=== PATIENT | male | born 1950 | race Caucasian/White ===

== ENCOUNTER → 2018-10-23 12:44 | Outpatient (CLI) | payer MEDICARE, SELFPAY ==
--- NOTE | 2018-10-23 13:00 | RAD_ITS ---
STUDY: SWALLOWING STUDY REASON FOR EXAM: Male, 68 years old. Dysphagia. TECHNIQUE: The examination was performed with Speech Pathology in attendance. Under fluoroscopic observation, the patient ingested thin barium, thick barium, barium pudding, and barium coated cracker. FLUOROSCOPY TIME: 1:17 minutes/seconds. 1202 images were obtained. RADIOLOGIST INVOLVEMENT: Radiologist was present and providing direct supervision. COMPARISON: None. FINDINGS: The following was observed during swallowing of the various mixtures of barium: Thin Barium: There was no evidence of aspiration or laryngeal penetration. Barium Pudding: There was no evidence of aspiration or laryngeal penetration. Barium Coated Cracker: There was no evidence of aspiration or laryngeal penetration. RAD/Swallowing Function w/Video IMPRESSION: Normal tailored barium swallow study. No evidence of increased risk for aspiration. The swallow study findings were discussed with the patient by the speech pathologist at the conclusion of the examination. Please see speech pathology report for more information and recommendations. Electronically Signed: Anam Washington, at 13:31 EDT , Service support ,
--- NOTE | 2018-10-23 13:57 | SP.MBSS_ITS ---
PRIMARY / SECONDARY DIAGNOSIS: Dysphagia (R13.12) REFERRING PHYSICIAN: Dr. Solis Gross CURRENT DIET: Regular Textures/Thin Liquids DENTITION: Upper and lower dentures MENTAL STATUS: WFL RESPIRATORY STATUS: O2 via room air PREVIOUS MODIFIED BARIUM SWALLOW STUDY: N/A REASON FOR REFERRAL: pain with swallowing along with globus sensation MEDICAL HISTORY: GERD, hiatal hernia, diverticulosis, COPD, arthritis, DM2, hyperlipidemia. STUDY FINDINGS: Patient participated in a Modified Barium Swallow (MBS) study on 10/23/2018. Dr. Washington was the radiologist present for this evaluation. This study was recorded in the lateral view and images were sent to PACs for storage. The following consistencies were presented to this patient for analysis of oropharyngeal swallow function: thin liquid, pudding, and a regular textured, Sabina Doone cookie. Results of the MBS are as follows: PENETRATION / ASPIRATION SCALE (ALVAREZ): 1 = does not enter airway 2 = enters airway/above vocal folds/ejected 3 = enters airway/above vocal folds/not ejected 4 = enters airway/contacts vocal folds/ejected 5 = enters airway/contacts vocal folds/not ejected 6 = enters airway/below vocal folds/ejected 7 = enters airway/below vocal folds/not ejected despite effort 8 = enters airway/below vocal folds/no effort PENETRATION / ASPIRATION SCALE (SCORE): 1) thin liquid via tsp= 8 2) thin liquid via tsp= 1 3) thin liquid via single sip small from cup= 2 4) thin liquid via single large from cup= 2 5) thin liquid via sequential sips from cup= 5 6) thin liquid via straw= 2 7) pudding = 1 8) cookie = 1 9) thin liquid via sequential sips from straw= 8 (trace amount) IMPRESSION: mild-moderate oropharyngeal dysphagia (R13.12) ORAL PHASE CHARACTERIZED BY: LABIAL SEAL: no labial escape TONGUE CONTROL DURING BOLUS MANIPULATION: posterior escape of less than half of bolus BOLUS PREPARATION / MASTICATION: disorganized chewing/mashing with solid pieces of bolus unchewed BOLUS TRANSPORT / LINGUAL MOTION: slowed tongue motion ORAL RESIDUE: residue collection on oral structures PHARYNGEAL PHASE CHARACTERIZED BY: INITIATION OF PHARYNGEAL SWALLOW: bolus head in pyriforms at first hyoid excursion SOFT PALATE ELEVATION: no bolus between soft palate and pharyngeal wall LARYNGEAL ELEVATION: partial superior movement of thyroid cartilage/partial approximation of arytenoids cartilage to epiglottic petiole ANTERIOR HYOID EXCURSION: complete anterior movement EPIGLOTTIC MOVEMENT: complete epiglottic inversion LARYNGEAL VESTIBULE CLOSURE AT HEIGHT OF SWALLOW: complete laryngeal vestibule closure with no air/contrast in laryngeal vestibule PHARYNGEAL STRIPPING WAVE: pharyngeal stripping wave present / complete PHARYNGOESOPHAGEAL SEGMENT OPENING: partial distension and partial duration; partial obstruction of flow TONGUE BASE RETRACTION:trace column of contrast between tongue base and posterior pharyngeal wall PHARYNGEAL RESIDUE: trace residue within or on pharyngeal structures ESOPHAGEAL PHASE CHARACTERIZED BY: ESOPHAGEAL BOLUS CLEARANCE IN THE UPRIGHT POSITION: could not view DIET TEXTURE RECOMMENDATIONS: Will recommend a regular textured, thin liquid diet. COMPENSATORY STRATEGIES RECOMMENDED: Will recommend reduced bolus volume and rate, no straws, seated upright at 90 degrees during PO intake, and remain upright for 30-60 minutes post meal (GERD precaution). INTERPRETATION OF RESULTS: Patient presents with mild-moderate oropharyngeal dysphagia (R13.12) secondary to COPD along with age related changes. Oral phase primarily marked by mastication inefficiency with Sabina Doone shortbread cookie and suboptimal lingual control. Premature bolus spillage to pyriforms noted with aspiration prior to actual swallow initiation of first sip of thin liquids with teaspoon. Oral residue noted. Oral discoordination apparent with both solids and sequential sips (via cup and straw). Pharyngeal phase primarily marked by delayed pharyngeal swallow onset timing and reduced laryngeal elevation contributing to penetration of liquids in larger quantities. Moderate amounts of opharyngeal residue noted with partial obstruction of flow at the pharyngoespohageal (PES). Globus sensation reported by the patient likely attributed to history of gastroesophageal reflux. Of note, the patient silently aspirated thin liquids on both the initial teaspoon sip trial and during the final trial of sequential swallows with straw in trace amounts. The patient could benefit from follow up skilled speech therapy intervention 1-2 times or until adequate comprehension demonstrated with dysphagia education and compensatory strategy training. Results and recommendations were discussed with the patient immediately following MBS completion, with the patient verbalizing understanding and agreement with all recommendations and education provided. IMAGE COUNT: 1202 Cristine Driscoll M.A., [facility] Speech Language Pathologist [address] [address] [email or web address] [phone]
== END ==
PROVIDERS: Family Provider Family Medicine; PCP Family Medicine; Referring Provider Family Medicine; Visit Provider Family Medicine
DX: R13.10 Dysphagia, unspecified (principal)
CPT/HCPCS: 74230; 92611

== ENCOUNTER → 2019-03-03 10:26 | Outpatient (CLI) | payer MEDICARE, SELFPAY ==
[2019-03-03 12:26] LABS: Absolute Lymphocyte Count 1.52 X10^3/uL (0.83-4.51); Absolute Neutrophil Count 2.9 X10^3/uL (2.0-7.7); Basophil# 0.06 X10^3/uL; Basophil% 1.1 % (0-1); Eosinophils% 9.1 % (0-5); Hemoglobin 13.3 g/dL (13.0-16.5); Lymphocyte # 1.52 X10^3/ul (4.0); Lymphocyte % 27.7 % (19-41); Mean Corp Hgb Conc 33.3 g/dL (32-36); Mean Corpuscular Volume 87.3 fL (80-94); Mean Platelet Vol. 11.2 fl (6.2-12.0); Monocyte# 0.49 X10^3/uL; Monocyte% 8.9 % (0-10); NRBC Flagged by Analyzer 0 % (0-5); Neutrophil # 2.88 X10^3/uL (2.7-7.7); Neutrophil % 52.5 % (47-70); Platelet Count 215 K/mm3 (150-450); RBC Distribution Width CV 15.7 % (11.6-14.6); RBC Distribution Width SD 47.3 fl (35.1-43.9); Red Blood Count 4.58 M/mm3 (4.6-6.2); White Blood Count 5.5 K/mm3 (4.4-11.0)
[2019-03-03 12:50] LABS: AST(SGOT) 11 U/L (15-37); Alanine Aminotransfer ALT/SGPT 28 U/L (16-61); Albumin, Serum 3.5 g/dL (3.2-5.0); Alkaline Phosphatase 103 U/L (45-117); Bilirubin, Direct 0.15 mg/dL (0.00-0.30); Protein, Total 7.5 g/dL (6.4-8.2)
[2019-03-03 13:39] LABS: HIV - WCH Non-Reactive (Nonreactive); Hepatitis B Surface Antibody Non-Reactive; Hepatitis B Surface Antigen Non-Reactive (Nonreactive); Hepatitis C Antibody Non-Reactive (Nonreactive)
[2019-03-07 03:06] LABS: QNTFERON TB Mitogen Value > 10.00 IU/mL (.); QNTFERON TB Nil Value 0.04 IU/mL (.); QNTFERON TB1+ Ag Value 0.05 IU/mL (.); QNTFERON TB2+ Ag Value 0.05 IU/mL (.)
[2019-03-07 10:05] LABS: Hepatitis B Core Ab Total Negative (Negative); QNTIFERON TB Positive Criteria Negative (Negative)
== END ==
PROVIDERS: Family Provider Family Medicine; PCP Family Medicine; Referring Provider Family Medicine; Visit Provider Family Medicine
DX: L30.9 Dermatitis, unspecified (principal); Z79.899 Other long term (current) drug therapy
CPT/HCPCS: 36415; 80076; 85025; 86480; 86703; 86704; 86706; 86803; 87340

== ENCOUNTER → 2019-09-25 09:08 | Outpatient (CLI) | payer MEDICARE, SELFPAY ==
[2019-09-25 10:36] LABS: Hemoglobin A1c 9.6 % (4.2-6.3)
[2019-09-25 10:47] LABS: Anion Gap 10 (5-15); BUN 21 mg/dL (7-18); BUN/Creat Ratio 14.9 RATIO (10-20); Calcium,Total 10.1 mg/dL (8.5-10.1); Chloride 103 mmol/L (98-107); Cholesterol 121 mg/dL (200); Creatinine, Serum 1.41 mg/dL (0.70-1.30); EST Glomerular Filtration Rate 53 mL/min (>60); Est Glom Filt Rate - Afr Amer 64 mL/min (>60); Glucose 297 mg/dL (74-106); High Density Lipoprotein 32 mg/dL; PSA,Total - Annual Screen 3.44 ng/mL (0.00-4.00); Potassium 3.9 mmol/L (3.5-5.1); Sodium Level 136 mmol/L (136-145); Thyroid Stim Hormone (TSH) 3.07 uIU/mL (0.358-3.74); Triglycerides 218 mg/dL; Very Low Density Lipoprotein 44 mg/dL (5-40)
== END ==
PROVIDERS: PCP Family Medicine; Visit Provider Family Medicine
DX: Z00.00 Encounter for general adult medical examination without abnormal findings (principal); Z12.5 Encounter for screening for malignant neoplasm of prostate; E11.9 Type 2 diabetes mellitus without complications
CPT/HCPCS: 36415; 80048; 80061; 83036; 84153; 84443; G0103

== ENCOUNTER 2019-10-01 06:21 | Observation (INO) | payer MEDICARE, SELFPAY ==
[2019-10-01] VITALS (12 sets, daily range): BP systolic 112–151; BP diastolic 81–124; PULSE 57–112; RESP 14–18; TEMP 36.4–36.7; O2SAT 96–100; BMI 29.7; BMI 28.8; BMI 28.9
--- NOTE | 2019-10-01 07:06 | RAD_ITS ---
STUDY: X-RAY CHEST REASON FOR EXAM: Male, 69 years old. left hand numbness started this morning TECHNIQUE: AP COMPARISON: 02/07/2017 FINDINGS: EKG leads project over the chest. The lungs are clear and expanded. There is no demonstrated pleural abnormality. Symmetric bibasilar nipple shadows noted. Normal size heart. Normal mediastinum and oliva. Normal visualized pulmonary arteries. There is atherosclerotic tortuosity of the aortic arch and descending thoracic aorta. Normal visualized thoracic spine. Normal visualized ribs, clavicles, and shoulders. There is no demonstrated abnormality of the visualized soft tissue structures of the upper abdomen. RAD/Chest 1 View IMPRESSION: Stable, nonacute portable x-ray examination of the chest. Electronically Signed: Rory Arce MD ([place]) at 8:04 EST , Service support ,
--- NOTE | 2019-10-01 07:06 | EKG12_ITS ---
Test Reason : STROKE Blood Pressure : / mmHG Vent. Rate : 080 BPM Atrial Rate : 080 BPM P-R Int : 146 ms QRS Dur : 092 ms QT Int : 372 ms P-R-T Axes : 017 -23 036 degrees QTc Int : 429 ms Normal sinus rhythm Normal ECG Confirmed by HESHAM BLAND, MONA ([id number]), editor & co founder SARABJIT QUIGLEY ([id number]) on 10/02/2019 8:03:59 AM Referred By: Michael Vee Confirmed By:SUZE DAHL MD
--- NOTE | 2019-10-01 07:06 | CT_ITS ---
HISTORY: WEAKNESS, NUMBNESS, LEFT SIDE ADDITIONAL HISTORY: None provided. COMPARISON: None TECHNIQUE: Axial, coronal and sagittal CT images were obtained of the brain without intravenous contrast. Number of images including paperwork: 243. A radiation dose optimization technique was used for this scan. FINDINGS: BRAIN: No acute hemorrhage or mass. No definite acute infarct; MRI more sensitive. White matter hypodensity is nonspecific but most commonly seen with chronic ischemic changes. VENTRICULAR SYSTEM: No hydrocephalus. PARANASAL SINUSES AND MASTOIDS: No air-fluid level in the imaged extent. Complete opacification of the right maxillary sinus which is small in size. Complete opacification of the right frontal sinus. ORBITS: Unremarkable imaged extent. SKELETON AND SOFT TISSUES: Calvarium intact. Postoperative changes of the left inferior orbital rim. ASPECTS score: Not applicable. CT/Brain/Head without Contrast IMPRESSION: No acute intracranial abnormality. Individualized dose optimization techniques were used for this CT. at 0752 Reported and signed by: Ania Carlson MD Electronically Signed: Ania Carlson MD at 7:52 EST Tel , Service support ,
--- NOTE | 2019-10-01 07:15 | NURSING ---
CALLED [facility]. TALKED TO CHELSEY ABOUT PATIENT INFO. DR CALDWELL TALKING NOW TO THEM
[2019-10-01 07:30] LABS: Bedside Glucose 237 mg/dL (70-110)
[2019-10-01 07:31] LABS: Absolute Lymphocyte Count 1.99 X10^3/uL (0.83-4.51); Absolute Neutrophil Count 5.9 X10^3/uL (2.0-7.7); Basophil# 0.01 X10^3/uL; Basophil% 0.1 % (0-1); Eosinophil# 0.09 X10^3/uL; Hematocrit 42.9 % (40-54); Hemoglobin 14.4 g/dL (13.0-16.5); Lymphocyte # 1.99 X10^3/ul (4.0); Lymphocyte % 22.6 % (19-41); Mean Corp Hgb Conc 33.6 g/dL (32-36); Mean Corpuscular Hgb 28.3 pg (27.0-32.0); Mean Corpuscular Volume 84.3 fL (80-94); Mean Platelet Vol. 10.2 fl (6.2-12.0); Monocyte# 0.63 X10^3/uL; Monocyte% 7.2 % (0-10); NRBC Flagged by Analyzer 0 % (0-5); Neutrophil # 5.91 X10^3/uL (2.7-7.7); Neutrophil % 67.3 % (47-70); Platelet Count 247 K/mm3 (150-450); RBC Distribution Width CV 15.3 % (11.6-14.6); RBC Distribution Width SD 46.2 fl (35.1-43.9); Red Blood Count 5.09 M/mm3 (4.6-6.2); White Blood Count 8.8 K/mm3 (4.4-11.0)
[2019-10-01] MEDS: 0.9% Normal Saline 1,000 ML 100 ML IV (07:32)
[2019-10-01 07:49] LABS: Anion Gap 9 (5-15); BUN 25 mg/dL (7-18); BUN/Creat Ratio 18.8 RATIO (10-20); Calcium,Total 9.3 mg/dL (8.5-10.1); Chloride 103 mmol/L (98-107); Creatinine, Serum 1.33 mg/dL (0.70-1.30); EST Glomerular Filtration Rate 56 mL/min (>60); Est Glom Filt Rate - Afr Amer 68 mL/min (>60); Estimated Creatinine Clearance 54.26 ml/min; Glucose 227 mg/dL (74-106); Potassium 3.6 mmol/L (3.5-5.1); Sodium Level 136 mmol/L (136-145)
[2019-10-01 07:59] LABS: Prothrombin Time (Protime)PT. 12.8 SECONDS (11.7-14.9)
[2019-10-01 08:00] LABS: Partial Thromboplast Time 23.8 Seconds (24.1-36.2)
--- NOTE | 2019-10-01 08:53 | ED.VIS.GEN ---
History of Present Illness Chief Complaint: Numb/Ting Informant: Patient Onset: Today Current Severity: Mild Maximum Severity: Mild Narrative: Patient states he woke at 345 this morning with numbness in his left hand. He states he went to bed at midnight last night and it seemed to be okay at that time. He initially thought he just slept wrong on it so we waited until 5 AM and when it did not resolve called EMS. Patient states he had a friend with similar symptoms who had a stroke and he was concerned. Patient also states he has a history of an NE and at that time his primary symptom was numbness in his left hand. He states he may have had a slight tenderness in his left shoulder. He thinks he may have had a slight twinge of pain in his shoulder this morning but is not sure. Patient denies chest pain or shortness of breath at this time. He denies weakness in his left arm. - Past Medical History (1) Myocardial infarction Status: Chronic (2) Diabetes Status: Chronic (3) Hypertension Status: Chronic (4) High cholesterol Status: Chronic (5) GERD (gastroesophageal reflux disease) Status: Chronic Past Medical History - Allergies and Home Meds Allergies/Adverse Reactions: Allergies No Known Allergies Allergy (Verified 08/02/16 08:46) Primary Care Physician: Solis Gross MD [Primary Care Provider] - Prior records reviewed: Yes Lives: Alone Smoking Status: Never smoker Review of Systems General: Denies: Chills, Fever Eyes: Denies: Visual changes - bilaterally ENT: Denies: Bilateral ear pain Cardiovascular: Denies: Chest pain, Palpitations Respiratory: Denies: Dyspnea, Cough Gastrointestinal: Denies: Abdominal pain, Nausea, Vomiting, Diarrhea Musculoskeletal: Denies: Extremity Pain Skin: Denies: Rash Neurological: Reports: Parasthesia Hematologic: Denies: Easy bruising Allergy: Denies: Uticaria Physical Exam Vital Signs/Narrative: Vital Signs Temp Pulse Resp BP Pulse Ox 10/01/19 07:06 77 14 119/87 H 97 10/01/19 06:25 77 18 137/87 H 99 10/01/19 06:23 98.0 F 78 18 151/124 H 98 Inital Vital Signs reviewed: Yes General: Well nourished, Well developed Head: Normocephalic ENT: Moist mucous membranes Neck: Supple Cardiovascular: Regular rate, Regular rhythm Respiratory: No distress, CTA bilaterally Abdomen: Soft, Nontender, Normal bowel sounds Back: Nontender Extremities: Nontender Skin: Normal color, No rash Neurological: Alert, Oriented x3, - - NIH score equals 1. He does have decreased sensation to light touch on the fingertips to the left hand as well as in the left leg. Patient does have weakness with push/pull of his left arm, however has no drift. Psychological: Normal affect Diagnostic/Tx/Re-eval Impressions Brain CT 10/01/19 07:06 IMPRESSION: No acute intracranial abnormality. Individualized dose optimization techniques were used for this CT. at 0752 Reported and signed by: Ania Carlson MD Electronically Signed: Ania Carlson MD at 7:52 EST Tel , Service support , Chest X-Ray 10/01/19 07:06 IMPRESSION: Stable, nonacute portable x-ray examination of the chest. Electronically Signed: Rory Arce MD ([place]) at 8:04 EST , Service support , Head/Neck CTA 10/01/19 09:16 IMPRESSION: 1. No intracranial large vessel occlusion. No intracranial aneurysm. 2. No carotid artery dissection or hemodynamically significant stenosis (minimal bilateral carotid bulb atherosclerosis; less than 25% stenosis). Electronically Signed: Rory Arce MD ([place]) at 9:59 EST , Service support , 10/01/19 07:06 Brain/Head without Contrast [CT] Stat Chest 1 View [RAD] Stat 10/01/19 09:16 CTA Head AND Neck W/ Contrast [CT] Stat Laboratory Results 10/01/19 10/01/19 10/01/19 07:18 07:25 07:25 WBC 8.8 RBC 5.09 Hgb 14.4 Hct 42.9 MCV 84.3 MCH 28.3 MCHC 33.6 RDW Std Deviation 46.2 H RDW Coeff of Esperanza 15.3 H Plt Count 247 MPV 10.2 Immature Gran % (Auto) 1.800 H Neut % (Auto) 67.3 Lymph % (Auto) 22.6 Dyer % (Auto) 7.2 Eos % (Auto) 1.0 Baso % (Auto) 0.1 Absolute Neuts (auto) 5.9 Absolute Lymphs (auto) 1.99 Nucleated RBC % 0 PT 12.8 INR 1.0 APTT 23.8 L Sodium Potassium Chloride Carbon Dioxide Anion Gap BUN Creatinine Estim Creat Clear Calc Est GFR (MDRD) Af Amer Est GFR (MDRD) Non-Af BUN/Creatinine Ratio Glucose Calcium Troponin I POC Glucose 237 H 10/01/19 07:25 WBC RBC Hgb Hct MCV MCH MCHC RDW Std Deviation RDW Coeff of Esperanza Plt Count MPV Immature Gran % (Auto) Neut % (Auto) Lymph % (Auto) Dyer % (Auto) Eos % (Auto) Baso % (Auto) Absolute Neuts (auto) Absolute Lymphs (auto) Nucleated RBC % PT INR APTT Sodium 136 Potassium 3.6 Chloride 103 Carbon Dioxide 24.0 Anion Gap 9 BUN 25 H Creatinine 1.33 H Estim Creat Clear Calc 54.26 Est GFR (MDRD) Af Amer 68 Est GFR (MDRD) Non-Af 56 L BUN/Creatinine Ratio 18.8 Glucose 227 H Calcium 9.3 Troponin I < 0.015 POC Glucose - EKG Initial EKG Interpretation: Sinus Rhythm - Sinus rhythm at 80 bpm. No acute ischemia. - Medical Decision Making Patient's NIH is 1. I spoke with the stroke neurologist in the phone shortly after evaluation as the patient has a very low NIH and does have concern for cardiac issues as well. She agrees the patient is outside the window for any TPA. She recommended stroke work-up including CTAs of the head and neck as well as cardiac evaluation. If there is large vessel occlusion, which is not likely given the low NIH, he could be transferred for further care. On repeat evaluation patient is resting comfortably. He states his hand still is not right. He will be sent for CTA of the head and neck at this time. CTA head and neck returned with no evidence of large vessel occlusion. On repeat evaluation patient continues to have symptoms. I will discuss case with hospitalist for further stroke work-up. ED Disposition - Plan for ED Patient: Disposition: Acute Care Hospital [facility] Diagnosis: Paresthesias in left hand Referrals: Solis Gross MD [Primary Care Provider] -
--- NOTE | 2019-10-01 09:16 | CT_ITS ---
STUDY: CTA HEAD AND NECK WITH CONTRAST REASON FOR EXAM: Male, 69 years old. LEFT HAND TINGLING, WEAKNESS, NUMBNESS RADIATION DOSAGE (If Supplied By Facility): CTDIvol = ( 23.61 ) mGy, DLP = ( 697.51 ) mGycm TECHNIQUE: CT angiography was performed with a multi-detector CT scanner. Data acquisition was obtained from the skull base through the vertex following intravenous administration of 100CC ISOVUE 370. MIP images were reconstructed from the axial data set. Post-processing of the angiographic images was performed, with multiplanar reformation and 3D reconstruction. Degree of stenosis (when present) measured utilizing NASCET criteria. Individualized dose optimization techniques were used for this CT. COMPARISON: No relevant priors. FINDINGS: Normal bilateral petrous carotid arteries. There is calcified plaque formation of the right cavernous carotid artery, without a cross-sectional luminal stenosis. Normal left cavernous carotid artery with a normal supraclinoid bifurcation. Normal right A1 segments of the anterior cerebral artery. Normal left A1 segments of the anterior cerebral artery. Normal intact anterior communicating artery (ACOM). Normal bilateral A2 segments of the anterior cerebral arteries. Normal right M1 and M2 segments of the middle cerebral arteries, with a normal M1 bifurcation. Normal left M1 and M2 segments of the middle cerebral arteries, with a normal M1 bifurcation. Normal right posterior communicating artery (PCOM). Normal left posterior communicating artery (PCOM). Normal bilateral vertebral arteries. Normal basilar artery with a normal basilar bifurcation. The visualized bilateral superior cerebellar (SCA) arteries are normal. Normal bilateral P1, P2 and visualized P3 segments of the posterior cerebral arteries. There is no demonstrated aneurysm of the [place]. There is no demonstrated abnormality of the visualized brain. AORTIC ARCH: Mild atherosclerosis of the aortic arch. Normal origins of the brachiocephalic, left common carotid, and left subclavian arteries. RIGHT CAROTID ARTERIES: Normal right common carotid artery (CCA). There is mild atherosclerotic plaque formation with minimal narrowing of the right carotid bulb. Normal origin of the right internal carotid (ICA) artery without a hemodynamically significant stenosis. Normal visualized cervical portion of the right internal carotid artery. Normal origin of the right external carotid artery (ECA). LEFT CAROTID ARTERIES: Normal left common carotid artery (CCA). There is mild atherosclerotic plaque formation with minimal narrowing of the left carotid bulb. Normal origin of the left internal carotid (ICA) artery without a hemodynamically significant stenosis. Normal visualized cervical portion of the left internal carotid artery. Normal origin of the left external carotid artery (ECA). VERTEBRAL ARTERIES: Normal bilateral vertebral arteries. Left vertebral artery arises from the aortic arch, normal variant. Intracranial contents and paranasal sinuses described on head CT from earlier today. Rightward deviation of the nasal septum. CT/CTA Head AND Neck W/ Contrast IMPRESSION: 1. No intracranial large vessel occlusion. No intracranial aneurysm. 2. No carotid artery dissection or hemodynamically significant stenosis (minimal bilateral carotid bulb atherosclerosis; less than 25% stenosis). Electronically Signed: Rory Arce MD ([place]) at 9:59 EST , Service support ,
--- NOTE | 2019-10-01 10:18 | NURSING ---
DR DREW FOR DR CALDWELL
--- NOTE | 2019-10-01 10:21 | EKG12_ITS ---
Test Reason : REPEAT EKG Blood Pressure : / mmHG Vent. Rate : 069 BPM Atrial Rate : 069 BPM P-R Int : 158 ms QRS Dur : 086 ms QT Int : 378 ms P-R-T Axes : 030 -24 026 degrees QTc Int : 405 ms Normal sinus rhythm Inferior infarct , age undetermined Abnormal ECG Confirmed by HESHAM BLAND, MONA ([id number]), editor house organ SARABJIT QUIGLEY ([id number]) on 10/02/2019 8:03:16 AM Referred By: Michael Vee Confirmed By:SUZE DAHL MD
--- NOTE | 2019-10-01 10:31 | NURSING ---
120 HAND PARATHESIA RAJENDRA
--- NOTE | 2019-10-01 11:17 | MRI_ITS ---
STUDY: MRI BRAIN WITHOUT CONTRAST REASON FOR EXAM: Male, 69 years old. L hand numbness TECHNIQUE: Standardized multiplanar fat and water weighted pulse sequences were obtained. COMPARISON: CT earlier today FINDINGS: There is mild cerebral atrophy with widening of the extra-axial spaces and ventricular dilatation. There are a limited number of small white matter hyperintensities, distributed throughout the deep white matter tracts of the cerebral hemispheres, consistent with mild chronic white matter ischemic changes. X-ray There is no evidence for recent intracranial ischemia or other cause of cytotoxic edema on diffusion weighted imaging (DWI). Normal T2* images of the brain without demonstrated susceptibility artifact. There is no demonstrated hemosiderin stain. Normal bilateral basal ganglia. Normal thalami. There is no extra-axial fluid accumulation. Normal flow voids within the major intracranial circulation suggesting patency by spin echo criteria. Normal sella turcica, pituitary gland, infundibular stalk, optic chiasm and hypothalamus. Normal tectal plate and pineal gland. Normal midbrain, joe and medulla. Normal cerebellum. Normal basal cisterns. Normal bilateral temporal bones. Normal bilateral internal auditory canals. There is an ocular lens implant the left globe. Normal right globe. The intraorbital contents otherwise are normal. Opacification the right frontal and maxillary sinuses consistent with chronic sinusitis. Normal calvarium and skull base. Normal visualized soft tissue structures. Normal visualized upper cervical spine. MRI/Brain without Contrast IMPRESSION: Involutional changes of the brain, as described above. No acute infarct. Electronically Signed: Juan M Varela MD at 13:33 EST Tel , Service support ,
--- NOTE | 2019-10-01 12:28 | PCM.HP.STD ---
Problem List (1) Paresthesias in left hand Status: Acute History of Present Illness Date of Admission: 10/01/19 Chief Complaint: Left hand paresthesias The patient is a 69 year old M who was seen in the emergency room at [facility] with chief complaint of numbness in his left hand. Patient states that he can feel his left hand and he has no weakness in his left hand but his left hand feels slightly numb as compared to his right hand. Patient is worried because he had similar numbness in his left hand when he had his heart attack in the past and he is also worried that he might of had a stroke. Patient has no other focal weakness, numbness, and he does not complain of any chest pain or shortness of breath. Patient states this numbness in his left hand started approximately 3:45 AM and he noticed it when he got up to use the bathroom. Work-up in the emergency room included an EKG which showed no evidence of any ischemic changes, patient's chest x-ray was unremarkable, patient's troponin was unremarkable, patient's CBC was normal. Patient's creatinine was elevated at 1.33, BUN was 25. Patient's glucose was elevated at 237. Patient had a CT of his brain as well as a CTA of his head and neck all of which were unremarkable for stroke or significant stenosis in the arteries. Patient had a second set of troponins that was drawn in the emergency room before he was placed into observation status on PCU, the second set was also normal. He was placed into observation status on PCU, he will have an MRI of his brain, I will also do 1 more set of enzymes early this afternoon. Past Medical History Past Medical History (Chronic Problems): Chronic Problems Myocardial infarction (Chronic) Diabetes (Chronic) Hypertension (Chronic) High cholesterol (Chronic) GERD (gastroesophageal reflux disease) (Chronic) Allergies No Known Allergies Allergy (Verified 08/02/16 08:46) Home Medications: Ambulatory Orders Medication Instructions Recorded Aspirin [Adult Low Dose Aspirin EC] 81 mg PO DAILY 05/10/16 Glyburide 5 mg PO DAILY 05/10/16 Hydrochlorothiazide [Hctz] 12.5 mg PO DAILY 05/10/16 Lisinopril [Zestril] 10 mg PO DAILY 05/10/16 Metformin HCl [Metformin HCl ER] 1,000 mg PO BID 05/10/16 Metoprolol Tartrate [Lopressor 50 mg PO DAILY 05/10/16 (beta nolberto)] Multivitamin [Daily Multiple 1 each PO DAILY 05/10/16 Vitamin] Simvastatin [Zocor] 40 mg PO QHS 05/10/16 Vit C/E/Zn/Coppr/Lutein/Zeaxan 1 each PO DAILY 05/10/16 [Preservision Areds 2 Softgel] Omeprazole 40 mg PO DAILY #90 capsule. 06/04/16 Tamsulosin HCl 0.4 mg PO DAILY 10/01/19 Surgical History: cataract, tonsillectomy, - - Coronary artery stent placement x3, hiatal hernia repair Lives: Alone Smoking Status: Never smoker Tobacco Use: Non-smoker Alcohol: Rare Drugs: None - *Family History Maternal History Items: Heart Disease - at age 94 Paternal History Items: - - from a farm accident Review of Systems Constitutional: Denies: Anorexia, Chills, Fever, Night Sweats, Malaise, Weakness, Weight Change Eyes: Denies: Cataracts, Double vision, Drainage, Redness, Vision Change HEENT: Denies: Difficulty Swallowing, Dysphasia, Ear Pain, Eye Pain, Head Aches, Hearing Changes, Nasal bleeding, Nasal Congestion, Post Nasal Drip Cardiovascular: Denies: Chest Pain, Claudication, Chest Pressure, Chest Tightness, Edema, Heaviness, Orthopnea, Palpitations, Paroxysmal Noc. Dyspnea Respiratory: Denies: Cough, Hemoptysis, Pleuritic Pain, Shortness of Breath, Shortness of breath at rest, Shortness of breath upon exertion, Sputum production, Wheezing Gastrointestinal: Denies: Abdominal Pain, Constipation, Diarrhea, Hematemesis, Hematochezia, Nausea, Melena, Vomiting Genitourinary: Denies: Dysuria, Frequency, Hematuria, Hesitancy, Urgency Musculoskeletal: Denies: Back Pain, Foot Pain, Hand Pain, Joint Pain, Joint stiffness, Joint swelling, Joint Tenderness, Leg Pain Skin: Denies: Dryness, Jaundice, Pruritis, Rash Neurological: Reports: Numbness - Numbness in his left hand as outlined in chief complaint. Denies: Balance problems, Blurred vision, Double vision, Slurred speech, Difficulty swallowing, Focal weakness, Headaches, Tingling Psychiatric: Denies: Anxiety, Depression, Homicidal Ideations, Suicidal Ideations Endocrine: Denies: Change in Body Habitus, Heat/ Cold Intolerance, Polydipsia, Polyuria Hematologic/ Lymphatic: Denies: Adenopathy, Anemia, Easy Bruising, Easy Bleeding, Petechiae, Purpura VTE Information - Inpt Only VTE Present on Admission: No VTE Mechan Device Prophylaxis: None VTE Pharm Prophylaxis ordered?: No Reason prophylaxis not ordered:: Treatment Not Indicated Patient Problems: Active and Suspected Problems Paresthesias in left hand (Acute) - Physical Exam Vitals/I&O's: Vital Signs Temp Pulse Resp BP Pulse Ox 97.5 F L 57 L 16 121/81 H 100 10/01/19 11:02 10/01/19 11:05 10/01/19 11:02 10/01/19 11:02 10/01/19 11:02 Oxygen Delivery Method Room Air Weight: 96.6 kg Body Mass Index (BMI) 28.8 Finger Stick Blood Glucose 237 Intake and Output for Last 24 Hours 09/29/19 09/30/19 10/01/19 23:59 23:59 23:59 Intake Total 1000 / 1000 Balance 1000 / 1000 General: Alert, Oriented x3, Cooperative, No apparent distress, Well developed HEENT: Atraumatic, PERRLA, EOMI, Normocephalic Oral: Moist Mucosa Neck: Supple, No JVD, Negative Carotid Bruits, Trachea Midline, Thyroid Normal Size and Texture Lungs: Clear to auscultation, Normal air movement, No rhonchi, No wheeze, No rales Cardiovascular: Regular rate, Regular Rhythm, Normal S1, Normal S2, No murmurs, PMI Normal, No rub noted, No Gallop Abdomen: Bowel Sounds Present, Soft, Non Tender, Non-Distended Extremities: No clubbing, No cyanosis, No edema, Capillary Refill Less than 3 Seconds Skin: No rashes, No breakdown Musculoskeletal: No Tenderness to Palpation of Joints or Extremities Neurological: Cranial nerves II-XII grossly intact, Neuro grossly intact, Motor Exam 5/5 strength throughout, Muscle tone normal, Sensory exam intact to light touch and pain, Coordination normal Psych/Mental Status: Normal Affect, Appropriate, Alert and oriented to time, place, person, mood and affect Laboratory Results 10/01/19 07:18: POC Glucose 237 H 10/01/19 07:25: WBC 8.8, RBC 5.09, Hgb 14.4, Hct 42.9, MCV 84.3, MCH 28.3, MCHC 33.6, RDW Std Deviation 46.2 H, RDW Coeff of Esperanza 15.3 H, Plt Count 247, MPV 10.2, Immature Gran % (Auto) 1.800 H, Neut % (Auto) 67.3, Lymph % (Auto) 22.6, [place] % (Auto) 7.2, Eos % (Auto) 1.0, Baso % (Auto) 0.1, Absolute Neuts (auto) 5.9, Absolute Lymphs (auto) 1.99, Nucleated RBC % 0 10/01/19 07:25: PT 12.8, INR 1.0, APTT 23.8 L 10/01/19 07:25: Sodium 136, Potassium 3.6, Chloride 103, Carbon Dioxide 24.0, Anion Gap 9, BUN 25 H, Creatinine 1.33 H, Estim Creat Clear Calc 54.26, Est GFR (MDRD) Af Amer 68, Est GFR (MDRD) Non-Af 56 L, BUN/Creatinine Ratio 18.8, Glucose 227 H, Calcium 9.3, Troponin I < 0.015 10/01/19 10:30: Troponin I < 0.015 Current Medications Acetaminophen (Tylenol) 650 mg PO Q6H PRN PRN PRN Reason: Pain Score 1-10/Temp > 100.7 F Sodium Chloride () 1,000 mls @ 100 mls/hr IV .Q10H ONE Stop: 10/01/19 17:05 Last Infusion: 10/01/19 10:37 Dose: Infused Documented by: Sodium Chloride () 10 - 40 ml IV UD PRN PRN Reason: SALINE FLUSH Assessment/Plan All Active Problems Paresthesias in left hand (Acute) #1 paresthesias of the left hand-etiology unclear, patient was placed in observation status on PCU, he will undergo an MRI of the brain, I will do a third set of cardiac enzymes to rule out [place] #2 coronary artery disease-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
--- NOTE | 2019-10-01 16:18 | DCINST_ITS ---
- Discharge Diagnoses Current Active Problems: Current Active and Chronic Problems Myocardial infarction (Chronic) Diabetes (Chronic) Hypertension (Chronic) High cholesterol (Chronic) GERD (gastroesophageal reflux disease) (Chronic) Paresthesias in left hand (Acute) You will use the following diet at home:: Calorie/Carbohydrate Controlled (specify 1200, 1400, etc) - 1800 any Your food should be the consistency of: Regular Your liquids should be the consistency of: Regular/Thin Discharge Activity: Return to Normal Activity Weight Bearing Status: Full weight bearing Allergies/Adverse Reactions: Allergies No Known Allergies Allergy (Verified 08/02/16 08:46) Medications to take at Discharge Aspirin [Adult Low Dose Aspirin EC] 81 mg PO DAILY 05/10/16 Glyburide 5 mg PO DAILY 05/10/16 Hydrochlorothiazide [Hctz] 12.5 mg PO DAILY 05/10/16 Lisinopril [Zestril] 10 mg PO DAILY 05/10/16 Metformin HCl [Metformin HCl ER] 1,000 mg PO BID 05/10/16 Metoprolol Tartrate [Lopressor (beta nolberto)] 50 mg PO DAILY 05/10/16 Multivitamin [Daily Multiple Vitamin] 1 each PO DAILY 05/10/16 Simvastatin [Zocor] 40 mg PO QHS 05/10/16 Vit C/E/Zn/Coppr/Lutein/Zeaxan [Preservision Areds 2 Softgel] 1 each PO DAILY 05/10/16 Omeprazole 40 mg PO DAILY #90 capsule. 06/04/16 Tamsulosin HCl 0.4 mg PO DAILY 10/01/19 Primary Care Physician: Solis Gross MD [Primary Care Provider] - Please follow up with your Primary Care Physician in: next week Test Results: Test results from this visit will be discussed in further detail at your follow- up appointment, if applicable.
--- NOTE | 2019-10-01 18:56 | PCM.DC.SUM ---
Discharge Date and Diagnosis Date of Admission: 10/01/19 Date of Discharge: 10/01/19 - Primary Discharge Diagnosis #1 paresthesia of the left hand-etiology unknown #2 coronary artery disease #3 type 2 diabetes #4 chronic kidney disease stage III secondary to type 2 diabetes #5 essential hypertension #6 hyperlipidemia - Secondary Discharge Diagnosis Chronic Problems Myocardial infarction (Chronic) Diabetes (Chronic) Hypertension (Chronic) High cholesterol (Chronic) GERD (gastroesophageal reflux disease) (Chronic) Hospital Course and Treatment Imaging Results: 10/01/19 11:17 Brain without Contrast [MRI] Stat Operations: None Procedures: None Summary of Care Provided: The patient is a 69 year old M who was seen in the emergency room at [facility] with a chief complaint of paresthesias in his left hand. Work-up was done in the emergency room including a CT of the head and neck, brain CT, EKG, and troponin all of which were unremarkable. Patient complained that when he had a heart attack in the past, he had a left hand numbness and he was concerned about this. Patient was placed into observation status on PCU, an MRI of the brain without contrast was obtained which showed no evidence of acute stroke. Patient also had serial enzymes cycled x2 and these remain negative. The exact etiology of the patient's left hand paresthesias was unknown, he was instructed to follow-up with his PCP as an outpatient for further work-up with his symptoms warranted it. On 10/01/2019, patient was seen and examined: On examination he appeared in good health and spirits. Vital signs as documented. Skin warm and dry and without overt rashes. Neck without JVD. Lungs clear. Heart exam notable for regular rhythm, normal sounds and absence of murmurs, rubs or gallops. Abdomen unremarkable and without evidence of organomegaly, masses, or abdominal aortic enlargement. Extremities nonedematous. Neuro: Cranial nerves II through XII are grossly intact, no focal motor deficits were noted, sensation to light touch and pinprick intact. Psych: Patient is alert and oriented x3, he does not appear anxious or depressed On 10/01/2019, patient was seen and examined and felt to be stable for discharge home. - Physical Exam Vitals/I&O's: Vital Signs Temp Pulse Resp BP Pulse Ox 97.5 F L 112 H 16 121/81 H 100 10/01/19 11:02 10/01/19 15:00 10/01/19 11:02 10/01/19 11:02 10/01/19 11:02 Oxygen Delivery Method Room Air Weight: 96.6 kg Body Mass Index (BMI) 28.8 Finger Stick Blood Glucose 237 Intake and Output for Last 24 Hours 09/29/19 09/30/19 10/01/19 23:59 23:59 23:59 Intake Total 1000 / 1000 Balance 1000 / 1000 Laboratory Results 10/01/19 07:18: POC Glucose 237 H 10/01/19 07:25: WBC 8.8, RBC 5.09, Hgb 14.4, Hct 42.9, MCV 84.3, MCH 28.3, MCHC 33.6, RDW Std Deviation 46.2 H, RDW Coeff of Esperanza 15.3 H, Plt Count 247, MPV 10.2, Immature Gran % (Auto) 1.800 H, Neut % (Auto) 67.3, Lymph % (Auto) 22.6, [place] % (Auto) 7.2, Eos % (Auto) 1.0, Baso % (Auto) 0.1, Absolute Neuts (auto) 5.9, Absolute Lymphs (auto) 1.99, Nucleated RBC % 0 10/01/19 07:25: PT 12.8, INR 1.0, APTT 23.8 L 10/01/19 07:25: Sodium 136, Potassium 3.6, Chloride 103, Carbon Dioxide 24.0, Anion Gap 9, BUN 25 H, Creatinine 1.33 H, Estim Creat Clear Calc 54.26, Est GFR (MDRD) Af Amer 68, Est GFR (MDRD) Non-Af 56 L, BUN/Creatinine Ratio 18.8, Glucose 227 H, Calcium 9.3, Troponin I < 0.015 10/01/19 10:30: Troponin I < 0.015 10/01/19 14:17: Troponin I < 0.015 Discharge Activity: Return to Normal Activity Weight Bearing Status: Full weight bearing Home Medications: Medications to take at Discharge Aspirin [Adult Low Dose Aspirin EC] 81 mg PO DAILY 05/10/16 Glyburide 5 mg PO DAILY 05/10/16 Hydrochlorothiazide [Hctz] 12.5 mg PO DAILY 05/10/16 Lisinopril [Zestril] 10 mg PO DAILY 05/10/16 Metformin HCl [Metformin HCl ER] 1,000 mg PO BID 05/10/16 Metoprolol Tartrate [Lopressor (beta nolberto)] 50 mg PO DAILY 05/10/16 Multivitamin [Daily Multiple Vitamin] 1 each PO DAILY 05/10/16 Simvastatin [Zocor] 40 mg PO QHS 05/10/16 Vit C/E/Zn/Coppr/Lutein/Zeaxan [Preservision Areds 2 Softgel] 1 each PO DAILY 05/10/16 Omeprazole 40 mg PO DAILY #90 capsule. 06/04/16 Tamsulosin HCl 0.4 mg PO DAILY 10/01/19 Primary Care Physician: Solis Gross MD [Primary Care Provider] - Please follow up with your Primary Care Physician in: next week Disposition: Home Minutes spent on discharge:: 30 Patient Condition:: Stable Medical Necessity - Tobacco Use Smoking Status: Never smoker Tobacco Use: Non-smoker Meaningful Use Info Meaningful Use Diagnoses (Choose all that apply): None applicable OBSV E&M: 63161 Observ/hosp same date L3
== END 2019-10-01 16:18 | disposition home or self-care (01) ==
LOC: ED 10:22 → PCU 10:30
PROVIDERS: Admitting Provider Internal Medicine; Emergency Provider Emergency Medicine; PCP Family Medicine; Referring Provider Internal Medicine; Visit Provider Internal Medicine
DX: R20.2 Paresthesia of skin (principal); R20.0 Anesthesia of skin; I25.10 Atherosclerotic heart disease of native coronary artery without angina pectoris; E11.22 Type 2 diabetes mellitus with diabetic chronic kidney disease; N18.3 Chronic kidney disease, stage 3 (moderate); I12.9 Hypertensive chronic kidney disease with stage 1 through stage 4 chronic kidney disease, or unspecified chronic kidney disease; E78.5 Hyperlipidemia, unspecified; K21.9 Gastro-esophageal reflux disease without esophagitis; Z79.899 Other long term (current) drug therapy; Z79.84 Long term (current) use of oral hypoglycemic drugs; Z79.82 Long term (current) use of aspirin; I25.2 Old myocardial infarction
CPT/HCPCS: 36415; 70450; 70496; 70498; 70551; 71045; 80048; 82962; 84484; 85025; 85610; 85730; 93005; 96360; 96361; 99218; 99285; Q9967; A4216; G0378

== ENCOUNTER → 2020-05-18 15:40 | Outpatient (CLI) | payer MEDICARE, SELFPAY ==
[2019-10-01 11:05] VITALS: BMI 28.8
== END ==
PROVIDERS: PCP Family Medicine; Referring Provider Family Medicine; Visit Provider Family Medicine
DX: B34.9 Viral infection, unspecified (principal)
CPT/HCPCS: 87635; U0003

== ENCOUNTER 2020-05-31 14:17 | Inpatient (IN) | payer MEDICARE, SELFPAY ==
[2019-10-01 11:05] VITALS: BMI 28.8
[2020-05-31] VITALS (11 sets, daily range): BP systolic 97–132; BP diastolic 51–98; PULSE 86–110; RESP 18–22; TEMP 35.9–36.8; O2SAT 94–99; BMI 26.4; BMI 24.3
--- NOTE | 2020-05-31 14:35 | EKG12_ITS ---
Test Reason : SOB Blood Pressure : / mmHG Vent. Rate : 108 BPM Atrial Rate : 108 BPM P-R Int : 144 ms QRS Dur : 082 ms QT Int : 350 ms P-R-T Axes : 030 -27 064 degrees QTc Int : 469 ms Sinus tachycardia with Premature supraventricular complexes Otherwise normal ECG Confirmed by ASAF BLAND, LINO ([id number]), acquisitions editor JUSTA SEARS ([id number]) on 06/02/2020 11:28:10 AM Referred By: ROCIO Confirmed By:LINO RON MD
--- NOTE | 2020-05-31 14:36 | ED.DCSUM_ITS ---
History of Present Illness Chief Complaint: Cough Informant: Patient Narrative: 69-year-old male presents to the emergency department via EMS with a chief complaint of weakness. Tells me about 2 weeks ago (05/18) he was diagnosed with coronavirus. He continues to feel short of breath. He states he is now coughing up red pieces of his lung. He states that he is globally weak and can barely move around his residence. He states he has been trying to drink Powerade. He has been experiencing some muscle cramps. He notes very little urine output. He feels his mouth is dry. He states he has not had fever for several days. No diarrhea. His loss of taste is still present. Patient denies any falls. Patient also states that he is having thoughts of shooting himself. He states that is in the back of his head. He does not like living alone and his current living situation. He does state that he is not actively suicidal. He states he cannot care for himself anymore. He has been losing weight. He would like to move to assisted living. - Past Medical History (1) Diabetes Status: Chronic (2) GERD (gastroesophageal reflux disease) Status: Chronic (3) High cholesterol Status: Chronic (4) Hypertension Status: Chronic (5) Myocardial infarction Status: Chronic Past Medical History - Allergies and Home Meds Allergies/Adverse Reactions: Allergies No Known Allergies Allergy (Verified 05/31/20 15:16) Primary Care Physician: Solis Gross MD [Primary Care Provider] - Prior records reviewed: Yes Surgical History: noncontributory, cataract, tonsillectomy, - - Coronary artery stent placement x3, hiatal hernia repair Lives: Alone Smoking Status: Never smoker - Family History Paternal Family History: Reports: - - from a farm accident Maternal Family History: Reports: Heart Disease - at age 94 Review of Systems General: Reports: Malaise. Denies: Chills, Fever, Sweats Eyes: Denies: Visual changes - bilaterally, Diplopia ENT: Denies: Rhinorrhea, Sore throat Cardiovascular: Reports: Chest pain. Denies: Palpitations Respiratory: Reports: Dyspnea, Cough. Denies: Dyspnea on exertion Gastrointestinal: Reports: Nausea. Denies: Abdominal pain, Vomiting, Diarrhea, Melena, Hematochezia Genitourinary: Reports: - - Decreased urinary output. Denies: Dysuria, Hematuria, Frequency Musculoskeletal: Reports: Myalgias. Denies: Back pain, Extremity Pain Skin: Denies: Rash, Wounds Neurological: Reports: Headache. Denies: Weakness, Numbness Psych: Reports: Depression, Suicidal thoughts, Suicidal ideations Physical Exam Vital Signs/Narrative: Vital Signs Temp Pulse Resp BP Pulse Ox 05/31/20 14:25 97.3 F L 110 H 21 H 116/98 H 96 05/31/20 14:19 97.3 F L 110 H 21 H 116/98 H 94 Inital Vital Signs reviewed: Yes General: Well nourished, Well developed, No Acute Distress, - - Patient appears clinically weak. He is unable to assist in transfer to the bed or ambulation. Head: Normocephalic, Atraumatic Eyes: Perrl, EOMI ENT: No rhinorrhea, Dry mucous membranes Neck: Supple, Nontender Cardiovascular: Regular rate, No murmurs, Tachycardia Respiratory: No distress, CTA bilaterally, Chest nontender Abdomen: Soft, Nontender, Nondistended, Normal bowel sounds Back: Nontender, Normal Inspection Extremities: Nontender, No edema Skin: Normal color, No rash Neurological: Alert, Oriented x3, Cranial nerves II-XII grossly intact, Normal Strength, Normal Sensation Psychological: Depressed Diagnostic/Tx/Re-eval Clinical Impression(s) from Imaging Studies Chest X-Ray 05/31/20 15:25 IMPRESSION: Acute interstitial lung disease, likely atypical pneumonia. Electronically Signed: Juan M Varela MD at 15:50 EST Tel , Service support , Chest CTA 05/31/20 15:29 IMPRESSION: 1. Normal CTA chest examination, without a demonstrated pulmonary embolism or arterial dissection. 2. Bilateral pneumonia. Commonly reported imaging features of Covid 19 pneumonia are present. Other processes such as influenza pneumonia and organizing pneumonia, as can be seen with drug toxicity and connective tissue disease, can cause a similar imaging pattern. Electronically Signed: Juan M Varela MD at 16:21 EST Tel , Service support , Laboratory Last Values WBC 9.6 K/mm3 (4.4-11.0) 05/31/20 14:23 RBC 6.23 M/mm3 (4.6-6.2) H 05/31/20 14:23 Hgb 16.3 g/dL (13.0-16.5) 05/31/20 14:23 Hct 50.6 % (40-54) 05/31/20 14:23 MCV 81.2 fL (80-94) 05/31/20 14:23 MCH 26.2 pg (27.0-32.0) L 05/31/20 14:23 MCHC 32.2 g/dL (32-36) 05/31/20 14:23 RDW Std Deviation 45.2 fl (35.1-43.9) H 05/31/20 14:23 RDW Coeff of Esperanza 16.3 % (11.6-14.6) H 05/31/20 14:23 Plt Count 524 K/mm3 (150-450) H 05/31/20 14:23 MPV 10.4 fl (6.2-12.0) 05/31/20 14:23 Immature Gran % (Auto) 1.600 % (0.0-0.9) H 05/31/20 14:23 Neut % (Auto) 70.1 % (47-70) H 05/31/20 14:23 Lymph % (Auto) 17.7 % (19-41) L 05/31/20 14:23 [place] % (Auto) 6.9 % (0-10) 05/31/20 14:23 Eos % (Auto) 2.7 % (0-5) 05/31/20 14:23 Baso % (Auto) 1.0 % (0-1) 05/31/20 14:23 Absolute Neuts (auto) 6.7 X10^3/uL (2.0-7.7) 05/31/20 14:23 Absolute Lymphs (auto) 1.69 X10^3/uL (0.83-4.51) 05/31/20 14:23 Nucleated RBC % 0 % (0-5) 05/31/20 14:23 Fibrinogen 768 mg/dl (203-444) H 05/31/20 14:23 D-Dimer Quant (PE/DVT) 1.62 FEU/ug/m (0.27-0.49) H* 05/31/20 14:23 Sodium 130 mmol/L (136-145) L 05/31/20 14:23 Potassium 4.2 mmol/L (3.5-5.1) 05/31/20 14:23 Chloride 96 mmol/L (98-107) L 05/31/20 14:23 Carbon Dioxide 24.0 mmol/L (21.0-32.0) 05/31/20 14:23 Anion Gap 10 (5-15) 05/31/20 14:23 BUN 25 mg/dL (7-18) H 05/31/20 14:23 Creatinine 1.51 mg/dL (0.70-1.30) H 05/31/20 14:23 Estim Creat Clear Calc 50.71 ml/min 05/31/20 14:23 Est GFR (MDRD) Af Amer 59 mL/min (>60) L 05/31/20 14:23 Est GFR (MDRD) Non-Af 49 mL/min (>60) L 05/31/20 14:23 BUN/Creatinine Ratio 16.6 RATIO (10-20) 05/31/20 14:23 Glucose 271 mg/dL (74-106) H 05/31/20 14:23 Lactic Acid 2.8 mmol/L (0.4-1.9) H* 05/31/20 14:50 Calcium 9.8 mg/dL (8.5-10.1) 05/31/20 14:23 Total Bilirubin 0.70 mg/dL (0.20-1.00) 05/31/20 14:23 AST 17 U/L (15-37) 05/31/20 14:23 ALT 43 U/L (16-61) 05/31/20 14:23 Alkaline Phosphatase 134 U/L (45-117) H 05/31/20 14:23 Lactate Dehydrogenase 169 U/L (87-241) 05/31/20 14:23 Total Creatine Kinase 30 U/L (39-308) L 05/31/20 14:23 Troponin I < 0.015 ng/mL (<0.045) 05/31/20 14:23 C-React Prot Ext Range 11.40 mg/L (0.0-3.0) H 05/31/20 14:23 Total Protein 9.5 g/dL (6.4-8.2) H 05/31/20 14:23 Albumin 3.2 g/dL (3.2-5.0) 05/31/20 14:23 Globulin 6.3 g/dL (2.2-4.2) H 05/31/20 14:23 Albumin/Globulin Ratio 0.5 RATIO (0.9-2.4) L 05/31/20 14:23 Procalcitonin 0.04 ng/mL (0.00-0.09) 05/31/20 14:23 TSH 1.66 uIU/mL (0.358-3.74) 05/31/20 14:23 Ethyl Alcohol 8.0 mg/dL 05/31/20 14:23 - EKG Initial EKG Interpretation: Sinus Tachycardia - EKG demonstrates a sinus tachycardia with PAC at a rate of 108 no concerning features of ACS. - Medical Decision Making Patient received IV fluids and later Rocephin azithromycin. Chest x-ray and CTA of the chest consistent with Covid pneumonia. Lactic acid is slightly elevated. He has significant debility and weakness. Social work did visit with him regarding his suicidal comments. He states that he is not actively suicidal. He states that he needs help with his daily activities. ED Disposition - Plan for ED Patient: Disposition: Acute Care Hospital [facility] Diagnosis: COVID-19, Dehydration, Debility Referrals: Solis Gross MD [Primary Care Provider] -
[2020-05-31 14:48] LABS: Absolute Lymphocyte Count 1.69 X10^3/uL (0.83-4.51); Absolute Neutrophil Count 6.7 X10^3/uL (2.0-7.7); Eosinophil# 0.26 X10^3/uL; Eosinophils% 2.7 % (0-5); Hematocrit 50.6 % (40-54); Hemoglobin 16.3 g/dL (13.0-16.5); Lymphocyte # 1.69 X10^3/ul (4.0); Lymphocyte % 17.7 % (19-41); Mean Corp Hgb Conc 32.2 g/dL (32-36); Mean Corpuscular Hgb 26.2 pg (27.0-32.0); Mean Corpuscular Volume 81.2 fL (80-94); Mean Platelet Vol. 10.4 fl (6.2-12.0); Monocyte# 0.66 X10^3/uL; Monocyte% 6.9 % (0-10); NRBC Flagged by Analyzer 0 % (0-5); Neutrophil # 6.69 X10^3/uL (2.7-7.7); Neutrophil % 70.1 % (47-70); Platelet Count 524 K/mm3 (150-450); RBC Distribution Width CV 16.3 % (11.6-14.6); RBC Distribution Width SD 45.2 fl (35.1-43.9); Red Blood Count 6.23 M/mm3 (4.6-6.2); White Blood Count 9.6 K/mm3 (4.4-11.0)
[2020-05-31 14:59] LABS: Fibrinogen 768 mg/dl (203-444)
[2020-05-31] MEDS: 0.9% Normal Saline 1,000 ML 999 ML IV ×2 (15:07→21:23)
[2020-05-31 15:09] LABS: D-Dimer Quantitative (DVT/PE) 1.62 FEU/ug/m (0.27-0.49)
[2020-05-31 15:11] LABS: ALB/GLOB Ratio 0.5 RATIO (0.9-2.4); AST(SGOT) 17 U/L (15-37); Alanine Aminotransfer ALT/SGPT 43 U/L (16-61); Albumin, Serum 3.2 g/dL (3.2-5.0); Alkaline Phosphatase 134 U/L (45-117); Anion Gap 10 (5-15); BUN 25 mg/dL (7-18); BUN/Creat Ratio 16.6 RATIO (10-20); CPK Total, Creatine Kinase 30 U/L (39-308); Calcium,Total 9.8 mg/dL (8.5-10.1); Chloride 96 mmol/L (98-107); Creatinine, Serum 1.51 mg/dL (0.70-1.30); EST Glomerular Filtration Rate 49 mL/min (>60); Est Glom Filt Rate - Afr Amer 59 mL/min (>60); Estimated Creatinine Clearance 50.71 ml/min; Globulin 6.3 g/dL (2.2-4.2); Glucose 271 mg/dL (74-106); LDH 169 U/L (87-241); Potassium 4.2 mmol/L (3.5-5.1); Protein, Total 9.5 g/dL (6.4-8.2); Sodium Level 130 mmol/L (136-145); Thyroid Stim Hormone (TSH) 1.66 uIU/mL (0.358-3.74)
[2020-05-31 15:20] LABS: Procalcitonin 0.04 ng/mL (0.00-0.09)
--- NOTE | 2020-05-31 15:25 | RAD_ITS ---
STUDY: X-RAY CHEST REASON FOR EXAM: Male, 69 years old. positive COVID on 05-18-20, cough TECHNIQUE: Single AP portable view of the chest. COMPARISON: 10/01/2019 FINDINGS: Coarse reticular opacities throughout the lungs consistent with acute interstitial lung disease likely atypical pneumonia. There is no demonstrated pleural abnormality. Normal size heart. Normal mediastinum and oliva. Normal visualized pulmonary arteries. Normal visualized aortic arch and descending thoracic aorta. Normal visualized thoracic spine. Normal visualized ribs, clavicles, and shoulders. There is no demonstrated abnormality of the visualized soft tissue structures of the upper abdomen. RAD/Chest 1 View (Portable) IMPRESSION: Acute interstitial lung disease, likely atypical pneumonia. Electronically Signed: Juan M Varela MD at 15:50 EST Tel , Service support ,
--- NOTE | 2020-05-31 15:29 | CT_ITS ---
STUDY: CTA CHEST REASON FOR EXAM: Male, 69 years old. Cough, COVID+ 2 weeks ago, tachycardia, heart stents, htn, db, [place] RADIATION DOSAGE (If Supplied By Facility): CTDIvol = ( 13.32 ) mGy, DLP = ( 478.81 ) mGycm TECHNIQUE: The examination was performed with the intravenous administration of IV 100mL Isovue-300. Post-processing of the angiographic images was performed, with multiplanar reformation and 3D reconstruction. Individualized dose optimization techniques were used for this CT. COMPARISON: None. FINDINGS: Normal enhancement of the main pulmonary artery and right and left pulmonary arteries. Normal enhancement of the bilateral peripheral pulmonary arteries. There is no demonstrated pulmonary embolism. Normal thoracic aorta and visualized great vessels. There is no demonstrated aortic dissection. Normal heart and pericardium. Normal mediastinum. Some prominent of the right hilar lymph nodes which are likely reactive. Normal visualized trachea and bronchi. The lungs are well expanded. Bilateral patchy peripheral groundglass and alveolar opacities consistent with bilateral pneumonia. Normal pleura. Normal chest wall structures. Normal osseous structures. Normal visualized upper abdomen. CT/CTA Chest W/WO Contrast IMPRESSION: 1. Normal CTA chest examination, without a demonstrated pulmonary embolism or arterial dissection. 2. Bilateral pneumonia. Commonly reported imaging features of Covid 19 pneumonia are present. Other processes such as influenza pneumonia and organizing pneumonia, as can be seen with drug toxicity and connective tissue disease, can cause a similar imaging pattern. Electronically Signed: Juan M Varela MD at 16:21 EST Tel , Service support ,
--- NOTE | 2020-05-31 15:58 | CM.ED ---
Social Work Consult: Mental Health Informant: Dr. Bell Chief Complaint: Patient reported to medical team to have had thought of shooting self in the head. Marital/Social History: Living Situation: Lives alone. Reports to be having difficulty caring for self in the community. Support/Resources: No community supports. Has a daughter, Rosemary Cloud that lives in [place] that stops to see patient every three days. Patient reports that Rosemary is patient HCPOA. Education/Employment: Denies concerns with comprehension or understanding. Patient reports limited financial support. Mental Health Treatment/history: Denies. No history of inpatient psychiatric placement. Patient does report to be feeling depressed. Triggers/Stressors: Being diagnosed with COVID-19, living alone, unable to meet own needs in the community. Coping Skills: I like to read. Abuse Issues: Denies Substance Abuse/Use: Denies Risk to Self/Others: Patient reports to have made a comment that I regret. Patient states to have informed medical team that patient has had thoughts that patient would be better off . Patient reports to have thought about shooting myself. Patient denies intent or plan to complete suicide. Patient reports that suicidal thoughts are in the back of my head. Patient reports that suicidal thoughts started when patient was diagnosed with COVID-19. Patient denies any suicidal thoughts prior to being diagnosed with COVID-19. Patient reports to want to live for family. Patient denies thoughts of harming others. Patient denies harm to self or violent behaviors. Mental Status Exam: A&Ox3 Appearance/General Appearance: Pleasant. Calm. Mood/Affect: Appropriate. Pleasant. Communication Pattern: Responds to questions. Thought Process: Appropriate Judgement: Fair Assessment: Met with patient via phone conversation with this psychiatric social worker standing outside patient room due to COVID-19 precautions. This psychiatric social worker able to physically see patient and patient able to see this psychiatric social worker during conversation. This psychiatric social worker introduced self and psychiatric social worker role. Patient agreeable to speak with this psychiatric social worker. This psychiatric social worker broached reason for psychiatric social worker consult. Patient states I regret what I said. Patient states to want to live for family and I would not kill myself. Patient does confirm to have firearms in the home. Patient states to have been feeling depressed lately due to being diagnosed with COVID-19 and unable to care for self. Patient states I am getting to a point where I need more help. Patient reports to have limited financial support and to not be sure how to get help. This psychiatric social worker broached topic of alf or assisted living for patient. Patient reports yes, that is what I need. Patient reports to not want to be living alone anymore and to want to transition to assisted living/alf. This psychiatric social worker explaining to patient possible community support benefits for patient in light of patient limited financial status. Patient voices understanding. Patient wants to work towards placement. This psychiatric social worker expressed concern of patient having firearms in the home. Patient voiced understanding as to why this is a concern. This psychiatric social worker inquired about calling patient daughter. Patient reports she is at work right now. Patient not currently agreeable to this psychiatric social worker calling patient daughter but is open to this psychiatric social worker following up with patient to come up with plan for securing firearms in a safe location. Active support and listening provided. Updated Dr. Bell and medical team on above. Patient to have 1:1 sitter precautions discharged as patient has no active suicidal thoughts and is forward thinking. Social work to continue to follow as needed. Plan is for patient to admit to acute. Alba KHAN, ANNA
--- NOTE | 2020-05-31 16:01 | ED.RN ---
lactic of 2.8 reported to
[2020-05-31 16:02] LABS: Lactic Acid 2.8 mmol/L (0.4-1.9)
[2020-05-31] MEDS: Ceftriaxone 1 GM/50 ML BAG IV (16:35)
--- NOTE | 2020-05-31 16:37 | NURSING ---
DR SILKE CHAN
--- NOTE | 2020-05-31 16:51 | NURSING ---
MS2 COVID SILKE COVID 19
--- NOTE | 2020-05-31 17:20 | PCM.HP.STD ---
History of Present Illness Date of Admission: 05/31/20 Chief Complaint: Debility Mr Cloud is a 69 year old M with a PMH of COPD, CAD, HTN, DM-2, HPL, GERD, BPH and Psoriasis who presented to the ED on 05/31/2020 c/o decreased appetite, fatigue, weakness, hemoptysis and mild SOB. He originally told the ED physician that he had suicidal ideation but case mgt went in to talk to him and he denies that he would ever hurt himself but did acknowledge that he has had increased difficulties with taking care of himself in the last year or so. His recent issues stem from a COVID-19 dx which was made on 05/18/2020 by his PCP. He states that he started having sx on 05/14 and then saw his PCP on 05/18 and had a nasal swab that resulted + on 05/18. Since that time he reports feeling progressively weak, having no appetite, having intermittent hemoptysis that started recently and debilitating fatigue. He states that he cannot take care of himself at home anymore. He states that he has had nothing to eat in the last 2 weeks and that he is drinking water and Powerade for hydration. His sats are stable on RA with a sat of 98% and he is afebrile but has sinus tachycardia. He has no white count elevation but plt count is up mildly. His d-dimer was 1.62 but CTA was negative for PE. His Na is 130 and sCr is 1.51 with a BUN of 25. His lactate is 2.8. TSH is WNL and LFT are WNL. His CTA, while neg for PE shows B patchy infiltrates which is suspect is resolution from his COVID-19. Past Medical History Past Medical History (Chronic Problems): Chronic Problems Myocardial infarction (Chronic) Diabetes (Chronic) Hypertension (Chronic) High cholesterol (Chronic) GERD (gastroesophageal reflux disease) (Chronic) Allergies No Known Allergies Allergy (Verified 05/31/20 15:16) Home Medications: Ambulatory Orders Medication Instructions Recorded Aspirin [Adult Low Dose Aspirin EC] 81 mg PO DAILY 05/10/16 Hydrochlorothiazide [Hctz] 12.5 mg PO DAILY 05/10/16 Lisinopril [Zestril] 10 mg PO DAILY 05/10/16 Metformin HCl [Metformin HCl ER] 1,000 mg PO BID 05/10/16 Metoprolol Tartrate [Lopressor 25 mg PO BID 05/10/16 (beta nolberto)] Multivitamin [Daily Multiple 1 each PO DAILY 05/10/16 Vitamin] Simvastatin [Zocor] 40 mg PO QHS 05/10/16 Tamsulosin HCl 0.4 mg PO DAILY 10/01/19 Albuterol Sulfate [Albuterol 2 puff INHALATION Q4H PRN 05/31/20 Sulfate Hfa] Budesonide/Formoterol 160/4.5 1 puff INHALATION BID 05/31/20 [Symbicort 160/4.5 Mcg Inhaler (SP)] Empagliflozin [Jardiance] 10 mg PO DAILY 05/31/20 Glipizide [Glucotrol] 5 mg PO DAILY 05/31/20 Omeprazole 40 mg PO DAILY 05/31/20 Triamcinolone Ointment [Kenalog] 1 applicatio TOPICAL BID PRN 05/31/20 Surgical History: noncontributory, cataract, tonsillectomy, - - Coronary artery stent placement x3, hiatal hernia repair Lives: Alone Smoking Status: Never smoker Alcohol: Rare Drugs: None - *Family History Maternal History Items: Heart Disease - at age 94 Paternal History Items: - - from a farm accident Review of Systems Constitutional: Reports: Anorexia, Malaise, Weakness, Weight Change, Fatigue. Denies: Chills, Fever, Night Sweats Eyes: Denies: Blurred vision, Cataracts, Conjunctivae Inflammation, Double vision, Drainage, Eyelid Inflammation, Pain, Redness, Vision Change HEENT: Denies: Difficulty Hearing, Difficulty Swallowing, Ear Pain, Head Aches, Nasal bleeding, Nasal Congestion, Post Nasal Drip, Sinus Drainage, Sore Throat, Visual Changes Cardiovascular: Denies: Chest Pain, Claudication, Chest Pressure, Chest Tightness, Edema, Heaviness, Light Headedness, Orthopnea, Palpitations, Paroxysmal Noc. Dyspnea, Syncope Respiratory: Reports: Cough, Hemoptysis, Shortness of Breath. Denies: Pleuritic Pain, Shortness of breath at rest, Shortness of breath upon exertion, Sputum production, Wheezing Gastrointestinal: Denies: Abdominal Pain, Constipation, Diarrhea, Dyspepsia, Hematemesis, Hematochezia, Nausea, Melena, Vomiting Genitourinary: Reports: - - decreased UO. Denies: Dysuria, Frequency, Hematuria, Hesitancy, Incontinence, Nocturia, Retention, Urgency Musculoskeletal: Denies: Back Pain, Joint Pain, Joint stiffness, Joint swelling, Joint Tenderness, Muscle pain, Neck Pain Skin: Denies: Dryness, Jaundice, Lesions, Pruritis, Rash, Skin Changes, Wounds Neurological: Denies: Balance problems, Blurred vision, Double vision, Change in Speech, Slurred speech, Confusion, Difficulty swallowing, Focal weakness, Headaches, Incoordination, Numbness, Tingling, Tremor, Seizures Psychiatric: Reports: Depression, - - pt now denies SI. Denies: Anxiety Endocrine: Denies: Change in Body Habitus, Heat/ Cold Intolerance, Polydipsia, Polyuria Hematologic/ Lymphatic: Denies: Adenopathy, Anemia, Easy Bruising, Easy Bleeding, Petechiae, Purpura VTE Information - Inpt Only VTE Present on Admission: No VTE Mechan Device Prophylaxis: SCD's VTE Pharm Prophylaxis ordered?: Yes Patient Problems: Active and Suspected Problems COVID-19 (Acute) Dehydration (Acute) Debility (Acute) - Physical Exam Vitals/I&O's: Vital Signs Temp Pulse Resp BP Pulse Ox 98 F 101 H 18 108/91 H 98 05/31/20 16:00 05/31/20 16:00 05/31/20 16:00 05/31/20 16:00 05/31/20 16:00 Oxygen Flow Rate (L/min) 2 Oxygen Delivery Method Room Air Weight: 90.8 kg Body Mass Index (BMI) 26.4 Finger Stick Blood Glucose 237 General: Alert, Oriented x3, Cooperative, No apparent distress, Well developed, Well nourished, - - Older WM, appears fatigued HEENT: Atraumatic, PERRLA, EOMI, Normocephalic, TM's Clear Oral: No Gingival or Mucosal Lesions/ Ulcerations, Dry Mucosa, - - lips are dry and bleeding Neck: Supple, No JVD, Negative Carotid Bruits, Negative Hepatojugular Reflux, No Nodes, No Nuchal Rigidity, Trachea Midline, Thyroid Normal Size and Texture Lungs: Normal air movement, No rhonchi, No wheeze, - - scattered crackles, appears comfortable breathing at rest Cardiovascular: Regular Rhythm, Normal S1, Normal S2, No murmurs, No Ectopic Activity, No rub noted, No Gallop, Tachycardic Abdomen: Bowel Sounds Present, Soft, Non Tender, Non-Distended, No Hepato-splenomegaly, Passing Flatus, No hernias noted Extremities: No clubbing, No cyanosis, No edema, Capillary Refill Less than 3 Seconds, Peripheral Pulses Normal Skin: No rashes, No breakdown Musculoskeletal: No Tenderness to Palpation of Joints or Extremities, No Muscle Wasting, Arthritic Changes Lymphatic: No Cervical, Supraclavicular, or Inguinal Adenopathy Neurological: Cranial nerves II-XII grossly intact, Deep Tendon Reflexes 2+/4 and Symmetrical, Neuro grossly intact, Motor Exam 5/5 strength throughout, Muscle tone normal, Sensory exam intact to light touch and pain, Coordination normal Psych/Mental Status: Appropriate, - - seems a bit agitated Laboratory Results 05/31/20 14:23: WBC 9.6, RBC 6.23 H, Hgb 16.3, Hct 50.6, MCV 81.2, MCH 26.2 L, MCHC 32.2, RDW Std Deviation 45.2 H, RDW Coeff of Esperanza 16.3 H, Plt Count 524 H, MPV 10.4, Immature Gran % (Auto) 1.600 H, Neut % (Auto) 70.1 H, Lymph % (Auto) 17.7 L, [place] % (Auto) 6.9, Eos % (Auto) 2.7, Baso % (Auto) 1.0, Absolute Neuts (auto) 6.7, Absolute Lymphs (auto) 1.69, Nucleated RBC % 0 05/31/20 14:23: Fibrinogen 768 H, D-Dimer Quant (PE/DVT) 1.62 H* 05/31/20 14:23: Sodium 130 L, Potassium 4.2, Chloride 96 L, Carbon Dioxide 24.0, Anion Gap 10, BUN 25 H, Creatinine 1.51 H, Estim Creat Clear Calc 50.71, Est GFR (MDRD) Af Amer 59 L, Est GFR (MDRD) Non-Af 49 L, BUN/Creatinine Ratio 16.6, Glucose 271 H, Calcium 9.8, Total Bilirubin 0.70, AST 17, ALT 43, Alkaline Phosphatase 134 H, Lactate Dehydrogenase 169, Total Creatine Kinase 30 L, Troponin I < 0.015, C-React Prot Ext Range 11.40 H, Total Protein 9.5 H, Albumin 3.2, Globulin 6.3 H, Albumin/Globulin Ratio 0.5 L, TSH 1.66 05/31/20 14:23: Procalcitonin 0.04 05/31/20 14:23: Ethyl Alcohol 8.0 05/31/20 14:50: Lactic Acid 2.8 H* Current Medications Sodium Chloride () 1,000 mls @ 125 mls/hr IV .Q8H [facility] Assessment/Plan All Active Problems Paresthesias in left hand (Acute) COVID-19 (Acute) Dehydration (Acute) Debility (Acute) Sepsis 2/2 COVID-19 -doubt superimposed PNA and suspect CT findings are all changes related to recent COVID-19 infection -will check cx, urine antigens and swab for influenza -pt should be able to come out of isolation tomorrow as he was diagnosed 14 days ago on 05/18 -sats stable on RA--> hold on Decadron at this time -start CTX and Azithro and if cx/antigens neg would d/c as I suspect this is not bacterial Lactic Acidosis -suspect 2/2 dehydration and lack of perfusion 2/2 hypovolemia -cycle as per protocol -IVF at LR 100 cc/hr for now -hold metformin Hemoptysis -this appears to be oral coming from very dry lips -monitor BRYANNA -baseline sCr is somewhat unclear -IVF at 100 cc/hr -pt may have some CKD--> will need to see where sCr naders -hold ARIA and and HCTZ for now -hold metformin Hyponatremia -suspect hypovolemic -IVF and recheck in am -hold HCTZ HTN -continue Metoprolol 25 mg BID -hold ARIA and HCTZ -PRN Labetalol for SBP > 160 HPL -continue Statin GERD -continue PPI Debility -PT/OT consults -pt would like to discuss assisted living DM-2 -SSI with meals -may need more that this -hold Jardiance, metformin and glipizide -ACHS BGT Poor PO intake -dietitian consult -carb control diet -supplements 4 x daily COPD -continue home inhalers BPH -continue alpha nolberto Psoriasis -continue topical steroids DVT Prophylaxis -Heparin sq Code status -Full Inpatient E&M: 38350 Subs Hosp L3
--- NOTE | 2020-05-31 17:24 | CM.ED ---
Social Work Patient to be admitted to acute. This social media senior associate updated hospitalist, Dr. Rico on social work assessment. Telephone call to patient daughter, Rosemary. This social media senior associate updated Rosemary on patient being admitted and concerns of patient having firearms in the home with the nature of patient suicidal comment on arriving to the emergency room. Rosemary voices plan to go to patient home and secure firearms. Rosemary thanking this social media senior associate. Rosemary with no further questions. Alba Coe MSW, ANNA
[2020-05-31] MEDS: 0.9% Normal Saline 1,000 ML 125 ML IV (17:36)
[2020-05-31 18:00] LABS: Bacteria 0 SEEN /hpf (None Seen); Mucous, Urine 0 SEEN /hpf (<or=2+); Red Blood Cells-Urine 0 SEEN /hpf (0-5); White Blood Cells 0 SEEN /hpf (0-5)
[2020-05-31 18:20] LABS: Color, Urine Yellow (Yellow); Glucose, Dipstick 1000 mg/dl (Normal); Ketone-Dipstick Negative (Negative); Leukocyte Esterase-Dipstick Negative /ul (Negative); Nitrite-Dipstick Negative (Negative); Occult Blood-Urine Negative /ul (Negative); Protein-Dipstick 15 mg/dl (Negative); Urine Bilirubin Dipstick Negative (Negative); Urine Clarity Sl. Cloudy (Clear); Urine Urobilinogen Normal (Normal)
[2020-05-31 18:26] LABS: Amphetamine Urine VISTA NEGATIVE (<1000 ng/mL); Barbiturate Urine VISTA NEGATIVE (< 200 ng/mL); Benzodiazepine Urine VISTA NEGATIVE (< 200 ng/mL); Cocaine Urine VISTA NEGATIVE (< 300 ng/mL); Ecstacy Urine VISTA NEGATIVE (< 500 ng/mL); Methadone Urine VISTA NEGATIVE (< 300 ng/mL); PCP Urine VISTA NEGATIVE (< 25 ng/mL); THC Urine VISTA NEGATIVE (< 50 ng/mL); Vista UDS pH Range 6
[2020-05-31 18:29] LABS: Squamous Epithelial Cells - UA 0-5 SEEN /hpf (0-5)
[2020-05-31 19:06] LABS: Reflex Lactate? Y
[2020-05-31] MEDS: Lactated Ringers 1,000 ML 100 ML IV (20:04)
[2020-05-31 20:32] LABS: Lactic Acid 3.7 mmol/L (0.4-1.9)
[2020-05-31] MEDS: Fluticasone/Salmeterol 232-14 Inhaler 1 PUFF IH (21:24)
[2020-05-31] MEDS: Insulin Lispro 100 UNIT/ML INSULN.PEN SC (21:30)
[2020-05-31] MEDS: Heparin Injection (Vial) 5,000 UNIT/ML VIAL 5000 UNIT SC (21:30)
[2020-05-31] MEDS: Atorvastatin Calcium 20 MG Tablet PO (21:32)
[2020-05-31] MEDS: MELATONIN 3 MG TABLET PO (21:32)
[2020-05-31 22:26] LABS: Bedside Glucose 257 mg/dL (70-110)
[2020-06-01] VITALS (9 sets, daily range): BP systolic 91–116; BP diastolic 61–69; PULSE 60–100; RESP 18–20; TEMP 36.2–36.5; O2SAT 89–98; BMI 24.3
[2020-06-01 06:05] LABS: Absolute Lymphocyte Count 1.05 X10^3/uL (0.83-4.51); Absolute Neutrophil Count 4.4 X10^3/uL (2.0-7.7); Basophil# 0.11 X10^3/uL; Basophil% 1.6 % (0-1); Eosinophil# 0.25 X10^3/uL; Eosinophils% 3.7 % (0-5); Hematocrit 39.1 % (40-54); Hemoglobin 12.6 g/dL (13.0-16.5); Lymphocyte # 1.05 X10^3/ul (4.0); Lymphocyte % 15.7 % (19-41); Mean Corp Hgb Conc 32.2 g/dL (32-36); Mean Corpuscular Hgb 26.6 pg (27.0-32.0); Mean Corpuscular Volume 82.7 fL (80-94); Monocyte# 0.69 X10^3/uL; Monocyte% 10.3 % (0-10); NRBC Flagged by Analyzer 0 % (0-5); Neutrophil % 65.9 % (47-70); Platelet Count 367 K/mm3 (150-450); RBC Distribution Width CV 15.5 % (11.6-14.6); RBC Distribution Width SD 46.5 fl (35.1-43.9); Red Blood Count 4.73 M/mm3 (4.6-6.2); White Blood Count 6.7 K/mm3 (4.4-11.0)
[2020-06-01] MEDS: Lactated Ringers 1,000 ML 100 ML IV ×2 (06:10→16:03)
[2020-06-01] MEDS: Heparin Injection (Vial) 5,000 UNIT/ML VIAL 5000 UNIT SC ×3 (06:14→21:19)
[2020-06-01] MEDS: Insulin Lispro 100 UNIT/ML INSULN.PEN SC ×4 (06:16→21:19)
[2020-06-01 06:30] LABS: Bedside Glucose 179 mg/dL (70-110)
[2020-06-01 06:31] LABS: Lactic Acid 1.3 mmol/L (0.4-1.9)
[2020-06-01 06:42] LABS: ALB/GLOB Ratio 0.5 RATIO (0.9-2.4); AST(SGOT) 17 U/L (15-37); Alanine Aminotransfer ALT/SGPT 32 U/L (16-61); Albumin, Serum 2.3 g/dL (3.2-5.0); Alkaline Phosphatase 92 U/L (45-117); Anion Gap 3 (5-15); BUN 18 mg/dL (7-18); Calcium,Total 8.5 mg/dL (8.5-10.1); Chloride 106 mmol/L (98-107); Creatinine, Serum 1.06 mg/dL (0.70-1.30); EST Glomerular Filtration Rate 73 mL/min (>60); Est Glom Filt Rate - Afr Amer 88 mL/min (>60); Estimated Creatinine Clearance 72.24 ml/min; Globulin 4.2 g/dL (2.2-4.2); Glucose 182 mg/dL (74-106); Magnesium 1.7 mg/dL (1.6-2.6); Phosphorus 2.9 mg/dL (2.5-4.9); Protein, Total 6.5 g/dL (6.4-8.2); Sodium Level 133 mmol/L (136-145)
[2020-06-01] MEDS: Metoprolol Tartrate 25 MG Tablet PO ×2 (09:53→21:20)
[2020-06-01] MEDS: Aspirin E.C. 81 MG Tablet PO (09:53)
[2020-06-01] MEDS: Pantoprazole Sodium 40 MG Tablet PO (09:53)
[2020-06-01] MEDS: Fluticasone/Salmeterol 232-14 Inhaler 1 PUFF IH ×2 (09:54→21:18)
--- NOTE | 2020-06-01 11:47 | PCM.NTREPORT ---
Nutrition Therapy Report - History Nutrition Services has been consulted to:: Manage nutrient details of diet order Current diet / nutrition support order:: consistent carbohydrate, 1800 calorie controlled, ensure enlive 120mL TID - Anthropometric Measurements Height:: 6 ft 1 in Weight:: 83.7 kg Body Mass Index (BMI):: 24.3 - Relevant Labs Relevant Labs:: RBC 6.23 M/mm3 (4.6-6.2) H 05/31/20 14:23 Hgb 12.6 g/dL (13.0-16.5) L 06/01/20 05:54 Hct 39.1 % (40-54) L 06/01/20 05:54 MCH 26.6 pg (27.0-32.0) L 06/01/20 05:54 RDW Std Deviation 46.5 fl (35.1-43.9) H 06/01/20 05:54 RDW Coeff of Esperanza 15.5 % (11.6-14.6) H 06/01/20 05:54 Plt Count 524 K/mm3 (150-450) H 05/31/20 14:23 Immature Gran % (Auto) 2.800 % (0.0-0.9) H 06/01/20 05:54 Neut % (Auto) 70.1 % (47-70) H 05/31/20 14:23 Lymph % (Auto) 15.7 % (19-41) L 06/01/20 05:54 [place] % (Auto) 10.3 % (0-10) H 06/01/20 05:54 Baso % (Auto) 1.6 % (0-1) H 06/01/20 05:54 Fibrinogen 768 mg/dl (203-444) H 05/31/20 14:23 D-Dimer Quant (PE/DVT) 1.62 FEU/ug/m (0.27-0.49) H* 05/31/20 14:23 Sodium 133 mmol/L (136-145) L 06/01/20 05:54 Chloride 96 mmol/L (98-107) L 05/31/20 14:23 Anion Gap 3 (5-15) L 06/01/20 05:54 BUN 25 mg/dL (7-18) H 05/31/20 14:23 Creatinine 1.51 mg/dL (0.70-1.30) H 05/31/20 14:23 Est GFR (MDRD) Af Amer 59 mL/min (>60) L 05/31/20 14:23 Est GFR (MDRD) Non-Af 49 mL/min (>60) L 05/31/20 14:23 Glucose 182 mg/dL (74-106) H 06/01/20 05:54 Lactic Acid 3.7 mmol/L (0.4-1.9) H* 05/31/20 19:44 Alkaline Phosphatase 134 U/L (45-117) H 05/31/20 14:23 Total Creatine Kinase 30 U/L (39-308) L 05/31/20 14:23 C-React Prot Ext Range 11.40 mg/L (0.0-3.0) H 05/31/20 14:23 Total Protein 9.5 g/dL (6.4-8.2) H 05/31/20 14:23 Albumin 2.3 g/dL (3.2-5.0) L 06/01/20 05:54 Globulin 6.3 g/dL (2.2-4.2) H 05/31/20 14:23 Albumin/Globulin Ratio 0.5 RATIO (0.9-2.4) L 06/01/20 05:54 - Assessment Food / Nutrition-Related History:: Pt currently in isolation d/t ID-. Attempts to reach pt by phone unsuccessful. Information gathered from EMR. Per physician documentation, pt reported no PO intake for 2 weeks [employer], relying on water/powerade for hydration. Dx w/ COVID on 05/18/20. States UBW 210# and CBW 184.5#- 25.5#/12.1% wt loss, likely significant for malnutrition. EMR confirms, wt was 213# on 10/01/19 admission. Nursing staff reports good PO intake this AM. - Nutrition Diagnosis Problem / Etiology / Signs & Symptoms (PES):: Pt w/ severe, acute malnutrition r/t inadequate energy intake d/t COVID-19 infection as evidenced by 25.5#/12.1% wt loss, reported PO intake meeting less than 50% of estimated PO needs for 2 weeks [employer]. Evidence of Malnutrition Exists:: Yes Severe PCM:: Acute Illness - Nutrition Intervention Nutrition Prescription:: [id number] calories, 80-100 g protein/day - Food / Nutrient Delivery Interventions Summary of nutrition intervention:: Will liberalize diet to regular d/t acute illness. Will adjust ONS to be provided w/ meals instead of medpass to better cluster nursing care. Would be concerned for refeeding syndrome given length of inadequate PO intake per pt report, however mag/phos WNL today. Nutrition support ordered as / adjusted to:: regular, 240mL ensure enlive w/ meals Nutrition education provided?: No - MNT Monitoring Further MNT monitoring and evaluation required?: Yes MNT Follow-up in:: 3-5 days
[2020-06-01 13:55] LABS: Bedside Glucose 325 mg/dL (70-110)
--- NOTE | 2020-06-01 15:16 | CASEMGMT ---
Social Work Received referral from ED SW that pt is requesting SNF placement. Physician in to see pt and pt stating he does not want SNF. Therapy notes indicate pt refused PT/OT. SW placed call to pt to complete assessment. Pt stating that he lives alone in [facility]. Prior to getting ill from Covid on 05/14 pt was independent in home and able to drive and care for himself. Pt stating since the he has laid in bed all day long and has not ate for two weeks other than drinking powerade. He did state he has a daughter that lives in [place] that visits every three days and brings food and meals but he could not eat it. Pt stating that he is very weak and is not doing a good job caring for himself at home. SW discussed short term stay in SNF for rehab and pt stating that this may be a good idea. SW informed pt that if he wants SNF he will need to participate in therapy and pt expresses understanding and is agreeable. PARVIN explained that no [facility] SNFs are accepting Meghana pt and that pt would need to go to [place], [place] or [place]. PARVIN also discussed option of home health. Pt stating he would like to talk to his daughter lizeth about options and SW will followup tomorrow. MIKIE Bassett
[2020-06-01 15:46] LABS: Bedside Glucose 236 mg/dL (70-110)
--- NOTE | 2020-06-01 17:16 | PN_ITS ---
Patient Problems: Active and Suspected Problems COVID-19 (Acute) Dehydration (Acute) Debility (Acute) Subjective: Patient was seen and examined today, he remains on low flow nasal cannula oxygen. I reviewed his medications today and I do not feel the patient needs continued IV antibiotics at this time I am not convinced he has an active bacterial pneumonia or bacterial infection. I talked with the patient today, he states he wants to go home at the time he is discharged from the hospital he denied that he could not take care of himself at home. I also mentioned to him that he stated in the ER that he was going to hurt himself, he confirmed he said this but he did not elaborate. The manager social services in the emergency room talked to him about this and he did not have a concrete plan to do this. - Physical Exam Vitals/I&O's: Vital Signs Temp Pulse Resp BP Pulse Ox 97.7 F L 83 18 101/65 98 06/01/20 17:14 06/01/20 17:14 06/01/20 17:14 06/01/20 17:14 06/01/20 17:14 Oxygen Flow Rate (L/min) 2 Oxygen Delivery Method Nasal Cannula Weight: 83.7 kg Body Mass Index (BMI) 24.3 Finger Stick Blood Glucose 237 Intake and Output for Last 24 Hours 05/30/20 05/31/20 06/01/20 23:59 23:59 23:59 Intake Total 2995.42 / 2995.42 2255.00 / 2255.00 Output Total 300 / 300 600 / 600 Balance 2695.42 / 2695.42 1655.00 / 1655.00 General: Alert, Oriented x3, Cooperative HEENT: Atraumatic, PERRLA, EOMI, Normocephalic Oral: Moist Mucosa Neck: Supple, No JVD, Trachea Midline, Thyroid Normal Size and Texture Lungs: Clear to auscultation, Normal air movement, No rhonchi, No wheeze, No rales Cardiovascular: Regular rate, Regular Rhythm, Normal S1, Normal S2, No murmurs Abdomen: Bowel Sounds Present, Soft, Non Tender, Non-Distended Extremities: No clubbing, No cyanosis, No edema, Capillary Refill Less than 3 Seconds Skin: No rashes, No breakdown Musculoskeletal: No Tenderness to Palpation of Joints or Extremities Neurological: Cranial nerves II-XII grossly intact, Neuro grossly intact, Sensory exam intact to light touch and pain, Coordination normal Psych/Mental Status: Normal Affect, Appropriate, Alert and oriented to time, place, person, mood and affect Microbiology Past 72 Hours 05/31/20 21:17 Interface Orders Streptococcus pneumoniae Antigen (M - Final 05/31/20 21:17 Interface Orders Legionella Antigen - Final 05/31/20 20:30 Mucosa - Nasopharyngeal Influenza Types A,B Direct FA (KEVEN) - Final Laboratory Results 05/31/20 17:53: Urine Opiates Screen NEGATIVE, Urine Methadone Screen NEGATIVE, Ur Barbiturates Screen NEGATIVE, Ur Phencyclidine Scrn NEGATIVE, Ur Amphetamines Screen NEGATIVE, U Methamphetamin-MDMA NEGATIVE, U Benzodiazepines Scrn NEGATIVE, Urine Cocaine Screen NEGATIVE, U Cannabinoids Screen NEGATIVE, Ur Drug Screen Comment 05/31/20 17:53: Urine Color Yellow, Urine Clarity Sl. Cloudy, Urine pH 5.0, Ur Specific [place] 1.010, Urine Protein 15 H, Urine Glucose (UA) 1000 H, Urine Ketones Negative, Urine Occult Blood Negative, Urine Nitrite Negative, Urine Bilirubin Negative, Urine Urobilinogen Normal, Ur Leukocyte Esterase Negative, Urine RBC 0 SEEN, Urine WBC 0 SEEN, Ur Squamous Epith Cells 0-5 SEEN, Urine Bacteria 0 SEEN, Urine Mucus 0 SEEN 05/31/20 19:44: Lactic Acid 3.7 H* 05/31/20 21:22: POC Glucose 257 H 06/01/20 05:54: WBC 6.7, RBC 4.73, Hgb 12.6 L, Hct 39.1 L, MCV 82.7, MCH 26.6 L, MCHC 32.2, RDW Std Deviation 46.5 H, RDW Coeff of [place]per[place] 15.5 H, Plt Count 367, MPV 10.0, Immature Gran % (Auto) 2.800 H, Neut % (Auto) 65.9, Lymph % (Auto) 15.7 L, Mcdonough % (Auto) 10.3 H, Eos % (Auto) 3.7, Baso % (Auto) 1.6 H, Absolute Neuts (auto) 4.4, Absolute Lymphs (auto) 1.05, Nucleated RBC % 0 06/01/20 05:54: Sodium 133 L, Potassium 4.0, Chloride 106, Carbon Dioxide 24.0, Anion Gap 3 L, BUN 18, Creatinine 1.06, Estim Creat Clear Calc 72.24, Est GFR (MDRD) Af Amer 88, Est GFR (MDRD) Non-Af 73, BUN/Creatinine Ratio 17.0, Glucose 182 H, Calcium 8.5, Phosphorus 2.9, Magnesium 1.7, Total Bilirubin 0.60, AST 17, ALT 32, Alkaline Phosphatase 92, Total Protein 6.5, Albumin 2.3 L, Globulin 4.2, Albumin/Globulin Ratio 0.5 L 06/01/20 05:54: Lactic Acid 1.3 06/01/20 06:08: POC Glucose 179 H 06/01/20 12:42: POC Glucose 325 H 06/01/20 15:36: POC Glucose 236 H Current Medications Acetaminophen (Acetaminophen 325 Mg Tablet) 650 mg PO Q6H PRN PRN PRN Reason: Pain Score 1-10/Temp > 100.7 F Albuterol Sulfate (Albuterol 2.5 Mg/3 Ml Vial.Neb.) 2.5 mg INHALATION Q2H PRN PRN PRN Reason: Shortness of Breath/Wheezing Aspirin (Aspirin E.C. 81 Mg Tablet) 81 mg PO DAILYCM [facility] Last Admin: 06/01/20 09:53 Dose: 81 mg Documented by: Atorvastatin Calcium (Atorvastatin Calcium 20 Mg Tablet) 20 mg PO QHS [facility] Last Admin: 05/31/20 21:32 Dose: 20 mg Documented by: Guaifenesin (Guaifenesin 10 Ml Udc (200mg/10ml)) 20 ml PO Q4H PRN PRN PRN Reason: COUGH Heparin Sodium (Porcine) (Heparin Injection (Vial) 5,000 Unit/Ml Vial) 5,000 unit SC Q8 [facility] Last Admin: 06/01/20 14:40 Dose: 5,000 unit Documented by: Lactated Ringer's () 1,000 mls @ 100 mls/hr IV .Q10H [facility] Last Admin: 06/01/20 16:03 Dose: 100 mls/hr Documented by: Insulin Human Lispro (Insulin Lispro 100 Unit/Ml Insuln.Pen) 0 unit SC ACHS [facility]; Protocol Last Admin: 06/01/20 12:45 Dose: 5 u Documented by: Metoprolol Tartrate (Metoprolol Tartrate 25 Mg Tablet) 25 mg PO BID [facility] Last Admin: 06/01/20 09:53 Dose: 25 mg Documented by: Ondansetron HCl (Ondansetron 4 Mg/2 Ml Vial) 4 mg IV Q8H PRN PRN PRN Reason: NAUSEA/VOMITING Oxycodone HCl (Oxycodone 5 Mg Tablet) 5 mg PO Q4H PRN PRN PRN Reason: Pain Score 4-10 Pantoprazole Sodium (Pantoprazole Sodium 40 Mg Tablet) 40 mg PO DAILY [facility] Last Admin: 06/01/20 09:53 Dose: 40 mg Documented by: Fluticasone/Salmeterol (Fluticasone/Salmeterol 232-14 Inhaler) 1 puff IH BID [facility] Last Admin: 06/01/20 09:54 Dose: 1 puff Documented by: Tamsulosin HCl (Tamsulosin Hcl 0.4 Mg Capsule) 0.4 mg PO DAILY@1730 [facility] Medical Necessity - Tobacco Use Smoking Status: Never smoker Assessment/Plan All Active Problems Paresthesias in left hand (Resolved) COVID-19 (Acute) Dehydration (Acute) Debility (Acute) #1 generalized weakness-probably secondary to multiple medical problems including diabetes, coronary artery disease, essential hypertension, and recent COVID-19 infection-PT and OT will continue to see the patient #2 hypoxia-probably secondary to recent COVID-19 infection-we will continue to try to wean oxygen, patient is on low-flow oxygen at this time #3 type 2 diabetes-monitor blood sugars #4 lactic acidosis-probably secondary to hypoxia-sepsis has been ruled out, patient's antibiotics were stopped this morning #5 coronary artery disease #6 hyperlipidemia #7 COPD-Per patient Inpatient E&M: [id number] [facility] Hosp L2
[2020-06-01] MEDS: Tamsulosin HCl 0.4 MG Capsule PO (17:25)
[2020-06-01] MEDS: Atorvastatin Calcium 20 MG Tablet PO (21:20)
[2020-06-01 22:15] LABS: Bedside Glucose 239 mg/dL (70-110)
[2020-06-02] VITALS (9 sets, daily range): BP systolic 101–115; BP diastolic 52–71; PULSE 70–106; RESP 18–20; TEMP 36.4–36.9; O2SAT 94–95
[2020-06-02] MEDS: Heparin Injection (Vial) 5,000 UNIT/ML VIAL 5000 UNIT SC ×3 (06:44→20:42)
[2020-06-02] MEDS: Insulin Lispro 100 UNIT/ML INSULN.PEN SC ×4 (06:44→20:43)
[2020-06-02] MEDS: Metoprolol Tartrate 25 MG Tablet PO ×2 (07:52→20:44)
[2020-06-02] MEDS: Aspirin E.C. 81 MG Tablet PO (08:12)
[2020-06-02] MEDS: Fluticasone/Salmeterol 232-14 Inhaler 1 PUFF IH (08:12)
[2020-06-02] MEDS: Pantoprazole Sodium 40 MG Tablet PO (08:13)
--- NOTE | 2020-06-02 08:19 | PN_ITS ---
Patient Problems: Active and Suspected Problems COVID-19 (Acute) Dehydration (Acute) Debility (Acute) Subjective: Patient was seen and examined today, he does not complain of any shortness of breath. He is currently on 1 L of oxygen, I asked nursing to remove his oxygen and check his pulse ox and then walk him on room air to see if he requires oxygen. Objective: General: Alert, Oriented x3, Cooperative HEENT: Atraumatic, PERRLA, EOMI, Normocephalic Oral: Moist Mucosa Neck: Supple, No JVD, Trachea Midline, Thyroid Normal Size and Texture Lungs: Clear to auscultation, Normal air movement, No rhonchi, No wheeze, No rales Cardiovascular: Regular rate, Regular Rhythm, Normal S1, Normal S2, No murmurs Abdomen: Bowel Sounds Present, Soft, Non Tender, Non-Distended Extremities: No clubbing, No cyanosis, No edema, Capillary Refill Less than 3 Seconds Skin: No rashes, No breakdown Musculoskeletal: No Tenderness to Palpation of Joints or Extremities Neurological: Cranial nerves II-XII grossly intact, Neuro grossly intact, Sensory exam intact to light touch and pain, Coordination normal Psych/Mental Status: Normal Affect, Appropriate, Alert and oriented to time, place, person, mood and affect - Physical Exam Vitals/I&O's: Vital Signs Temp Pulse Resp BP Pulse Ox 97.5 F L 70 20 H 101/64 95 06/02/20 08:15 06/02/20 08:15 06/02/20 08:15 06/02/20 08:15 06/02/20 08:15 Oxygen Flow Rate (L/min) 1 Oxygen Delivery Method Room Air Weight: 83.7 kg Body Mass Index (BMI) 24.3 Finger Stick Blood Glucose 237 Intake and Output for Last 24 Hours 05/31/20 06/01/20 06/02/20 23:59 23:59 23:59 Intake Total 2995.42 / 2995.42 3448.33 / 3448.33 240 / 240 Output Total 300 / 300 1250 / 1250 700 / 700 Balance 2695.42 / 2695.42 2198.33 / 2198.33 -460 / -460 Microbiology Past 72 Hours 05/31/20 21:17 Interface Orders Streptococcus pneumoniae Antigen (M - Final 05/31/20 21:17 Interface Orders Legionella Antigen - Final 05/31/20 20:30 Mucosa - Nasopharyngeal Influenza Types A,B Direct FA (KEVEN) - Final Laboratory Results 06/01/20 12:42: POC Glucose 325 H 06/01/20 15:36: POC Glucose 236 H 06/01/20 21:14: POC Glucose 239 H Current Medications Acetaminophen (Acetaminophen 325 Mg Tablet) 650 mg PO Q6H PRN PRN PRN Reason: Pain Score 1-10/Temp > 100.7 F Albuterol Sulfate (Albuterol 2.5 Mg/3 Ml Vial.Neb.) 2.5 mg INHALATION Q2H PRN PRN PRN Reason: Shortness of Breath/Wheezing Aspirin (Aspirin E.C. 81 Mg Tablet) [facility] Admin: 06/02/20 08:12 Dose: 81 mg Documented by: Atorvastatin Calcium (Atorvastatin Calcium 20 Mg Tablet) 20 mg PO QHS [facility] Last Admin: 06/01/20 21:20 Dose: 20 mg Documented by: Guaifenesin (Guaifenesin 10 Ml Udc (200mg/10ml)) 20 ml PO Q4H PRN PRN PRN Reason: COUGH Heparin Sodium (Porcine) (Heparin Injection (Vial) 5,000 Unit/Ml Vial) 5,000 unit SC Q8 [facility] Last Admin: 06/02/20 06:44 Dose: 5,000 unit Documented by: Insulin Human Lispro (Insulin Lispro 100 Unit/Ml Insuln.Pen) 0 unit SC [facility]; Protocol Last Admin: 06/02/20 06:44 Dose: 3 u Documented by: Metoprolol Tartrate (Metoprolol Tartrate 25 Mg Tablet) 25 mg PO BID [facility] Last Admin: 06/02/20 07:52 Dose: 25 mg Documented by: Ondansetron HCl (Ondansetron 4 Mg/2 Ml Vial) 4 mg IV Q8H PRN PRN PRN Reason: NAUSEA/VOMITING Oxycodone HCl (Oxycodone 5 Mg Tablet) 5 mg PO Q4H PRN PRN PRN Reason: Pain Score 4-10 Pantoprazole Sodium (Pantoprazole Sodium 40 Mg Tablet) 40 mg PO DAILY [facility] Last Admin: 06/02/20 08:13 Dose: 40 mg Documented by: Fluticasone/Salmeterol (Fluticasone/Salmeterol 232-14 Inhaler) 1 puff IH BID [facility] Last Admin: 06/02/20 08:12 Dose: 1 puff Documented by: Tamsulosin HCl (Tamsulosin Hcl 0.4 Mg Capsule) 0.4 mg PO DAILY@1730 [facility] Last Admin: 06/01/20 17:25 Dose: 0.4 mg Documented by: Medical Necessity - Tobacco Use Smoking Status: Never smoker Assessment/Plan All Active Problems Paresthesias in left hand (Resolved) COVID-19 (Acute) Dehydration (Acute) Debility (Acute) #1 generalized weakness-probably secondary to multiple medical problems including diabetes, coronary artery disease, essential hypertension, and recent COVID-19 infection-PT and OT will continue to see the patient #2 hypoxia-probably secondary to recent COVID-19 infection-we will continue to try to wean oxygen, patient is on low-flow oxygen at this time at 1 L #3 type 2 diabetes-monitor blood sugars #4 lactic acidosis-probably secondary to hypoxia-sepsis has been ruled out, patient's antibiotics were stopped this morning #5 coronary artery disease #6 hyperlipidemia #7 COPD-Per patient Inpatient E&M: [id number] Subs Hosp L2
[2020-06-02 09:31] LABS: Bedside Glucose 234 mg/dL (70-110)
[2020-06-02 11:45] LABS: Bedside Glucose 339 mg/dL (70-110)
--- NOTE | 2020-06-02 14:56 | CASEMGMT ---
Addendum entered by Apple Hernández 06/02/20 16:08: PARVIN received call from pt's daughter Rosemary. Rosemary confirms that plan is for pt to discharge home. Rosemary states that she was able to go to pt's home and secure his firearms. PARVIN updated Rosemary that this worker provided pt with counseling resources, [facility], [facility], [facility]. Rosemary thanked this worker, denied additional needs or concerns at this time. Original Note: Social Work Note SW placed a call to pt's room to confirm discharge plans. Pt states he spoke with his daughter Rosemary and have decided that he will be going home at discharge. SW asked pt if he felt like he needed PT/OT and pt denied. Per PT/OT pt refused to work with them multiple times. Pt denied needing HHC, also denied need oxygen. SW asked pt about his mental health. Pt denied any suicidal thoughts/plans/ideations. PARVIN asked pt if he wanted [facility] to check in with pt in a few days to provide emotional support and pt denied. PARVIN asked pt if this worker could provide him with counseling resources and pt agreeable to counseling resources. PARVIN attempted to call pt's daughter Rosemary, no answer, PARVIN left message for Rosemary to return this worker's phone call. PARVIN put a packet of resources together for pt including counseling resources, [facility], Assisted Living lists, and [facility]. Plan: Home Apple Hernández TEMPLATE INSPECTOR, PYTHON ARCHITECT
[2020-06-02] MEDS: Tamsulosin HCl 0.4 MG Capsule PO (16:57)
[2020-06-02 17:31] LABS: Bedside Glucose 365 mg/dL (70-110)
[2020-06-02] MEDS: Atorvastatin Calcium 20 MG Tablet PO (20:44)
[2020-06-02 21:30] LABS: Bedside Glucose 285 mg/dL (70-110)
[2020-06-03] VITALS (8 sets, daily range): BP systolic 103–111; BP diastolic 66–80; PULSE 77–89; RESP 16–18; TEMP 35.6–37.1; O2SAT 90–95
[2020-06-03] MEDS: Heparin Injection (Vial) 5,000 UNIT/ML VIAL 5000 UNIT SC (06:35)
[2020-06-03] MEDS: Insulin Lispro 100 UNIT/ML INSULN.PEN SC ×2 (06:36→10:34)
[2020-06-03 06:45] LABS: Bedside Glucose 228 mg/dL (70-110)
[2020-06-03] MEDS: Pantoprazole Sodium 40 MG Tablet PO (08:32)
[2020-06-03] MEDS: Fluticasone/Salmeterol 232-14 Inhaler 1 PUFF IH (08:32)
[2020-06-03] MEDS: Metoprolol Tartrate 25 MG Tablet PO (08:32)
[2020-06-03] MEDS: Aspirin E.C. 81 MG Tablet PO (08:32)
--- NOTE | 2020-06-03 08:45 | DCINST_ITS ---
- Discharge Diagnoses Current Active Problems: Current Active and Chronic Problems Myocardial infarction (Chronic) Diabetes (Chronic) Hypertension (Chronic) High cholesterol (Chronic) GERD (gastroesophageal reflux disease) (Chronic) COVID-19 (Acute) Dehydration (Acute) Debility (Acute) You will use the following diet at home:: Calorie/Carbohydrate Controlled (specify 1200, 1400, etc) - 1800 any Your food should be the consistency of: Regular Your liquids should be the consistency of: Regular/Thin Discharge Activity: Return to Normal Activity Weight Bearing Status: Full weight bearing Allergies/Adverse Reactions: Allergies No Known Allergies Allergy (Verified 05/31/20 15:16) Medications to take at Discharge Aspirin [Adult Low Dose Aspirin EC] 81 mg PO DAILY 05/10/16 Lisinopril [Zestril] 10 mg PO DAILY 05/10/16 Metformin HCl [Metformin HCl ER] 1,000 mg PO BID 05/10/16 Metoprolol Tartrate [Lopressor (beta nolberto)] 25 mg PO BID 05/10/16 Multivitamin [Daily Multiple Vitamin] 1 each PO DAILY 05/10/16 Simvastatin [Zocor] 40 mg PO QHS 05/10/16 Tamsulosin HCl 0.4 mg PO DAILY 10/01/19 Albuterol Sulfate [Albuterol Sulfate Hfa] 2 puff INHALATION Q4H PRN 05/31/20 Budesonide/Formoterol 160/4.5 [Symbicort 160/4.5 Mcg Inhaler (SP)] 1 puff INHALATION BID 05/31/20 Empagliflozin [Jardiance] 10 mg PO DAILY 05/31/20 Glipizide [Glucotrol] 5 mg PO DAILY 05/31/20 Omeprazole 40 mg PO DAILY 05/31/20 Triamcinolone Ointment [Kenalog] 1 applicatio TOPICAL BID PRN 05/31/20 Primary Care Physician: Solis Gross MD [Primary Care Provider] - Please follow up with your Primary Care Physician in: in 2 weeks Test Results: Test results from this visit will be discussed in further detail at your follow- up appointment, if applicable.
[2020-06-03 10:56] LABS: Bedside Glucose 367 mg/dL (70-110)
--- NOTE | 2020-06-03 14:23 | PCM.DC.SUM ---
Discharge Date and Diagnosis - Problem List Patient Problems: Active and Suspected Problems COVID-19 (Acute) Dehydration (Acute) Debility (Acute) Date of Admission: 05/31/20 Date of Discharge: 06/03/20 - Primary Discharge Diagnosis Acute Problems: Active Problems 1 generalized weakness-probably secondary to multiple medical problems including diabetes, coronary artery disease, essential hypertension, malnutrition, and recent COVID-19 infection #2 hypoxia-probably secondary to recent COVID-19 infection #3 type 2 diabetes-monitor blood sugars #4 lactic acidosis-etiology unknown, patient did not have severe sepsis #5 coronary artery disease #6 hyperlipidemia #7 COPD-Per patient #8 caloric and protein malnutrition #9 dehydration #10 subacute COVID-19 infection - Secondary Discharge Diagnosis Chronic Problems: Chronic Problems Myocardial infarction (Chronic) Diabetes (Chronic) Hypertension (Chronic) High cholesterol (Chronic) GERD (gastroesophageal reflux disease) (Chronic) Hospital Course and Treatment Operations: None Procedures: None Summary of Care Provided: The patient is a 69 year old M was seen in the emergency room at [facility] with chief complaint of generalized weakness, he stated that 2 weeks prior he was diagnosed with COVID-19. Patient complains that he has been weak and cannot do ADLs around his residence, he felt his mouth was dry. Initially the patient said that he had thoughts of hurting himself but the social service manager in the emergency room interviewed the patient and came to the conclusion he was not genuine about this. Labs were obtained on the patient, patient's BUN was slightly elevated, blood glucose was 271, patient's lactic acid was elevated at 2.8, urinalysis was unremarkable, patient's pulse ox on room air was 94. CT of the chest was consistent with Covid pneumonia. Patient was admitted to [facility] to, he received IV fluids, he was seen by PT and OT and did not require supplemental oxygen. Patient appeared stronger after his hospitalization and declined any outpatient physical therapy. On 06/03/2020, patient was seen and examined: On examination he appeared in good health and spirits. Vital signs as documented. Skin warm and dry and without overt rashes. Neck without JVD, neck was supple, trachea midline, thyroid was normal. Lungs clear bilaterally, normal air movement was noted. Heart exam notable for regular rhythm, normal sounds and absence of murmurs, rubs or gallops. Abdomen unremarkable and without evidence of organomegaly, masses, or abdominal aortic enlargement. Bowel sounds are present, abdomen is not distended. Extremities nonedematous, no cyanosis was noted, no clubbing was noted. Neuro: Cranial nerves II through XII are grossly intact, no focal motor deficits were noted, sensation to light touch and pinprick intact, motor exam 5/5 throughout. Psych: Patient is alert and oriented x3, he does not appear anxious or depressed, he does not appear agitated. On 06/03/2020, patient appeared stable for discharge home. Patient Problems: Active and Suspected Problems COVID-19 (Acute) Dehydration (Acute) Debility (Acute) - Physical Exam Vitals/I&O's: Vital Signs Temp Pulse Resp BP Pulse Ox 98.8 F 86 18 103/70 93 06/03/20 08:28 06/03/20 13:09 06/03/20 13:09 06/03/20 13:09 06/03/20 13:09 Oxygen Flow Rate (L/min) 91 Oxygen Delivery Method Room Air Weight: 83.7 kg Body Mass Index (BMI) 24.3 Finger Stick Blood Glucose 237 Intake and Output for Last 24 Hours 06/01/20 06/02/20 06/03/20 23:59 23:59 23:59 Intake Total 3448.33 / 3448.33 240 / 240 Output Total 1250 / 1250 0 / 2060 400 / 400 Balance 2198.33 / 2198.33 -1820 / -1820 -400 / -400 Microbiology Past 72 Hours 05/31/20 15:00 Blood Culture (Wb) - Anticubital Left Blood Culture - Preliminary No growth in 48 hours. 05/31/20 14:50 Blood Culture (Wb) - Anticubital Right Blood Culture - Preliminary No growth in 48 hours. 05/31/20 21:17 Interface Orders Streptococcus pneumoniae Antigen (M - Final 05/31/20 21:17 Interface Orders Legionella Antigen - Final 05/31/20 20:30 Mucosa - Nasopharyngeal Influenza Types A,B Direct FA (KEVEN) - Final Laboratory Results 06/02/20 16:54: POC Glucose 365 H 06/02/20 20:34: POC Glucose 285 H 06/03/20 06:35: POC Glucose 228 H 06/03/20 10:32: POC Glucose 367 H Discharge Activity: Return to Normal Activity Weight Bearing Status: Full weight bearing Home Medications: Medications to take at Discharge Aspirin [Adult Low Dose Aspirin EC] 81 mg PO DAILY 05/10/16 Lisinopril [Zestril] 10 mg PO DAILY 05/10/16 Metformin HCl [Metformin HCl ER] 1,000 mg PO BID 05/10/16 Metoprolol Tartrate [Lopressor (beta nolberto)] 25 mg PO BID 05/10/16 Multivitamin [Daily Multiple Vitamin] 1 each PO DAILY 05/10/16 Simvastatin [Zocor] 40 mg PO QHS 05/10/16 Tamsulosin HCl 0.4 mg PO DAILY 10/01/19 Albuterol Sulfate [Albuterol Sulfate Hfa] 2 puff INHALATION Q4H PRN 05/31/20 Budesonide/Formoterol 160/4.5 [Symbicort 160/4.5 Mcg Inhaler (SP)] 1 puff INHALATION BID 05/31/20 Empagliflozin [Jardiance] 10 mg PO DAILY 05/31/20 Glipizide [Glucotrol] 5 mg PO DAILY 05/31/20 Omeprazole 40 mg PO DAILY 05/31/20 Triamcinolone Ointment [Kenalog] 1 applicatio TOPICAL BID PRN 05/31/20 Primary Care Physician: Solis Gross MD [Primary Care Provider] - Please follow up with your Primary Care Physician in: in 2 weeks Disposition: Home Minutes spent on discharge:: 32 Patient Condition:: Stable Medical Necessity - Tobacco Use Smoking Status: Never smoker Meaningful Use Info Meaningful Use Diagnoses (Choose all that apply): None applicable Inpatient E&M: [id number] [facility] Hosp
--- NOTE | 2020-06-07 15:12 | CASEMGMT ---
DC DATE: 06/03/2020 DC DISPOSITION: Home DC DIAGNOSIS: SARS COVID 2 Intro role of CM to patient via phone. Patient states he is doing well at home and has everything he needs. His physician has called him and he will have another call in two weeks. No new medications were ordered, and patient has his previous home meds. No concerns voiced, and no care improvement suggestions were given. States Daughter is checking on patient. Johnnie VILLARREALN RN ACM
== END 2020-06-03 13:33 | disposition home or self-care (01) | DRG 177 ==
LOC: ED 16:11 → MS2 17:05
PROVIDERS: Family Medicine; Admitting Provider Internal Medicine; Emergency Provider Emergency Medicine; PCP Family Medicine; Visit Provider Internal Medicine
DX: U07.1 COVID-19 (principal); J12.89 Other viral pneumonia; E43 Unspecified severe protein-calorie malnutrition; E87.2 Acidosis; J44.0 Chronic obstructive pulmonary disease with (acute) lower respiratory infection; R04.2 Hemoptysis; E87.1 Hypo-osmolality and hyponatremia; R09.02 Hypoxemia; E11.9 Type 2 diabetes mellitus without complications; I25.10 Atherosclerotic heart disease of native coronary artery without angina pectoris; E78.5 Hyperlipidemia, unspecified; J44.9 Chronic obstructive pulmonary disease, unspecified; E86.0 Dehydration; Z68.24 Body mass index [BMI] 24.0-24.9, adult; I25.2 Old myocardial infarction; Z86.19 Personal history of other infectious and parasitic diseases; E78.00 Pure hypercholesterolemia, unspecified; K21.9 Gastro-esophageal reflux disease without esophagitis; I10 Essential (primary) hypertension; Z79.51 Long term (current) use of inhaled steroids; Z79.82 Long term (current) use of aspirin; Z79.899 Other long term (current) drug therapy; Z95.5 Presence of coronary angioplasty implant and graft; N40.0 Benign prostatic hyperplasia without lower urinary tract symptoms; L40.9 Psoriasis, unspecified
CPT/HCPCS: 36415; 71045; 71275; 80053; 80307; 80320; 81001; 82550; 82962; 83605; 83615; 83735; 84100; 84145; 84443; 84484; 85025; 85379; 85384; 86140; 87040; 87449; 87804; 93005; 97110; 97116; 97162; 97166; 97530; 97535; 97802; 99251; 99285; J7030; J7120; Q9967; A4216; G0463; G0480

== ENCOUNTER → 2020-06-22 16:22 | Outpatient (CLI) | payer MEDICARE, SELFPAY ==
[2020-06-01 11:49] VITALS: BMI 24.3
--- NOTE | 2020-06-22 16:25 | RAD_ITS ---
HISTORY: covid positive on May 18sob on exertioncoughing in the waiting roomunable to stand for very longunable to give a clear history EXAM: XR Chest 2 Views: COMPARISON: May 31, 2020 chest x-ray and chest CT FINDINGS: # of images incl. paperwork: 3 Severe bilateral airspace disease consistent with older Covid pneumonia and fibrosis is similar to the previous study. Slight elevation the right hemidiaphragm is similar to the previous study. Heart is not enlarged. Insufficiency wedge compression fracture at the T11 level is again demonstrated. Pulmonary vascularity is indistinct. No effusions. 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 at [id number] Reported and signed by: Jamar Maloney MD Electronically Signed: Jamar Maloney MD at 22:35 EST Tel , Service support ,
== END ==
PROVIDERS: PCP Family Medicine; Referring Provider Family Medicine; Visit Provider Family Medicine
DX: R06.02 Shortness of breath (principal)
CPT/HCPCS: 71046

== ENCOUNTER 2020-11-29 10:44 | Emergency (ER) | payer MEDICARE, SELFPAY ==
[2020-06-01 11:49] VITALS: BMI 24.3
[2020-11-29 10:45] VITALS: BP 132/83; PULSE 89; RESP 20; TEMP 36.3; O2SAT 96; BMI 26.1
--- NOTE | 2020-11-29 10:58 | EKG12_ITS ---
Test Reason : COUGH Blood Pressure : / mmHG Vent. Rate : 071 BPM Atrial Rate : 071 BPM P-R Int : 172 ms QRS Dur : 090 ms QT Int : 372 ms P-R-T Axes : 028 -31 025 degrees QTc Int : 404 ms Normal sinus rhythm Left axis deviation Inferior infarct , age undetermined Abnormal ECG Confirmed by ASAF BLAND, LINO ([id number]), publications editor SARABJIT QIUGLEY ([id number]) on 11/30/2020 9:23:03 AM Referred By: BRISSA Confirmed By:LINO RON MD
--- NOTE | 2020-11-29 10:59 | CT_ITS ---
STUDY: CTA CHEST REASON FOR EXAM: Male, 70 years old. Hemoptysis since last night. Shortness of breath. COPD. Covid vaccine. RADIATION DOSAGE (If Supplied By Facility): CTDIvol = ( 12.11 ) mGy, DLP = ( 495.98 ) mGycm TECHNIQUE: The examination was performed with the intravenous administration of IV 100mL Isovue-370. Post-processing of the angiographic images was performed, with multiplanar reformation and 3D reconstruction. Individualized dose optimization techniques were used for this CT. COMPARISON: Comparison is made with prior CT scan of the thorax dated #32020. FINDINGS: Normal enhancement of the main pulmonary artery and right and left pulmonary arteries. Normal enhancement of the bilateral peripheral pulmonary arteries. There is no demonstrated pulmonary embolism. Normal thoracic aorta and visualized great vessels. There is no demonstrated aortic dissection. Normal heart and pericardium. Normal mediastinum. There is a 3.9 cm x 4.3 cm x 3.4 cm soft tissue mass in the right hilum. This extends inferiorly adjacent to the interlobar stem bronchus as well as superiorly. Left hilar adenopathy. Largest measures 1.7 cm. Normal visualized trachea and bronchi. The lungs are well expanded. Increased interstitial markings are seen in the right upper lobe as well as in the lower lobes with areas of confluence. This is suggestive scarring. There is evidence of bronchiectasis in the posterior medial segment of the lower lobes worse on the right side. The 1.6 cm x 1.2 cm pleural-based nodule in the posterior aspect of the right upper lobe. There is a 6.6 mm noncalcified nodule in the left lower lobe as seen on axial image #98. 9.4 mm nodule is seen in the medial aspect of the left upper lobe as seen on axial image #131. Normal pleura. Normal chest wall structures. There are degenerative changes of thoracic spine. Tiny gallstones seen along the dependent portion of the gallbladder. CT/CTA Chest W/WO Contrast IMPRESSION: 3.9 PAULO by 4.3 cm x 3.4 cm mass in the right hilum with perihilar extension. Bilateral pulmonary nodules. Findings suggestive of a interstitial scarring with areas of confluence worse on the right side. Electronically Signed: Anam Washington MD at 12:46 EDT , Service support ,
--- NOTE | 2020-11-29 11:00 | EDS_ITS ---
HPI History of Present Illness Chief Complaint: Cough Informant: patient Onset/Context/Timing Onset: Yesterday Context: Sudden Onset Timing: Lasts (Approximately 30 minutes) Quality: Bright red blood Location: Sputum Current Severity: Gone Narrative Narrative: Patient presents with hemoptysis that began last night. Patient states he was coughing up bright red blood. Patient states it was approximately 5-6 mouthfuls of blood. Patient has a history of COPD. Patient denies any hemoptysis today. Patient denies any fevers or chills. Patient denies any shortness of breath. Patient has a history of COVID-19 last April. Patient states he has had both COVID-19 vaccines. Patient saw his primary care physician today who referred him to the emergency department for possible PE. [facility] Medical History (Updated 11/29/20 @ 13:[address] Thiago Yen, ) Asthma COPD (chronic obstructive pulmonary disease) Coronary artery disease Diabetes Former smoker Hypertension Myocardial infarct Home Medications aspirin [Adult Low Dose Aspirin] 81 mg PO DAILY 05/10/16 [History Last Taken 07/30/16] lisinopril 10 mg PO DAILY 05/10/16 [History Last Taken 05/24/20] metformin 1,000 mg PO BID 05/10/16 [History Last Taken 05/24/20] metoprolol tartrate 25 mg PO BID 05/10/16 [History Last Taken 05/24/20] multivitamin [Daily Multiple] 1 ea PO DAILY 05/10/16 [History Last Taken 05/24/20] simvastatin 40 mg PO QHS 05/10/16 [History Last Taken 05/24/20] tamsulosin 0.4 mg PO DAILY 10/01/19 [History Last Taken 05/24/20] albuterol sulfate 2 puff INHALATION Q4H PRN 05/31/20 [History Last Taken 05/29/20] budesonide-formoterol 1 puff INHALATION BID 05/31/20 [History Last Taken 05/29/20] empagliflozin 10 mg PO DAILY 05/31/20 [History Last Taken 05/24/20] glipizide 5 mg PO DAILY 05/31/20 [History Last Taken 05/24/20] omeprazole 40 mg PO DAILY 05/31/20 [History Last Taken 05/24/20] triamcinolone acetonide 1 applicatio TOPICAL BID PRN 05/31/20 [History Last Taken 05/24/20] Allergy/AdvReac Type Severity Reaction Status Date / Time No Known Allergies Allergy Verified 11/29/20 10:47 Surgical History (Updated 11/29/20 @ 12:28 by Alexandria Saha) History of coronary artery stent placement Social History Smoking Status: Never smoker ROS ROS ED Constitutional Constitutional ED: Denies chills or fever(s) Eyes Eyes: Denies blurry vision or change in vision ENT ENT ED: Denies rhinorrhea or sore throat Cardiovascular Cardiovascular: Denies chest pain or palpitations Respiratory/Chest Respiratory/Chest: Reports cough and other; Denies dyspnea Gastrointestinal Gastrointestinal: Denies nausea or vomiting Genitourinary Genitourinary ED: Denies dysuria or hematuria Musculoskeletal Musculoskeletal: Reports back pain; Denies neck pain Integumentary Reports rash; Denies abscess Neurologic Neurologic: Denies headache(s), paresthesias or weakness Allergic/Immunologic Allergic/Immunologic ED: Denies mouth swelling or urticaria EXAM Physical Exam Const Vital Signs: 11/29/20 10:45 11/29/20 13:39 Temperature 97.4 F L Temperature Source Temporal Pulse Rate 89 65 Respiratory Rate 20 H 15 Blood Pressure 132/83 H 132/85 H Blood Pressure Mean 99 100 Pulse Ox 96 98 Oxygen Delivery Method Room Air Room Air Positive well nourished and well developed General Appearance ED: well developed Neck supple and no JVD Resp normal respiratory effort Auscultation: wheezes expiratory wheezes and throughout Cardio regular rate and regular rhythm GI normal to inspection, nondistended, normoactive bowel sounds and non-tender Palpation: soft Extremity General Extremety ED: Negative for edema or tenderness General Extremity: Negative for edema Neuro oriented x3, CN's II-XII intact bilaterally and no sensory deficits noted Sensorium / Orientation: alert Motor Exam: strength 5/5 throughout MDM MDM MDM Narrative Medical decision making narrative: CBC was within normal limits. PT with INR and PTT were normal. Comprehensive metabolic profile showed a slightly elevated creatinine 1.34 and a BUN of 24. Troponin was normal. CTA of the chest was obtained. There is a 3.9 x 4.3 x 3.4 cm mass in the right hilum with perihilar extension. This was interpreted by the radiologist and reviewed by myself. Patient was advised of his findings. I discussed the case with the nurse at [facility] as well as Dr. Solis Gross. She will call the patient tomorrow to schedule follow-up appointment this week and arrange for further diagnosis and treatment of the right hilar mass. Patient understood and was agreeable with the plan. All questions were answered. Lab Data Attestation: I reviewed the patient's lab results. Labs: Laboratory Results - last 24 hr 11/29/20 11/29/20 11/29/20 11:35 11:35 11:35 WBC 7.3 RBC 4.63 Hgb 12.7 L Hct 38.4 L MCV 82.9 MCH 27.4 MCHC 33.1 RDW Std Deviation 48.3 H RDW Coeff of Esperanza 16.2 H Plt Count 284 MPV 10.2 Immature Gran % (Auto) 0.500 Neut % (Auto) 54.9 Lymph % (Auto) 22.9 [place] % (Auto) 7.6 Eos % (Auto) 13.0 H Baso % (Auto) 1.1 H Absolute Neuts (auto) 4.0 Absolute Lymphs (auto) 1.67 Nucleated RBC % 0 PT 13.3 INR 1.1 APTT 27.4 Sodium 136 Potassium 4.0 Chloride 105 Carbon Dioxide 26.0 Anion Gap 5 BUN 24 H Creatinine 1.34 H Estim Creat Clear Calc 56.31 Est GFR (MDRD) Af Amer 67 Est GFR (MDRD) Non-Af 56 L BUN/Creatinine Ratio 17.9 Glucose 148 H Calcium 9.6 Total Bilirubin 0.40 AST 8 L ALT 18 Alkaline Phosphatase 90 Troponin I < 0.015 Total Protein 7.7 Albumin 3.6 Globulin 4.1 Albumin/Globulin Ratio 0.9 Radiography Diagnostic Testing: Radiology Impression Chest CTA 11/29/20 10:59 IMPRESSION: 3.9 PAULO by 4.3 cm x 3.4 cm mass in the right hilum with perihilar extension. Bilateral pulmonary nodules. Findings suggestive of a interstitial scarring with areas of confluence worse on the right side. Electronically Signed: Anam Washington MD at 12:46 EDT , Service support , EKG Initial EKG: Attestation: I personally reviewed and interpreted this EKG as follows: Interpretation: Sinus Rhythm (71) Comments: Left axis deviation and old inferior infarct Prior EKG tracings: available for review Prior: Unchanged (05/31/2020) Discharge Plan Triage Chief Complaint: Cough ED Provider: Thiago Yen Dx/Rx/DC Orders Clinical Impression: Mass of right lung Instructions: ED Hemoptysis Prescriptions: No Action multivitamin [Daily Multiple] 1 EACH tablet 1 ea PO DAILY RF: 0 lisinopril 20 MG tablet 10 mg PO DAILY RF: 0 aspirin [Adult Low Dose Aspirin] 81 MG Tablet.Dr 81 mg PO DAILY RF: 0 simvastatin 40 MG tablet 40 mg PO QHS RF: 0 metoprolol tartrate 50 MG tablet 25 mg PO BID RF: 0 metformin 1,000 MG [id number] 1,000 mg PO BID RF: 0 tamsulosin 0.4 mg capsule 0.4 mg PO DAILY RF: 0 empagliflozin 10 MG tablet 10 mg PO DAILY RF: 0 triamcinolone acetonide 1 APPLIC ointment 1 applicatio TOPICAL BID PRN (Reason: psoriasis) RF: 0 albuterol sulfate 8.5 GM HFA aerosol inhaler 2 puff INHALATION Q4H PRN (Reason: Sob &/Or Wheezing) RF: 0 glipizide 5 MG tablet 5 mg PO DAILY RF: 0 budesonide-formoterol 1 INHALER inhaler 1 puff INHALATION BID RF: 0 omeprazole 40 MG capsule,delayed release(DR/EC) 40 mg PO DAILY RF: 0 Primary Care Provider: Solis Gross Referrals: Solis Gross MD [Primary Care Provider] - As soon as possible Disposition Disposition: Home, self care
[2020-11-29 11:51] LABS: Absolute Lymphocyte Count 1.67 X10^3/uL (0.83-4.51); Basophil# 0.08 X10^3/uL; Basophil% 1.1 % (0-1); Eosinophil# 0.95 X10^3/uL; Hematocrit 38.4 % (40-54); Hemoglobin 12.7 g/dL (13.0-16.5); Lymphocyte # 1.67 X10^3/ul (0.83-4.51); Lymphocyte % 22.9 % (19-41); Mean Corp Hgb Conc 33.1 g/dL (32-36); Mean Corpuscular Hgb 27.4 pg (27.0-32.0); Mean Corpuscular Volume 82.9 fL (80-94); Mean Platelet Vol. 10.2 fl (6.2-12.0); Monocyte# 0.55 X10^3/uL; Monocyte% 7.6 % (0-10); NRBC Flagged by Analyzer 0 % (0-5); Neutrophil # 3.99 X10^3/uL (2.7-7.7); Neutrophil % 54.9 % (47-70); Platelet Count 284 K/mm3 (150-450); RBC Distribution Width CV 16.2 % (11.6-14.6); RBC Distribution Width SD 48.3 fl (35.1-43.9); Red Blood Count 4.63 M/mm3 (4.6-6.2); White Blood Count 7.3 K/mm3 (4.4-11.0)
[2020-11-29 11:55] LABS: International Normalized Ratio 1.1; Prothrombin Time (Protime)PT. 13.3 SECONDS (11.7-14.9)
[2020-11-29 11:56] LABS: Partial Thromboplast Time 27.4 Seconds (24.1-36.2)
[2020-11-29 12:09] LABS: ALB/GLOB Ratio 0.9 RATIO (0.9-2.4); AST(SGOT) 8 U/L (15-37); Alanine Aminotransfer ALT/SGPT 18 U/L (16-61); Albumin, Serum 3.6 g/dL (3.2-5.0); Alkaline Phosphatase 90 U/L (45-117); Anion Gap 5 (5-15); BUN 24 mg/dL (7-18); BUN/Creat Ratio 17.9 RATIO (10-20); Calcium,Total 9.6 mg/dL (8.5-10.1); Chloride 105 mmol/L (98-107); Creatinine, Serum 1.34 mg/dL (0.70-1.30); EST Glomerular Filtration Rate 56 mL/min (>60); Est Glom Filt Rate - Afr Amer 67 mL/min (>60); Estimated Creatinine Clearance 56.31 ml/min; Globulin 4.1 g/dL (2.2-4.2); Glucose 148 mg/dL (74-106); Protein, Total 7.7 g/dL (6.4-8.2); Sodium Level 136 mmol/L (136-145)
[2020-11-29 13:39] VITALS: BP 132/85; PULSE 65; RESP 15; O2SAT 98
[2020-11-29 14:33] VITALS: RESP 18
== END 2020-11-29 14:34 | disposition home or self-care (01) ==
PROVIDERS: Emergency Provider Emergency Medicine; PCP Family Medicine
DX: R91.8 Other nonspecific abnormal finding of lung field (principal); R04.2 Hemoptysis; J44.9 Chronic obstructive pulmonary disease, unspecified; I25.10 Atherosclerotic heart disease of native coronary artery without angina pectoris; E11.9 Type 2 diabetes mellitus without complications; I10 Essential (primary) hypertension; I25.2 Old myocardial infarction; Z87.891 Personal history of nicotine dependence; Z86.16 Personal history of COVID-19; Z79.82 Long term (current) use of aspirin; Z79.84 Long term (current) use of oral hypoglycemic drugs
CPT/HCPCS: 71275; 80053; 84484; 85025; 85610; 85730; 93005; 99284; Q9967; A4216

== ENCOUNTER → 2020-12-05 13:05 | Outpatient (CLI) | payer MEDICARE, SELFPAY ==
[2020-12-05 11:59] VITALS: BMI 26.4
[2020-12-05 14:35] LABS: Absolute Lymphocyte Count 2.27 X10^3/uL (0.83-4.51); Absolute Neutrophil Count 4.5 X10^3/uL (2.0-7.7); Basophil# 0.11 X10^3/uL; Basophil% 1.3 % (0-1); Eosinophil# 0.89 X10^3/uL; Eosinophils% 10.7 % (0-5); Hematocrit 43.3 % (40-54); Hemoglobin 13.7 g/dL (13.0-16.5); Lymphocyte # 2.27 X10^3/ul (0.83-4.51); Lymphocyte % 27.2 % (19-41); Mean Corp Hgb Conc 31.6 g/dL (32-36); Mean Corpuscular Hgb 26.2 pg (27.0-32.0); Mean Platelet Vol. 10.5 fl (6.2-12.0); Monocyte# 0.52 X10^3/uL; Monocyte% 6.2 % (0-10); NRBC Flagged by Analyzer 0 % (0-5); Neutrophil # 4.53 X10^3/uL (2.7-7.7); Neutrophil % 54.2 % (47-70); Platelet Count 318 K/mm3 (150-450); RBC Distribution Width CV 16.3 % (11.6-14.6); RBC Distribution Width SD 49.4 fl (35.1-43.9); Red Blood Count 5.22 M/mm3 (4.6-6.2); White Blood Count 8.4 K/mm3 (4.4-11.0)
[2020-12-05 14:44] LABS: International Normalized Ratio 1.1; Prothrombin Time (Protime)PT. 13.8 SECONDS (11.7-14.9)
== END ==
PROVIDERS: PCP Family Medicine; Referring Provider Internal Medicine Critical Care Medicine; Visit Provider Internal Medicine Critical Care Medicine
DX: I21.9 Acute myocardial infarction, unspecified (principal)
CPT/HCPCS: 36415; 85025; 85610

== ENCOUNTER → 2020-12-07 10:18 | Outpatient (CLI) | payer MEDICARE, SELFPAY ==
[2020-12-05 11:59] VITALS: BMI 26.4
--- NOTE | 2020-12-08 08:28 | PFTCOMP ---
COMPLETE PULMONARY FUNCTION TEST INTERPRETATION Brief HPI: Patient is a 70 year old male, currently under the care of Dr. Fiore, who presents to [facility] for complete pulmonary function tests secondary to diagnosis of abnormal CT. Respiratory therapist reports good effort and reproducible results. Interpretation: Forced expiration spirometry shows no large airways obstructive ventilatory defect with an FEV1 of 71% predicted. There is no significant bronchodilator response by strict ATS criteria. Spirograms are of good quality and plateau normally. The respiratory flow volume loop shows a normal pattern. Lung volumes by body plethysmography show a decreased total lung capacity at 4.07 L, 56% predicted. All other lung volumes are reduced symmetrically. Diffusion capacity by carbon monoxide is normal at 90% predicted. The airway resistance is elevated. No previous pulmonary function tests were available for review. Impression: Moderate restrictive ventilatory defect with preserved diffusion capacity. There are also subtle signs of possible small airways obstruction.
--- NOTE | 2020-12-08 08:30 | BRONCHALL_ITS ---
Bronchoprovocation Challenge Bronchoprovocation Challenge Bronchoprovocation Challenge: BRONCHOPROVOCATION STUDY INTERPRETATION Brief HPI: Patient is a 38 year old male, currently under the care of Dr. Fiore, who presents to [facility] for a bronchoprovocation study secondary to diagnosis of dyspnea on exertion. Respiratory therapist reports good effort and reproducible results. Interpretation: Initial spirometry showed no large airways obstructive ventilatory defect. The patient was then given increasingly concentrated doses of methacholine in a stepwise fashion, using a modified ATS protocol. The patient?s maximum reduction in FEV1 was 12 percent predicted. Impression: Negative Bronchoprovocation study. This is NOT consistent with the diagnosis of asthma.
== END ==
PROVIDERS: PCP Family Medicine; Referring Provider Internal Medicine Critical Care Medicine; Visit Provider Internal Medicine Critical Care Medicine
DX: R91.8 Other nonspecific abnormal finding of lung field (principal)
CPT/HCPCS: 94060; 94726; 94729

== ENCOUNTER 2020-12-16 10:43 | Day surgery (SDC) | payer MEDICARE, SELFPAY ==
[2020-12-05 11:59] VITALS: BMI 26.4
--- NOTE | 2020-12-09 11:19 | NURSING ---
pt states he received his second Pfizer vaccine on 10/27/20
--- NOTE | 2020-12-14 09:55 | HP.PCM_ITS ---
HPI - General HPI Narrative The patient is a 70-year-old male who initially presented to our outpatient pulmonary office on December 05 for the evaluation of a lung mass. The patient was recently evaluated in the emergency department on November 29 after presenting there with complaints of hemoptysis. A CTA chest was obtained during that emergency department visit and demonstrated no evidence for PE. There was, however, a sizable right perihilar lung mass measuring approximately 4 x 3.5 cm. There was associated mediastinal and left hilar adenopathy. There was also an additional 1.6 x 1.2 cm pleural-based nodule in the right upper lobe. A smaller 6 mm nodule was also identified in the left lower lobe, along with a 9 mm nodule in the left upper lobe. He is a lifelong non-smoker with limited secondhand smoke exposure. 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 He did report having been diagnosed with asthma in childhood. He was diagnosed with Covid in May but has since recovered. In addition to the aforementioned, the patient did report a history of sleep apnea, but is noncompliant with the use of nocturnal Pap therapy. [facility] Medical History (Updated 12/09/20 @ 11:44 by Bernice Heath) Asthma Cancer COPD (chronic obstructive pulmonary disease) Coronary artery disease Diabetes Former smoker Full dentures GERD (gastroesophageal reflux disease) Hearing loss, left Hearing loss, right Hemoptysis Hiatal hernia Hypertension Injury of head and neck Myocardial infarct Non-smoker Psoriasis Shortness of breath on exertion Sleep apnea Syncope Wears glasses Home Medications aspirin [Adult Low Dose Aspirin] 81 mg PO QHS 05/10/16 [History Last Taken 07/30/16] lisinopril 10 mg PO DAILY 05/10/16 [History Last Taken 05/24/20] metformin 1,000 mg PO BID 05/10/16 [History Last Taken 05/24/20] metoprolol tartrate 25 mg PO BID 05/10/16 [History Last Taken 05/24/20] multivitamin [Daily Multiple] 1 ea PO DAILY 05/10/16 [History Last Taken 05/24/20] simvastatin 40 mg PO QHS 05/10/16 [History Last Taken 05/24/20] tamsulosin 0.4 mg PO QHS 10/01/19 [History Last Taken 05/24/20] albuterol sulfate 2 puff INHALATION Q4H PRN 05/31/20 [History Last Taken 05/29/20] budesonide-formoterol 1 - 2 puff INHALATION BID 05/31/20 [History Last Taken 05/29/20] omeprazole 40 mg PO DAILY 05/31/20 [History Last Taken 05/24/20] triamcinolone acetonide 1 applicatio TOPICAL BID PRN PRN 05/31/20 [History Last Taken 05/24/20] glyburide 5 mg PO DAILY 12/09/20 [History Last Taken Unknown] hydrochlorothiazide 12.5 mg PO DAILY 12/09/20 [History Last Taken Unknown] Allergy/AdvReac Type Severity Reaction Status Date / Time No Known Allergies Allergy Verified 12/09/20 10:47 Surgical History (Updated 12/09/20 @ 11:14 by Bernice Heath) History of colonoscopy History of coronary artery stent placement History of Chicho fundoplication Social History Smoking Status: Never smoker ROS Constitutional Constitutional: Denies chills, fatigue or fever(s) Eyes Eyes: Denies blurry vision or change in vision ENT HEENT: Denies abnormal hearing Cardiovascular Cardiovascular: Denies chest pain or edema Respiratory/Chest Respiratory/Chest: Denies cough or hemoptysis Gastrointestinal Gastrointestinal: Denies abdominal pain Genitourinary Genitourinary: Denies dysuria or hematuria Musculoskeletal Musculoskeletal: Denies back pain Integumentary Integumentary: Denies dry skin, jaundice or lesions Neurologic Neurologic: Denies abnormal gait or abnormal speech Psychiatric Psychiatric: Denies anxiety Hematologic/Lymphatic Hematologic/Lymphatic: Denies anemia, easy bleeding or easy bruising Physical Exam Const alert General Appearance: cooperative HEENT normocephalic and head/scalp atraumatic Eyes PERRL Neck supple General: trachea midline Resp normal respiratory effort Auscultation: Negative for rales, rhonchi or wheezes Cardio regular rate and regular rhythm GI normal to inspection, nondistended, normoactive bowel sounds Extremity no clubbing, cyanosis or edema Skin Lesions: no lesions Neuro CN's II-XII intact bilaterally and no focal motor deficits Psych affect normal Appearance: appropriate Assessment & Plan Assessment/Plan (1) Lung mass: PLAN: The patient presented to the pulmonary clinic having been evaluated in the emergency department with hemoptysis. Subsequent chest imaging did reveal a sizable right perihilar lung mass with mediastinal and hilar adenopathy, along with additional bilateral pulmonary nodules. This constellation of findings is certainly concerning for underlying malignancy. However, the patient is a lifelong non-smoker. I did explain to the patient that it is imperative to work-up these findings further. I recommended that we proceed with transbronchial needle aspiration facilitated by EBUS. Risks and benefits of the proposed procedure were discussed with the patient at length. He is agreeable to proceed.
[2020-12-16] VITALS (7 sets, daily range): BP systolic 86–107; BP diastolic 59–66; PULSE 70–80; RESP 16; TEMP 36.1–36.8; O2SAT 93–99; BMI 25.7
--- NOTE | 2020-12-16 | IMM_PTH ---
PATIENT: BRANDAN DELGADO LOC: EN U#:[id number] AGE/SX: 70/M ROOM: RE12/16/[address]: Dr. Fabián Fiore DO : 1950 BED: DIS: 12/16/2020 SPEC #: [id number] RECD: 12/19/20 12:46 STATUS: SOUDariel REQ #: [id number] MUNDO: 12/16/20 00:[address]: Fbaián Fiore DEPT: IMMUNOHISTOCHEMISTRY RECD BY: Sadia Davidson ENTERED: 12/19/20 12:48 SP TYPE: IMMUNO OTHR DR: Dr. Solis Gross MD Tissues: I - Lung, NOS Procedures: RCC (add) NAPSIN A (add) CD10 (add) CK20 (add) CK5-6 (add) CK7 (add) CK8 (add) HEP PAR (add) KI-67 (add) P53 (add) TTF1 (add) Vimentin (add) Pankeratin (initial) P40 (add) PSAP (add) PHYSICIAN & [address] [address] SPECIMEN INFORMATION: Tissue Source: I - EBUS, TBNA, site 10R Clinical Info: Lung mass Specimen Number: [id number] CPT code: 21216, 96242 x14 METHODOLOGY: Deparaffinized sections of prefer/formalin-fixed tissue or PAP/DQ stained slides are incubated with monoclonal/polyclonal antibodies/oligonucleotide probes. Localization is made via biotin free immunoperoxidase method. Appropriate controls are performed and reacted as expected. Results on target cell population are indicated in the following table: RESULTS: ANTIBODY / CLONE RESULT Block I AE1-3 (AE1/AE3/PCK26) positive CK7 (OV-TL12/30) negative CK8 (08ucwgD01) positive CK20 (KS20.8) negative TTF-1 (8G7G3/1) negative Napsin A (Rabbit Polyclonal) negative HepPar (OCh1E5) negative RCC (PN-15) negative PSAP (PASE/4LJ) negative CK5-6 (D5 & 1684) negative P40 (BC28) negative P53 (DO-7) negative Ki-67 (30-9) positive, low CD10 (56C6) positive Vimentin (V9) positive These tests were developed and their performance characteristics determined by [facility]. They may not have been cleared or approved by the U.S. Food and Drug Administration. The FDA has determined that such clearance or approval is not necessary. The above immunohistochemical/dualISH markers are ordered and reviewed by the Pathologist. INTERPRETATION: I. EBUS, TBNA, site 10R: Consistent with metastatic carcinoma. See comment. SJ:nahed 12/22/2020 Comment: IHC profile favors metastatic clear cell renal cell carcinoma. Clinical correlation is necessary. Case has been reviewed in consultation with Dr. Smart who concurs with the above diagnosis. IDC:AM
--- NOTE | 2020-12-16 | IMM_PTH ---
PATIENT: BRANDAN DELGADO LOC: EN U#:[id number] AGE/SX: 70/M ROOM: RE12/16/[address]: Dr. Fabián Fiore DO : 1950 BED: DIS: 12/16/2020 SPEC #: [id number] RECD: 12/19/20 12:48 STATUS: CLAUDIA REQ #: [id number] MUNDO: 12/16/20 00:[address]: Fabián Fiore DEPT: IMMUNOHISTOCHEMISTRY RECD BY: Sadia Davidson ENTERED: 12/19/20 12:51 SP TYPE: IMMUNO OTHR DR: Dr. Solis Gross MD Tissues: Lung, NOS Procedures: RCC (add) NAPSIN A (add) CD10 (add) CK20 (add) CK5-6 (add) CK7 (add) CK8 (add) HEP PAR (add) KI-67 (add) P53 (add) TTF1 (add) Vimentin (add) Pankeratin (initial) P40 (add) PSAP (add) PHYSICIAN & [address] [address] SPECIMEN INFORMATION: Tissue Source: Mainstem bronchial lesion Clinical Info: Lung mass Specimen Number: [id number] CPT code: 97924, 34069 x14 METHODOLOGY: Deparaffinized sections of prefer/formalin-fixed tissue or PAP/DQ stained slides are incubated with monoclonal/polyclonal antibodies/oligonucleotide probes. Localization is made via biotin free immunoperoxidase method. Appropriate controls are performed and reacted as expected. Results on target cell population are indicated in the following table: RESULTS: ANTIBODY / CLONE RESULT AE1-3 (AE1/AE3/PCK26) positive CK7 (OV-TL12/30) negative CK8 (87vlipH24) positive CK20 (KS20.8) negative TTF-1 (8G7G3/1) negative Napsin A (Rabbit Polyclonal) negative HepPar (OCh1E5) negative RCC (PN-15) negative PSAP (PASE/4LJ) negative CK5-6 (D5 & 1684) negative P40 (BC28) negative P53 (DO-7) positive, low Ki-67 (30-9) positive, low CD10 (56C6) positive Vimentin (V9) positive These tests were developed and their performance characteristics determined by [facility]. They may not have been cleared or approved by the U.S. Food and Drug Administration. The FDA has determined that such clearance or approval is not necessary. The above immunohistochemical/dualISH markers are ordered and reviewed by the Pathologist. INTERPRETATION: Mainstem bronchial lesion, endobronchial biopsy: Consistent with metastatic carcinoma. See comment. SJ:nahed 12/22/2020 Comment: IHC profile favors clear cell renal cell carcinoma. Clinical correlation is necessary. Case has been reviewed in consultation with Dr. Smart who concurs with the above diagnosis. IDC:AM
[2020-12-16 12:00] LABS: Bedside Glucose 139 mg/dL (70-110)
[2020-12-16] MEDS: Lactated Ringers 1,000 ML 100 ML IV (12:00)
--- NOTE | 2020-12-16 13:00 | LUNG_PTH ---
PATIENT: BRANDAN DELGADO LOC: EN U#:[id number] AGE/SX: 70/M ROOM: RE12/16/[address]: Dr. Fabián Fiore DO : 1950 BED: DIS: 12/16/2020 SPEC #: [id number] RECD: 12/16/20 13:53 STATUS: CLAUDIA REQ #: [id number] MUNDO: 12/16/20 13:[address]: Fabián Fiore DEPT: SURGICAL PATHOLOGY RECD BY: Annamaria Hollis ENTERED: 12/16/20 13:54 SP TYPE: LUNG BX OTHR DR: Dr. Solis Gross MD Tissues: Lung, NOS Procedures: Special Stain Group II Surgery Specimen Level IV Cytology Other HEADER OPERATION: EBUS with TBNA PRE-OP DIAGNOSIS: Lung mass TISSUE SUBMITTED: Mainstem bronchial lesion MICROSCOPIC DIAGNOSIS Mainstem bronchial lesion, endobronchial biopsy: Consistent with metastatic carcinoma. See comment. VIDAL:nahed 12/19/2020 COMMENT The specimen is evaluated at the time of biopsy by Dr. Bowman. Immediate Evaluation = Negative for malignant cells. Immunohistochemistry ([id number]) supports the above diagnosis and favors clear cell renal cell carcinoma. The specimen also show detached fragments of fibrinopurulent exudates. A fragment of bronchial mucosa with acute and chronic inflammation is also noted. Please correlate with corresponding cytology specimen [id number]. Correlation with clinical, radiologic findings and appropriate follow up are necessary. This case is discussed with Dr. Fiore on 12/21/20. Case has been reviewed in consultation with Dr. Smart who concurs with the above diagnosis. IDC:AM MICROSCOPIC DESCRIPTION Slides are reviewed. GROSS DESCRIPTION Received in fixative is one container labeled with the patient's name and designated right mainstem bronchial lesion. The specimen consists of multiple irregular fragments of light macias soft tissue that in aggregate measure 0.4 x 0.2 x 0.1 cm. The specimen is totally submitted in one cassette. / SJ:nahed 12/16/20 TC:0 CPT: 45445, 71686
--- NOTE | 2020-12-16 13:00 | ASPIG_PTH ---
PATIENT: BRANDAN DELGADO LOC: EN U#:[id number] AGE/SX: 70/M ROOM: RE12/16/[address]: Dr. Fabián Fiore DO : 1950 BED: DIS: 12/16/2020 SPEC #: [id number] RECD: 12/16/20 13:56 STATUS: CLAUDIA REKandi #: [id number] MUNDO: 12/16/20 13:[address]: Fabián Fiore DEPT: CYTOLOGY RECD BY: Annamaria Hollis ENTERED: 12/16/20 13:59 SP TYPE: ASP OUT OTHR DR: Dr. Solis Gross MD Tissues: A - Lung, NOS B - Lung, NOS C - Lung, NOS D - Lung, NOS E - Lung, NOS F - Lung, NOS G - Lung, NOS H - Lung, NOS I - Lung, NOS J - Lung, NOS K - Lung, NOS Procedures: FNA Specimen Adequacy Special Stain Group II Surgery Specimen Level IV Cytology Other HEADER OPERATION: EBUS with TBNA PRE-OP DIAGNOSIS: Mediastinal lymphadenopathy, lung mass TISSUE SUBMITTED: A - EBUS, TBNA, site 10R #1, B - EBUS, TBNA, site 10R #2, C - EBUS, TBNA, site 10R #3, D - EBUS, TBNA, site 10R #4, E - EBUS, TBNA, site 10R #5, F - EBUS, TBNA, site 10R #6, G - EBUS, TBNA, site 10R #7, H - EBUS, TBNA, site 10R #8, I - EBUS, TBNA, site 10R, J - [place], right mainstem, K - Brushings smears x3 DIAGNOSIS CYTOLOGY A. EBUS, TBNA, site 10R #1 (smears): Predominantly blood and rare respiratory epithelial cells are noted. B. EBUS, TBNA, site 10R #2 (smears): Negative for malignant cells. Lymphocytes are present. Adequate for evaluation. C. EBUS, TBNA, site 10R #3 (smears): Predominantly blood. D. EBUS, TBNA, site 10R #4 (smears): Predominantly blood. Rare respiratory epithelial cells and lymphocytes noted. E. EBUS, TBNA, site 10R #5 (smears): Negative for malignant cells. Respiratory epithelial cells noted. A few lymphocytes are noted. F. EBUS, TBNA, site 10R #6 (smears): Negative for malignant cells. Respiratory epithelial cells noted. A few lymphocytes are noted. G. EBUS, TBNA, site 10R #7 (smears): A few atypical cells noted suspicious for malignancy. Numerous lymphocytes are also present. H. EBUS, TBNA, site 10R #8 (smears): Negative for malignant cells. Marked acute inflammation. Respiratory epithelial cells and a few lymphocytes are noted. Rare atypical cells are noted. I. EBUS, TBNA, site 10R, fluid (cytospin and cell block): Consistent with metastatic carcinoma. See comment. J. [place], right mainstem (cell block): Negative for malignant cells. K. Brushing, right mainstem (smears): Negative for malignant cells. SJ:nahed 12/19/2020 COMMENT The specimen is evaluated at the time of procedure by Dr. Bowman. Rapid On-Site Evaluation: A. EBUS, TBNA, site 10R #1: Predominantly blood. B. EBUS, TBNA, site 10R #2: Negative for malignant cells. Lymphocytes are present. Adequate for evaluation. C. EBUS, TBNA, site 10R #3: Predominantly blood. D. EBUS, TBNA, site 10R #4: Predominantly blood. Rare respiratory epithelial cells and lymphocytes noted. E. EBUS, TBNA, site 10R #5: Negative for malignant cells. Respiratory epithelial cells noted. A few lymphocytes are noted. F. EBUS, TBNA, site 10R #6: Negative for malignant cells. Respiratory epithelial cells noted. A few lymphocytes are noted. G. EBUS, TBNA, site 10R #7: A few atypical cells noted. H. EBUS, TBNA, site 10R #8: Negative for malignant cells. I. Immunohistochemistry ([id number]) supports the above diagnosis and favors clear cell renal cell carcinoma. Fragments of cartilage are also noted. Please correlate with corresponding surgical specimen [id number]. Correlation with clinical, radiologic findings and appropriate follow up are necessary. This case is discussed with Dr. Fiore on 12/21/20. Case has been reviewed in consultation with Dr. Smart who concurs with the above diagnosis. IDC:AM CYTOLOGY STUDY Slides are reviewed. CYTOLOGY GROSS A - Received labeled with the patient's name and and designated EBUS, TBNA, site 10R #1. The specimen consists of two stained smears for CRYSTAL (Rapid On-Site Evaluation). B - Received labeled with the patient's name and and designated EBUS, TBNA, site 10R #2. The specimen consists of two stained smears for CRYSTAL. C - Received labeled with the patient's name and and designated EBUS, TBNA, site 10R #3. The specimen consists of two stained smears for CRYSTAL. D - Received labeled with the patient's name and and designated EBUS, TBNA, site 10R #4. The specimen consists of two stained smears for CRYSTAL. E - Received labeled with the patient's name and and designated EBUS, TBNA, site 10R #5. The specimen consists of two stained smears for CRYSTAL. F - Received labeled with the patient's name and and designated EBUS, TBNA, site 10R #6. The specimen consists of two stained smears for CRYSTAL. G - Received labeled with the patient's name and and designated EBUS, TBNA, site 10R #7. The specimen consists of two stained smears for CRYSTAL. H - Received labeled with the patient's name and and designated EBUS, TBNA, site 10R #8. The specimen consists of two stained smears for CRYSTAL. I - Received is 45 ml of red cloudy fluid labeled with the patient's name and and designated per the requisition as EBUS, TBNA, site 10R fluid. Submitted for cytology preparation including cell block. J - Received is a metallic endoscopic cytobrush with adherent minute fragments of macias-red tissue brush in 2 ml of clear red fluid and labeled with the patient's name and and designated per the requisition as brush, right mainstem. The material is dislodged from the brush and submitted for cytology preparation including cell block. K - Received are three smears labeled with the patient's name and designated per the requisition as brushings. Submitted for staining. / VIDAL:nahed 12/16/2020 TC:0 CPT: 91377, 96004, 87333 x7, 09301 x2, 47111, 84582
--- NOTE | 2020-12-16 13:15 | OP.BRONCH_ITS ---
Patient Name: Raymundo Cloud Procedure Date: 12/16/2020 10:35 AM Date of : 1950 Age: 70 Procedure: Bronchoscopy Indications: Mediastinal adenopathy, Lung mass suspicious for cancer Providers: Fabián Fiore MD Medicines: General Anesthesia Complications: No immediate complications Procedure: Pre-Anesthesia Assessment: - A History and Physical has been performed. Patient meds and allergies have been reviewed. The risks and benefits of the procedure and the sedation options and risks were discussed with the patient. All questions were answered and informed consent was obtained. Patient identification and proposed procedure were verified prior to the procedure by the physician and the nurse in the procedure room. Mental Status Examination: alert and oriented. Airway Examination: normal oropharyngeal airway. Respiratory Examination: clear to auscultation. CV Examination: normal. ASA Grade Assessment: II - A patient with mild systemic disease. After reviewing the risks and benefits, the patient was deemed in satisfactory condition to undergo the procedure. The anesthesia plan was to use general anesthesia. Immediately prior to administration of medications, the patient was re-assessed for adequacy to receive sedatives. The heart rate, respiratory rate, oxygen saturations, blood pressure, adequacy of pulmonary ventilation, and response to care were monitored throughout the procedure. The physical status of the patient was re-assessed after the procedure. After I obtained informed consent, the scope was passed under direct vision. Throughout the procedure, the patient's blood pressure, pulse, and oxygen saturations were monitored continuously. The ultrasound bronchoscope was introduced through the mouth, via laryngeal mask airway and advanced to the tracheobronchial tree. The bronchoscope was introduced through the and advanced to the. The procedure was accomplished without difficulty. The patient tolerated the procedure well. Findings: The laryngeal mask airway is in good position. The vocal cords appear normal. The subglottic space is normal. The trachea is of normal caliber. The estrellita is sharp. The tracheobronchial tree of the left lung was examined to at least the first subsegmental level. Bronchial mucosa and anatomy are normal; there are no endobronchial lesions, and no secretions. Right Lung Abnormalities: Extrinsic compression was found in the right upper lobe. The airway is moderately narrowed. A non-obstructing mass was found in the right mainstem bronchus. The mass was endobronchial and fungating. The lesion was successfully traversed. Lymph Nodes: An endobronchial ultrasound endoscope was utilized to systematically examine the right hilar region (level 10R) in order to assist with fine needle aspiration. Lymph node sizing was performed via endobronchial ultrasound for suspected lung cancer. Sampling by transbronchial needle aspiration was also performed using an Olympus EBUS-TBNA 19 gauge needle in the right hilar region (level 10R) and sent for routine cytology. - The 10R (hilar) node was evaluated. Eight samples with the needle were obtained. Endobronchial biopsies of a lesion were performed in the right mainstem bronchus using a forceps and sent for routine cytology. Three samples were obtained. Brushings of a lesion were obtained in the right mainstem bronchus with a cytology brush and sent for routine cytology. One sample was obtained. Impression: - Mediastinal adenopathy - Lung mass suspicious for cancer - The airway examination of the left lung was normal. - Extrinsic compression was found in the right upper lobe. - An endobronchial and fungating mass was found in the right mainstem bronchus. - Endobronchial ultrasound was performed. - Lymph node sampling was performed. - An endobronchial biopsy was performed. - Brushings were obtained. Recommendation: - Await biopsy, brushing and cytology results. Procedure Code(s): --- Professional --- 91202, Bronchoscopy, rigid or flexible, including fluoroscopic guidance, when performed; with endobronchial ultrasound (EBUS) guided transtracheal and/or transbronchial sampling (eg, aspiration[s]/biopsy[ies]), one or two mediastinal and/or hilar lymph node stations or structures 02419, Bronchoscopy, rigid or flexible, including fluoroscopic guidance, when performed; with bronchial or endobronchial biopsy(s), single or multiple sites 53297, Bronchoscopy, rigid or flexible, including fluoroscopic guidance, when performed; with brushing or protected brushings Diagnosis Code(s): --- Professional --- R59.0, Localized enlarged lymph nodes R91.8, Other nonspecific abnormal finding of lung field CPT copyright 2017 [employer]. All rights reserved. The codes documented in this report are preliminary and upon label coder review may be revised to meet current compliance requirements. DO Fabián Dickerson MD 12/16/2020 1:14:39 PM This report has been signed electronically. Number of Addenda: 0 Note Initiated On: 12/16/2020 10:35 AM
== END 2020-12-16 14:35 ==
LOC: EN 10:44 → AC 10:45
PROVIDERS: PCP Family Medicine; Referring Provider Family Medicine; Visit Provider Internal Medicine Critical Care Medicine
PROC: BB4BZZZ Ultrasonography of Pleura (ICD-10-PCS; CPT 31623; principal; 2020-12-16 11:30)
DX: R59.0 Localized enlarged lymph nodes (principal); R91.8 Other nonspecific abnormal finding of lung field; Z77.22 Contact with and (suspected) exposure to environmental tobacco smoke (acute) (chronic); Z91.19 Patient's noncompliance with other medical treatment and regimen; G47.30 Sleep apnea, unspecified; Z86.16 Personal history of COVID-19; E11.9 Type 2 diabetes mellitus without complications; I10 Essential (primary) hypertension; I25.10 Atherosclerotic heart disease of native coronary artery without angina pectoris; J44.9 Chronic obstructive pulmonary disease, unspecified; K21.9 Gastro-esophageal reflux disease without esophagitis; Z79.82 Long term (current) use of aspirin; Z79.84 Long term (current) use of oral hypoglycemic drugs; Z87.891 Personal history of nicotine dependence
CPT/HCPCS: 31623; 31625; 31652; 82962; 88161; 88172; 88305; 88313; 88341; 88342; J7120; J2405

== ENCOUNTER → 2020-12-22 14:44 | Outpatient (CLI) | payer MEDICARE, SELFPAY ==
[2020-12-22 12:19] VITALS: BMI 26.2
--- NOTE | 2020-12-22 14:47 | CT_ITS ---
STUDY: CT ABDOMEN AND PELVIS WITH AND WITHOUT CONTRAST REASON FOR EXAM: Male, 70 years old. Recent dx of metastatic renal cell carcinoma RADIATION DOSAGE (If Supplied By Facility): CTDIvol = ( 19.64 ) mGy, DLP = ( 2654.11 ) mGycm TECHNIQUE: Transaxial images were obtained from the dome of the diaphragm to the symphysis pubis without oral contrast. IV 100mL Isovue-300 was administered. Sagittal and coronal images were reconstructed. Individualized dose optimization techniques were used for this CT. COMPARISON: None. FINDINGS: Increased linear markings at the lung bases suggestive of chronic scarring worse in the right lower lobe. Coronary artery calcification. There is decreased attenuation of the liver consistent with steatosis. Normal gallbladder and extrahepatic biliary system. Normal spleen. Normal pancreas. There is a 3.5 cm x 3 cm soft tissue mass in the left adrenal gland. A metastatic deposit should be ruled out. Normal right kidney. There is a 4.4 cm x 5.4 cm soft tissue mass arising from the mid anterior aspect of the left kidney. Prominence of the left gonadal vein. Normal visualized stomach. Normal small intestine. Normal colon. The appendix is visualized and appears normal. There is scattered atherosclerotic calcification of the abdominal aorta, without a demonstrated aneurysm. Normal inferior vena cava. Normal retroperitoneum. Normal urinary bladder. There are prostatic calcifications. Normal abdominal wall. There are diffuse degenerative changes of the visualized lumbar spine. Loss of height of the superior endplate of the T11, T12 and L1 vertebrae. CT/CT Abd/Pelvis W/WO Contrast IMPRESSION: 4.4 cm x 5.4 cm mass in the left kidney as described. 3.5 cm x 3 cm soft tissue mass in the left adrenal gland. Electronically Signed: Anam Washington MD at 15:38 EDT , Service support ,
== END ==
PROVIDERS: PCP Family Medicine; Referring Provider Internal Medicine Critical Care Medicine; Visit Provider Internal Medicine Critical Care Medicine
DX: C64.9 Malignant neoplasm of unspecified kidney, except renal pelvis (principal)
CPT/HCPCS: 74178; Q9967

== ENCOUNTER 2021-11-09 17:13 | Emergency (ER) | payer MEDICARE, MEDICAID, SELFPAY ==
[2021-11-09 17:14] VITALS: BP 106/83; PULSE 105; RESP 18; TEMP 36.4; O2SAT 95; BMI 22.1
--- NOTE | 2021-11-09 17:46 | CT_ITS ---
STUDY: PULMONARY CHEST CT ANGIOGRAPHY OF 1831 HOURS ON 11/09/2021 REASON FOR EXAM: Male, 71 years old. hemoptysis, renal ca w/ lung mets RADIATION: Radiation calibration was performed to minimize patient exposure. TECHNIQUE: The examination was performed with the intravenous administration of IV 100mL Isovue-370. Post-processing of the angiographic images was performed, with multiplanar reformation and 3D reconstruction. Individualized dose optimization techniques were used for this CT. COMPARISON: None. FINDINGS: Normal size heart for 71 years of age. She has mild bilateral bronchial wall thickening. There is moderate ocular wall thickening for the bronchus to the anterior segment of the right upper lobe; a small amount of adjacent infiltration is present.. There is a 7 cm in diameter consolidated infiltrate with air bronchograms in the medial aspect of the right upper lobe. Some mild interstitial infiltrate in the right lower lobe. Also a small 3 cm in diameter pneumonia in the right middle lobe peripherally. Pulmonary metastatic disease (renal metastatic disease by history): 6 mm diameter nodule in the posterior aspect of the medial right upper lobe. There is also a 3 mm in diameter metastasis in the apical segment of the right upper lobe.. There is a 8 mm diameter soft tissue nodule in the base of the left lower lobe. There is a 5.6 cm in diameter solid mass in the right hilum--which could represent renal metastatic disease. There are no findings of pulmonary thromboembolism. There is mild calcification of the thoracic aorta without aneurysmal dilatation or dissection. CT/CTA Chest W/WO Contrast IMPRESSION: 1. Presence of alveolar pneumonias is in the medial aspect the right upper lobe, peripherally in the right middle lobe, and in the right lower lobe. 2. Presence of a 5.6 cm in diameter solid mass in the right hilum--which could have a renal metastatic origin. 3. Mild bilateral pulmonary metastatic disease. 4. No cardiomegaly. 5. No evidence of pulmonary thromboembolism. 6. Mild calcification of the thoracic aorta without aneurysmal dilatation or dissection. Electronically Signed: Gregg Garcia MD at 19:47 EDT ,
--- NOTE | 2021-11-09 17:49 | EKG12_ITS ---
Test Reason : COUGH Blood Pressure : / mmHG Vent. Rate : 106 BPM Atrial Rate : 106 BPM P-R Int : 156 ms QRS Dur : 096 ms QT Int : 348 ms P-R-T Axes : 011 -21 041 degrees QTc Int : 462 ms Sinus tachycardia Otherwise normal ECG Confirmed by HESHAM BLAND, MONA ([id number]), magazine editor SARABJIT QUIGLEY ([id number]) on 11/13/2021 1:52:30 PM Referred By: JESSICA Confirmed By:SUZE DAHL MD
[2021-11-09 18:06] VITALS: BP 109/90; PULSE 104; RESP 18; O2SAT 95
[2021-11-09 18:06] LABS: Absolute Lymphocyte Count 3.55 X10^3/uL (0.83-4.51); Absolute Neutrophil Count 3.8 X10^3/uL (2.0-7.7); Basophil# 0.05 X10^3/uL; Basophil% 0.6 % (0-1); Eosinophil# 0.36 X10^3/uL; Eosinophils% 4.3 % (0-5); Hematocrit 46.6 % (40-54); Hemoglobin 15.8 g/dL (13.0-16.5); Lymphocyte # 3.55 X10^3/ul (0.83-4.51); Lymphocyte % 42.3 % (19-41); Mean Corp Hgb Conc 33.9 g/dL (32-36); Mean Corpuscular Hgb 31.5 pg (27.0-32.0); Mean Corpuscular Volume 92.8 fL (80-94); Mean Platelet Vol. 10.8 fl (6.2-12.0); Monocyte# 0.62 X10^3/uL; Monocyte% 7.4 % (0-10); NRBC Flagged by Analyzer 0 % (0-5); Neutrophil # 3.79 X10^3/uL (2.7-7.7); Neutrophil % 45.2 % (47-70); Platelet Count 231 K/mm3 (150-450); RBC Distribution Width CV 16.6 % (11.6-14.6); RBC Distribution Width SD 55.2 fl (35.1-43.9); Red Blood Count 5.02 M/mm3 (4.6-6.2); White Blood Count 8.4 K/mm3 (4.4-11.0)
--- NOTE | 2021-11-09 18:17 | ED.VIS.DYS ---
HPI History of Present Illness Chief Complaint: Cough Informant: patient and PCP (oncology office) Onset/Context/Timing Onset: Today Timing: Intermittent Quality: Positive for Dyspnea on exertion Current Severity: Mild Maximum Severity: Mild Associated Symptoms cough and green sputum Chest Pain: Positive for Tightness (mild w/ exertion) Narrative Narrative: Patient started coughing up small amounts of blood about 2 hours prior to arrival. Just prior to this, he was seen at his oncology office and had some chemistries drawn and a checkup. He called them back and was referred here to the emergency department. 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 The oncology staff states that when he presented with his lung metastases he did have minor hemoptysis like this, but since he is at risk for pulmonary embolus, although no other tests of been done today for this, he was referred here to be evaluated for pulmonary embolus. Patient states for the last 4 to 6 days, he has had dyspnea with exertion, increased nonproductive cough until today's blood, and some mild chest tightness when he exerts himself that feels like his COPD. He denies any fevers or chills or leg swelling/pain. No lightheadedness, near syncope/syncope, palpitations. No symptoms that sound like angina. [facility] Medical History Asthma Atherosclerotic heart disease of ramona coronary artery without angina pectoris Cancer Clear cell carcinoma of left kidney COPD (chronic obstructive pulmonary disease) COVID-19 (05/2020) Debility Diabetes Diabetes Essential hypertension Former smoker Full dentures GERD (gastroesophageal reflux disease) Hearing loss, left Hearing loss, right Hemoptysis Hiatal hernia History of non-ST elevation myocardial infarction (NSTEMI) (08/30/04) Hyperlipidemia Hypertension Injury of head and neck Lung mass Metastasis to adrenal gland Metastatic renal cell carcinoma to lung Non-smoker Paresthesias in left hand Psoriasis Sleep apnea Syncope Wears glasses Home Medications aspirin [Adult Low Dose Aspirin] 81 mg PO QHS 05/10/16 [History Last Taken 07/30/16] metformin 1,000 mg PO BID 05/10/16 [History Last Taken 05/24/20] metoprolol tartrate 25 mg PO BID 10/13/16 [History Last Taken 12/16/20 08:15] multivitamin [Daily Multiple] 1 ea PO DAILY 05/10/16 [History Last Taken 05/24/20] simvastatin 40 mg PO QHS 05/10/16 [History Last Taken 05/24/20] tamsulosin 0.4 mg PO QHS 10/01/19 [History Last Taken 05/24/20] albuterol sulfate 2 puff INHALATION Q4H PRN 05/31/20 [History Last Taken 05/29/20] budesonide-formoterol 1 - 2 puff INHALATION BID 05/31/20 [History Last Taken 05/29/20] omeprazole 40 mg PO DAILY 05/31/20 [History Last Taken 12/16/20 08:15] triamcinolone acetonide 1 applicatio TOPICAL BID PRN PRN 05/31/20 [History Last Taken 05/24/20] glimepiride 4 mg tablet 4 mg PO tab 09/06/21 [History Last Taken Unknown] empagliflozin 25 mg tablet 25 mg PO DAILY 09/28/21 [History Last Taken Unknown] cabozantinib 20 mg tablet 20 mg PO DAILY 10/26/21 [History Last Taken Unknown] potassium gluconate 600 mg (99 mg) tablet 600 mg PO DAILY 10/26/21 [History Last Taken Unknown] levofloxacin 750 mg PO QHS #4 tab 11/09/21 [Rx Last Taken Unknown] Allergy/AdvReac Type Severity Reaction Status Date / Time No Known Allergies Allergy Verified 11/09/21 17:17 Family History Mother Arthritis Hypertension Asthma Grandfather Cancer Aunt Colon cancer Surgical History History of colonoscopy History of coronary artery stent placement (08/30/04) History of esophagogastroduodenoscopy (EGD) History of left heart catheterization (01/27/07) History of Chicho fundoplication Hx of LASIK Social History Smoking Status: Never smoker ROS ROS ED Constitutional Constitutional ED: Reports malaise; Denies chills or fever(s) Eyes Eyes: Denies change in vision or diplopia ENT ENT ED: Denies rhinorrhea or sore throat Cardiovascular Cardiovascular: Reports as per HPI and chest pain; Denies palpitations or pedal edema Respiratory/Chest Respiratory/Chest: Reports cough, dyspnea on exertion and hemoptysis Gastrointestinal Gastrointestinal: Denies abdominal pain, diarrhea, nausea or vomiting Genitourinary Genitourinary ED: Denies dysuria or hematuria Musculoskeletal Musculoskeletal: Denies back pain or neck pain Integumentary Denies abscess or rash Neurologic Neurologic: Denies headache(s), paresthesias or weakness Psychiatric Psychiatric: Denies anxiety or suicidal thoughts EXAM Physical Exam Const Vital Signs: 11/09/21 17:14 11/09/21 17:35 11/09/21 18:06 Temperature 97.5 F L Temperature Source Temporal Pulse Rate 105 H 104 H Respiratory Rate 18 18 Respiratory Effort Short of Breath Respiratory Depth Normal Respiratory Pattern Normal Blood Pressure 106/83 H 109/90 H Blood Pressure Mean 90 96 Pulse Ox 95 95 Oxygen Delivery Method Room Air Room Air Room Air 11/09/21 19:18 11/09/21 20:40 Temperature Temperature Source Pulse Rate 92 86 Respiratory Rate 18 16 Respiratory Effort Respiratory Depth Respiratory Pattern Blood Pressure 116/84 H 124/84 H Blood Pressure Mean 94 97 Pulse Ox 97 99 Oxygen Delivery Method Room Air Room Air Positive well nourished and well developed General Appearance ED: well developed and NAD HEENT Reports moist mucous membranes normocephalic and atraumatic Eyes PERRL and EOMs intact bilaterally Neck full ROM and supple Resp normal respiratory effort Resp Narrative: Slight end expiratory wheezes bilaterally, diminished throughout symmetrically, otherwise clear. Effort and Inspection: able to speak in complete sentences Cardio regular rate, regular rhythm and no murmurs GI non-tender and non-distended Auscultation: normoactive bowel sounds Palpation: soft Back/Spine no CVA tenderness General Back: other FROM Extremity normal to inspection, no calf tenderness and no pedal edema General Extremety ED: Negative for edema, pulses abnormal or tenderness General Extremity: Negative for edema or pulses abnormal Neuro oriented x3, CN's II-XII intact bilaterally and no sensory deficits noted Sensorium / Orientation: awake and alert Motor Exam: strength 5/5 throughout Skin no rashes or lesions noted and no wounds MDM MDM MDM Narrative Medical decision making narrative: Patient had a chemistry panel done as an outpatient today, I added a CBC with differential and troponin on her that blood work, all returned unremarkable as noted below. His CTA which was done primarily to rule out PE is negative for that, but shows alveolar infiltrates in the right lung. Unable to determine if this is infectious or bleeding, but with a several-hour stay in the emergency department, he had no further episodes of hemoptysis and states that he is breathing better just resting here. His vital signs are normal and his oxygenation is excellent without the need for supplemental oxygen. I think it would be reasonable to have him follow-up as an outpatient, he does have metastatic disease there which could be the cause of the bleeding, and I will cover him empirically for potential infectious etiologies with the Levaquin with the first dose being given now 750 mg, and a prescription for 4 more days to finish a full 5-day regimen. Patient is comfortable with that plan we discussed reasons to return and he will follow-up with oncology. Lab Data Attestation: I reviewed the patient's lab results. Labs: Laboratory Results - last 24 hr 11/09/21 11/09/21 13:10 13:10 WBC 8.4 RBC 5.02 Hgb 15.8 Hct 46.6 MCV 92.8 MCH 31.5 MCHC 33.9 RDW Std Deviation 55.2 H RDW Coeff of Esperanza 16.6 H Plt Count 231 MPV 10.8 Immature Gran % (Auto) 0.200 Neut % (Auto) 45.2 L Lymph % (Auto) 42.3 H [place] % (Auto) 7.4 Eos % (Auto) 4.3 Baso % (Auto) 0.6 Absolute Neuts (auto) 3.8 Absolute Lymphs (auto) 3.55 Nucleated RBC % 0 Troponin I High Sens 5 Radiography Diagnostic Testing: Clinical Impression(s) from Imaging Studies Chest CTA 11/09/21 17:46 IMPRESSION: 1. Presence of alveolar pneumonias is in the medial aspect the right upper lobe, peripherally in the right middle lobe, and in the right lower lobe. 2. Presence of a 5.6 cm in diameter solid mass in the right hilum--which could have a renal metastatic origin. 3. Mild bilateral pulmonary metastatic disease. 4. No cardiomegaly. 5. No evidence of pulmonary thromboembolism. 6. Mild calcification of the thoracic aorta without aneurysmal dilatation or dissection. Electronically Signed: Gregg Garcia MD at 19:47 EDT , EKG Initial EKG: Attestation: I personally reviewed and interpreted this EKG as follows: Interpretation: No Acute Injury Pattern and Sinus Tachycardia Discharge Plan Triage Chief Complaint: Cough ED Provider: Camilo De La Cruz Dx/Rx/DC Orders Clinical Impression: Hemoptysis, Metastatic renal cell carcinoma to lung, Pneumonia Instructions: ED Hemoptysis, ED Pneumonia (Adult) Prescriptions: New levofloxacin 750 mg tablet 750 mg PO QHS Qty: 4 RF: 0 No Action glimepiride 4 mg tablet 4 mg PO RF: 0 Jardiance 25 mg tablet 25 mg PO DAILY RF: 0 potassium gluconate 600 mg (99 mg) tablet 600 mg PO DAILY RF: 0 cabozantinib 20 mg tablet 20 mg PO DAILY RF: 0 multivitamin [Daily Multiple] 1 EACH tablet 1 ea PO DAILY RF: 0 aspirin [Adult Low Dose Aspirin] 81 MG tablet,delayed release (DR/EC) 81 mg PO QHS RF: 0 simvastatin 40 MG tablet 40 mg PO QHS RF: 0 metoprolol tartrate 50 MG tablet 25 mg PO BID RF: 0 metformin 1,000 MG tablet,ER lucrecia.retention 24 hr 1,000 mg PO BID RF: 0 tamsulosin 0.4 mg capsule 0.4 mg PO QHS RF: 0 triamcinolone acetonide 1 APPLIC ointment 1 applicatio TOPICAL BID PRN PRN (Reason: psoriasis) RF: 0 albuterol sulfate 8.5 GM HFA aerosol inhaler 2 puff INHALATION Q4H PRN (Reason: Sob &/Or Wheezing) RF: 0 budesonide-formoterol 1 INHALER inhaler 1 - 2 puff INHALATION BID RF: 0 omeprazole 40 MG capsule,delayed release(DR/EC) 40 mg PO DAILY RF: 0 Primary Care Provider: Solis Gross Referrals: Negrito Quinones MD [STAFF PHYSICIAN] - As soon as possible Solis Gross MD [Primary Care Provider] - Disposition Disposition: Home, Self Care
[2021-11-09 18:19] LABS: Troponin-I HS 5 pg/mL (3.0-78.0)
[2021-11-09 19:18] VITALS: BP 116/84; PULSE 92; RESP 18; O2SAT 97
[2021-11-09 20:40] VITALS: BP 124/84; PULSE 86; RESP 16; O2SAT 99
[2021-11-09] MEDS: levoFLOXacin 750 MG Tablet PO (21:31)
== END 2021-11-09 21:36 | disposition home or self-care (01) ==
PROVIDERS: Emergency Provider Emergency Medicine; PCP Family Medicine; Visit Provider Emergency Medicine
DX: R04.2 Hemoptysis (principal); C78.02 Secondary malignant neoplasm of left lung; C79.70 Secondary malignant neoplasm of unspecified adrenal gland; C78.01 Secondary malignant neoplasm of right lung; J44.0 Chronic obstructive pulmonary disease with (acute) lower respiratory infection; C64.9 Malignant neoplasm of unspecified kidney, except renal pelvis; E11.9 Type 2 diabetes mellitus without complications; J18.9 Pneumonia, unspecified organism; I25.10 Atherosclerotic heart disease of native coronary artery without angina pectoris; I10 Essential (primary) hypertension; E78.5 Hyperlipidemia, unspecified; Z80.0 Family history of malignant neoplasm of digestive organs; Z87.891 Personal history of nicotine dependence; Z86.16 Personal history of COVID-19; I25.2 Old myocardial infarction
CPT/HCPCS: 36415; 71275; 80048; 84484; 85025; 93005; 96360; 99285; J7040; Q9967; A4216

== ENCOUNTER → 2021-11-30 | Outpatient (CLI) | payer MEDICARE, MEDICAID, SELFPAY ==
--- NOTE | 2021-11-30 06:47 | CT_ITS ---
EXAM: CT ABDOMEN AND PELVIS WITH INTRAVENOUS CONTRAST CLINICAL INDICATION: F/U METASTATIC RENAL CANCER -- PLEASE COMPARE TO [facility] SCANS TECHNIQUE: Helically acquired images were obtained of the abdomen and pelvis with intravenous contrast. This CT exam was performed using one or more of the following dose reduction techniques: automated exposure control, adjustment of the mA and/or kV according to patient size, and/or use of iterative reconstruction technique. This report was created using ebindle report generation technology. CONTRAST: IV 100mL Isovue-300 COMPARISON: June 12, 2021 FINDINGS: LOWER THORAX: Emphysematous changes of the lungs again noted as well as bibasilar pulmonary fibrosis. Stable 6 mm left lower lobe pulmonary nodule. ABDOMEN: LIVER: Unremarkable. Homogeneous. No focal mass. GALLBLADDER AND BILE DUCTS: Unremarkable. No calcified gallstones. No gallbladder distention or wall edema. No intra- or extrahepatic biliary ductal dilation. PANCREAS: Unremarkable. No focal cystic or solid mass. SPLEEN: Unremarkable. Normal size without focal cystic or solid mass. ADRENALS: Previously noted 14 mm right adrenal nodule now measures 9 mm. 3.7 cm left adrenal nodule now measures 3.0 cm. KIDNEYS AND URETERS: 4 cm left renal mass is now present decrease in size from prior measurement of 4.9 cm. Normal renal size and position. No hydronephrosis. STOMACH AND BOWEL: Moderate stool distention of the large bowel. Diverticulosis of the colon noted without evidence of acute diverticulitis. PELVIS: APPENDIX: Appendix is visualized and normal in appearance. BLADDER: Unremarkable. REPRODUCTIVE: Unremarkable as visualized. No mass. ABDOMEN and PELVIS: INTRAPERITONEAL SPACE: Unremarkable. No ascites or other fluid collection. No free air. BONES/JOINTS: Unremarkable. No suspicious lytic or blastic abnormality. SOFT TISSUES: Unremarkable. No discrete abdominal or pelvic wall hernia. VASCULATURE: Unremarkable. Abdominal aorta is non-dilated. LYMPH NODES: Unremarkable. No enlarged lymph nodes. CT/Abdomen/Pelvis W IV Cont ONLY IMPRESSION: 1. Stable 6 mm left lower lobe pulmonary nodule. 2. Decrease in size of the bilateral adrenal lesions and in the size of the left renal mass. 3. Mild constipation. 4. Diverticulosis coli. Electronically Signed: Lamont Seals MD at 10:49 EDT Reading Location ID and State: [facility] / [place] Tel , Service support ,
== END | disposition home or self-care (01) ==
LOC: CT 06:46
PROVIDERS: PCP Family Medicine; Referring Provider Internal Medicine Hematology & Oncology; Visit Provider Internal Medicine Hematology & Oncology
DX: L40.0 Psoriasis vulgaris (principal); L29.8 Other pruritus; T45.1X5D Adverse effect of antineoplastic and immunosuppressive drugs, subsequent encounter; Z79.899 Other long term (current) drug therapy
CPT/HCPCS: 74177; Q9967

== ENCOUNTER 2022-01-03 14:53 | Emergency (ER) | payer MEDICARE, MEDICAID, SELFPAY ==
[2022-01-03 14:54] VITALS: BP 154/89; PULSE 91; RESP 18; TEMP 36.9; BMI 28.6
--- NOTE | 2022-01-03 15:12 | EKG12_ITS ---
Test Reason : CP Blood Pressure : / mmHG Vent. Rate : 087 BPM Atrial Rate : 087 BPM P-R Int : 162 ms QRS Dur : 090 ms QT Int : 354 ms P-R-T Axes : 021 -26 029 degrees QTc Int : 425 ms Normal sinus rhythm Normal ECG When compared with ECG of 09-NOV-2021 17:56, No significant change was found Confirmed by ASAF BLAND, LINO ([id number]), map editor SARABJIT QUIGLEY ([id number]) on 01/08/2022 1:12:16 PM Referred By: FREDI Confirmed By:LINO RON MD
--- NOTE | 2022-01-03 15:13 | CT_ITS ---
EXAM: CT ANGIOGRAPHY CHEST WITHOUT AND WITH INTRAVENOUS CONTRAST CLINICAL INDICATION: concern for PE TECHNIQUE: Helically acquired angiography images were obtained of the chest without and with intravenous contrast. This CT exam was performed using one or more of the following dose reduction techniques: automated exposure control, adjustment of the mA and/or kV according to patient size, and/or use of iterative reconstruction technique. This report was created using Ethe[employer] report generation technology. MIP reconstructed images were created and reviewed. CONTRAST: IV 75mL Isovue-370 RADIATION DOSE: CTDIvol = 14.73 mGy, DLP = 545.22 mGy-cm COMPARISON: Nov 09 2021 6:29pm FINDINGS: PULMONARY ARTERIES: No demonstrated pulmonary embolism or arterial dissection. AORTA: There is atherosclerotic calcification of the aortic arch with tortuosity and elongation of the aortic arch and descending thoracic aorta. Normal in caliber. No evidence of dissection. GREAT VESSELS OF AORTIC ARCH: Unremarkable. Normal in caliber. No evidence of dissection. LUNGS AND PLEURAL SPACES: There is stable. Right upper lobe fibrosis. However, since the prior study there is development of an overlying infiltrate suggesting a right upper lobe pneumonia. Stable 5.1 mm left lower lobe nodule. Right apical bronchiectasis. Stable peripheral left lung groundglass opacities. Stable right lower lobe increased interstitial lung markings. No pleural effusion or thickening. HEART: There are calcifications of the coronary arteries. No pericardial effusion. No signs of right heart strain, ratio of right ventricle to left ventricle measures less than 1. MEDIASTINUM: Unremarkable. No mediastinal or hilar adenopathy. Esophagus is unremarkable. No hiatal hernia. THYROID: Unremarkable. No thyroid lesions. BONES/JOINTS: There are degenerative changes of the shoulders. There are multi-level degenerative changes of the thoracic spine. No suspicious lytic or blastic abnormality. CT/CTA Chest W/WO Contrast IMPRESSION: 1. No demonstrated pulmonary embolism or arterial dissection. 2. There is stable. Right upper lobe fibrosis. However, since the prior study there is development of an overlying infiltrate suggesting a right upper lobe pneumonia. Electronically Signed: Jaime Bernstein MD at 16:29 EDT ,
--- NOTE | 2022-01-03 15:21 | EX.ED.DYSGE1 ---
HPI <MELECIO Santillan - Last Filed: 01/03/22 17:20> History of Present Illness Chief Complaint: Chest Pain Narrative Narrative: 71-year-old male with history of CAD, [place], COPD, diabetes, renal cell carcinoma, lung cancer presents to the emergency department with right-sided chest pain. Patient is currently receiving chemotherapy, last dose was today, after discussing his right side chest pain, increased shortness of breath, pain on inspiration a told him to come to the emergency department for evaluation. Patient denies any fevers chills nausea or vomiting. He states the pain is worse to the right shoulder blade, much worse with inspiration. He states he also has a cough that is chronic however it is less because he is unable take a full breath. PFS <MELECIO Santillan - Last Filed: 01/03/22 17:20> [facility] Medical History (Updated 01/03/22 @ 17:18 by MELECIO Santillan) Asthma Atherosclerotic heart disease of [place] coronary artery without angina pectoris Cancer Chest pain Clear cell carcinoma of left kidney COPD (chronic obstructive pulmonary disease) COVID-19 (05/2020) Debility Diabetes Diabetes Essential hypertension Former smoker Full dentures GERD (gastroesophageal reflux disease) Hearing loss, left Hearing loss, right Hemoptysis Hiatal hernia History of non-ST elevation myocardial infarction (NSTEMI) (08/30/04) Hyperlipidemia Hypertension Injury of head and neck Lung mass Metastasis to adrenal gland Metastatic renal cell carcinoma to lung Non-smoker Paresthesias in left hand Psoriasis Sleep apnea Syncope Wears glasses Home Medications aspirin [Adult Low Dose Aspirin] 81 mg PO QHS 05/10/16 [History Last Taken 07/30/16] metformin 1,000 mg PO BID 05/10/16 [History Last Taken 05/24/20] metoprolol tartrate 25 mg PO BID 05/10/16 [History Last Taken 12/16/20 08:15] multivitamin [Daily Multiple] 1 ea PO DAILY 05/10/16 [History Last Taken 05/24/20] simvastatin 40 mg PO QHS 05/10/16 [History Last Taken 05/24/20] tamsulosin 0.4 mg PO QHS 10/01/19 [History Last Taken 05/24/20] albuterol sulfate 2 puff INHALATION Q4H PRN 05/31/20 [History Last Taken 05/29/20] budesonide-formoterol 1 - 2 puff INHALATION BID 05/31/20 [History Last Taken 05/29/20] omeprazole 40 mg PO DAILY 05/31/20 [History Last Taken 12/16/20 08:15] triamcinolone acetonide 1 applicatio TOPICAL BID PRN PRN 05/31/20 [History Last Taken 05/24/20] glimepiride 4 mg tablet 4 mg PO tab 09/06/21 [History Last Taken Unknown] empagliflozin 25 mg tablet 25 mg PO DAILY 09/28/21 [History Last Taken Unknown] cabozantinib 20 mg tablet 20 mg PO DAILY 10/26/21 [History Last Taken Unknown] potassium gluconate 600 mg (99 mg) tablet 600 mg PO DAILY 10/26/21 [History Last Taken Unknown] uuaawarh-dlcziabzf-frlnfuakn 3.5 mg-10,000 unit/mL-1 % ear drops,susp drp OTIC (EAR) 12/07/21 [History Last Taken Unknown] levofloxacin 750 mg PO DAILY #6 tab 01/03/22 [Rx Last Taken Unknown] Allergy/AdvReac Type Severity Reaction Status Date / Time No Known Allergies Allergy Verified 01/03/22 14:14 Family History Mother Arthritis Hypertension Asthma Grandfather Cancer Aunt Colon cancer Surgical History History of colonoscopy History of coronary artery stent placement (08/30/04) History of esophagogastroduodenoscopy (EGD) History of left heart catheterization (01/27/07) History of Chicho fundoplication Hx of [employer] Social History Smoking Status: Never smoker ROS <MELECIO Santillan - Last Filed: 01/03/22 17:20> ROS ED ROS Narrative Constitutional: Negative for fever, chills, weight loss, weakness Eyes: Negative for vision loss, vision change, double vision ENT: Negative for any sore throat, ear pain, congestion Cardiovascular: Negative for any tightness, palpitations. Positive chest pain worse on inspiration Respiratory: Negative for any cough, sputum production, hemoptysis, orthopnea. Positive for dyspnea, dyspnea on exertion Gastrointestinal: Negative for any abdominal pain, nausea, vomiting, diarrhea, constipation, blood in stool, blood in vomit : Negative for any urinary frequency, dysuria, retention, blood in urine Muscle skeletal: Negative for any muscle joint pain, stiffness, myalgias, arthralgias, neck pain, back pain Neurological: Negative for any headache, syncope, numbness or tingling, dizziness Skin: Negative for any rashes, lumps, itching, abrasions, lacerations Psychiatric: Negative for any depression, anxiety, stress, suicidal ideation, homicidal ideation Hematologic: Negative for any easy bruising, excessive bruising, easy bleeding Allergies: Negative for any eczema, hives, rash EXAM <MELECIO Santillan - Last Filed: 01/03/22 17:20> Physical Exam Narrative Exam Narrative: Vital signs reviewed. HEET: Head normocephalic atraumatic, TMs clear bilaterally. Posterior pharynx is clear, moist mucous membranes. Nares clear bilaterally. Neck: Supple with no lymphadenopathy or tenderness. No signs of meningismus, negative jolt sign. Cardiac: Regular rate and rhythm no murmurs gallops or rubs, equal peripheral pulses bilaterally. Respiratory: Patient has crackles to the right middle and lower lobe.. No chest tenderness. Abdomen: Soft, nontender, nondistended. No abdominal bruit or pulsatile masses. No hepatosplenomegaly Extremities: No peripheral edema, no signs of gross trauma or deformity. Active full range of motion of all extremities. Neuro: Cranial nerves II through XII intact, no focal neurological deficits. Skin: Clean dry and intact with no rash, purpura, petechiae, vesicles or pustules. Backs/flank: No CVA tenderness, no midline spinal tenderness, no deformity. Psych: Normal mood and affect. No SI, HI or acute psychosis. Const Vital Signs: 01/03/22 14:54 01/03/22 14:58 01/03/22 17:09 Temperature 98.5 F Temperature Source Oral Pulse Rate 91 79 Respiratory Rate 18 18 Respiratory Effort Normal Non-Labored Respiratory Pattern Normal Blood Pressure 154/89 H 151/98 H Blood Pressure Mean 110 115 Oxygen Delivery Method Room Air Room Air 01/03/22 17:28 Temperature Temperature Source Pulse Rate Respiratory Rate 18 Respiratory Effort Respiratory Pattern Blood Pressure 151/98 H Blood Pressure Mean Oxygen Delivery Method Positive well nourished and well developed General Appearance ED: well developed <Tam Pace MD - Last Filed: 01/03/22 20:05> Physical Exam Const Vital Signs: 01/03/22 14:54 01/03/22 14:58 01/03/22 17:09 Temperature 98.5 F Temperature Source Oral Pulse Rate 91 79 Respiratory Rate 18 18 Respiratory Effort Normal Non-Labored Respiratory Pattern Normal Blood Pressure 154/89 H 151/98 H Blood Pressure Mean 110 115 Oxygen Delivery Method Room Air Room Air 01/03/22 17:28 Temperature Temperature Source Pulse Rate Respiratory Rate 18 Respiratory Effort Respiratory Pattern Blood Pressure 151/98 H Blood Pressure Mean Oxygen Delivery Method MDM <MELECIO Santillan - Last Filed: 01/03/22 17:20> [facility] Narrative Medical decision making narrative: Patient appears well, patient appears nontoxic vital signs are stable. Patient has the [place] apartment with complaints of right-sided chest pain, respiratory pain and cough. Patient was sent over via oncologist office. Patient did receive his full work-up, due to the patient unable to get laboratory studies done here in the emergency department, patient did have blood work done today. Patient CBC was unremarkable, chemistry shows slight hypokalemia with a potassium 3.0, sodium 133. Patient did receive a CT of the chest to rule out any pulmonary embolus. Patient CT shows no demonstrated pulmonary embolus or arterial dissection. There is stable right upper lobe fibrosis however since the prior study there is development of an overlying infiltrate suggesting right upper lobe pneumonia. Patient will be treated with Levaquin 750 mg for 7 days. I did contact the patient's oncologist, he was made aware and the patient will follow-up in the office. Patient is stable for discharge instructed return for any worsening symptoms. Lab Data Attestation: I reviewed the patient's lab results. Radiography Diagnostic Testing: Clinical Impression(s) from Imaging Studies Chest CTA 01/03/22 15:13 IMPRESSION: 1. No demonstrated pulmonary embolism or arterial dissection. 2. There is stable. Right upper lobe fibrosis. However, since the prior study there is development of an overlying infiltrate suggesting a right upper lobe pneumonia. Electronically Signed: Jaime Bernstein MD at 16:29 EDT , <Tam Pace MD - Last Filed: 01/03/22 20:05> [facility] Narrative Medical decision making narrative: I have personally performed a face to face assessment of the patient and have reviewed the MARYBEL Note. I performed a substantive portion of the visit including all aspects of the following. My smith findings include: History is right-sided chest pain with history of lung carcinoma Exam is [afebrile. Vital signs noted. Regular rate and rhythm, no tachycardia. Lungs clear to auscultation bilaterally.] Medical Decision Making [check labs. Check CTA. No pulmonary embolism. Evidence of pneumonia around mass. Levaquin. Discussed with oncology. Discharge.] Other additions or changes: [None] Radiography Diagnostic Testing: Clinical Impression(s) from Imaging Studies Chest CTA 01/03/22 15:13 IMPRESSION: 1. No demonstrated pulmonary embolism or arterial dissection. 2. There is stable. Right upper lobe fibrosis. However, since the prior study there is development of an overlying infiltrate suggesting a right upper lobe pneumonia. Electronically Signed: Jaime Bernstein MD at 16:29 EDT Reading Location ID and State: [facility] / [place] , Service support , Discharge Plan Triage Chief Complaint: Chest Pain ED Midlevel Provider: Solis Leonardo ED Provider: Tam Pace Dx/Rx/DC Orders Clinical Impression: Community acquired pneumonia Instructions: ED Pneumonia (Adult) Prescriptions: New levofloxacin 750 mg tablet 750 mg PO DAILY Qty: 6 RF: 0 No Action glimepiride 4 mg tablet 4 mg PO RF: 0 Jardiance 25 mg tablet 25 mg PO DAILY RF: 0 potassium gluconate 600 mg (99 mg) tablet 600 mg PO DAILY RF: 0 cabozantinib 20 mg tablet 20 mg PO DAILY RF: 0 qexvveft-ujcrrdwov-QC 3.5-10,000-1 mg/mL-unit/mL-% drops,suspension otic (ear) RF: 0 multivitamin [Daily Multiple] 1 EACH tablet 1 ea PO DAILY RF: 0 aspirin [Adult Low Dose Aspirin] 81 MG tablet,delayed release (DR/EC) 81 mg PO QHS RF: 0 simvastatin 40 MG tablet 40 mg PO QHS RF: 0 metoprolol tartrate 50 MG tablet 25 mg PO BID RF: 0 metformin 1,000 MG tablet,ER lucrecia.retention 24 hr 1,000 mg PO BID RF: 0 tamsulosin 0.4 mg capsule 0.4 mg PO QHS RF: 0 triamcinolone acetonide 1 APPLIC ointment 1 applicatio TOPICAL BID PRN PRN (Reason: psoriasis) RF: 0 albuterol sulfate 8.5 GM HFA aerosol inhaler 2 puff INHALATION Q4H PRN (Reason: Sob &/Or Wheezing) RF: 0 budesonide-formoterol 1 INHALER inhaler 1 - 2 puff INHALATION BID RF: 0 omeprazole 40 MG capsule,delayed release(DR/EC) 40 mg PO DAILY RF: 0 Primary Care Provider: Solis Gross Referrals: Solis Gross MD [Primary Care Provider] - Activity Restrictions/Additional Instructions: Please follow-up with your oncologist, return here for any worsening symptoms. Print Language: [place] Disposition Disposition: Home, Self Care Discharge Date/Time: 01/03/22 17:31
[2022-01-03 17:09] VITALS: BP 151/98; PULSE 79; RESP 18
[2022-01-03] MEDS: levoFLOXacin 750 MG Tablet PO (17:26)
[2022-01-03 17:28] VITALS: BP 151/98; RESP 18
== END 2022-01-03 17:31 | disposition home or self-care (01) ==
PROVIDERS: Emergency Provider Emergency Medicine; PCP Family Medicine; Visit Provider Emergency Medicine
DX: J18.9 Pneumonia, unspecified organism (principal); J44.9 Chronic obstructive pulmonary disease, unspecified; E11.9 Type 2 diabetes mellitus without complications; I10 Essential (primary) hypertension; E78.5 Hyperlipidemia, unspecified; E87.6 Hypokalemia; I25.10 Atherosclerotic heart disease of native coronary artery without angina pectoris
CPT/HCPCS: 36415; 71046; 71275; 80053; 81001; 84439; 84443; 85025; 87428; 93005; 96360; 96361; 99285; J7030; Q9967; A4216

== ENCOUNTER 2022-02-16 11:11 | Inpatient (IN) | payer MEDICARE, MEDICAID, SELFPAY ==
[2022-02-16] VITALS (10 sets, daily range): BP systolic 102–142; BP diastolic 73–87; PULSE 85–119; RESP 16–24; TEMP 35.1–37.4; O2SAT 94–99; BMI 22.4; BMI 22.3
--- NOTE | 2022-02-16 11:27 | ED.RN ---
PT AMBULATES TO ROOM. PT WAS ASKED BY THIS NURSE TO TAKE HIS SHOE AND SOCK OFF SO THIS NURSE COULD VISUALIZE THE WOUND. 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 THIS RN ASKED HOW HE PUT HIS SHOES ON AT HOME, I PUT MY FOOT IN IT, HOW ELSE WOULD I PUT IT ON. 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 THIS RN ASKED IF HE NEEDED HOME HEALTH TO HELP HIM WITH CARING FOR HIMSELF, WHY WOULD I, I DO IT MYSELF. THIS RN WAS IN THE PROCESS OF REMOVING THE SHOE AND SOCK AND THE PT YANKED HIS LEG AND FOOT AWAY AND OUT OF THIS RN'S HAND. THIS RN STATES I TAKING YOUR SHOE OFF BECAUSE YOU SAID YOU CANT.
--- NOTE | 2022-02-16 11:39 | EKG12_ITS ---
Test Reason : WOUND Blood Pressure : / mmHG Vent. Rate : 108 BPM Atrial Rate : 108 BPM P-R Int : 142 ms QRS Dur : 084 ms QT Int : 326 ms P-R-T Axes : 030 -28 047 degrees QTc Int : 436 ms Sinus tachycardia Otherwise normal ECG Confirmed by ASAF BLAND, LINO ([id number]), newspaper or periodical editor SARABJIT QUIGLEY ([id number]) on 02/20/2022 9:13:38 AM Referred By: TL Confirmed By:LINO RON MD
--- NOTE | 2022-02-16 11:44 | ED.VIS.LOWEX ---
HPI History of Present Illness Chief Complaint: Wound Informant: patient Narrative Narrative: Patient is a 71-year-old male with complex medical history including metastatic renal cell carcinoma to the lung, coronary artery disease, COPD, diabetes mellitus and frequent recent bouts of pneumonia (most recently on a course of doxycycline about 2 weeks ago) and currently on prednisone taper for shortness of breath presenting from podiatry office for concern of diabetic foot infection. Patient had increased pain of his right foot and heel for the past week to week and a half. He noticed yesterday that he had red streaking going from his heel up his leg. He saw roller operator at [facility] and was told to come to the emergency room for IV antibiotics and admission. Patient states in September she saw roller operator [place] the [place] and was told to start putting bacitracin and Epson salt on his foot. Denies any fever or chills but states he just not feeling well. Has had a significant weight loss over the past year but attributes that to his cancer. Is currently on chemotherapy and follows with Dr. Swartz. Feels chronically short of breath but not sure if that is from his cancer in his lungs, his COPD or from something else. No other complaints at this time. [facility] Medical History Asthma Atherosclerotic heart disease of [place] coronary artery without angina pectoris Cancer Chest pain Clear cell carcinoma of left kidney COPD (chronic obstructive pulmonary disease) COVID-19 (05/2020) Debility Diabetes Diabetes Essential hypertension Former smoker Full dentures GERD (gastroesophageal reflux disease) Hearing loss, left Hearing loss, right Hemoptysis Hiatal hernia History of non-ST elevation myocardial infarction (NSTEMI) (08/30/04) Hyperlipidemia Hypertension Hypokalemia Injury of head and neck Lung mass Metastasis to adrenal gland Metastatic renal cell carcinoma to lung Non-smoker Paresthesias in left hand Psoriasis Sleep apnea Syncope Wears glasses Home Medications aspirin 81 mg tablet,delayed release (Adult Low Dose Aspirin) 81 mg PO QHS heart health 05/10/16 [History Last Taken 07/30/16] metformin 1,000 mg 24 hr tablet,extended release 1,000 mg PO BID diabetes 05/10/16 [History Last Taken 05/24/20] metoprolol tartrate 50 mg tablet 25 mg PO BID blood pressure 05/10/16 [History Last Taken 12/16/20 08:15] multivitamin (Daily Multiple tablet) 1 ea PO DAILY vitamin 05/10/16 [History Last Taken 05/24/20] simvastatin 40 mg tablet 40 mg PO QHS cholesterol 05/10/16 [History Last Taken 05/24/20] tamsulosin 0.4 mg capsule 0.4 mg PO QHS prostate 10/01/19 [History Last Taken 05/24/20] albuterol sulfate 90 mcg/actuation aerosol inhaler 2 puff inhalation Q4H PRN Sob &/Or Wheezing 05/31/20 [History Last Taken 05/29/20] budesonide-formoterol HFA 160 mcg-4.5 mcg/actuation aerosol inhaler 1 - 2 puff inhalation BID copd 05/31/20 [History Last Taken 05/29/20] omeprazole 40 mg capsule,delayed release 40 mg PO DAILY gerd 05/31/20 [History Last Taken 12/16/20 08:15] triamcinolone acetonide 0.5 % topical ointment 1 applicatio topical BID PRN PRN psoriasis 05/31/20 [History Last Taken 05/24/20] glimepiride 4 mg tablet 4 mg PO 09/06/21 [History Last Taken Unknown] empagliflozin 25 mg tablet (Jardiance) 25 mg PO DAILY 09/28/21 [History Last Taken Unknown] cabozantinib 20 mg tablet 20 mg PO DAILY 10/26/21 [History Last Taken Unknown] liver, iron, and vitamins tab PO DAILY 02/08/22 [History Last Taken Unknown] prednisone 10 mg tablet 10 mg PO QDAY #30 tabs 02/08/22 [Rx Last Taken Unknown] glimepiride 2 mg tablet 2 mg PO QHS 02/16/22 [History Last Taken Unknown] Allergy/AdvReac Type Severity Reaction Status Date / Time No Known Allergies Allergy Verified 02/16/22 11:13 Family History Mother Arthritis Hypertension Asthma Grandfather Cancer Aunt Colon cancer Surgical History History of colonoscopy History of coronary artery stent placement (08/30/04) History of esophagogastroduodenoscopy (EGD) History of left heart catheterization (01/27/07) History of Chicho fundoplication Hx of LASIK Social History Smoking Status: Never smoker ROS ROS ED Constitutional Constitutional ED: Reports other Details: Generalized weakness ; Denies chills or fever(s) Eyes Eyes: Denies blurry vision Cardiovascular Cardiovascular: Denies chest pain Respiratory/Chest Respiratory/Chest: Reports dyspnea and dyspnea on exertion; Denies cough Gastrointestinal Gastrointestinal: Denies abdominal pain, diarrhea, nausea or vomiting Genitourinary Genitourinary ED: Denies dysuria or hematuria Musculoskeletal Musculoskeletal: Reports other Details: right heel pain ; Denies arthralgias or myalgias Integumentary Reports rash Neurologic Neurologic: Denies headache(s), paresthesias or weakness Psychiatric Psychiatric: Denies anxiety Hematologic/Lymphatic Hematologic/Lymphatic: Denies easy bleeding EXAM Physical Exam Const Vital Signs: 02/16/22 11:13 02/16/22 11:16 02/16/22 12:09 Temperature 99.4 F H 99.4 F H Temperature Source Temporal Temporal Pulse Rate 119 H 119 H Respiratory Rate 24 H 24 H Blood Pressure 131/73 H 131/73 H Blood Pressure Mean 92 Pulse Ox 96 96 94 Oxygen Delivery Method Room Air Room Air Room Air 02/16/22 12:29 02/16/22 12:54 02/16/22 13:17 Temperature 95.2 F L 96.4 F L 98.5 F Temperature Source Temporal Temporal Oral Pulse Rate 108 H Respiratory Rate 22 H Blood Pressure 102/77 Blood Pressure Mean 85 Pulse Ox 96 Oxygen Delivery Method Room Air Positive well nourished and well developed General Appearance ED: well developed and NAD HEENT Reports moist mucous membranes normocephalic and atraumatic Eyes PERRL Neck full ROM and supple Chest Wall inspection of chest normal and palpation of chest normal Resp normal respiratory effort Resp Narrative: course breath sounds Cardio regular rhythm Cardio Narrative: 2+ DP pulses Rate: tachycardic GI non-tender, non-distended and no masses Extremity full ROM Extremity Narrative: No pinpoint bony tenderness of the lower extremities. No obvious deformity. General Extremety ED: Negative for edema General Extremity: Negative for edema Neuro oriented x3, moves all extremities and no sensory deficits noted Motor Exam: Negative for general weakness Psych mental status grossly normal Skin Skin Narrative: About 1 cm circumferential ulcerated wound at the base of the right heel. No active drainage. There is associated lymphangitic streaking midway up the medial calf. Associated warmth. No fluctuance or abscess appreciated. MDM MDM MDM Narrative Medical decision making narrative: Patient is evaluated for diabetic right foot wounds and now has erythema and cellulitic changes. He has associate lymphangitic streaking. Initially seen by roller operator today. It sounds like it was a roller operator with Dr. Ruiz's group from the patient's description. Patient does not remember the doctor he saw today. On arrival patient is tachycardic and mildly tachypneic with a low-grade temperature. A sepsis work-up was initiated with concern of course of infection being a diabetic foot wound. He is started empirically on vancomycin and Zosyn after cultures were obtained. Patient is a leukocytosis of 12.4. His INR is normal. His creatinine is at his baseline and normal. He does have an elevated ESR and CRP. Lactate is elevated 3.6. He is ordered a liter of lactated Ringer's. X-ray of the foot shows a soft tissue collection at the area of his ulceration but no obvious signs of osteomyelitis. Patient does not have any crepitus of the leg and I do not suspect necrotizing fasciitis at this time. Patient refused chest x-ray stating that they are useless and they do not find anything. Patient not having any acute hypoxia and his respirations seem to be at his baseline. Patient is admitted for treatment of diabetic foot wound/cellulitis of the lower extremity. Wound edges are marked. Patient is agreeable this plan of care. He remains hemodynamically stable in the emergency room. Lab Data Attestation: I reviewed the patient's lab results. Labs: Laboratory Results - last 24 hr 02/16/22 02/16/22 02/16/22 11:55 11:55 12:00 WBC 12.4 H RBC 3.95 L Hgb 12.2 L Hct 37.8 L MCV 95.7 H MCH 30.9 MCHC 32.3 RDW Std Deviation 60.9 H RDW Coeff of [place] 18.1 H Plt Count 316 MPV 9.9 Immature Gran % (Auto) 3.100 H Neut % (Auto) 85.2 H Lymph % (Auto) 7.6 L [place] % (Auto) 3.7 Eos % (Auto) 0.2 Baso % (Auto) 0.2 Absolute Neuts (auto) 10.6 H Absolute Lymphs (auto) 0.94 Nucleated RBC % 0.2 ESR 76 H PT 14.8 INR 1.2 APTT 27.5 Sodium 137 Potassium 3.3 L Chloride 105 Carbon Dioxide 23.0 Anion Gap 9 BUN 11 Creatinine 1.05 Estim Creat Clear Calc 68.42 Est GFR (MDRD) Af Amer 89 Est GFR (MDRD) Non-Af 74 BUN/Creatinine Ratio 10.5 Glucose 106 Lactic Acid Calcium 8.5 Total Bilirubin 0.90 AST 23 ALT 40 Alkaline Phosphatase 82 C-React Prot Ext Range 109.00 H Total Protein 6.8 Albumin 2.3 L Globulin 4.5 H Albumin/Globulin Ratio 0.5 L Urine Color Urine Clarity Urine pH Ur Specific [place] Urine Protein Urine Glucose (UA) Urine Ketones Urine Occult Blood Urine Nitrite Urine Bilirubin Urine Urobilinogen Ur Leukocyte Esterase Urine RBC Urine WBC Ur Squamous Epith Cells Urine Bacteria Urine Mucus 02/16/22 02/16/22 12:00 12:15 WBC RBC Hgb Hct MCV MCH MCHC RDW Std Deviation RDW Coeff of [place] Plt Count MPV Immature Gran % (Auto) Neut % (Auto) Lymph % (Auto) [place] % (Auto) Eos % (Auto) Baso % (Auto) Absolute Neuts (auto) Absolute Lymphs (auto) Nucleated RBC % ESR PT INR APTT Sodium Potassium Chloride Carbon Dioxide Anion Gap BUN Creatinine Estim Creat Clear Calc Est GFR (MDRD) Af Amer Est GFR (MDRD) Non-Af BUN/Creatinine Ratio Glucose Lactic Acid 3.6 H* Calcium Total Bilirubin AST ALT Alkaline Phosphatase C-React Prot Ext Range Total Protein Albumin Globulin Albumin/Globulin Ratio Urine Color Yellow Urine Clarity Sl. Cloudy Urine pH 5.0 Ur Specific [place] 1.020 Urine Protein 30 H Urine Glucose (UA) 1000 H Urine Ketones 5 H Urine Occult Blood Negative Urine Nitrite Negative Urine Bilirubin 1 H Urine Urobilinogen 4 H Ur Leukocyte Esterase Negative Urine RBC 0 SEEN Urine WBC 0 SEEN Ur Squamous Epith Cells 0 SEEN Urine Bacteria 0 SEEN Urine Mucus 0 SEEN Radiography Diagnostic Testing: Clinical Impression(s) from Imaging Studies Foot X-Ray 02/16/22 12:36 IMPRESSION: Focus of soft tissue gas posterior to the posterior tuberosity of the calcaneus without demonstrated active bone destruction. Electronically Signed: Dexter Waldrop MD at 13:16 EDT Reading Location ID and State: [facility] / [place] Tel , Service support , Rhythm Strip Rhythm Strip: Sinus Tach Rate: 108 Ectopy: None EKG Initial EKG: Attestation: I personally reviewed and interpreted this EKG as follows: Interpretation: Sinus Tachycardia Comments: Sinus tachycardia rate of 108 Normal axis Normal intervals Normal ST segments Discharge Plan Triage Chief Complaint: Wound ED Provider: Meli Roberson Dx/Rx/DC Orders Clinical Impression: Sepsis, Open wound of right heel, Cellulitis of right lower extremity, Acidosis, lactic Prescriptions: No Action glimepiride 4 mg tablet 4 mg PO DAILY Jardiance 25 mg tablet 25 mg PO DAILY cabozantinib 20 mg tablet 20 mg PO DAILY liver, iron, and vitamins Tablet 1 tab PO DAILY prednisone 10 mg tablet 10 mg PO QDAY Qty: 30 0RF Rx Instructions: take 4 tabs for three days, then 3 tabs for three days, then 2 tabs for three days, then 1 tab for 3 days multivitamin [Daily Multiple] 1 EACH tablet 1 ea PO DAILY aspirin [Adult Low Dose Aspirin] 81 MG tablet,delayed release (DR/EC) 81 mg PO QHS Label Comments: pt states he has been instructed to stop taking aspirin 12/11/20 for EBUS on [id number] simvastatin 40 MG tablet 40 mg PO QHS metoprolol tartrate 50 MG tablet 25 mg PO BID metformin 1,000 MG tablet,ER lucrecia.retention 24 hr 1,000 mg PO BID tamsulosin 0.4 mg capsule 0.4 mg PO QHS triamcinolone acetonide 1 APPLIC ointment 1 applicatio TOPICAL BID PRN PRN (Reason: psoriasis) albuterol sulfate 8.5 GM HFA aerosol inhaler 2 puff INHALATION Q4H PRN (Reason: Sob &/Or Wheezing) budesonide-formoterol 1 INHALER inhaler 1 - 2 puff INHALATION BID Label Comments: INHALE 1 PUFF BY MOUTH TWICE DAILY omeprazole 40 MG capsule,delayed release(DR/EC) 40 mg PO DAILY glimepiride 2 mg Tablet 2 mg PO QHS Primary Care Provider: Solis Gross Referrals: Solis Gross MD [Primary Care Provider] - Disposition Disposition: Acute Care Hospital [facility]
[2022-02-16] MEDS: Acetaminophen 325 MG Tablet 650 MG PO (11:50)
[2022-02-16 12:16] LABS: International Normalized Ratio 1.2; Prothrombin Time (Protime)PT. 14.8 SECONDS (11.7-14.9)
[2022-02-16 12:17] LABS: Partial Thromboplast Time 27.5 Seconds (24.1-36.2)
[2022-02-16 12:19] LABS: Bacteria 0 SEEN /hpf (None Seen); Color, Urine Yellow (Yellow); Glucose, Dipstick 1000 mg/dl (Normal); Ketone-Dipstick 5 mg/dl (Negative); Leukocyte Esterase-Dipstick Negative /ul (Negative); Mucous, Urine 0 SEEN /hpf (<or=2+); Nitrite-Dipstick Negative (Negative); Occult Blood-Urine Negative /ul (Negative); Protein-Dipstick 30 mg/dl (Negative); Red Blood Cells-Urine 0 SEEN /hpf (0-5); Squamous Epithelial Cells - UA 0 SEEN /hpf (0-5); Urine Clarity Sl. Cloudy (Clear); Urine Urobilinogen 4 mg/dl (Normal); White Blood Cells 0 SEEN /hpf (0-5)
[2022-02-16 12:20] LABS: Urine Bilirubin Dipstick 1 mg/dL (Negative)
[2022-02-16 12:27] LABS: Absolute Lymphocyte Count 0.94 X10^3/uL (0.83-4.51); Absolute Neutrophil Count 10.6 X10^3/uL (2.0-7.7); Basophil# 0.02 X10^3/uL; Basophil% 0.2 % (0-1); Eosinophil# 0.03 X10^3/uL; Eosinophils% 0.2 % (0-5); Hematocrit 37.8 % (40-54); Hemoglobin 12.2 g/dL (13.0-16.5); Lymphocyte # 0.94 X10^3/ul (0.83-4.51); Lymphocyte % 7.6 % (19-41); Mean Corp Hgb Conc 32.3 g/dL (32-36); Mean Corpuscular Hgb 30.9 pg (27.0-32.0); Mean Corpuscular Volume 95.7 fL (80-94); Mean Platelet Vol. 9.9 fl (6.2-12.0); Monocyte# 0.46 X10^3/uL; Monocyte% 3.7 % (0-10); NRBC Flagged by Analyzer 0.2 % (0-5); Neutrophil # 10.55 X10^3/uL (2.7-7.7); Neutrophil % 85.2 % (47-70); Platelet Count 316 K/mm3 (150-450); RBC Distribution Width CV 18.1 % (11.6-14.6); RBC Distribution Width SD 60.9 fl (35.1-43.9); Red Blood Count 3.95 M/mm3 (4.6-6.2); White Blood Count 12.4 K/mm3 (4.4-11.0)
[2022-02-16 12:33] LABS: Erythrocyte Sedimentation Rate 76 mm/hr (0-20)
--- NOTE | 2022-02-16 12:36 | RAD_ITS ---
STUDY: X-RAY - RIGHT FOOT CLINICAL: Right heel wound. TECHNIQUE: 3 view(s) of the foot. COMPARISON: Radiographs 02/27/2016. FINDINGS: There is a plantar calcaneal enthesophyte. There is a very small posterior calcaneal enthesophyte. There is no demonstrated bone destruction of the calcaneus. Normal visualized subtalar, talonavicular, calcaneocuboid, tarsal and tarsometatarsal articulations. Normal metatarsi. Normal metatarsophalangeal joint of the great toe. Normal tibial and fibular sesamoid bones. Normal interphalangeal joint of the great toe. Normal phalanges of the great toe. Normal second through fifth metatarsophalangeal joints. Normal interphalangeal joints and phalanges of the lesser toes. There are hammertoe deformities. There is a focus of soft tissue gas at the posterior aspect of the posterior tuberosity of the calcaneus. There is vascular calcification. RAD/Foot min 3 Views IMPRESSION: Focus of soft tissue gas posterior to the posterior tuberosity of the calcaneus without demonstrated active bone destruction. Electronically Signed: Dexter Waldrop MD at 13:16 EDT ,
[2022-02-16 12:37] LABS: ALB/GLOB Ratio 0.5 RATIO (0.9-2.4); AST(SGOT) 23 U/L (15-37); Alanine Aminotransfer ALT/SGPT 40 U/L (16-61); Albumin, Serum 2.3 g/dL (3.2-5.0); Alkaline Phosphatase 82 U/L (45-117); Anion Gap 9 (5-15); BUN 11 mg/dL (7-18); BUN/Creat Ratio 10.5 RATIO (10-20); Calcium,Total 8.5 mg/dL (8.5-10.1); Chloride 105 mmol/L (98-107); Creatinine, Serum 1.05 mg/dL (0.70-1.30); EST Glomerular Filtration Rate 74 mL/min (>60); Est Glom Filt Rate - Afr Amer 89 mL/min (>60); Estimated Creatinine Clearance 68.42 ml/min; Globulin 4.5 g/dL (2.2-4.2); Glucose 106 mg/dL (74-106); Potassium 3.3 mmol/L (3.5-5.1); Protein, Total 6.8 g/dL (6.4-8.2); Sodium Level 137 mmol/L (136-145)
[2022-02-16 12:58] LABS: Lactic Acid 3.6 mmol/L (0.4-1.9)
--- NOTE | 2022-02-16 12:58 | NURSING ---
MED SURG KOTSONIS SEPSIS, RIGHT FOOT CELLULITIS
--- NOTE | 2022-02-16 13:23 | MRI_ITS ---
EXAM: MR RIGHT LOWER EXTREMITY WITHOUT AND WITH INTRAVENOUS CONTRAST, ANKLE CLINICAL INDICATION: concern for osteomyelitis HEEL TECHNIQUE: Multiplanar and multisequence MR images of the right ankle without and with intravenous contrast. This report was created using [employer] report [employer] technology. CONTRAST: 15 CC IV DOTAREM COMPARISON: xr of the same day FINDINGS: LIGAMENTS: ANTERIOR TALOFIBULAR: Unremarkable. Intact. POSTERIOR TALOFIBULAR: Unremarkable. Intact. ANTERIOR TIBIOFIBULAR: Unremarkable. Intact. POSTERIOR TIBIOFIBULAR: Unremarkable. Intact. CALCANEOFIBULAR: Unremarkable. Intact. DELTOID: Unremarkable. Intact. SPRING: Unremarkable. Intact. LISFRANC: Unremarkable. Intact. TENDONS: ACHILLES: There is a calcaneal spur. There is an enthesophyte involving the posterior superior calcaneus at the site of insertion of the Achilles tendon. FLEXOR: Unremarkable. Intact. EXTENSOR: Unremarkable. Intact. PERONEAL: Unremarkable. Intact. TIBIALIS ANTERIOR: Unremarkable. Intact. TIBIALIS POSTERIOR: Unremarkable. Intact. MUSCLES: Unremarkable. Normal bulk and signal. FLUID: Unremarkable. No joint effusion. SINUS TARSI: Unremarkable. Normal fat in the sinus tarsi. TARSAL TUNNEL: Unremarkable. PLANTAR FASCIA: Unremarkable. Intact. CARTILAGE: Unremarkable. No osteochondral lesion. Articular cartilage intact. BONES/JOINTS: Near the calcaneus, there is a plantar ulcer. There is enhancement of this area with extension to the underlying calcaneus. However there is no evidence for osteomyelitis. Findings suggest a soft tissue infectious process. Talar dome intact. No fracture or marrow edema. OTHER SOFT TISSUES: There is increased T2 signal in the plantar soft tissue. This can represent an infectious process or abnormality related to diabetic neuropathy. MRI/Lower Ext No Joint W/WO Cont IMPRESSION: 1. Near the calcaneus, there is a plantar ulcer. There is enhancement of this area with extension to the underlying calcaneus. However there is no evidence for osteomyelitis. Findings suggest a soft tissue infectious process. 2. There is increased T2 signal in the plantar soft tissue. This can represent an infectious process or abnormality related to diabetic neuropathy. Electronically Signed: Jaime Bernstein MD at 16:44 EDT ,
--- NOTE | 2022-02-16 13:38 | PCM.HP.STD ---
Documented by User: MELECIO Whitlock 02/16/22 14:06 HPI - General General Date of Admission: 02/16/22 Date of Service: 02/16/22 Chief Complaint: Diabetic Foot wound HPI Narrative BRANDAN DELGADO, is a 71 M who presents from Dr. Joy's office with diabetic foot wound. Patient reports that for the past couple of weeks his foot has been having increased pain and he noticed approximately 1 to 2 weeks ago that he began having redness on his foot which is streaked up the posterior aspect of his right calf. Patient states that [facility] who told him to soak his foot in Epsom salts and apply bacitracin to the wound but the wound has continued to get worse. Patient has a history of COPD, metastatic renal cell carcinoma with mets to the lung, hyperlipidemia, hypertension, diabetes mellitus type 2. [facility] Medical History Asthma Atherosclerotic heart disease of knik coronary artery without angina pectoris Cancer Chest pain Clear cell carcinoma of left kidney COPD (chronic obstructive pulmonary disease) COVID-19 (05/2020) Debility Diabetes Diabetes Essential hypertension Former smoker Full dentures GERD (gastroesophageal reflux disease) Hearing loss, left Hearing loss, right Hemoptysis Hiatal hernia History of non-ST elevation myocardial infarction (NSTEMI) (08/30/04) Hyperlipidemia Hypertension Hypokalemia Injury of head and neck Lung mass Metastasis to adrenal gland Metastatic renal cell carcinoma to lung Non-smoker Paresthesias in left hand Psoriasis Sleep apnea Syncope Wears glasses Home Medications aspirin 81 mg tablet,delayed release (Adult Low Dose Aspirin) 81 mg PO QHS heart health 05/10/16 [History Last Taken 07/30/16] metformin 1,000 mg 24 hr tablet,extended release 1,000 mg PO BID diabetes 05/10/16 [History Last Taken 05/24/20] metoprolol tartrate 50 mg tablet 25 mg PO BID blood pressure 05/10/16 [History Last Taken 12/16/20 08:15] multivitamin (Daily Multiple tablet) 1 ea PO DAILY vitamin 05/10/16 [History Last Taken 05/24/20] simvastatin 40 mg tablet 40 mg PO QHS cholesterol 05/10/16 [History Last Taken 05/24/20] tamsulosin 0.4 mg capsule 0.4 mg PO QHS prostate 10/01/19 [History Last Taken 05/24/20] albuterol sulfate 90 mcg/actuation aerosol inhaler 2 puff inhalation Q4H PRN Sob &/Or Wheezing 05/31/20 [History Last Taken 05/29/20] budesonide-formoterol HFA 160 mcg-4.5 mcg/actuation aerosol inhaler 1 - 2 puff inhalation BID copd 05/31/20 [History Last Taken 05/29/20] omeprazole 40 mg capsule,delayed release 40 mg PO DAILY gerd 05/31/20 [History Last Taken 12/16/20 08:15] triamcinolone acetonide 0.5 % topical ointment 1 applicatio topical BID PRN PRN psoriasis 05/31/20 [History Last Taken 05/24/20] glimepiride 4 mg tablet 4 mg PO DAILY 09/06/21 [History Last Taken Unknown] empagliflozin 25 mg tablet (Jardiance) 25 mg PO DAILY 09/28/21 [History Last Taken Unknown] cabozantinib 20 mg tablet 20 mg PO DAILY 10/26/21 [History Last Taken Unknown] liver, iron, and vitamins 1 tab PO DAILY 02/08/22 [History Last Taken Unknown] prednisone 10 mg tablet 10 mg PO QDAY #30 tabs 02/08/22 [Rx Last Taken Unknown] glimepiride 2 mg tablet 2 mg PO QHS 02/16/22 [History Last Taken Unknown] Allergy/AdvReac Type Severity Reaction Status Date / Time No Known Allergies Allergy Verified 02/16/22 11:13 Family History Mother Arthritis Hypertension Asthma Grandfather Cancer Aunt Colon cancer Surgical History History of colonoscopy History of coronary artery stent placement (08/30/04) History of esophagogastroduodenoscopy (EGD) History of left heart catheterization (01/27/07) History of Chicho fundoplication Hx of LASIK Social History Smoking Status: Never smoker Vital Signs Vital Signs Vital Signs: 02/16/22 11:13 02/16/22 11:16 02/16/22 12:09 Temperature 99.4 F H 99.4 F H Temperature Source Temporal Temporal Pulse Rate 119 H 119 H Respiratory Rate 24 H 24 H Blood Pressure 131/73 H 131/73 H Blood Pressure Mean 92 Pulse Ox 96 96 94 Oxygen Delivery Method Room Air Room Air Room Air 02/16/22 12:29 02/16/22 12:54 02/16/22 13:17 Temperature 95.2 F L 96.4 F L 98.5 F Temperature Source Temporal Temporal Oral Pulse Rate 108 H Respiratory Rate 22 H Blood Pressure 102/77 Blood Pressure Mean 85 Pulse Ox 96 Oxygen Delivery Method Room Air 02/16/22 13:35 Temperature 98.5 F Temperature Source Oral Pulse Rate 104 H Respiratory Rate 22 H Blood Pressure 113/79 Blood Pressure Mean 90 Pulse Ox 94 Oxygen Delivery Method Room Air Weight Weight: 170 lb 3.15 oz Body Mass Index (BMI) 22.4 Physical Exam Const alert, oriented x3 and no apparent distress General Appearance: cooperative HEENT normocephalic and head/scalp atraumatic Eyes conjunctivae normal and no scleral icterus Neck no lymphadenopathy and supple General: trachea midline Resp normal respiratory effort and normal air movement Effort and Inspection: able to speak in complete sentences, symmetric chest movement and tachypneic Auscultation: wheezes expiratory wheezes, scattered wheezes and anterior and diminished lung sounds Cardio regular rate, regular rhythm, S1 normal heart sound, S2 normal heart sound and peripheral pulses 2+ throughout Rate: tachycardic GI normal to inspection, nondistended, normoactive bowel sounds and soft to palpation Extremity normal capillary refill and no clubbing, cyanosis or edema Skin Skin Narrative: Patient has lymphangitic streaking from the right heel wound to the medial aspect of the mid mid posterior calf Wounds: wounds noted size Size: Quarter size, open and surrounding erythema Neuro no focal motor deficits and no sensory deficits noted Psych thought process normal, cooperative and affect normal Results Lab / Micro Data Result Diagrams: 02/16/22 11:55 02/16/22 11:55 Labs: Laboratory Results - last 24 hr 02/16/22 11:55: WBC 12.4 H, RBC 3.95 L, Hgb 12.2 L, Hct 37.8 L, MCV 95.7 H, MCH 30.9, MCHC 32.3, RDW Std Deviation 60.9 H, RDW Coeff of [place] 18.1 H, Plt Count 316, MPV 9.9, Immature Gran % (Auto) 3.100 H, Neut % (Auto) 85.2 H, Lymph % (Auto) 7.6 L, [place] % (Auto) 3.7, Eos % (Auto) 0.2, Baso % (Auto) 0.2, Absolute Neuts (auto) 10.6 H, Absolute Lymphs (auto) 0.94, Nucleated RBC % 0.2, ESR 76 H 02/16/22 11:55: Sodium 137, Potassium 3.3 L, Chloride 105, Carbon Dioxide 23.0, Anion Gap 9, BUN 11, Creatinine 1.05, Estim Creat Clear Calc 68.42, Est GFR (MDRD) Af Amer 89, Est GFR (MDRD) Non-Af 74, BUN/Creatinine Ratio 10.5, Glucose 106, Calcium 8.5, Total Bilirubin 0.90, AST 23, ALT 40, Alkaline Phosphatase 82, C-React Prot Ext Range 109.00 H, Total Protein 6.8, Albumin 2.3 L, Globulin 4.5 H, Albumin/Globulin Ratio 0.5 L 02/16/22 12:00: PT 14.8, INR 1.2, APTT 27.5 02/16/22 12:00: Lactic Acid 3.6 H* 02/16/22 12:15: Urine Color Yellow, Urine Clarity Sl. Cloudy, Urine pH 5.0, Ur Specific [place] 1.020, Urine Protein 30 H, Urine Glucose (UA) 1000 H, Urine Ketones 5 H, Urine Occult Blood Negative, Urine Nitrite Negative, Urine Bilirubin 1 H, Urine Urobilinogen 4 H, Ur Leukocyte Esterase Negative, Urine RBC 0 SEEN, Urine WBC 0 SEEN, Ur Squamous Epith Cells 0 SEEN, Urine Bacteria 0 SEEN, Urine Mucus 0 SEEN Rhythm Strip Rhythm Strip: Sinus Tach Rate: 108 Ectopy: None Radiology Impression Foot X-Ray 02/16/22 12:36 IMPRESSION: Focus of soft tissue gas posterior to the posterior tuberosity of the calcaneus without demonstrated active bone destruction. Electronically Signed: Dexter Waldrop MD at 13:16 EDT , Assessment & Plan Assessment/Plan (1) Sepsis: (2) Open wound of right heel: (3) Cellulitis of right lower extremity: PLAN: Plan 1. Diabetic foot wound -qSOFA score 1, sepsis ruled out -Admit to MedSurg -Consult podiatry -MRI right foot -CBC and BMP in a.m. -Blood cultures pending -Vanco and Zosyn initiated in ER we will continue 2. Diabetes mellitus type 2 -ACH S blood sugars are sliding scale insulin ordered -Insulin glargine 5 units nightly -Metformin and glimepiride held -Continue Jardiance 3. Hypertension -Continue metoprolol -Vital signs per protocol, currently stable 4. COPD -Continue as needed albuterol and scheduled budesonide -Currently stable on room air 5. Metastatic renal cell carcinoma with mets to the lung -Follows with Dr. Quinones -Continue cabozantinib 6. GERD -Continue pantoprazole 7. Hyperlipidemia -Continue simvastatin DVT Prophylaxis-SQ Lovenox This patient was seen by NILS WhitlockC under the supervision of Dr. Lee. 31 minutes spent in clinical coordination of patient's plan of care. Documented by User: Dr. Adarsh Lee MD 02/16/22 14:49 HPI - General General Date of Admission: 02/16/22 [facility] Medical History Asthma Atherosclerotic heart disease of knik coronary artery without angina pectoris Cancer Chest pain Clear cell carcinoma of left kidney COPD (chronic obstructive pulmonary disease) COVID-19 (05/2020) Debility Diabetes Diabetes Essential hypertension Former smoker Full dentures GERD (gastroesophageal reflux disease) Hearing loss, left Hearing loss, right Hemoptysis Hiatal hernia History of non-ST elevation myocardial infarction (NSTEMI) (08/30/04) Hyperlipidemia Hypertension Hypokalemia Injury of head and neck Lung mass Metastasis to adrenal gland Metastatic renal cell carcinoma to lung Non-smoker Paresthesias in left hand Psoriasis Sleep apnea Syncope Wears glasses Home Medications aspirin 81 mg tablet,delayed release (Adult Low Dose Aspirin) 81 mg PO QHS heart health 05/10/16 [History Last Taken 07/30/16] metformin 1,000 mg 24 hr tablet,extended release 1,000 mg PO BID diabetes 05/10/16 [History Last Taken 05/24/20] metoprolol tartrate 50 mg tablet 25 mg PO BID blood pressure 05/10/16 [History Last Taken 12/16/20 08:15] multivitamin (Daily Multiple tablet) 1 ea PO DAILY vitamin 05/10/16 [History Last Taken 05/24/20] simvastatin 40 mg tablet 40 mg PO QHS cholesterol 05/10/16 [History Last Taken 05/24/20] tamsulosin 0.4 mg capsule 0.4 mg PO QHS prostate 10/01/19 [History Last Taken 05/24/20] albuterol sulfate 90 mcg/actuation aerosol inhaler 2 puff inhalation Q4H PRN Sob &/Or Wheezing 05/31/20 [History Last Taken 05/29/20] budesonide-formoterol HFA 160 mcg-4.5 mcg/actuation aerosol inhaler 1 - 2 puff inhalation BID copd 05/31/20 [History Last Taken 05/29/20] omeprazole 40 mg capsule,delayed release 40 mg PO DAILY gerd 05/31/20 [History Last Taken 12/16/20 08:15] triamcinolone acetonide 0.5 % topical ointment 1 applicatio topical BID PRN PRN psoriasis 05/31/20 [History Last Taken 05/24/20] glimepiride 4 mg tablet 4 mg PO DAILY 09/06/21 [History Last Taken Unknown] empagliflozin 25 mg tablet (Jardiance) 25 mg PO DAILY 09/28/21 [History Last Taken Unknown] cabozantinib 20 mg tablet 20 mg PO DAILY 10/26/21 [History Last Taken Unknown] liver, iron, and vitamins 1 tab PO DAILY 02/08/22 [History Last Taken Unknown] prednisone 10 mg tablet 10 mg PO QDAY #30 tabs 02/08/22 [Rx Last Taken Unknown] glimepiride 2 mg tablet 2 mg PO QHS 02/16/22 [History Last Taken Unknown] Allergy/AdvReac Type Severity Reaction Status Date / Time No Known Allergies Allergy Verified 02/16/22 11:13 Family History Mother Arthritis Hypertension Asthma Grandfather Cancer Aunt Colon cancer Surgical History History of colonoscopy History of coronary artery stent placement (08/30/04) History of esophagogastroduodenoscopy (EGD) History of left heart catheterization (01/27/07) History of Chicho fundoplication Hx of LASIK Social History Smoking Status: Never smoker Results Lab / Micro Data Result Diagrams: 02/16/22 11:55 02/16/22 11:55 Assessment & Plan Assessment/Plan (1) Sepsis: (2) Open wound of right heel: (3) Cellulitis of right lower extremity: Charges/Coding Addendum Addendum: Addendum: Dr. Lee I personally examined the patient and reviewed the chart. I agree with the above. 71-year-old male with a history of metastatic renal carcinoma to the lung presents with a diabetic foot wound on his right heel. There is some streaking going up his leg. He does have a slight leukocytosis 12.4 but is not septic. We will continue with IV antibiotics and consult podiatry for some wound care. We will also proceed with an MRI determine duration of antibiotics. Had a 20-minute conversation on advance care planning secondary to his chemotherapy and he is on second line. He says that he skips doses on occasion secondary to how his mouth feels as he has been having some significant mucositis with his previous dosages. He is currently down to 20 mg on his oral chemotherapy, he was started at 60 mg. He is unsure whether or not the cancer has progressed or not. Clinical time spent in all aspects of patient care: 40 minutes Visit Charges Inpatient E&M: 33373 Init Hosp L3 Procedures Hospitalists Procedures: 15415 Advncd Care Plan 30 Min
[2022-02-16] MEDS: Lactated Ringers 1,000 ML 999 ML IV (13:40)
--- NOTE | 2022-02-16 15:22 | PHA.PHARE_ITS ---
Consult Pharmacy has been consulted to manage selected antiobiotic: Vancomycin Type of Consult: New start Suspected Infection: Skin/Soft tissue Prior Doses of Antibiotics Received/Current Regimen: received 2000mg IV x1 in E.R. starting at 12:51 today Labs: Sodium 137 mmol/L (136-145) 02/16/22 11:55 Potassium 3.3 mmol/L (3.5-5.1) L 02/16/22 11:55 Chloride 105 mmol/L (98-107) 02/16/22 11:55 Carbon Dioxide 23.0 mmol/L (21.0-32.0) 02/16/22 11:55 Anion Gap 9 (5-15) 02/16/22 11:55 BUN 11 mg/dL (7-18) 02/16/22 11:55 Creatinine 1.05 mg/dL (0.70-1.30) 02/16/22 11:55 Est GFR (MDRD) Af Amer 89 mL/min (>60) 02/16/22 11:55 Est GFR (MDRD) Non-Af 74 mL/min (>60) 02/16/22 11:55 BUN/Creatinine Ratio 10.5 RATIO (10-20) 02/16/22 11:55 Glucose 106 mg/dL (74-106) 02/16/22 11:55 Weight used for dosin.7 kg Estimated Creatinine Clearance: 68ml/min Goal Trough: 15-20 mcg/mL Pharmacy Plan for Drug Dosing: Starting 12 hours after the dose that was given in E.R., will continue with vanc 1000mg IV q12h per [facility] dosing protocol. Will check a trough before the 4th total dose. Pharmacy Service will continue to monitor and adjust dosing as required. Follow-Up Labs: Trough Vancomycin Labs to be done on [date and time ordered]: 02/18/22 00:30
--- NOTE | 2022-02-16 15:49 | CASEMGMT ---
Addendum entered by Dee Han 02/16/22 15:57: Patient was provided a list of HHC providers including quality and resource use data and consistent with the patient?s preferred geographic region, medical needs, and insurance network. Pt to review list provided and pending wound care orders decide on an agency. Original Note: LOTUS ALEX Assessment: Face to Face with pt for initial transition planning/care coordination assessment. LOTUS ALEX introduced self and role at [facility], pt voices understanding and consents to assessment. Pt is A/O x4 and answers all questions appropriately at this time. Pt sitting up in bed in no distress. Care providers, pharmacy, and demographics verified/updated. Admitting Dx: Diabetic Foot Wound PCP: Renato Specialists: pod, pt is unsure of name; Sheridan, onc; nell Brady Preferred Pharmacy: [facility] Retail Insurance: [employer] Prescription Benefit: yes LW/HPOA: Pt states he has a LW/DPOA and his dtr is his DPOA Rosemary Clippinger. LNOK: Rosemary Clippinger, dtr Living Arrangements: Pt lives alone in a ground level apt with no steps to enter. Pt reports he is I in ADL's but needs assistance with cleaning. He states he is working with his [facility] CM Miranda Resendiz on getting an aide. Pt denies concerns at home otherwise. Transportation: Pt drives self and denies concerns with transportation. DME/HHC/SNF: Pt has a cane and 4WW but does not use currently. Pt has grab bars in the bathroom. Pt has a BGM but states he does not use it. Pt denies previous HHC or SNF stays. Pt states no concerns with going home at time of dc. He states he was doing his own dressing changes. He would be interested in HHC if he qualifies. Pt states no further concerns/needs. CM to follow. Advised pt to ask CM if any further question/concerns/needs arise, voices understanding. Pt Goal: Home with HHC Plan: Home with HHC
[2022-02-16 16:02] LABS: Reflex Lactate? Y
[2022-02-16 17:20] LABS: Lactic Acid 3.4 mmol/L (0.4-1.9)
[2022-02-16] MEDS: Glucerna Shake 120 ML LIQUID PO (17:22)
[2022-02-16] MEDS: Insulin Lispro 100 UNIT/ML INSULN.PEN SC ×2 (17:22→21:16)
[2022-02-16 17:30] LABS: Bedside Glucose 213 mg/dL (74-106)
--- NOTE | 2022-02-16 18:44 | CON.PCM_ITS ---
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 Debridement was performed today as noted to the right heel ulcer site. This was a subcutaneous excisional debridement performed after verbal consent was obtained. A 15 blade scalpel and forcep was used to excise devitalized subcutaneous tissue, fibrous tissue, biofilm and slough. Pressure was applied to maintain hemostasis. He tolerated this well. The foot was cleansed with soap and saline. He has apparent maura lulitis with streaking. The following work up and care recommendations were made: Infection: He is afebrile and his vital signs are stable. He does have leukocytosis. His other diagnostic data was reviewed including an x-ray without osseous destruction, periosteal changes, soft tissue emphysema or foreign body. The ulcer is noted on plain x-ray. An MRI was also ordered and the radiology formal report is pending. My personal review of the images include lack of diagnosis of osteomyelitis or formed abscess. The ulcer is noted to have a sinus tract extending to deeper tissue of the heel pad. Wound culture was obtained in the clinical setting today and these results are pending. I obtai leeann an additional culture for MRSA PCR serology test and this is pending. It is also noted he has urine and blood cultures pending. He was started on broad- spectrum IV antibiotics including vancomycin and Zosyn. To continue this until culture guided therapy is possible. I do not recommend podiatric surgical intervention at this time and would like to monitor him on antibiotics. Dressing: Change daily with Aquacel Ag, gauze, ABD pad and Kerlix. This was applied this evening. Wash: Soap and water Tissue growth optimization: Advanced wound healing skin graft substitutes will be considered after his infection is stabilized if he continues to have delayed healing in the outpatient setting. I recommend he follows up with the wound healing center after discharge and after he is stabilized. Offload: Nonweightbearing right lower extremity with surgical shoe and assistive walking device. It is okay to forefoot load for transfers or limited walking. Physical therapy was recommended to help with gait training. Vascular: He has palpable pulses however I am concerned about his delay in healing. I recommend starting with noninvasive vascular studies and these were ordered. Vascular referral may be warranted if this is abnormal. Edema: He does not have significant edema. Pain: Controlled Host factors: His medical comorbidities are noted including diabetes and cancer in which she is undergoing active chemotherapy treatment. He understands he is at risk for continued delayed healing and I recommend nutritional supplementation to optimize healing. Glucerna and Reinaldo have been ordered. Medical management and DVT prophylaxis per hospitalist are noted and appreciated. I answered all the patient's questions. Thank you for the consultation. Please do not hesitate to call if you have any questions. I will follow him closely while in house. Torrie Catalan DPM, [facility] [phone] HPI Consult Data Date of Consult: 02/16/22 HPI Narrative Reason for Consultation: Right heel ulcer infection HPI Narrative: BRANDAN DELGADO, is a 71 M was admitted for worsening status of right heel ulcer that got infected. He reports his ulcer started in June 2021 when he had a crack in his skin. He was finally on his own at home and then subsequently began treatment at the [facility] with bacitracin and salt soaks. His ulcer failed to heal and recently became red with streaks 1 day ago. He was seen earlier today at the [facility] Center. He denies odor. He does have some neuropathy and loss of sensation he believes is secondary to his chemotherapy treatments. He denies routine claudication or history of other ulcers of the lower extremities. He reports mild pain. His daughter is bedside briefly. [facility] Medical History Asthma Atherosclerotic heart disease of [place] coronary artery without angina pectoris Cancer Chest pain Clear cell carcinoma of left kidney COPD (chronic obstructive pulmonary disease) COVID-19 (05/2020) Debility Diabetes Diabetes Essential hypertension Former smoker Full dentures GERD (gastroesophageal reflux disease) Hearing loss, left Hearing loss, right Hemoptysis Hiatal hernia History of non-ST elevation myocardial infarction (NSTEMI) (08/30/04) Hyperlipidemia Hypertension Hypokalemia Injury of head and neck Lung mass Metastasis to adrenal gland Metastatic renal cell carcinoma to lung Non-smoker Paresthesias in left hand Psoriasis Sleep apnea Syncope Wears glasses Home Medications aspirin 81 mg tablet,delayed release (Adult Low Dose Aspirin) 81 mg PO QHS heart [facility] 05/10/16 [History Last Taken 07/30/16] metformin 1,000 mg 24 hr tablet,extended release 1,000 mg PO BID diabetes 05/10/16 [History Last Taken 05/24/20] metoprolol tartrate 50 mg tablet 25 mg PO BID blood pressure 05/10/16 [History Last Taken 12/16/20 08:15] multivitamin (Daily Multiple tablet) 1 ea PO DAILY vitamin 05/10/16 [History Last Taken 05/24/20] simvastatin 40 mg tablet 40 mg PO QHS cholesterol 05/10/16 [History Last Taken 05/24/20] tamsulosin 0.4 mg capsule 0.4 mg PO QHS prostate 10/01/19 [History Last Taken 05/24/20] albuterol sulfate 90 mcg/actuation aerosol inhaler 2 puff inhalation Q4H PRN Sob &/Or Wheezing 05/31/20 [History Last Taken 05/29/20] budesonide-formoterol HFA 160 mcg-4.5 mcg/actuation aerosol inhaler 1 - 2 puff inhalation BID copd 05/31/20 [History Last Taken 05/29/20] omeprazole 40 mg capsule,delayed release 40 mg PO DAILY gerd 05/31/20 [History Last Taken 12/16/20 08:15] triamcinolone acetonide 0.5 % topical ointment 1 applicatio topical BID PRN PRN psoriasis 05/31/20 [History Last Taken 05/24/20] glimepiride 4 mg tablet 4 mg PO DAILY 09/06/21 [History Last Taken Unknown] empagliflozin 25 mg tablet (Jardiance) 25 mg PO DAILY 09/28/21 [History Last Taken Unknown] cabozantinib 20 mg tablet 20 mg PO DAILY 10/26/21 [History Last Taken Unknown] liver, iron, and vitamins 1 tab PO DAILY 02/08/22 [History Last Taken Unknown] prednisone 10 mg tablet 10 mg PO QDAY #30 tabs 02/08/22 [Rx Last Taken Unknown] glimepiride 2 mg tablet 2 mg PO QHS 02/16/22 [History Last Taken Unknown] Allergy/AdvReac Type Severity Reaction Status Date / Time No Known Allergies Allergy Verified 02/16/22 11:13 Family History Mother Arthritis Hypertension Asthma Grandfather Cancer Aunt Colon cancer Surgical History History of colonoscopy History of coronary artery stent placement (08/30/04) History of esophagogastroduodenoscopy (EGD) History of left heart catheterization (01/27/07) History of Chicho fundoplication Hx of LASIK Social History Smoking Status: Never smoker ROS Constitutional Constitutional: Denies chills, fatigue or fever(s) Cardiovascular Cardiovascular: Denies claudication or cold extremities Gastrointestinal Gastrointestinal: Denies nausea or vomiting Musculoskeletal Musculoskeletal: Reports tingling Integumentary Integumentary: Reports wounds Neurologic Neurologic: Reports tingling Physical Exam Const alert and oriented x3 General Appearance: cooperative HEENT normocephalic Extremity Extremity Narrative: No calf tenderness 2/4 bilateral DP pulses and left PT and 1/4 right PT Muscle wasting noted bilateral lower extremities No bogginess or fluctuance adjacent to right heel ulcer Minimal pain on palpation of the ulcer and during debridement 5 out of 5 ankle and toe muscle strength in all directions bilateral General Extremity: edema and no tenderness to palpation of joints or extremities; Negative for cyanosis Skin Skin Narrative: no purulence, no odor to right heel ulcer. This does appear infected with adjacent edema erythema that streaks up to the posterior medial mid leg. There is a 100% fibrous base ulcer with undermining that probes to deeper periosteal tissue and not directly to the bone. The predebridement measurement is 1.2 x 2. 3 x 0.7 cm and postdebridement is 1.4 x 2.5 x 0.9 cm. There is hematogenous draining upon debridement and no additional purulence on expression. There is no martin eschar or necrosis. In general, his adjacent skin is hairless and atrophic General Skin Exam: Negative for erythema Neuro Neuro Narrative: lack of normal epicritic sensation via light touch is consistent with neuropathy status Psych cooperative and affect normal Lab / Micro Data Result Diagrams: 02/16/22 11:55 02/16/22 11:55 Labs: Laboratory Results - last 24 hr 02/16/22 11:55: WBC 12.4 H, RBC 3.95 L, Hgb 12.2 L, Hct 37.8 L, MCV 95.7 H, MCH 30.9, MCHC 32.3, RDW Std Deviation 60.9 H, RDW Coeff of [place] 18.1 H, Plt Count 316, MPV 9.9, Immature Gran % (Auto) 3.100 H, Neut % (Auto) 85.2 H, Lymph % (Auto) 7.6 L, Josephine % (Auto) 3.7, Eos % (Auto) 0.2, Baso % (Auto) 0.2, Absolute Neuts (auto) 10.6 H, Absolute Lymphs (auto) 0.94, Nucleated RBC % 0.2, ESR 76 H 02/16/22 11:55: Sodium 137, Potassium 3.3 L, Chloride 105, Carbon Dioxide 23.0, Anion Gap 9, BUN 11, Creatinine 1.05, Estim Creat Clear Calc 68.42, Est GFR (M DRD) Af Amer 89, Est GFR (MDRD) Non-Af 74, BUN/Creatinine Ratio 10.5, Glucose 106, Calcium 8.5, Total Bilirubin 0.90, AST 23, ALT 40, Alkaline Phosphatase 82, C-React Prot Ext Range 109.00 H, Total Protein 6.8, Albumin 2.3 L, Globulin 4.5 H, Albumin/Globulin Ratio 0.5 L 02/16/22 12:00: PT 14.8, INR 1.2, APTT 27.5 02/16/22 12:00: Lactic Acid 3.6 H* 02/16/22 12:15: Urine Color Yellow, Urine Clarity Sl. Cloudy, Urine pH 5.0, Ur Specific [place] 1.020, Urine Protein 30 H, Urine Glucose (UA) 1000 H, Urine Ketones 5 H, Urine Occult Blood Negative, Urine Nitrite Negative, Urine Bilirubin 1 H, Urine Urobilinogen 4 H, Ur Leukocyte Esterase Negative, Urine RBC 0 SEEN, Urine WBC 0 SEEN, Ur Squamous Epith Cells 0 SEEN, Urine Bacteria 0 SEEN, Urine Mucus 0 SEEN 02/16/22 16:15: Lactic Acid 3.4 H* 02/16/22 16:27: POC Glucose 213 H Rhythm Strip Rhythm Strip: Sinus Tach Rate: 108 Ectopy: None Radiology Impression Foot X-Ray 02/16/22 12:36 IMPRESSION: Focus of soft tissue gas posterior to the posterior tuberosity of the calcaneus without demonstrated active bone destruction. Electronically Signed: Dexter Waldrop MD at 13:16 EDT , Lower Extremity MRI 02/16/22 13:23 IMPRESSION: 1. Near the calcaneus, there is a plantar ulcer. There is enhancement of this area with extension to the underlying calcaneus. However there is no evidence for osteomyelitis. Findings suggest a soft tissue infectious process. 2. There is increased T2 signal in the plantar soft tissue. This can represent an infectious process or abnormality related to diabetic neuropathy. Electronically Signed: Jaime Bernstein MD at 16:44 EDT ,
--- NOTE | 2022-02-16 19:18 | ART_ITS ---
Reason For Study: Ulcer Procedure A bilateral lower extremity continuous wave Doppler with analog waveform analysis,segmental pressures,and ankle brachial indexes without exercise. Left Segmental Pressures Left brachial= 157mmHg. Left posterior tibial artery = 185mmHg. Left dorsalis pedis artery = 169mmHg. Left digit = 164 mmHg. Right Segmental Pressures Right brachial= 152mmHg. Right posterior tibial artery = 173mmHg. Right dorsalis pedis artery = 163mmHg. Right digit = 151 mmHg. Indices The right ankle brachial index by the posterior tibial artery is 1.10. The right ankle brachial index by the dorsalis pedis is 1.04. The right digital-brachial index is 0.96. The left ankle brachial index by the posterior tibial artery is 1.18. The left ankle brachial index by the dorsalis pedis is 1.08. The left digital-brachial index is 1.04. VL/Lower Ext Art Exam w/o Exercis Interpretation Summary Doppler/PVR waveforms of the right leg normal at rest. Right RIAZ 1.1, normal. Doppler/PVR waveforms of the left leg normal at rest. Left RIAZ 1.18, normal. Ordering Physician: Torrie Catalan Referring Physician: Solis Gross Performed By: Summer Palafox RDCS/RVT
[2022-02-16] MEDS: Atorvastatin Calcium 20 MG Tablet PO (21:10)
[2022-02-16] MEDS: Aspirin E.C. 81 MG Tablet PO (21:10)
[2022-02-16] MEDS: CLARIFY ORDER NOTE (21:10)
[2022-02-16] MEDS: Metoprolol Tartrate 25 MG Tablet PO (21:10)
[2022-02-16] MEDS: Insulin Glargine-YFGN 100 UNIT/ML Pen SC (21:15)
[2022-02-16 21:40] LABS: Bedside Glucose 230 mg/dL (74-106)
[2022-02-16 21:57] LABS: M R Staph aureus DNA By PCR Negative (Negative); Probe Check PASS; Specimen Processing Control PASS; Staph aureus DNA By PCR POSITIVE (Negative)
[2022-02-17] VITALS (8 sets, daily range): BP systolic 122–143; BP diastolic 62–86; PULSE 69–86; RESP 16–20; TEMP 36.6–37.2; O2SAT 98–100
[2022-02-17] MEDS: Vancomycin IV 1,000 MG/200 ML BAG 200 MG IV ×2 (01:22→13:00)
[2022-02-17] MEDS: Acetaminophen 325 MG Tablet 650 MG PO ×2 (01:25→17:48)
[2022-02-17 06:30] LABS: Absolute Neutrophil Count 8.2 X10^3/uL (2.0-7.7); Basophil# 0.01 X10^3/uL; Basophil% 0.1 % (0-1); Eosinophil# 0.07 X10^3/uL; Eosinophils% 0.7 % (0-5); Hematocrit 32.8 % (40-54); Hemoglobin 10.7 g/dL (13.0-16.5); Lymphocyte % 16.3 % (19-41); Mean Corp Hgb Conc 32.6 g/dL (32-36); Mean Corpuscular Volume 95.1 fL (80-94); Mean Platelet Vol. 9.5 fl (6.2-12.0); Monocyte# 0.36 X10^3/uL; Monocyte% 3.4 % (0-10); NRBC Flagged by Analyzer 0 % (0-5); Neutrophil # 8.22 X10^3/uL (2.7-7.7); Neutrophil % 78.5 % (47-70); Platelet Count 278 K/mm3 (150-450); RBC Distribution Width CV 17.9 % (11.6-14.6); RBC Distribution Width SD 61.8 fl (35.1-43.9); Red Blood Count 3.45 M/mm3 (4.6-6.2); White Blood Count 10.5 K/mm3 (4.4-11.0)
[2022-02-17 06:48] LABS: Anion Gap 6 (5-15); BUN 17 mg/dL (7-18); BUN/Creat Ratio 21.1 RATIO (10-20); Calcium,Total 8.4 mg/dL (8.5-10.1); Chloride 107 mmol/L (98-107); EST Glomerular Filtration Rate 100 mL/min (>60); Est Glom Filt Rate - Afr Amer 121 mL/min (>60); Estimated Creatinine Clearance 89.17 ml/min; Glucose 46 mg/dL (74-106); Potassium 2.9 mmol/L (3.5-5.1); Sodium Level 139 mmol/L (136-145)
[2022-02-17 06:55] LABS: Bedside Glucose 57 mg/dL (74-106)
[2022-02-17 06:55] LABS: Bedside Glucose 94 mg/dL (74-106)
[2022-02-17] MEDS: Multivitamins,Therapeutic Tablet 1 TABLET PO (09:04)
[2022-02-17] MEDS: Empagliflozin 25 MG Tablet PO (09:04)
[2022-02-17] MEDS: Metoprolol Tartrate 25 MG Tablet PO ×2 (09:04→21:34)
[2022-02-17] MEDS: Juven (unflavored) Packet 1 PACKET PO ×2 (09:04→16:12)
[2022-02-17] MEDS: Enoxaparin 40 MG/0.4 ML Syringe SC (09:05)
[2022-02-17] MEDS: Pantoprazole Sodium 40 MG Tablet PO (09:05)
--- NOTE | 2022-02-17 09:35 | PCM.PN.HOSP ---
Documented by User: Katelin Crowder NP-C 02/17/22 09:42 Subjective Subjective Patient seen and examined. Patient sitting in bed eating breakfast no distress noted. Streaking to right calf improved from yesterday although it remains it is now less red. Objective Data Objective Data Vital Signs: Vital Signs Temp Pulse Resp BP Pulse Ox O2 Del Method 97.8 F 83 16 128/83 H 98 Room Air 02/17/22 02:05 02/17/22 09:04 02/17/22 02:05 02/17/22 02:05 02/17/22 02:05 02/17/22 02:05 Oxygen Delivery Method Room Air Weight: 168 lb 15.996 oz Body Mass Index (BMI) 22.3 Intake & Output: Intake and Output for Last 24 Hours 02/15/22 02/16/22 02/17/22 23:59 23:59 23:59 Intake Total 2090 / 2090 250 / 250 Output Total 700 / 700 400 / 400 Balance 1390 / 1390 -150 / -150 Lab / Micro Data Result Diagrams: 02/17/22 05:25 02/17/22 05:25 Labs: Laboratory Results - last 24 hr 02/16/22 11:55: WBC 12.4 H, RBC 3.95 L, Hgb 12.2 L, Hct 37.8 L, MCV 95.7 H, MCH 30.9, MCHC 32.3, RDW Std Deviation 60.9 H, RDW Coeff of [place] 18.1 H, Plt Count 316, MPV 9.9, Immature Gran % (Auto) 3.100 H, Neut % (Auto) 85.2 H, Lymph % (Auto) 7.6 L, [place] % (Auto) 3.7, Eos % (Auto) 0.2, Baso % (Auto) 0.2, Absolute Neuts (auto) 10.6 H, Absolute Lymphs (auto) 0.94, Nucleated RBC % 0.2, ESR 76 H 02/16/22 11:55: Sodium 137, Potassium 3.3 L, Chloride 105, Carbon Dioxide 23.0, Anion Gap 9, BUN 11, Creatinine 1.05, Estim Creat Clear Calc 68.42, Est GFR (MDRD) Af Amer 89, Est GFR (MDRD) Non-Af 74, BUN/Creatinine Ratio 10.5, Glucose 106, Calcium 8.5, Total Bilirubin 0.90, AST 23, ALT 40, Alkaline Phosphatase 82, C-React Prot Ext Range 109.00 H, Total Protein 6.8, Albumin 2.3 L, Globulin 4.5 H, Albumin/Globulin Ratio 0.5 L 02/16/22 12:00: PT 14.8, INR 1.2, APTT 27.5 02/16/22 12:00: Lactic Acid 3.6 H* 02/16/22 12:15: Urine Color Yellow, Urine Clarity Sl. Cloudy, Urine pH 5.0, Ur Specific [place] 1.020, Urine Protein 30 H, Urine Glucose (UA) 1000 H, Urine Ketones 5 H, Urine Occult Blood Negative, Urine Nitrite Negative, Urine Bilirubin 1 H, Urine Urobilinogen 4 H, Ur Leukocyte Esterase Negative, Urine RBC 0 SEEN, Urine WBC 0 SEEN, Ur Squamous Epith Cells 0 SEEN, Urine Bacteria 0 SEEN, Urine Mucus 0 SEEN 02/16/22 16:15: Lactic Acid 3.4 H* 02/16/22 16:27: POC Glucose 213 H 02/16/22 19:35: S.aureus Protein A PCR POSITIVE H, MRSA (PCR) Negative 02/16/22 21:15: POC Glucose 230 H 02/17/22 05:25: WBC 10.5, RBC 3.45 L, Hgb 10.7 L, Hct 32.8 L, MCV 95.1 H, MCH 31.0, MCHC 32.6, RDW Std Deviation 61.8 H, RDW Coeff of [place] 17.9 H, Plt Count 278, MPV 9.5, Immature Gran % (Auto) 1.000 H, Neut % (Auto) 78.5 H, Lymph % (Auto) 16.3 L, [place] % (Auto) 3.4, Eos % (Auto) 0.7, Baso % (Auto) 0.1, Absolute Neuts (auto) 8.2 H, Absolute Lymphs (auto) 1.70, Nucleated RBC % 0 02/17/22 05:25: Sodium 139, Potassium 2.9 L, Chloride 107, Carbon Dioxide 26.0, Anion Gap 6, BUN 17, Creatinine 0.80, Estim Creat Clear Calc 89.17, Est GFR (MDRD) Af Amer 121, Est GFR (MDRD) Non-Af 100, BUN/Creatinine Ratio 21.1 H, Glucose 46 L, Calcium 8.4 L 02/17/22 06:12: POC Glucose 57 L 02/17/22 06:35: POC Glucose 94 Micro: Microbiology 02/16/22 10:30 Wound Abcess - Right Foot Gram Stain - Final Radiography Diagnostic Testing: Radiology Impression Foot X-Ray 02/16/22 12:36 IMPRESSION: Focus of soft tissue gas posterior to the posterior tuberosity of the calcaneus without demonstrated active bone destruction. Electronically Signed: Dexter Waldrop MD at 13:16 EDT , Lower Extremity MRI 02/16/22 13:23 IMPRESSION: 1. Near the calcaneus, there is a plantar ulcer. There is enhancement of this area with extension to the underlying calcaneus. However there is no evidence for osteomyelitis. Findings suggest a soft tissue infectious process. 2. There is increased T2 signal in the plantar soft tissue. This can represent an infectious process or abnormality related to diabetic neuropathy. Electronically Signed: Jaime Bernstein MD at 16:44 EDT , Rhythm Strip Rhythm Strip: Sinus Tach Rate: 108 Ectopy: None Physical Exam Const alert, oriented x3 and no apparent distress General Appearance: cooperative HEENT normocephalic and head/scalp atraumatic Eyes conjunctivae normal and no scleral icterus Neck no lymphadenopathy and supple General: trachea midline Resp normal respiratory effort and normal air movement Effort and Inspection: able to speak in complete sentences, symmetric chest movement and tachypneic Auscultation: wheezes expiratory wheezes, scattered wheezes and anterior and diminished lung sounds Cardio regular rate, regular rhythm, S1 normal heart sound, S2 normal heart sound and peripheral pulses 2+ throughout Rate: tachycardic GI normal to inspection, nondistended, normoactive bowel sounds and soft to palpation Extremity normal capillary refill and no clubbing, cyanosis or edema Skin Skin Narrative: Patient has lymphangitic streaking from the right heel wound to the medial aspect of the mid mid posterior calf Wounds: wounds noted size Size: Quarter size, open and surrounding erythema Neuro no focal motor deficits and no sensory deficits noted Psych thought process normal, cooperative and affect normal Assessment & Plan Assessment/Plan (1) Sepsis: (2) Open wound of right heel: (3) Cellulitis of right lower extremity: PLAN: Plan 1. Diabetic foot wound -qSOFA score 1, sepsis ruled out -Podiatry following -MRI right foot negative for osteomyelitis -CBC and BMP daily -Blood cultures pending -Continue Vanco and Zosyn 2. Hypokalemia -Potassium 2.9 today -Potassium chloride 60 mEq x 1 p.o. ordered -BMP daily 3. Diabetes mellitus type 2 -ACH S blood sugars are sliding scale insulin ordered -Insulin glargine 5 units nightly -Metformin and glimepiride held -Continue Jardiance 4. Hypertension -Continue metoprolol -Vital signs per protocol, currently stable 5. COPD -Continue as needed albuterol and scheduled budesonide -Currently stable on room air 6. Metastatic renal cell carcinoma with mets to the lung -Follows with Dr. Quinones -Cabozantinib on hold 7. GERD -Continue pantoprazole 7. Hyperlipidemia -Continue simvastatin DVT Prophylaxis-SQ Lovenox This patient was seen by NILS [facility] under the supervision of Dr. Lee. 13 minutes spent in clinical coordination of patient's plan of care. Documented by User: Dr. Adarsh Lee MD 02/17/22 16:48 Objective Data Lab / Micro Data Result Diagrams: 02/17/22 05:25 02/17/22 05:25 Assessment & Plan Assessment/Plan (1) Sepsis: (2) Open wound of right heel: (3) Cellulitis of right lower extremity: Charges/Coding Addendum Addendum: Dr. Lee I personally examined the patient and reviewed the chart. I agree with the above.? 71-year-old male with a history of metastatic renal carcinoma to the lung presents with a diabetic foot wound on his right heel.? There is some streaking going up his leg.? He does have a slight leukocytosis 12.4 but is not septic.? We will continue with IV antibiotics and consult podiatry for some wound care.? We will also proceed with an MRI determine duration of antibiotics.? Had a 20-minute conversation on advance care planning secondary to his chemotherapy and he is on second line.? He says that he skips doses on occasion secondary to how his mouth feels as he has been having some significant mucositis with his previous dosages.? He is currently down to 20 mg on his oral chemotherapy, he was started at 60 mg.? He is unsure whether or not the cancer has progressed or not.? Clinical time spent in all aspects of patient care: 40 minutes 02/17/2022: Doing well today, MRI is negative for osteomyelitis. Wound was debrided yesterday by podiatry awaiting wound cultures. Continue with IV antibiotics. We will have him evaluated by PT/OT for discharge planning. MRSA PCR is negative so hopefully in the next 24 to 48 hours will be able to narrow down his antibiotics to oral medications. Clinical time spent on all aspects of patient care: 20 minutes Visit Charges Inpatient E&M: 91595 Subs Hosp L2
--- NOTE | 2022-02-17 10:20 | PN_ITS ---
Subjective Subjective This 71-year-old male with multiple comorbidities was seen bedside this morning for follow-up of infected right heel ulcer. He denies fever, chill, nausea, vomiting or significant heel pain. He has been trying to keep weight off of this site and is waiting to see physical therapy today. He continues on IV antibiotics. Objective Data Objective Data Vital Signs: Vital Signs Temp Pulse Resp BP Pulse Ox O2 Del Method 98.3 F 83 18 133/86 H 98 Room Air 02/17/22 09:00 02/17/22 09:04 02/17/22 09:38 02/17/22 09:00 02/17/22 09:38 02/17/22 09:38 Oxygen Delivery Method Room Air Weight: 76.657 kg Body Mass Index (BMI) 22.3 Intake & Output: Intake and Output for Last 24 Hours 02/15/22 02/16/22 02/17/22 23:59 23:59 23:59 Intake Total 2090 / 2090 250 / 250 Output Total 700 / 700 400 / 400 Balance 1390 / 1390 -150 / -150 Lab / Micro Data Result Diagrams: 02/17/22 05:25 02/17/22 05:25 Labs: Laboratory Results - last 24 hr 02/16/22 11:55: WBC 12.4 H, RBC 3.95 L, Hgb 12.2 L, Hct 37.8 L, MCV 95.7 H, MCH 30.9, MCHC 32.3, RDW Std Deviation 60.9 H, RDW Coeff of Esperanza 18.1 H, Plt Count 316, MPV 9.9, Immature Gran % (Auto) 3.100 H, Neut % (Auto) 85.2 H, Lymph % (Auto) 7.6 L, [place] % (Auto) 3.7, Eos % (Auto) 0.2, Baso % (Auto) 0.2, Absolute Neuts (auto) 10.6 H, Absolute Lymphs (auto) 0.94, Nucleated RBC % 0.2, ESR 76 H 02/16/22 11:55: Sodium 137, Potassium 3.3 L, Chloride 105, Carbon Dioxide 23.0, Anion Gap 9, BUN 11, Creatinine 1.05, Estim Creat Clear Calc 68.42, Est GFR (MDRD) Af Amer 89, Est GFR (MDRD) Non-Af 74, BUN/Creatinine Ratio 10.5, Glucose 106, Calcium 8.5, Total Bilirubin 0.90, AST 23, ALT 40, Alkaline Phosphatase 82, C-React Prot Ext Range 109.00 H, Total Protein 6.8, Albumin 2.3 L, Globulin 4.5 H, Albumin/Globulin Ratio 0.5 L 02/16/22 12:00: PT 14.8, INR 1.2, APTT 27.5 02/16/22 12:00: Lactic Acid 3.6 H* 02/16/22 12:15: Urine Color Yellow, Urine Clarity Sl. Cloudy, Urine pH 5.0, Ur Specific [place] 1.020, Urine Protein 30 H, Urine Glucose (UA) 1000 H, Urine Ketones 5 H, Urine Occult Blood Negative, Urine Nitrite Negative, Urine Bilirubin 1 H, Urine Urobilinogen 4 H, Ur Leukocyte Esterase Negative, Urine RBC 0 SEEN, Urine WBC 0 SEEN, Ur Squamous Epith Cells 0 SEEN, Urine Bacteria 0 SEEN, Urine Mucus 0 SEEN 02/16/22 16:15: Lactic Acid 3.4 H* 02/16/22 16:27: POC Glucose 213 H 02/16/22 19:35: S.aureus Protein A PCR POSITIVE H, MRSA (PCR) Negative 02/16/22 21:15: POC Glucose 230 H 02/17/22 05:25: WBC 10.5, RBC 3.45 L, Hgb 10.7 L, Hct 32.8 L, MCV 95.1 H, MCH 31.0, MCHC 32.6, RDW Std Deviation 61.8 H, RDW Coeff of [place]peranza 17.9 H, Plt Count 278, MPV 9.5, Immature Gran % (Auto) 1.000 H, Neut % (Auto) 78.5 H, Lymph % (Auto) 16.3 L, [place] % (Auto) 3.4, Eos % (Auto) 0.7, Baso % (Auto) 0.1, Absolute Neuts (auto) 8.2 H, Absolute Lymphs (auto) 1.70, Nucleated RBC % 0 02/17/22 05:25: Sodium 139, Potassium 2.9 L, Chloride 107, Carbon Dioxide 26.0, Anion Gap 6, BUN 17, Creatinine 0.80, Estim Creat Clear Calc 89.17, Est GFR (MDRD) Af Amer 121, Est GFR (MDRD) Non-Af 100, BUN/Creatinine Ratio 21.1 H, Glucose 46 L, Calcium 8.4 L 02/17/22 06:12: POC Glucose 57 L 02/17/22 06:35: POC Glucose 94 Micro: Microbiology 02/16/22 12:15 Urine, Clean Catch Urine Culture - Preliminary Mixed Gram Positive Organisms 02/16/22 10:30 Wound Abcess - Right Foot Gram Stain - Final Radiography Diagnostic Testing: Radiology Impression Foot X-Ray 02/16/22 12:36 IMPRESSION: Focus of soft tissue gas posterior to the posterior tuberosity of the calcaneus without demonstrated active bone destruction. Electronically Signed: Dexter Waldrop MD at 13:16 EDT , Lower Extremity MRI 02/16/22 13:23 IMPRESSION: 1. Near the calcaneus, there is a plantar ulcer. There is enhancement of this area with extension to the underlying calcaneus. However there is no evidence for osteomyelitis. Findings suggest a soft tissue infectious process. 2. There is increased T2 signal in the plantar soft tissue. This can represent an infectious process or abnormality related to diabetic neuropathy. Electronically Signed: Jaime Bernstein MD at 16:44 EDT , Rhythm Strip Rhythm Strip: Sinus Tach Rate: 108 Ectopy: None Physical Exam Const alert and oriented x3 General Appearance: cooperative HEENT normocephalic Extremity Extremity Narrative: No calf tenderness 2/4 bilateral DP pulses and left PT and 1/4 right PT Muscle wasting noted bilateral lower extremities No bogginess or fluctuance adjacent to right heel ulcer General Extremity: edema and no tenderness to palpation of joints or extremities; Negative for cyanosis Skin Skin Narrative: no purulence, no odor to right heel ulcer. This does appear infected with adjacent reduced edema and now decreased intensity and location erythema only extends to the hindfoot rather than the posterior medial mid leg. There is a 50:50% fibrous : granular base ulcer that probes to deeper periosteal tissue and not directly to the bone. Serosanguineous drainage only noted. There is no martin eschar or necrosis. 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 Cellulitis appears to be receding and his foot is stabilizing. The following work up and care recommendations were made: Infection: He is afebrile and his vital signs are stable. He does have leukocytosis and his white blood cell count is decreased to 10.5. His other diagnostic data was reviewed including an x-ray without osseous destruction, periosteal changes, soft tissue emphysema or foreign body. The ulcer is noted on plain x-ray. An MRI was also ordered and this was negative for osteomyelitis and other abscess. Wound cultures demonstrate staph growth and his MRSA PCR was negative. He was started on broad-spectrum IV antibiotics; to continue his culture guided therapy. I do not recommend podiatric surgical intervention at this time and would like to monitor him on antibiotics. Dressing: Change daily with Aquacel Ag, gauze, ABD pad and Kerlix. This was willie lied this morning. Wash: Soap and water Offload: Nonweightbearing right lower extremity with surgical shoe and assistive walking device. It is okay to forefoot load for transfers or limited walking. Physical therapy was recommended to help with gait training. Vascular: He has palpable pulses however I am concerned about his delay in healing. I recommend starting with noninvasive vascular studies and these were ordered and will likely need to be completed in the outpatient setting. Vascula r referral may be warranted if this is abnormal. Edema: He does not have significant edema. Pain: Controlled Host factors: His medical comorbidities are noted including diabetes and cancer in which she is undergoing active chemotherapy treatment. He understands he is at risk for continued delayed healing and I recommend nutritional supplementation to optimize healing. Glucerna and Reinaldo have been ordered. Medical management and DVT prophylaxis per hospitalist are noted and appreciated. I answered all the patient's questions. Please do not hesitate to call if you have any questions. I will follow him closely while in house. To follow-up with the wound healing center at discharge. Torrie Catalan DPM, [facility] [phone]
[2022-02-17 11:25] LABS: Bedside Glucose 129 mg/dL (74-106)
[2022-02-17] MEDS: Glucerna Shake 120 ML LIQUID PO ×2 (11:40→16:11)
[2022-02-17] MEDS: Potassium Chloride Oral Tablet 20 MEQ 60 MEQ PO (11:40)
--- NOTE | 2022-02-17 11:51 | PCM.HOSP.N ---
Hospitalist Note Patient reported to have a low blood sugar following administration of insulin. Patient was on medium high sliding scale. Patient's sliding scale adjusted to low medium.
[2022-02-17 17:35] LABS: Bedside Glucose 131 mg/dL (74-106)
[2022-02-17] MEDS: Atorvastatin Calcium 20 MG Tablet PO (21:34)
[2022-02-17] MEDS: Aspirin E.C. 81 MG Tablet PO (21:34)
--- NOTE | 2022-02-17 21:38 | NURSING ---
pts blood sugar of 75 at this time. pt A&Ox3, encouraged to drink/ eat some of the snacks provided at his bedside table. pt refused at this time. education provided as to importance of not becoming hypoglycemic overnight. pt acknowledged and still refused to eat/ drink. insulins held on MAR
[2022-02-17 21:55] LABS: Bedside Glucose 75 mg/dL (74-106)
[2022-02-18] MEDS: Vancomycin IV 1,000 MG/200 ML BAG 200 MG IV (00:38)
[2022-02-18 01:00] LABS: Vancomycin, Trough Level 16.2 ug/mL (5.0-15.0)
[2022-02-18] MEDS: 0.9% Saline Lock 10 ML Syringe IV ×2 (01:14→13:39)
[2022-02-18] MEDS: Morphine 2 MG/ML Syringe 1 MG IV (01:14)
--- NOTE | 2022-02-18 01:20 | PCM.RX.CS ---
Consult Pharmacy has been consulted to manage selected antiobiotic: Vancomycin Type of Consult: Follow-up Suspected Infection: Skin/Soft tissue Prior Doses of Antibiotics Received/Current Regimen: Medications Vancomycin HCl (Vancomycin) 1,000 mg in 200 mls @ 200 mls/hr IV Q12H HANNAH Last Admin: 02/18/22 00:38 Dose: 200 mls/hr Labs: Sodium 139 mmol/L (136-145) 02/17/22 05:25 Potassium 2.9 mmol/L (3.5-5.1) L 02/17/22 05:25 Chloride 107 mmol/L (98-107) 02/17/22 05:25 Carbon Dioxide 26.0 mmol/L (21.0-32.0) 02/17/22 05:25 Anion Gap 6 (5-15) 02/17/22 05:25 BUN 17 mg/dL (7-18) 02/17/22 05:25 Creatinine 0.80 mg/dL (0.70-1.30) 02/17/22 05:25 Est GFR (MDRD) Af Amer 121 mL/min (>60) 02/17/22 05:25 Est GFR (MDRD) Non-Af 100 mL/min (>60) 02/17/22 05:25 BUN/Creatinine Ratio 21.1 RATIO (10-20) H 02/17/22 05:25 Glucose 46 mg/dL (74-106) L 02/17/22 05:25 Vancomycin Trough 16.2 ug/mL (5.0-15.0) H 02/18/22 00:20 Microbiology: Microbiology 02/16/22 10:30 Wound Abcess - Right Foot Gram Stain - Final 02/16/22 10:30 Wound Abcess - Right Foot Wound Culture - Preliminary Staphylococcus aureus Mixed Gram Positive Organisms 02/16/22 12:15 Urine, Clean Catch Urine Culture - Preliminary Mixed Gram Positive Organisms Weight used for dosin.7 kg Estimated Creatinine Clearance: 89 Goal Trough: 15-20 mcg/mL Pharmacy Plan for Drug Dosing: Vancomycin trough level of 16.2 was within target range of 15-20. Will continue same dose of 1000mg q12h and re-draw a trough in two days. Pharmacy Service will continue to monitor and adjust dosing as required. Follow-Up Labs: Trough Vancomycin Labs to be done on [date and time ordered]: 02/19/22 @0030
[2022-02-18 03:30] VITALS: BP 147/76; PULSE 68; RESP 18; TEMP 36.3; O2SAT 97
[2022-02-18 05:01] LABS: Absolute Neutrophil Count 6.9 X10^3/uL (2.0-7.7); Basophil# 0.01 X10^3/uL; Basophil% 0.1 % (0-1); Eosinophil# 0.14 X10^3/uL; Eosinophils% 1.5 % (0-5); Hematocrit 34.1 % (40-54); Lymphocyte % 17.5 % (19-41); Mean Corp Hgb Conc 32.3 g/dL (32-36); Mean Corpuscular Hgb 31.2 pg (27.0-32.0); Mean Corpuscular Volume 96.6 fL (80-94); Mean Platelet Vol. 10.1 fl (6.2-12.0); Monocyte# 0.43 X10^3/uL; Monocyte% 4.7 % (0-10); NRBC Flagged by Analyzer 0 % (0-5); Neutrophil # 6.91 X10^3/uL (2.7-7.7); Neutrophil % 75.7 % (47-70); Platelet Count 265 K/mm3 (150-450); RBC Distribution Width CV 18.5 % (11.6-14.6); RBC Distribution Width SD 64.7 fl (35.1-43.9); Red Blood Count 3.53 M/mm3 (4.6-6.2); White Blood Count 9.1 K/mm3 (4.4-11.0)
[2022-02-18 05:19] LABS: Anion Gap 5 (5-15); BUN 18 mg/dL (7-18); BUN/Creat Ratio 24.1 RATIO (10-20); Calcium,Total 8.5 mg/dL (8.5-10.1); Chloride 103 mmol/L (98-107); Creatinine, Serum 0.75 mg/dL (0.70-1.30); EST Glomerular Filtration Rate 109 mL/min (>60); Est Glom Filt Rate - Afr Amer 132 mL/min (>60); Estimated Creatinine Clearance 71.33 ml/min; Glucose 66 mg/dL (74-106); Potassium 3.8 mmol/L (3.5-5.1); Sodium Level 137 mmol/L (136-145)
[2022-02-18] MEDS: Dextrose 50%-Water 25 GM/50 ML DISP.SYRIN IV (05:21)
--- NOTE | 2022-02-18 05:24 | NURSING ---
Pts blood glucose is 62 this AM. pt is refusing to eat for this RN. pt is also refusing to eat a snack when asked by Mirna the [employer]. pt yells i told you i am not hungry, i am not eating! half amp D50 given at this time. will recheck blood sugar this AM
[2022-02-18 05:26] LABS: Bedside Glucose 62 mg/dL (74-106)
[2022-02-18 06:30] LABS: Bedside Glucose 105 mg/dL (74-106)
[2022-02-18] MEDS: Pantoprazole Sodium 40 MG Tablet PO (09:05)
[2022-02-18] MEDS: Enoxaparin 40 MG/0.4 ML Syringe SC (09:05)
[2022-02-18] MEDS: Juven (unflavored) Packet 1 PACKET PO ×2 (09:05→17:09)
[2022-02-18] MEDS: Empagliflozin 25 MG Tablet PO (09:06)
[2022-02-18] MEDS: Multivitamins,Therapeutic Tablet 1 TABLET PO (09:06)
[2022-02-18 09:21] VITALS: BP 143/99; PULSE 101
[2022-02-18] MEDS: Metoprolol Tartrate 25 MG Tablet PO ×2 (09:21→22:11)
[2022-02-18] MEDS: Glucerna Shake 120 ML LIQUID PO ×3 (09:22→17:09)
[2022-02-18 09:30] VITALS: BP 143/99; PULSE 101; RESP 18; TEMP 36.7; O2SAT 96
--- NOTE | 2022-02-18 10:01 | PCM.PROGNOTE ---
Subjective Subjective This 71-year-old male with multiple comorbidities was seen bedside this morning for follow-up of infected right heel ulcer. He denies fever, chill, nausea, vomiting or significant heel pain. He has been trying to keep weight off of this site and worked with physical therapy yesterday. He did well with a walker. He has no abdominal pain and is waiting to start pain medication. Objective Data Objective Data Vital Signs: Vital Signs Temp Pulse Resp BP Pulse Ox O2 Del Method 98.0 F 101 H 18 143/99 H 96 Room Air 02/18/22 09:30 02/18/22 09:30 02/18/22 09:30 02/18/22 09:30 02/18/22 09:30 02/18/22 09:30 Oxygen Delivery Method Room Air Weight: 76.657 kg Body Mass Index (BMI) 22.3 Intake & Output: Intake and Output for Last 24 Hours 02/16/22 02/17/22 02/18/22 23:59 23:59 23:59 Intake Total 2090 / 2090 1710 / 1710 250 / 250 Output Total 700 / 700 2300 / 2300 250 / 250 Balance 1390 / 1390 -590 / -590 0 / 0 Lab / Micro Data Result Diagrams: 02/18/22 04:00 02/18/22 04:00 Labs: Laboratory Results - last 24 hr 02/17/22 11:08: POC Glucose 129 H 02/17/22 16:10: POC Glucose 131 H 02/17/22 21:33: POC Glucose 75 02/18/22 00:20: Vancomycin Trough 16.2 H 02/18/22 04:00: WBC 9.1, RBC 3.53 L, Hgb 11.0 L, Hct 34.1 L, MCV 96.6 H, MCH 31.2, MCHC 32.3, RDW Std Deviation 64.7 H, RDW Coeff of [place] 18.5 H, Plt Count 265, MPV 10.1, Immature Gran % (Auto) 0.500, Neut % (Auto) 75.7 H, Lymph % (Auto) 17.5 L, [place] % (Auto) 4.7, Eos % (Auto) 1.5, Baso % (Auto) 0.1, Absolute Neuts (auto) 6.9, Absolute Lymphs (auto) 1.60, Nucleated RBC % 0 02/18/22 04:00: Sodium 137, Potassium 3.8, Chloride 103, Carbon Dioxide 29.0, Anion Gap 5, BUN 18, Creatinine 0.75, Estim Creat Clear Calc 71.33, Est GFR (MDRD) Af Amer 132, Est GFR (MDRD) Non-Af 109, BUN/Creatinine Ratio 24.1 H, Glucose 66 L, Calcium 8.5 02/18/22 05:02: POC Glucose 62 L 02/18/22 06:08: POC Glucose 105 Micro: Microbiology 02/16/22 10:30 Wound Abcess - Right Foot Gram Stain - Final 02/16/22 10:30 Wound Abcess - Right Foot Wound Culture - Preliminary Staphylococcus aureus Alpha Hemolytic Streptococcus Coag Negative Staph Gram positive fernie 02/16/22 12:15 Urine, Clean Catch Urine Culture - Final Mixed Gram Positive Organisms 02/16/22 11:55 Blood Culture (Wb) - Left Forearm Blood Culture - Preliminary No growth in 48 hours. 02/16/22 12:00 Blood Culture (Wb) - Anticubital Left Blood Culture - Preliminary No growth in 48 hours. Rhythm Strip Rhythm Strip: Sinus Tach Rate: 108 Ectopy: None Physical Exam Const alert and oriented x3 General Appearance: cooperative HEENT normocephalic Extremity Extremity Narrative: No calf tenderness 2/4 bilateral DP pulses and left PT and 1/4 right PT Muscle wasting noted bilateral lower extremities No bogginess or fluctuance adjacent to right heel ulcer General Extremity: edema and no tenderness to palpation of joints or extremities; Negative for cyanosis Skin Skin Narrative: no purulence, no odor to right heel ulcer. This does appear infected with adjacent continued reduced edema and continued decreased intensity and location of the erythema. There is a 30:70% fibrous : granular base ulcer that probes to deeper periosteal tissue and not directly to the bone. Serosanguineous drainage only noted. There is no martin eschar or necrosis. 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 Cellulitis appears to be receding and his foot is stabilizing. The following work up and care recommendations were made: Infection: He is afebrile and his vital signs are stable; mild tachycardia noted. Blood cultures are negative. He does have leukocytosis and his white blood cell count is decreased to 9.1. His foot xray and MRI was negative for osteomyelitis and other abscess. Wound cultures demonstrate staph growth, alphahemolytic strep, coag negative staph, gram-positive rods, and his MRSA PCR was negative. He was started on broad-spectrum IV antibiotics; to continue his culture guided therapy. I do not recommend podiatric surgical intervention at this time and would like to monitor him on antibiotics. Dressing: Change daily with Aquacel Ag, gauze, ABD pad and Kerlix. This was applied this morning. Wash: Soap and water Offload: Nonweightbearing right lower extremity with surgical shoe and assistive walking device. It is okay to forefoot load for transfers or limited walking. He did well with physical therapy with gait training and uses a walker. A knee roller prescription was also provided to consider at time of discharge. Vascular: He has palpable pulses however I am concerned about his delay in healing. I recommend starting with noninvasive vascular studies and these were ordered and will likely need to be completed in the outpatient setting. Vascular referral may be warranted if this is abnormal. Edema: He does not have significant edema. Pain: Controlled Host factors: His medical comorbidities are noted including diabetes and cancer in which she is undergoing active chemotherapy treatment. He understands he is at risk for continued delayed healing and I recommend nutritional supplementation to optimize healing. Glucerna and Reinaldo have been ordered. Medical management and DVT prophylaxis per hospitalist are noted and appreciated. His new abdominal pain is noted and management per hospitalist will be appreciated. I answered all the patient's questions. Please do not hesitate to call if you have any questions. I will follow him closely while in house. To follow-up with the wound healing center at discharge. Torrie Catalan DPM, [facility] [phone]
--- NOTE | 2022-02-18 10:49 | PN.HOSP_ITS ---
Documented by User: Katelin Crowder NP-C 02/18/22 10:52 Subjective Subjective Patient seen and examined. Patient lying in bed no distress noted. Streaking to the leg greatly improved from yesterday. Juan wrap dry and intact to right lower leg. Patient wanting to shower which I told him was okay and okay to shower order entered. Objective Data Objective Data Vital Signs: Vital Signs Temp Pulse Resp BP Pulse Ox O2 Del Method 98.0 F 101 H 18 143/99 H 96 Room Air 02/18/22 09:30 02/18/22 09:30 02/18/22 09:30 02/18/22 09:30 02/18/22 09:30 02/18/22 09:30 Oxygen Delivery Method Room Air Weight: 168 lb 15.996 oz Body Mass Index (BMI) 22.3 Intake & Output: Intake and Output for Last 24 Hours 02/16/22 02/17/22 02/18/22 23:59 23:59 23:59 Intake Total 2090 / 2090 1710 / 1710 250 / 250 Output Total 700 / 700 2300 / 2300 250 / 250 Balance 1390 / 1390 -590 / -590 0 / 0 Lab / Micro Data Result Diagrams: 02/18/22 04:00 02/18/22 04:00 Labs: Laboratory Results - last 24 hr 02/17/22 11:08: POC Glucose 129 H 02/17/22 16:10: POC Glucose 131 H 02/17/22 21:33: POC Glucose 75 02/18/22 00:20: Vancomycin Trough 16.2 H 02/18/22 04:00: WBC 9.1, RBC 3.53 L, Hgb 11.0 L, Hct 34.1 L, MCV 96.6 H, MCH 31.2, MCHC 32.3, RDW Std Deviation 64.7 H, RDW Coeff of [place] 18.5 H, Plt Count 265, MPV 10.1, Immature Gran % (Auto) 0.500, Neut % (Auto) 75.7 H, Lymph % (Auto) 17.5 L, [place] % (Auto) 4.7, Eos % (Auto) 1.5, Baso % (Auto) 0.1, Absolute Neuts (auto) 6.9, Absolute Lymphs (auto) 1.60, Nucleated RBC % 0 02/18/22 04:00: Sodium 137, Potassium 3.8, Chloride 103, Carbon Dioxide 29.0, Anion Gap 5, BUN 18, Creatinine 0.75, Estim Creat Clear Calc 71.33, Est GFR (MDRD) Af Amer 132, Est GFR (MDRD) Non-Af 109, BUN/Creatinine Ratio 24.1 H, Glucose 66 L, Calcium 8.5 02/18/22 05:02: POC Glucose 62 L 02/18/22 06:08: POC Glucose 105 Micro: Microbiology 02/16/22 10:30 Wound Abcess - Right Foot Gram Stain - Final 02/16/22 10:30 Wound Abcess - Right Foot Wound Culture - Preliminary Staphylococcus aureus Alpha Hemolytic Streptococcus Coag Negative Staph Gram positive fernie 02/16/22 12:15 Urine, Clean Catch Urine Culture - Final Mixed Gram Positive Organisms 02/16/22 11:55 Blood Culture (Wb) - Left Forearm Blood Culture - Preliminary No growth in 48 hours. 02/16/22 12:00 Blood Culture (Wb) - Anticubital Left Blood Culture - Preliminary No growth in 48 hours. Rhythm Strip Rhythm Strip: Sinus Tach Rate: 108 Ectopy: None Physical Exam Const alert, oriented x3 and no apparent distress General Appearance: cooperative HEENT normocephalic and head/scalp atraumatic Eyes conjunctivae normal and no scleral icterus Neck no lymphadenopathy and supple General: trachea midline Resp normal respiratory effort and normal air movement Effort and Inspection: able to speak in complete sentences, symmetric chest movement and tachypneic Auscultation: wheezes expiratory wheezes, scattered wheezes and anterior and diminished lung sounds Cardio regular rate, regular rhythm, S1 normal heart sound, S2 normal heart sound and peripheral pulses 2+ throughout Rate: tachycardic GI normal to inspection, nondistended, normoactive bowel sounds and soft to pa lpation Extremity normal capillary refill and no clubbing, cyanosis or edema Skin Skin Narrative: Patient has lymphangitic streaking from the right heel wound to the medial aspect of the mid mid posterior calf Wounds: wounds noted size Size: Quarter size, open and surrounding erythema Neuro no focal motor deficits and no sensory deficits noted Psych thought process normal, cooperative and affect normal Assessment & Plan Assessment/Plan (1) Sepsis: (2) Open wound of right heel: (3) Cellulitis of right lower extremity: PLAN: Plan 1. Diabetic foot wound -qSOFA score 1, sepsis ruled out -Podiatry following -MRI right foot negative for osteomyelitis -CBC and BMP daily -Blood cultures negative, wound cultures pending -Continue Vanco and Zosyn 2. Hypokalemia -Potassium 3.8 today -BMP daily 3. Diabetes mellitus type 2 -ACH S blood sugars are sliding scale insulin ordered -Insulin glargine 5 units nightly -Metformin and glimepiride held -Continue Jardiance 4. Hypertension -Continue metoprolol -Vital signs per protocol, currently stable 5. COPD -Continue as needed albuterol and scheduled budesonide -Currently stable on room air 6. Metastatic renal cell carcinoma with mets to the lung -Follows with Dr. Quinones -Cabozantinib on hold 7. GERD -Continue pantoprazole 7. Hyperlipidemia -Continue simvastatin DVT Prophylaxis-SQ Lovenox This patient was seen by NILS WhitlockC under the supervision of Dr. Kd marquez. 12 minutes spent in clinical coordination of patient's plan of care. Documented by User: Dr. Adarsh Lee MD 02/18/22 12:55 Objective Data Lab / Micro Data Result Diagrams: 02/18/22 04:00 02/18/22 04:00 Assessment & Plan Assessment/Plan (1) Sepsis: (2) Open wound of right heel: (3) Cellulitis of right lower extremity: Charges/Coding Addendum Addendum: Dr. Lee I personally examined the patient and reviewed the chart. I agree with the above.? 71-year-old male with a history of metastatic renal carcinoma to the lung presents with a diabetic foot wound on his right heel.? There is some streaking going up his leg.? He does have a slight leukocytosis 12.4 but is not septic.? We will continue with IV antibiotics and consult podiatry for some wound care.? We will also proceed with an MRI determine duration of antibiotics.? Had a 20-minute conversation on advance care planning secondary to his chemotherapy and he is on second line.? He says that he skips doses on occasion secondary to how his mouth feels as he has been having some significant mucositis with his previous dosages.? He is currently down to 20 mg on his oral chemotherapy, he was started at 60 mg.? He is unsure whether or not the cancer has progressed or not.? Clinical time spent in all aspects of patient care: 40 minutes 02/17/2022:?Doing well today, MRI is negative for osteomyelitis.? Wound was debrided yesterday by podiatry awaiting wound cultures.? Continue with IV antibiotics.? We will have him evaluated by PT/OT for discharge planning.? MRSA PCR is negative so hopefully in the next 24 to 48 hours will be able to narrow down his antibiotics to oral medications.? Clinical time spent on all aspects of patient care: 20 minutes 02/18/2022: Doing well today, having some right-sided flank pain he does have his renal cancer on that side as well as his lung met so we will give him a Lidoderm patch and see if that helps. We will continue with his antibiotics, can likely discontinue his vancomycin and given that he is growing staph and strep strep can transition to Ancef. Clinical time spent in all aspects of patient care: 18 minutes Visit Charges Inpatient E&M: 05288 Subs Hosp L2
[2022-02-18] MEDS: Lidocaine 5% Patch 1 PATCH TOPICAL (11:03)
[2022-02-18 11:50] LABS: Bedside Glucose 174 mg/dL (74-106)
[2022-02-18] MEDS: Acetaminophen 325 MG Tablet 650 MG PO (13:00)
[2022-02-18] MEDS: Ketorolac 15 MG/ML Vial IV ×2 (13:38→20:21)
[2022-02-18 13:42] VITALS: BP 128/87; PULSE 97; RESP 16; TEMP 37.7; O2SAT 98
[2022-02-18] MEDS: Cefazolin 1 GM/50 ML BAG IV ×2 (14:37→22:11)
[2022-02-18 20:17] VITALS: BP 131/85; PULSE 69; RESP 16; TEMP 36.5; O2SAT 98
[2022-02-18 22:11] VITALS: BP 131/85; PULSE 69
[2022-02-18] MEDS: Aspirin E.C. 81 MG Tablet PO (22:11)
[2022-02-18] MEDS: Atorvastatin Calcium 20 MG Tablet PO (22:11)
[2022-02-19] MEDS: Acetaminophen 325 MG Tablet 650 MG PO (01:56)
[2022-02-19 02:34] VITALS: BP 112/81; PULSE 84; RESP 16; TEMP 36.7; O2SAT 96
[2022-02-19] MEDS: Ketorolac 15 MG/ML Vial IV ×2 (02:38→09:04)
--- NOTE | 2022-02-19 04:42 | NURSING ---
pt refused am labs
--- NOTE | 2022-02-19 04:43 | NURSING ---
Pt has refused blood glucose monitoring and Insulin administration this shift.
[2022-02-19] MEDS: Cefazolin 1 GM/50 ML BAG IV ×2 (06:34→13:55)
[2022-02-19 08:01] LABS: Absolute Lymphocyte Count 1.19 X10^3/uL (0.83-4.51); Absolute Neutrophil Count 5.6 X10^3/uL (2.0-7.7); Basophil# 0.03 X10^3/uL; Basophil% 0.4 % (0-1); Eosinophil# 0.24 X10^3/uL; Eosinophils% 3.2 % (0-5); Hematocrit 37.2 % (40-54); Lymphocyte # 1.19 X10^3/ul (0.83-4.51); Mean Corp Hgb Conc 32.3 g/dL (32-36); Mean Corpuscular Hgb 30.8 pg (27.0-32.0); Mean Corpuscular Volume 95.4 fL (80-94); Mean Platelet Vol. 9.7 fl (6.2-12.0); Monocyte# 0.37 X10^3/uL; NRBC Flagged by Analyzer 0 % (0-5); Neutrophil # 5.56 X10^3/uL (2.7-7.7); Neutrophil % 74.7 % (47-70); Platelet Count 253 K/mm3 (150-450); RBC Distribution Width CV 18.4 % (11.6-14.6); RBC Distribution Width SD 63.2 fl (35.1-43.9); White Blood Count 7.4 K/mm3 (4.4-11.0)
--- NOTE | 2022-02-19 08:01 | PCM.PN.HOSP ---
Subjective Subjective Patient is a 71-year-old gentleman who presented with diabetic foot ulcer Objective Data Objective Data Vital Signs: Vital Signs Temp Pulse Resp BP Pulse Ox O2 Del Method 98.1 F 84 16 112/81 H 96 Room Air 02/19/22 02:34 02/19/22 02:34 02/19/22 02:34 02/19/22 02:34 02/19/22 02:34 02/19/22 02:41 Oxygen Delivery Method Room Air Weight: 76.657 kg Body Mass Index (BMI) 22.3 Intake & Output: Intake and Output for Last 24 Hours 02/17/22 02/18/22 02/19/22 23:59 23:59 23:59 Intake Total 1710 / 1710 1130 / 1130 600 / 600 Output Total 2300 / 2300 1425 / 1425 975 / 975 Balance -590 / -590 -295 / -295 -375 / -375 Lab / Micro Data Result Diagrams: 02/19/22 07:55 02/19/22 07:55 Labs: Laboratory Results - last 24 hr 02/18/22 10:59: POC Glucose 174 H Micro: Microbiology 02/16/22 10:30 Wound Abcess - Right Foot Gram Stain - Final 02/16/22 10:30 Wound Abcess - Right Foot Wound Culture - Preliminary Staphylococcus aureus Alpha Hemolytic Streptococcus Coag Negative Staph Gram positive fernie 02/16/22 12:15 Urine, Clean Catch Urine Culture - Final Mixed Gram Positive Organisms 02/16/22 11:55 Blood Culture (Wb) - Left Forearm Blood Culture - Preliminary No growth in 48 hours. 02/16/22 12:00 Blood Culture (Wb) - Anticubital Left Blood Culture - Preliminary No growth in 48 hours. Rhythm Strip Rhythm Strip: Sinus Tach Rate: 108 Ectopy: None Physical Exam Narrative GENERAL: cooperative HEENT: Atraumatic; EYES; Anicteric, Normal Conjunctiva NECK; supple, normal thyroid, RESPIRATORY: Diminished to auscultation CARDIOVASCULAR: Regular S1 S2, GI: soft, normoactive bowel sounds, : No Renal angle tenderness; EXTREMITIES: Right foot in surgical dressing MUSCULOSKELETAL: no muscle wasting NEURO: Awake; no lateralizing signs. SKIN: No Rash PSYCH; Flat affect Assessment & Plan Assessment/Plan (1) Sepsis: (2) Open wound of right heel: (3) Cellulitis of right lower extremity: PLAN: Plan Patient is a 71-year-old gentleman who presented with diabetic foot ulcer 1. Diabetic foot ulcer ? Patient was admitted to regular nursing floor managed broad-spectrum antibiotic therapy Karime and John consultation placed to podiatry patient had debridement for right heel ulcer. MRI obtained came back negative for osteomyelitis -Wound culture results as below Wound Abcess - Right Foot Wound Culture - Preliminary Staphylococcus aureus Alpha Hemolytic Streptococcus Coag Negative Staph Gram positive fernie . Consult placed to infectious disease 2. Diabetes mellitus type II -patient's oral hypoglycemics held. Placed on long acting insulin, Accu-Cheks a.c. and at bedtime and covered with sliding scale insulin 3. Hypertension - Blood pressure controlled, home medications continued with dose adjustment as needed 4. COPD ? Currently not in exacerbation aerosol treatments as needed 5. Metastatic renal cell carcinoma ? Patient has mets to the lung and adrenal glands; currently being followed by oncology as outpatient 6.Dyslipidemia -Patient is on statin therapy, continued at home dose 7. BPH ? Patient is on tamsulosin did continue 8. GERD ? Patient is on PPI 9. DVT prophylaxis ? LA Mike Charges/Coding Visit Charges Inpatient E&M: 90816 Subs Hosp L2
[2022-02-19 08:15] LABS: Anion Gap 5 (5-15); BUN 22 mg/dL (7-18); BUN/Creat Ratio 22.5 RATIO (10-20); Calcium,Total 9.1 mg/dL (8.5-10.1); Chloride 101 mmol/L (98-107); Creatinine, Serum 0.98 mg/dL (0.70-1.30); EST Glomerular Filtration Rate 80 mL/min (>60); Est Glom Filt Rate - Afr Amer 97 mL/min (>60); Estimated Creatinine Clearance 72.79 ml/min; Glucose 96 mg/dL (74-106); Sodium Level 136 mmol/L (136-145)
[2022-02-19] MEDS: Juven (unflavored) Packet 1 PACKET PO (09:04)
[2022-02-19 09:11] VITALS: BP 124/88; PULSE 95; RESP 16; TEMP 36.6; O2SAT 98
[2022-02-19] MEDS: Pantoprazole Sodium 40 MG Tablet PO (09:21)
[2022-02-19 09:22] VITALS: BP 124/88; PULSE 95
[2022-02-19] MEDS: Metoprolol Tartrate 25 MG Tablet PO (09:22)
[2022-02-19] MEDS: Empagliflozin 25 MG Tablet PO (09:22)
[2022-02-19] MEDS: Lidocaine 5% Patch 1 PATCH TOPICAL (09:24)
--- NOTE | 2022-02-19 09:42 | CASEMGMT ---
Addendum entered by Dee Han 02/19/22 15:59: LOTUS ALEX notified by pt nurse that pt will need assistance with dressing change. LOTUS ALEX in to pt room, nurse in room as well. Discussed if pt dtr could help with dressing changes, pt states she works and lives in [place] and he is not going to ask her to help. Discussed importance of following orders for dressing changes. Pt states Miranda his upper caser at [facility] is working on getting him help in the home. Discussed concern of pt returning home without assistance, pt states he is going home and if he cannot manage, he will go to a SNF. Added MEDICAL [employer]ANSCRIBER to referral for pt. Pt denies further needs, he is dressed and ready to go home. Addendum entered by Dee Han 02/19/22 14:49: Received confirmation from [facility] Alexandrea, they can accept pt for SOC on Saturday. Made aware pt needs DM education. Noted knee scooter script on chart, t/c to [facility], spoke with Anat, she states neither insurance of pt will cover knee scooter. States there is a $150 deposit and $25/wk rental charge or $299 plus tax for buying it. LOTUS ALEX into pt room, discussed HHC with him. Pt states he will perform dressing changes on own tomorrow and he is aware [facility] will be seeing him on Saturday. Also discussed knee scooter, pt states if insurance does not cover it, he does not want it. Pt denies further needs. He is aware he will be dc'd today. Addendum entered by Dee Han 02/19/22 11:55: LOTUS ALEX in to pt room for second and third choice for HHC. Pt states [facility] then [facility]. LOTUS ALEX left message with Alexandrea at [facility] for referral, will await acceptance. Addendum entered by Dee Han 02/19/22 11:48: Received [facility]c back from [facility], they cannot accept pt as they are at capacity with pt insurance. Original Note: LOTUS ALEX in to pt room, pt has chosen [facility] for HHC. [facility] spoke with Dwayne, requested referral be faxed. Faxed at this time. Will await acceptance.
--- NOTE | 2022-02-19 12:30 | CASEMGMT ---
Social Work SW met with pt and informed him that although pt stated he has a Living will and HCPOA naming his daughter Teri Cloud on file, documents are not found and SW requested pt bring them in when able. Pt indicating he is not interested in bringing in at this time. MIKIE Bassett
--- NOTE | 2022-02-19 13:04 | CON.PCM.ID_ITS ---
Assessment & Plan Assessment/Plan (1) Cellulitis of right lower limb: PLAN: DM R foot infection, no osteo on MRI, wound cx with MSSA, MSSE, corynebacteria, strep. Ok for home with one week po keflex, wrote rx, d/w showcase trimmer and nursing. Will follow as needed, thank you (2) Type 2 diabetes mellitus with diabetic polyneuropathy: HPI Consult Data Date of Consult: 02/19/22 HPI Narrative Reason for Consultation: foot infection HPI Narrative: BRANDAN DELGADO, is a 71 M who presented 02/16 with 1-2 weeks progressive redness, pain, ulceration in R foot. No fever, no inciting events. No n/v/d. Admitted here, on vanc/zosyn, seen by podiatry, MRI done. Now on cefazolin, feeling fine, wants to go home. Full ROS performed and neg except as noted above. [facility] Medical History Asthma Atherosclerotic heart disease of [place] coronary artery without angina pectoris Cancer Chest pain Clear cell carcinoma of left kidney COPD (chronic obstructive pulmonary disease) COVID-19 (05/2020) Debility Diabetes Diabetes Essential hypertension Former smoker Full dentures GERD (gastroesophageal reflux disease) Hearing loss, left Hearing loss, right Hemoptysis Hiatal hernia History of non-ST elevation myocardial infarction (NSTEMI) (08/30/04) Hyperlipidemia Hypertension Hypokalemia Injury of head and neck Lung mass Metastasis to adrenal gland Metastatic renal cell carcinoma to lung Non-smoker Paresthesias in left hand Psoriasis Sleep apnea Syncope Wears glasses Home Medications aspirin 81 mg tablet,delayed release (Adult Low Dose Aspirin) 81 mg PO QHS heart health 05/10/16 [History Last Taken 07/30/16] metformin 1,000 mg 24 hr tablet,extended release 1,000 mg PO BID diabetes 05/10/16 [History Last Taken 05/24/20] metoprolol tartrate 50 mg tablet 25 mg PO BID blood pressure 05/10/16 [History Last Taken 12/16/20 08:15] multivitamin (Daily Multiple tablet) 1 ea PO DAILY vitamin 05/10/16 [History L ast Taken 05/24/20] simvastatin 40 mg tablet 40 mg PO QHS cholesterol 05/10/16 [History Last Taken 1 ] tamsulosin 0.4 mg capsule 0.4 mg PO QHS prostate 10/01/19 [History Last Taken 05/24/20] albuterol sulfate 90 mcg/actuation aerosol inhaler 2 puff inhalation Q4H PRN Sob &/Or Wheezing 05/31/20 [History Last Taken 05/29/20] budesonide-formoterol HFA 160 mcg-4.5 mcg/actuation aerosol inhaler 1 - 2 puff inhalation BID copd 05/31/20 [History Last Taken 05/29/20] omeprazole 40 mg capsule,delayed release 40 mg PO DAILY gerd 05/31/20 [History Last Taken 12/16/20 08:15] triamcinolone acetonide 0.5 % topical ointment 1 applicatio topical BID PRN PRN psoriasis 05/31/20 [History Last Taken 05/24/20] glimepiride 4 mg tablet 4 mg PO DAILY 09/06/21 [History Last Taken Unknown] empagliflozin 25 mg tablet (Jardiance) 25 mg PO DAILY 09/28/21 [History Last Taken Unknown] cabozantinib 20 mg tablet 20 mg PO DAILY 10/26/21 [History Last Taken Unknown] liver, iron, and vitamins 1 tab PO DAILY 02/08/22 [History Last Taken Unknown] prednisone 10 mg tablet 10 mg PO QDAY #30 tabs 02/08/22 [Rx Last Taken Unknown] glimepiride 2 mg tablet 2 mg PO QHS 02/16/22 [History Last Taken Unknown] cephalexin 500 mg capsule 500 mg PO TID #20 caps 02/19/22 [Rx Last Taken Unknown] Allergy/AdvReac Type Severity Reaction Status Date / Time No Known Allergies Allergy Verified 02/16/22 11:13 Family History Mother Arthritis Hypertension Asthma Grandfather Cancer Aunt Colon cancer Surgical History History of colonoscopy History of coronary artery stent placement (08/30/04) History of esophagogastroduodenoscopy (EGD) History of left heart catheterization (01/27/07) History of Chicho fundoplication Hx of LASIK Social History Smoking Status: Never smoker Physical Exam Const alert, oriented x3 and no apparent distress General Appearance: cooperative HEENT normocephalic and head/scalp atraumatic Eyes PERRL and EOMs intact bilaterally Neck supple and No nodes Resp normal air movement Auscultation: rhonchi Cardio regular rate and regular rhythm GI soft to palpation, non-tender and non-distended Extremity no clubbing, cyanosis or edema Skin Skin Narrative: R foot wrapped Neuro CN's II-XII intact bilaterally Lab / Micro Data Attestation: I reviewed the patient's lab results. Result Diagrams: 02/19/22 07:55 02/19/22 07:55 Labs: Laboratory Results - last 24 hr 02/19/22 07:55: WBC 7.4, RBC 3.90 L, Hgb 12.0 L, Hct 37.2 L, MCV 95.4 H, MCH 30.8, MCHC 32.3, RDW Std Deviation 63.2 H, RDW Coeff of Esperanza 18.4 H, Plt Count 253, MPV 9.7, Immature Gran % (Auto) 0.700, Neut % (Auto) 74.7 H, Lymph % (Auto) 16.0 L, Thomas % (Auto) 5.0, Eos % (Auto) 3.2, Baso % (Auto) 0.4, Absolute Neuts (auto) 5.6, Absolute Lymphs (auto) 1.19, Nucleated RBC % 0 02/19/22 07:55: Sodium 136, Potassium 4.0, Chloride 101, Carbon Dioxide 30.0, Anion Gap 5, BUN 22 H, Creatinine 0.98, Estim Creat Clear Calc 72.79, Est GFR (MDRD) Af Amer 97, Est GFR (MDRD) Non-Af 80, BUN/Creatinine Ratio 22.5 H, Glucose 96, Calcium 9.1 Micro: Microbiology 02/16/22 10:30 Wound Abcess - Right Foot Gram Stain - Final 02/16/22 10:30 Wound Abcess - Right Foot Wound Culture - Preliminary Staphylococcus aureus Streptococcus mitis/ oralis Staphylococcus epidermidis Corynebacterium minutissimum 02/16/22 10:30 Wound Abcess - Right Foot Anaerobic Culture - Preliminary Rhythm Strip Rhythm Strip: Sinus Tach Rate: 108 Ectopy: None
--- NOTE | 2022-02-19 13:47 | DS.PCM_ITS ---
Providers Date of Admission: 02/16/22 Primary Care Physician: Dr. Solis Gross MD Consultations 02/16/22 15:02 Consult: Podiatry Routine Consulting Provider: Torrie Catalan Reason for Consult: DM foot wound EMERGENT Consult: No Notified: Yes Date Notified: 02/16/22 Time Notified: 13:07 Method of Notification: Text 02/19/22 10:21 Consult: Infectious Disease Routine Consulting Provider: Mauro Booth Reason for Consult: Diabetic wound infection EMERGENT Consult: No Notified: Yes Date Notified: 02/19/22 Time Notified: 10: Method of Notification: Answering Service Method of Consult:: In-Person Reason For Visit: DIABETIC FOOT WOUND Diagnosis Discharge Diagnosis (1) Cellulitis of right lower limb: Status: Acute Code(s): L03.115 - Cellulitis of right lower limb (2) Type 2 diabetes mellitus with diabetic polyneuropathy: Status: Acute Code(s): E11.42 - Type 2 diabetes mellitus with diabetic polyneuropathy (3) Sepsis: Status: Acute Code(s): A41.9 - Sepsis, unspecified organism (4) Open wound of right heel: Status: Acute Code(s): S91.301A - Unspecified open wound, right foot, initial encounter (5) Cellulitis of right lower extremity: Status: Acute Code(s): L03.115 - Cellulitis of right lower limb Medications at Discharge Home Medications aspirin 81 mg tablet,delayed release (Adult Low Dose Aspirin) 81 mg PO QHS heart health 05/10/16 metformin 1,000 mg 24 hr tablet,extended release 1,000 mg PO BID diabetes 05/10/16 metoprolol tartrate 50 mg tablet 25 mg PO BID blood pressure 05/10/16 multivitamin (Daily Multiple tablet) 1 ea PO DAILY vitamin 05/10/16 simvastatin 40 mg tablet 40 mg PO QHS cholesterol 05/10/16 tamsulosin 0.4 mg capsule 0.4 mg PO QHS prostate 10/01/19 albuterol sulfate 90 mcg/actuation aerosol inhaler 2 puff inhalation Q4H PRN Sob &/Or Wheezing 05/31/20 budesonide-formoterol HFA 160 mcg-4.5 mcg/actuation aerosol inhaler 1 - 2 puff inhalation BID copd 05/31/20 omeprazole 40 mg capsule,delayed release 40 mg PO DAILY gerd 05/31/20 triamcinolone acetonide 0.5 % topical ointment 1 applicatio topical BID PRN PRN psoriasis 05/31/20 glimepiride 4 mg tablet 4 mg PO DAILY 09/06/21 empagliflozin 25 mg tablet (Jardiance) 25 mg PO DAILY 09/28/21 cabozantinib 20 mg tablet 20 mg PO DAILY 10/26/21 liver, iron, and vitamins 1 tab PO DAILY 02/08/22 prednisone 10 mg tablet 10 mg PO QDAY #30 tabs 02/08/22 glimepiride 2 mg tablet 2 mg PO QHS 02/16/22 cephalexin 500 mg capsule 500 mg PO TID #20 caps 02/19/22 Hospital Course Summary of Care Provided Minutes Spent on Discharge: 35 Hospital Course: Patient is a 71-year-old gentleman who presented with diabetic foot ulcer 1. Diabetic foot ulcer ? Patient was admitted to regular nursing floor managed broad-spectrum antibiotic therapy Vanco and Vernn consultation placed to podiatry patient had debridement for right heel ulcer. MRI obtained came back negative for osteomyelitis -Wound culture results as below Wound Abcess - Right Foot Wound Culture - Preliminary Staphylococcus aureus Alpha Hemolytic Streptococcus Coag Negative Staph Gram positive fernie . Consult placed to infectious disease -Seen in consultation by Dr. Booth with infectious disease recommended discharge on cefazolin 2. Diabetes mellitus type II -patient's oral hypoglycemics held. Placed on long acting insulin, Accu-Cheks a.c. and at bedtime and covered with sliding scale insulin 3. Hypertension - Blood pressure controlled, home medications continued with dose adjustment as needed 4. COPD ? Currently not in exacerbation aerosol treatments as needed 5. Metastatic renal cell carcinoma ? Patient has mets to the lung and adrenal glands; currently being followed by oncology as outpatient 6.Dyslipidemia -Patient is on statin therapy, continued at home dose 7. BPH ? Patient is on tamsulosin did continue 8. GERD ? Patient is on PPI 9. DVT prophylaxis ? SC Lovenox Physical Exam Narrative GENERAL: cooperative HEENT: Atraumatic; EYES; Anicteric, Normal Conjunctiva NECK; supple, normal thyroid, RESPIRATORY: Diminished to auscultation CARDIOVASCULAR: Regular S1 S2, GI: soft, normoactive bowel sounds, : No Renal angle tenderness; EXTREMITIES: Right foot in surgical dressing MUSCULOSKELETAL: no muscle wasting NEURO: Awake; no lateralizing signs. SKIN: No Rash PSYCH; Flat affect Weight / BMI Weight Weight: 76.657 kg Body Mass Index (BMI) 22.3 ABG / Lab / Microbiology Data Result Diagrams: 02/19/22 07:55 02/19/22 07:55 Laboratory: Laboratory Results - last 24 hr 02/19/22 07:55: WBC 7.4, RBC 3.90 L, Hgb 12.0 L, Hct 37.2 L, MCV 95.4 H, MCH 30.8, MCHC 32.3, RDW Std Deviation 63.2 H, RDW Coeff of Esperanza 18.4 H, Plt Count 253, MPV 9.7, Immature Gran % (Auto) 0.700, Neut % (Auto) 74.7 H, Lymph % (Auto) 16.0 L, [place] % (Auto) 5.0, Eos % (Auto) 3.2, Baso % (Auto) 0.4, Absolute Neuts (auto) 5.6, Absolute Lymphs (auto) 1.19, Nucleated RBC % 0 02/19/22 07:55: Sodium 136, Potassium 4.0, Chloride 101, Carbon Dioxide 30.0, Anion Gap 5, BUN 22 H, Creatinine 0.98, Estim Creat Clear Calc 72.79, Est GFR (MDRD) Af Amer 97, Est GFR (MDRD) Non-Af 80, BUN/Creatinine Ratio 22.5 H, Glucose 96, Calcium 9.1 Microbiology: Microbiology 02/16/22 10:30 Wound Abcess - Right Foot Gram Stain - Final 02/16/22 10:30 Wound Abcess - Right Foot Wound Culture - Final Staphylococcus aureus Streptococcus mitis/ oralis Staphylococcus epidermidis Corynebacterium minutissimum 02/16/22 12:15 Urine, Clean Catch Urine Culture - Final Mixed Gram Positive Organisms 02/16/22 11:55 Blood Culture (Wb) - Left Forearm Blood Culture - Preliminary No growth in 48 hours. 02/16/22 12:00 Blood Culture (Wb) - Anticubital Left Blood Culture - Preliminary No growth in 48 hours. Meaningful Use Info Meaningful Use Diagnoses (Choose all that apply): None applicable Discharge Plan Admission Admit Date/Time: 02/16/22 12:55 Attending Provider: Mikel Hoskins Primary Care Provider: Solis Gross Consulting Providers: Torrie Catalan ; Adarsh Lee ; Mauro Booth Instructions Additional Instructions / Restrictions: Change right heel dressing daily with Aquacel Ag, gauze, abdominal pain, Kerlix, Juan wrap Wash wound site with antibacterial soap and water with each dressing change and do not soak. Keep weight off of your heel by hanging over stacked pillows while in bed and do not place weight on the heel ulcer. Use your surgical shoe for protection and your walker. Discharge Orders/Prescriptions Prescriptions: New cephalexin 500 mg capsule 500 mg PO TID Qty: 20 0RF Continued glimepiride 4 mg tablet 4 mg PO DAILY Jardiance 25 mg tablet 25 mg PO DAILY cabozantinib 20 mg tablet 20 mg PO DAILY liver, iron, and vitamins Tablet 1 tab PO DAILY prednisone 10 mg tablet 10 mg PO QDAY Qty: 30 0RF Rx Instructions: take 4 tabs for three days, then 3 tabs for three days, then 2 tabs for three days, then 1 tab for 3 days multivitamin [Daily Multiple] 1 EACH tablet 1 ea PO DAILY aspirin [Adult Low Dose Aspirin] 81 MG tablet,delayed release (DR/EC) 81 mg PO QHS Label Comments: pt states he has been instructed to stop taking aspirin 12/11/20 for EBUS on [id number] simvastatin 40 MG tablet 40 mg PO QHS metoprolol tartrate 50 MG tablet 25 mg PO BID metformin 1,000 MG tablet,ER lucrecia.retention 24 hr 1,000 mg PO BID tamsulosin 0.4 mg capsule 0.4 mg PO QHS triamcinolone acetonide 1 APPLIC ointment 1 applicatio TOPICAL BID PRN PRN (Reason: psoriasis) albuterol sulfate 8.5 GM HFA aerosol inhaler 2 puff INHALATION Q4H PRN (Reason: Sob &/Or Wheezing) budesonide-formoterol 1 INHALER inhaler 1 - 2 puff INHALATION BID Label Comments: INHALE 1 PUFF BY MOUTH TWICE DAILY omeprazole 40 MG capsule,delayed release(DR/EC) 40 mg PO DAILY glimepiride 2 mg Tablet 2 mg PO QHS Referrals / Follow Up: Torrie Catalan DPM [STAFF PHYSICIAN] - In 1 Week (Follow-up at the wound healing center with a wound center provider. Call [phone] to schedule.) Solis Gross MD [Primary Care Provider] - In 1 Week Disposition Disposition (needs filled in before D/C Order can be placed): Home Health Service Charges/Coding Visit Charges Inpatient E&M: 36923 Disch Hosp
[2022-02-19 15:01] VITALS: BP 158/88; PULSE 85; RESP 18; TEMP 36.8; O2SAT 95
--- NOTE | 2022-02-20 15:57 | CM.UR ---
TC jeremy Jean at [facility] who is pt CM. She is aware pt was dc'd yesterday with [facility]. Aware he denied need for knee scooter as it was not covered, has dressing changes and dc'd on po antibiotics.
== END 2022-02-19 16:11 | disposition home health service (06) | DRG 623 ==
LOC: ED 13:32 → MS3 13:34
PROVIDERS: Nurse Practitioner Family; Podiatrist; Admitting Provider Family Medicine; Emergency Provider Emergency Medicine; PCP Family Medicine; Visit Provider Internal Medicine
DX: E11.621 Type 2 diabetes mellitus with foot ulcer (principal); C79.72 Secondary malignant neoplasm of left adrenal gland; C79.71 Secondary malignant neoplasm of right adrenal gland; C34.91 Malignant neoplasm of unspecified part of right bronchus or lung; E87.2 Acidosis; C34.92 Malignant neoplasm of unspecified part of left bronchus or lung; C64.9 Malignant neoplasm of unspecified kidney, except renal pelvis; L97.413 Non-pressure chronic ulcer of right heel and midfoot with necrosis of muscle; L03.115 Cellulitis of right lower limb; J44.9 Chronic obstructive pulmonary disease, unspecified; E11.42 Type 2 diabetes mellitus with diabetic polyneuropathy; E11.51 Type 2 diabetes mellitus with diabetic peripheral angiopathy without gangrene; K21.9 Gastro-esophageal reflux disease without esophagitis; I25.10 Atherosclerotic heart disease of native coronary artery without angina pectoris; E78.5 Hyperlipidemia, unspecified; I10 Essential (primary) hypertension; E87.6 Hypokalemia; I25.2 Old myocardial infarction; Z79.82 Long term (current) use of aspirin; Z79.84 Long term (current) use of oral hypoglycemic drugs; Z80.0 Family history of malignant neoplasm of digestive organs; Z86.16 Personal history of COVID-19; N40.0 Benign prostatic hyperplasia without lower urinary tract symptoms; Z95.5 Presence of coronary angioplasty implant and graft
CPT/HCPCS: 36415; 73630; 73720; 80048; 80053; 80202; 81001; 82962; 83605; 85025; 85610; 85652; 85730; 86140; 87040; 87070; 87075; 87077; 87086; 87088; 87186; 87205; 87640; 93005; 93923; 97116; 97162; 97530; 97802; 99285; A9575; J7040; J7050; J7120; A4216

== ENCOUNTER 2022-03-27 13:45 | Outpatient (RCR) | payer MEDICARE, MEDICAID, SELFPAY ==
[2022-03-06 10:01] VITALS: BP 110/84; PULSE 127; RESP 20; TEMP 36.2; BMI 21.7
--- NOTE | 2022-03-06 11:17 | PCM.WC.HP ---
History of Present Illness Date of Service: 03/06/22 Progress of Wound: This 71-year-old male presents with a chronic right heel ulceration in setting of poorly controlled type 2 diabetes as well as metastasized renal cell carcinoma. Patient denies any constitutional symptoms at this time was recently discharged from the hospital for right lower extremity cellulitis in which she was treated for IV antibiotics and discharged on p.o. Keflex. Patient has completed his course of Keflex been offloading the site with a surgical shoe and dressing the site daily with Aquacel DSD. Patient has been performing this dressing himself. Patient has no other complaints at this time. Denies any constitutional symptoms or chest pain calf pain shortness of breath. 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 Cancer Chest pain Clear cell carcinoma of left kidney COPD (chronic obstructive pulmonary disease) COVID-19 (05/2020) Debility Diabetes Diabetes Essential hypertension Former smoker Full dentures GERD (gastroesophageal reflux disease) Hearing loss, left Hearing loss, right Hemoptysis Hiatal hernia History of non-ST elevation myocardial infarction (NSTEMI) (08/30/04) Hyperlipidemia Hypertension Hypokalemia Injury of head and neck Lung mass Metastasis to adrenal gland Metastatic renal cell carcinoma to lung Non-smoker Paresthesias in left hand Psoriasis Sleep apnea Syncope Wears glasses Home Medications metformin 1,000 mg 24 hr tablet,extended release 1,000 mg PO BID diabetes 05/10/16 [History Last Taken 05/24/20] metoprolol tartrate 50 mg tablet 25 mg PO BID blood pressure 05/10/16 [History Last Taken 12/16/20 08:15] multivitamin (Daily Multiple tablet) 1 ea PO vitamin 05/10/16 [History Last Taken 05/24/20] simvastatin 40 mg tablet 40 mg PO QHS cholesterol 05/10/16 [History Last Taken 05/24/20] tamsulosin 0.4 mg capsule 0.4 mg PO QHS prostate 10/01/19 [History Last Taken 05/24/20] omeprazole 40 mg capsule,delayed release 40 mg PO DAILY gerd 05/31/20 [History Last Taken 12/16/20 08:15] glimepiride 2 mg tablet 4 mg PO DAILY 02/16/22 [History Last Taken Unknown] budesonide-formoterol HFA 80 mcg-4.5 mcg/actuation aerosol inhaler (Symbicort) 1 inh inhalation BID 03/06/22 [History Last Taken Unknown] cabozantinib 20 mg tablet (Cabometyx) 40 mg PO DAILY 03/06/22 [History Last Taken Unknown] cephalexin 500 mg capsule 500 mg PO TID #30 caps 03/06/22 [Rx Last Taken Unknown] empagliflozin 10 mg tablet (Jardiance) 10 mg PO DAILY 03/06/22 [History Last Taken Unknown] enoxaparin 40 mg/0.4 mL subcutaneous syringe (Lovenox) 40 mg (0.4 mL) subcut DAILY #12 mL 03/06/22 [Rx Last Taken Unknown] ferrous sulfate 325 mg (65 mg iron) tablet (Iron (ferrous sulfate)) mg PO 03/06/22 [History Last Taken Unknown] Allergy/AdvReac Type Severity Reaction Status Date / Time No Known Allergies Allergy Verified 02/16/22 11:13 Family History Mother Arthritis Hypertension Asthma Grandfather Cancer Aunt Colon cancer Surgical History History of colonoscopy History of coronary artery stent placement (08/30/04) History of esophagogastroduodenoscopy (EGD) History of left heart catheterization (01/27/07) History of Chicho fundoplication Hx of LASIK Social History Smoking Status: Never smoker ROS Constitutional Constitutional: Reports weakness; Denies headache(s) or stops breathing during sleep Eyes Eyes: Denies acute decrease in peripheral vision, blindness or change in vision ENT HEENT: Denies bleeding gums, ear pain or epistaxis Cardiovascular Cardiovascular: Denies abdominal edema, abdominal pain or chest pain with activity Respiratory/Chest Respiratory/Chest: Denies change in phlegm color, chest congestion or dyspnea Gastrointestinal Gastrointestinal: Denies bloating, change in bowel habits or cramping Genitourinary Genitourinary: Denies anuria, burning urination or difficulty with ejaculations Musculoskeletal Musculoskeletal: Denies atrophy, back pain or limited range of motion Integumentary Integumentary: Denies bleeding lesions, change in hair or jaundice Vital Signs Vital Signs Vital Signs: 03/06/22 10:01 Temperature 97.1 F L Temperature Source Temporal Pulse Rate 127 H Respiratory Rate 20 H Blood Pressure 110/84 H Blood Pressure Mean 92 Blood Pressure Source Monitor Blood Pressure Position Sitting Blood Pressure Location Right Arm Oxygen Delivery Method Room Air Weight Weight: 74.843 kg Body Mass Index (BMI) 21.7 Physical Exam Narrative Vascular: Dorsalis pedis posterior tibial pulses palpable 2 out of 4. No edema noted bilaterally. Some atrophic skin changes noted. Neurologic: Light touch protective sensation absent to bilateral feet. Dermatologic: Full-thickness wound noted to the plantar heel as well as the medial ankle these wounds communicate upon probing. These probes down to the level of the calcaneus. There is mild periwound erythema at this time. Mild warmth. No gross discharge. No other signs of infection. No crepitus or fluctuance to the periwound areas. Musculoskeletal: Muscular strength full to bilateral lower extremity compartments no gross deformities. No pain with calf squeeze or palpation of popliteal fossa. Const alert and oriented x3 Debridement Note Debridement Note Post-Debridement Measurements and Additional Note: Post-Debridement Measurements/Treatment - Nurse 1 - General Ulcer Assessment Start: 03/06/22 10:00 Freq: Status: Active Protocol: DESTINY.[email or web address] Activity Type Activity Date Activity User E-sign Co-sign Detail Recorded Client Recorded Date Recorded By Document 03/06/22 10:01 MW Desktop 03/06/22 10:25 MW 03/06/22 10:01 - Today's Visit Information Type of service Follow-up Visit (Physician/[employer] ) Arrival Mode Ambulatory,Cane Transfer Assistance None Accompanied by self Patient Identification Verified (Name & Yes ) Patient Requires Transmission-Based No Precautions Safety Precautions NA Height and Weight Height 6 ft 1 in Weight 74.843 kg Weight in Pounds 165.0 lbs Weight Measurement Method Stated by Patient Body Mass Index (BMI) 21.7 BMI Classification Normal BSA - Anette 1.98 Vital Signs Temperature (97.8 F-99.1 F) 97.1 F L Temperature Source Temporal Pulse Rate (60-100) 127 H Pulse Location Monitor Respiratory Rate (12-18) 20 H Respiratory rate source Observation Oxygen Delivery Method Room Air Blood Pressure (90/60-120/80) 110/84 H Blood Pressure Mean 92 Source Monitor Position Sitting Blood Pressure Location Right Arm Pain Scale: 0-10 Numeric Is Patient Pain Free? Yes Communication Assessment Preferred language Syriac Video Player Mechanic Required No Able to Read Yes Able to Write Yes Communication Tools None Caregiver Communication Skills No Impairment Impairment Right Hearing Abillity Use of Hearing Aid Left Hearing Abillity Use of Hearing Aid Visual Assistive Devices None Teaching Assessment Preferences Verbal,Written Barriers to Learning None Readiness To Learn Excellent Willingness to Engage in Self Management High Activies Readiness to Engage in Self Management High Activities Anxiety Level Calm Cooperation Cooperative Perception Coherent Interest in Health Problem Asks Questions Education Importance Acknowledges Need Does Patient Smoke tobacco or other No substances Smoking Status Never smoker Is Patient Diabetic Yes Functional Assessment Recent Decline in Ability to Perform Ambulation, Bathing,Lower Body Dressing Assistive Device With Patient Yes List Device(s) with Patient cane Culture/Bahai/Industrial Psychology Teacher Cultural/Bahai Needs that may affect No Treatment Plan Would you allow our hospital service employee to No meet you for the purpose of spiritual/ emotional support? Industrial Psychology Teacher to contact place of faith No Teaching: Wound Center *Welcome to the Wound Center -Person Taught Patient -Teaching Method Discussion -Response to teaching Verbalize understanding WC - Nurse 1 - General Ulcer Measurement Start: 03/06/22 10:00 Freq: Status: Active Protocol: Activity Type Activity Date Activity User E-sign Co-sign Detail Recorded Client Recorded Date Recorded By Document 03/06/22 10:01 MW Desktop 03/06/22 10:25 MW 03/06/22 10:01 Wound Center Nurse 1 #3 left great toe tip -Combined with other wound No -Current Size (cm) - Length 0.3 -Current Size (cm) - Width 0.4 -Current Size (cm) - Depth 0.1 -Total Square Cm 0.12 -Date of Last Picture (Recall this 03/06/22 field) -Photo Taken Yes -Epithelialization None Present -Tunneling No -Undermining/Tunneling No -Circular Undermining No -Exudate Amt None Present -Wound Margin Flat & Intact -Granulation Amt None Present (0 %) -Granulation Quality N/A -Slough/Fibrin Yes -Necrosis Amt Large (67-100%) -Necrotic Tissue Type Adherent Slough -Structure Exposed N/A -Texture (Rosanna-wound Skin Appearance) Assessed,Callus -Moisture (Rosanna-wound Skin Appearance) Assessed,Dry/ Scaly -Color (Rosanna-wound Skin Appearance) Assessed -Temperature (Rosanna-wound Skin No Abnormality Appearance) (Pt Warm) -Ulcer Cleansing Soap and Water -Foul Odor after Cleansing No -Anesthetic Used 5% Lidocaine Gel #2 right heel plantar -Combined with other wound No -Current Size (cm) - Length 2.0 -Current Size (cm) - Width 1.0 -Current Size (cm) - Depth 0.5 -Total Square Cm 2.00 -Photo Taken No -Epithelialization None Present -Tunneling No -Undermining/Tunneling No -Circular Undermining No -Exudate Amt Medium -Exudate Type Serosanguineous -Wound Margin Distinct, Outline Attached -Granulation Amt Small (1-33%) -Granulation Quality Pale -Necrosis Amt Large (67-100%) -Necrotic Tissue Type Adherent Slough -Structure Exposed N/A -Texture (Rosanna-wound Skin Appearance) Assessed,Callus -Moisture (Rosanna-wound Skin Appearance) Assessed,Dry/ Scaly -Color (Rosanna-wound Skin Appearance) Assessed -Temperature (Rosanna-wound Skin No Abnormality Appearance) (Pt Warm) -Tenderness on Palpation (Rosanna-wound No Skin Appearance) -Ulcer Cleansing Soap and Water -Foul Odor after Cleansing No -Anesthetic Used 5% Lidocaine Gel # 1 right medial heel -Combined with other wound No -Current Size (cm) - Length 2.0 -Current Size (cm) - Width 1.4 -Current Size (cm) - Depth 0.1 -Total Square Cm 2.80 -Date of Last Picture (Recall this 03/06/22 field) -Photo Taken Yes -Epithelialization None Present -Tunneling No -Undermining/Tunneling No -Circular Undermining No -Exudate Amt Medium -Exudate Type Serosanguineous -Granulation Amt Small (1-33%) -Granulation Quality Pale -Slough/Fibrin Yes -Necrosis Amt Large (67-100%) -Necrotic Tissue Type Adherent Slough -Structure Exposed N/A -Texture (Rosanna-wound Skin Appearance) No Abnormality, Assessed -Moisture (Rosanna-wound Skin Appearance) Assessed,Dry/ Scaly -Color (Rosanna-wound Skin Appearance) No Abnormality, Assessed -Temperature (Rosanna-wound Skin No Abnormality Appearance) (Pt Warm) -Tenderness on Palpation (Rosanna-wound No Skin Appearance) -Ulcer Cleansing Soap and Water -Foul Odor after Cleansing No -Anesthetic Used 5% Lidocaine Gel Lower Limb Edema Present Yes Right Calf (cm) 29.0 Right Ankle (cm) 18.5 Right Foot (cm) 30.8 Left Calf (cm) 21.0 WC - Nurse 2 - General Ulcer CM Notes Start: 03/06/22 10:00 Freq: Status: Active Protocol: Activity Type Activity Date Activity User E-sign Co-sign Detail Recorded Client Recorded Date Recorded By Document 03/06/22 10:42 [id number] 03/06/22 10:55 [email or web address] 03/06/22 10:42 Wound Center Nurse 2 #3 left great toe tip -Time 10:42 -Correct Patient Yes -Correct Side, Site, Position Yes -Correct Procedure Yes -Procedure Performed Yes -Type of Procedure Debridement -Clinical Debridement Subcutaneous -Tissue Removed Subcutaneous -Post Debridement (cm) - Length 0.1 -Post Debridement (cm) - Width 0.1 -Post Debridement (cm) - Depth 0.1 -Total Square (Post) (cm) 0.01 -Area of Debridement (cm) - Length 0.1 -Area of Debridement (cm) - Width 0.1 -Total Square (Area) (cm) 0.01 -Tunneling No -Undermining/Tunneling No -Circular Undermining No -Wound/Ulcer Outcome Not Healed -Ulcer Cleansing Rinsed/ Irrigated with Saline -Foul Odor after Cleansing No -Bioengineered Tissue No -Bleeding Controlled with Pressure -Treatment Response Procedure Tolerated Well -Offloading No -Debridement - Subq, 1st 20sq cm No #2 right heel plantar -Time 10:44 -Correct Patient Yes -Correct Side, Site, Position Yes -Correct Procedure Yes -Procedure Performed Yes -Type of Procedure Debridement -Clinical Debridement Subcutaneous -Tissue Removed Subcutaneous -Post Debridement (cm) - Length 2 -Post Debridement (cm) - Width 1.5 -Post Debridement (cm) - Depth 0.5 -Total Square (Post) (cm) 3.0 -Area of Debridement (cm) - Length 2 -Area of Debridement (cm) - Width 1.5 -Total Square (Area) (cm) 3.0 -Tunneling No -Undermining/Tunneling No -Circular Undermining No -Wound/Ulcer Outcome Not Healed -Ulcer Cleansing Rinsed/ Irrigated with Saline -Foul Odor after Cleansing No -Bioengineered Tissue No -Bleeding Controlled with Pressure -Treatment Response Procedure Tolerated Well -Offloading Yes -Type of Offloading Knee Walker -Assistive Device(s) Cane -Debridement - Subq, 1st 20sq cm Yes # 1 right medial heel -Time 10:44 -Correct Patient Yes -Correct Side, Site, Position Yes -Correct Procedure Yes -Procedure Performed Yes -Type of Procedure Debridement -Clinical Debridement Subcutaneous -Tissue Removed Subcutaneous -Post Debridement (cm) - Length 2.1 -Post Debridement (cm) - Width 1.1 -Post Debridement (cm) - Depth 1 -Total Square (Post) (cm) 2.31 -Area of Debridement (cm) - Length 2.1 -Area of Debridement (cm) - Width 1.1 -Total Square (Area) (cm) 2.31 -Tunneling No -Undermining/Tunneling No -Circular Undermining No -Wound/Ulcer Outcome Not Healed -Ulcer Cleansing Rinsed/ Irrigated with Saline -Foul Odor after Cleansing No -Bioengineered Tissue No -Bleeding Controlled with Pressure -Treatment Response Procedure Tolerated Well -Offloading Yes -Type of Offloading Knee Walker -Debridement - Subq, 1st 20sq cm No Pain Scale: 0-10 Numeric Is Patient Pain Free? Yes Assessment/Plan Assessment/Plan (1) Peripheral vascular disease, unspecified: CODE(S): I73.9 - Peripheral vascular disease, unspecified (2) Non-pressure chronic ulcer of other part of right foot with necrosis of bone: CODE(S): L97.514 - Non-pressure chronic ulcer of other part of right foot with necrosis of bone PLAN: Patient examined evaluated, all findings discussed with patient in detail. Previous radiographs reviewed no evidence of bone involvement, calcified vessels noted. Hospital lab work reviewed no concern for residual systemic infection. Patient completed course of Keflex due to some residual erythema new wound formation along the medial ankle I will restart the Keflex. Wound cultured at this time. Patient's arterial studies were reviewed demonstrate good blood flow to bilateral lower extremity suggestive of wound healing potential. Patient is getting home health care dressing changes. We will continue this with Aquacel Ag to the wound sites DSD and slight compression. The wounds to the right heel were excisionally debrided down to including the level of subcutaneous tissue of all nonviable tissue using a 5 mm dermal curette without incident. Patient tolerated procedure well. Hemostasis obtained with light compression. Rx for Keflex sent to patient's pharmacy this is to address any infection. Patient is edema is well controlled we will continue control with Juan wrap. Patient taking Glucerna for nutritional supplementation he will continue this. Patient will now offload the site with a knee scooter. I recommended Lovenox 40 mg daily for DVT prophylaxis this was sent to his pharmacy. Discussed with patient that his poor blood glucose regulation is likely contributing to delayed wound healing formation and that this wound will likely take months to heal and he is at significant risk of loss of limb loss of life. Patient feels that he is terminal due to his renal cell carcinoma and has little motivation to better control his blood glucose. He understands the risks and will proceed at his own discretion. We will continue to observe and attempt wound healing locally on a weekly basis.
--- NOTE | 2022-03-07 15:59 | WC ---
Spoke to Jeanne from about the reason why patient was prescribed Lovonox. Due to non-weight bearing and current diagnosis of cancer puts him at risk for DVT. Nurse informed me that the patient is not non-weight bearing and is unable to use his knew roller in the house due to the size of his apartment and the clutter of getting around. Informed Dr Joy who was okay with him not injecting himself with the Lovonox and to take a daily 81mg Aspirin. Spoke to patient on the phone and he hasn't picked up the prescription yet to take. He also informed me that he is already taking Aspirin 81mg daily.
[2022-03-20 10:41] VITALS: BP 123/86; PULSE 123; TEMP 35.8; BMI 21.7
--- NOTE | 2022-03-20 12:07 | PCM.WC.PN ---
History of Present Illness Date of Service: 03/20/22 Progress of Wound: This 71-year-old male presents with a chronic right heel ulceration in setting of poorly controlled type 2 diabetes as well as metastasized renal cell carcinoma. Patient denies constitutional. Patient notes improvement at this time. Patient has no signs or symptoms of DVT. Objective Data Objective Data Vital Signs: Vital Signs Temp Pulse Resp BP O2 Del Method 96.5 F L 123 H 20 H 123/86 H Room Air 03/20/22 10:41 03/20/22 10:41 03/06/22 10:01 03/20/22 10:41 03/06/22 10:01 Oxygen Delivery Method Room Air Weight: 74.843 kg Body Mass Index (BMI) 21.7 Physical Exam Narrative Vascular: Dorsalis pedis posterior tibial pulses palpable 2 out of 4. No edema noted bilaterally. Some atrophic skin changes noted. Neurologic: Light touch protective sensation absent to bilateral feet. Dermatologic: Full-thickness wound noted to the plantar heel as well as the medial ankle these wounds communicate upon probing. These probes down to the level of the calcaneus. There is mild periwound erythema at this time. Mild warmth. No gross discharge. No other signs of infection. No crepitus or fluctuance to the periwound areas. Musculoskeletal: Muscular strength full to bilateral lower extremity compartments no gross deformities. No pain with calf squeeze or palpation of popliteal fossa. Const alert and oriented x3 Debridement Note Debridement Note Post-Debridement Measurements and Additional Note: Post-Debridement Measurements/Treatment - Nurse 1 - General Ulcer Assessment Start: 03/06/22 10:00 Freq: Status: Active Protocol: ROSCOE Activity Type Activity Date Activity User E-sign Co-sign Detail Recorded Client Recorded Date Recorded By Document 03/06/22 10:01 MW Desktop 03/06/22 10:25 MW Document 03/20/22 10:41 KR [id number] 03/20/22 10:48 KR 03/06/22 03/20/22 10:01 10:41 - Today's Visit Information Type of service Follow-up Visit Follow-up Visit (Physician/[employer] (Physician/[employer] ) ) Arrival Mode Ambulatory,Cane Ambulatory Transfer Assistance None Accompanied by self Patient Identification Verified (Name & Yes Yes ) Patient Requires Transmission-Based No Precautions Safety Precautions NA Height and Weight Height 6 ft 1 in Weight 74.843 kg Weight in Pounds 165.0 lbs Weight Measurement Method Stated by Patient Body Mass Index (BMI) 21.7 21.7 BMI Classification Normal Normal BSA - Anette 1.98 Vital Signs Temperature (97.8 F-99.1 F) 97.1 F L 96.5 F L Temperature Source Temporal Temporal Pulse Rate (60-100) 127 H 123 H Pulse Location Monitor Monitor Respiratory Rate (12-18) 20 H Respiratory rate source Observation Oxygen Delivery Method Room Air Blood Pressure (90/60-120/80) 110/84 H 123/86 H Blood Pressure Mean (mm Hg) 92 98 Source Monitor Monitor Position Sitting Semi-Fowlers Blood Pressure Location Right Arm Right Arm History Since Last Visit- (Skip if this is Patient's initial visit) Have you changed medications since your No last visit? Any new allergies or adverse reactions No Had a fall/change in ADL's that may No increase risk of falls Signs or symptoms of abuse and/or No neglect since last visit Have you been in the hospital since your No last visit? Has dressing in place as prescribed Yes Has compression in place as prescribed N/A Has offloadiing in place as prescribed N/A Experienced any changes in pain level or No management Left Footwear Regular Shoe Right Footwear Regular Shoe Pain Scale: 0-10 Numeric Is Patient Pain Free? Yes Yes Communication Assessment Preferred language [place] Retail Customer Service Representative Required No Able to Read Yes Able to Write Yes Communication Tools None Caregiver Communication Skills No Impairment Impairment Right Hearing Abillity Use of Hearing Aid Left Hearing Abillity Use of Hearing Aid Visual Assistive Devices None Teaching Assessment Preferences Verbal,Written Barriers to Learning None Readiness To Learn Excellent Willingness to Engage in Self Management High Activies Readiness to Engage in Self Management High Activities Anxiety Level Calm Cooperation Cooperative Perception Coherent Interest in Health Problem Asks Questions Education Importance Acknowledges Need Does Patient Smoke tobacco or other No substances Smoking Status Never smoker Is Patient Diabetic Yes Functional Assessment Recent Decline in Ability to Perform Ambulation, Bathing,Lower Body Dressing Assistive Device With Patient Yes List Device(s) with Patient cane Culture/Voodoo/Lactation Coordinator Cultural/Voodoo Needs that may affect No Treatment Plan Would you allow our hospital ruby developer to No meet you for the purpose of spiritual/ emotional support? Lactation Coordinator to contact place [facility] No Teaching: Wound Center *Welcome to the Wound Center -Person Taught Patient -Teaching Method Discussion -Response to teaching Verbalize understanding WC - Nurse 1 - General Ulcer Measurement Start: 03/06/22 10:00 Freq: Status: Active Protocol: Activity Type Activity Date Activity User E-sign Co-sign Detail Recorded Client Recorded Date Recorded By Document 03/06/22 10:01 MW Desktop 03/06/22 10:25 MW Document 03/20/22 10:41 KR [id number] 03/20/22 10:48 KR 03/06/22 03/20/22 10:01 10:41 Wound Center Nurse 1 #3 left great toe tip -Combined with other wound No -Current Size (cm) - Length 0.3 -Current Size (cm) - Width 0.4 -Current Size (cm) - Depth 0.1 -Total Square Cm 0.12 -Date of Last Picture (Recall this 03/06/22 field) -Photo Taken Yes -Epithelialization None Present -Tunneling No -Undermining/Tunneling No -Circular Undermining No -Exudate Amt None Present -Wound Margin Flat & Intact -Granulation Amt None Present (0 %) -Granulation Quality N/A -Slough/Fibrin Yes -Necrosis Amt Large (67-100%) -Necrotic Tissue Type Adherent Slough -Structure Exposed N/A -Texture (Rosanna-wound Skin Appearance) Assessed,Callus -Moisture (Rosanna-wound Skin Appearance) Assessed,Dry/ Scaly -Color (Rosanna-wound Skin Appearance) Assessed -Temperature (Rosanna-wound Skin No Abnormality Appearance) (Pt Warm) -Ulcer Cleansing Soap and Water -Foul Odor after Cleansing No -Anesthetic Used 5% Lidocaine Gel #2 right heel plantar -Combined with other wound No -Current Size (cm) - Length 2.0 1 -Current Size (cm) - Width 1.0 1.5 -Current Size (cm) - Depth 0.5 0.5 -Total Square Cm 2.00 1.5 -Photo Taken No -Epithelialization None Present -Tunneling No -Undermining/Tunneling No -Circular Undermining No -Exudate Amt Medium Medium -Exudate Type Serosanguineous Serosanguineous -Wound Margin Distinct, Distinct, Outline Outline Attached Attached -Granulation Amt Small (1-33%) None Present (0 %) -Granulation Quality Pale -Necrosis Amt Large (67-100%) Large (67-100%) -Necrotic Tissue Type Adherent Slough Adherent Slough -Structure Exposed N/A -Texture (Rosanna-wound Skin Appearance) Assessed,Callus Assessed, Scarring -Moisture (Rosanna-wound Skin Appearance) Assessed,Dry/ No Abnormality, Scaly Assessed -Color (Rosanna-wound Skin Appearance) Assessed No Abnormality, Assessed -Temperature (Rosanna-wound Skin No Abnormality No Abnormality Appearance) (Pt Warm) (Pt Warm) -Tenderness on Palpation (Rosanna-wound No No Skin Appearance) -Ulcer Cleansing Soap and Water Rinsed/ Irrigated with Saline -Foul Odor after Cleansing No No -Anesthetic Used 5% Lidocaine 5% Lidocaine Gel Gel # 1 right medial heel -Combined with other wound No -Current Size (cm) - Length 2.0 1 -Current Size (cm) - Width 1.4 0.5 -Current Size (cm) - Depth 0.1 0.2 -Total Square Cm 2.80 0.5 -Date of Last Picture (Recall this 03/06/22 field) -Photo Taken Yes -Epithelialization None Present -Tunneling No -Undermining/Tunneling No -Circular Undermining No -Exudate Amt Medium Medium -Exudate Type Serosanguineous Serosanguineous -Wound Margin Distinct, Outline Attached -Granulation Amt Small (1-33%) None Present (0 %) -Granulation Quality Pale -Slough/Fibrin Yes -Necrosis Amt Large (67-100%) Large (67-100%) -Necrotic Tissue Type Adherent Slough Adherent Slough -Structure Exposed N/A -Texture (Rosanna-wound Skin Appearance) No Abnormality, Assessed, Assessed Scarring -Moisture (Rosanna-wound Skin Appearance) Assessed,Dry/ No Abnormality, Scaly Assessed -Color (Rosanna-wound Skin Appearance) No Abnormality, No Abnormality, Assessed Assessed -Temperature (Rosanna-wound Skin No Abnormality No Abnormality Appearance) (Pt Warm) (Pt Warm) -Tenderness on Palpation (Rosanna-wound No No Skin Appearance) -Ulcer Cleansing Soap and Water Rinsed/ Irrigated with Saline -Foul Odor after Cleansing No No -Anesthetic Used 5% Lidocaine 5% Lidocaine Gel Gel Lower Limb Edema Present Yes Right Calf (cm) 29.0 27.6 Right Ankle (cm) 18.5 19.5 Right Foot (cm) 30.8 Left Calf (cm) 21.0 - Nurse 2 - General Ulcer CM Notes Start: 03/06/22 10:00 Freq: Status: Active Protocol: Activity Type Activity Date Activity User E-sign Co-sign Detail Recorded Client Recorded Date Recorded By Document 03/06/22 10:42 [id number] 03/06/22 10:55 Document 03/20/22 11:18 [id number] 03/20/22 11:25 03/06/22 03/20/22 10:42 11:18 Wound Center Nurse 2 #3 left great toe tip -Time 10:42 -Correct Patient Yes No -Correct Side, Site, Position Yes No -Correct Procedure Yes No -Procedure Performed Yes No -Type of Procedure Debridement -Clinical Debridement Subcutaneous -Tissue Removed Subcutaneous -Post Debridement (cm) - Length 0.1 0 -Post Debridement (cm) - Width 0.1 0 -Post Debridement (cm) - Depth 0.1 0 -Total Square (Post) (cm) 0.01 0 -Area of Debridement (cm) - Length 0.1 0 -Area of Debridement (cm) - Width 0.1 0 -Total Square (Area) (cm) 0.01 0 -Tunneling No -Undermining/Tunneling No -Circular Undermining No -Wound/Ulcer Outcome Not Healed Healed- Epithelialized -Ulcer Cleansing Rinsed/ Rinsed/ Irrigated with Irrigated with Saline Saline -Foul Odor after Cleansing No No -Bioengineered Tissue No No -Bleeding Controlled with Pressure -Treatment Response Procedure Tolerated Well -Offloading No -Debridement - Subq, 1st 20sq cm No #2 right heel plantar -Time 10:44 11:19 -Correct Patient Yes Yes -Correct Side, Site, Position Yes Yes -Correct Procedure Yes Yes -Procedure Performed Yes Yes -Type of Procedure Debridement Debridement -Clinical Debridement Subcutaneous Subcutaneous -Tissue Removed Subcutaneous Subcutaneous -Post Debridement (cm) - Length 2 1.1 -Post Debridement (cm) - Width 1.5 1.5 -Post Debridement (cm) - Depth 0.5 0.5 -Total Square (Post) (cm) 3.0 1.65 -Area of Debridement (cm) - Length 2 1.1 -Area of Debridement (cm) - Width 1.5 1.5 -Total Square (Area) (cm) 3.0 1.65 -Tunneling No No -Undermining/Tunneling No No -Circular Undermining No No -Wound/Ulcer Outcome Not Healed Not Healed -Ulcer Cleansing Rinsed/ Rinsed/ Irrigated with Irrigated with Saline Saline -Foul Odor after Cleansing No No -Bioengineered Tissue No No -Bleeding Controlled with Pressure Pressure -Treatment Response Procedure Procedure Tolerated Well Tolerated Well -Offloading Yes Yes -Type of Offloading Knee Walker Camwalker -Assistive Device(s) Cane -Debridement - Subq, 1st 20sq cm Yes No # 1 right medial heel -Time 10:44 11:20 -Correct Patient Yes Yes -Correct Side, Site, Position Yes Yes -Correct Procedure Yes Yes -Procedure Performed Yes Yes -Type of Procedure Debridement Debridement -Clinical Debridement Subcutaneous Subcutaneous -Tissue Removed Subcutaneous Subcutaneous -Post Debridement (cm) - Length 2.1 1.1 -Post Debridement (cm) - Width 1.1 0.5 -Post Debridement (cm) - Depth 1 0.2 -Total Square (Post) (cm) 2.31 0.55 -Area of Debridement (cm) - Length 2.1 1.1 -Area of Debridement (cm) - Width 1.1 0.5 -Total Square (Area) (cm) 2.31 0.55 -Tunneling No No -Undermining/Tunneling No No -Circular Undermining No No -Wound/Ulcer Outcome Not Healed Not Healed -Ulcer Cleansing Rinsed/ Rinsed/ Irrigated with Irrigated with Saline Saline -Foul Odor after Cleansing No No -Bioengineered Tissue No No -Bleeding Controlled with Pressure Pressure -Treatment Response Procedure Procedure Tolerated Well Tolerated Well -Offloading Yes Yes -Type of Offloading Knee Walker Camwalker -Debridement - Subq, 1st 20sq cm No Yes Pain Scale: 0-10 Numeric Is Patient Pain Free? Yes Yes WC - Nurse 3 - General Ulcer D/C NN Start: 03/06/22 10:00 Freq: Status: Active Protocol: Activity Type Activity Date Activity User E-sign Co-sign Detail Recorded Client Recorded Date Recorded By Document 03/20/22 11:36 [facility] [id number] 03/20/22 11:37 [facility] 03/20/22 11:36 Wound Care Nurse 3 #2 right heel plantar -Ulcer Cleansing Rinsed/ Irrigated with Saline -Foul Odor after Cleansing No -Primary Dressing Applied Aquacel AG 4x4 -Other Dressing DRSG PER KR [employer] PACK[employer]ER -Primary Dressing Covered/Secured with Dry Gauze & Roll Gauze, Secured with Tape -Aquacel AG 4x4 1 # 1 right medial heel -Ulcer Cleansing Rinsed/ Irrigated with Saline -Foul Odor after Cleansing No -Primary Dressing Applied Aquacel AG 4x4 -Primary Dressing Covered/Secured with Dry Gauze & Roll Gauze, Secured with Tape,Other -Other Covering DRSG PER KR MEAT PACKAGER -Aquacel AG 4x4 0 Treatment Response Procedure Tolerated Well Pain Scale: 0-10 Numeric Is Patient Pain Free? Yes WC - Visit Discharge Discharge Condition Stable Ambulatory Status Ambulatory,Cane Transportation Private Auto Facility Type Home Health Assessment/Plan Assessment/Plan (1) Peripheral vascular disease, unspecified: CODE(S): I73.9 - Peripheral vascular disease, unspecified (2) Non-pressure chronic ulcer of other part of right foot with necrosis of bone: CODE(S): L97.514 - Non-pressure chronic ulcer of other part of right foot with necrosis of bone PLAN: Patient examined evaluated, all findings discussed with patient in detail. Previous radiographs reviewed no evidence of bone involvement, calcified vessels noted. Hospital lab work reviewed no concern for residual systemic infection. Patient off antibiotics no residual signs of infection. To right heel wounds appear to be improved at this time. The wounds to the right heel were excisionally debrided down to including the level of subcutaneous tissue of all nonviable tissue using a 5 mm dermal curette without incident. Patient tolerated procedure well. Hemostasis obtained with light compression. No antibiotics indicated. Patient is edema is well controlled we will continue with Tubigrip. Patient taking Glucerna for nutritional supplementation he will continue this. Patient unable to offload with knee scooter, dispensed a L [id number] Cam walking boot. Patient signed the proof of delivery and warranty form. Patient should not was fitted for the brace and adequate fit was noted. Discussed with patient that his poor blood glucose regulation is likely contributing to delayed wound healing formation and that this wound will likely take months to heal and he is at significant risk of loss of limb loss of life. Patient feels that he is terminal due to his renal cell carcinoma and has little motivation to better control his blood glucose. He understands the risks and will proceed at his own discretion. We will continue to observe and attempt wound healing locally on a weekly basis.
[2022-03-27 13:44] VITALS: BP 111/76; PULSE 111; TEMP 36.2; BMI 21.7
--- NOTE | 2022-03-27 14:34 | PN.PCM_ITS ---
History of Present Illness Date of Service: 03/27/22 Progress of Wound: This 71-year-old male presents with a chronic right heel ulceration in setting of poorly controlled type 2 diabetes as well as metastasized renal cell carcinoma. Patient denies constitutional. Patient notes improvement at this time. Patient has no signs or symptoms of DVT. He has been better offloading this past week with use of Cam walker with offloading layers. He uses his walker. He was not able to safely use his knee roller and has discontinued use. Objective Data Objective Data Vital Signs: Vital Signs Temp Pulse Resp BP O2 Del Method 97.2 F L 111 H 20 H 111/76 Room Air 03/27/22 13:44 03/27/22 13:44 03/06/22 10:01 03/27/22 13:44 03/06/22 10:01 Oxygen Delivery Method Room Air Weight: 74.843 kg Body Mass Index (BMI) 21.7 Physical Exam Narrative Vascular: Dorsalis pedis posterior tibial pulses palpable 2 out of 4. No edema noted bilaterally. Some atrophic skin changes noted. Neurologic: Light touch protective sensation absent to bilateral feet. Dermatologic: Full-thickness wound noted to the plantar heel as well as the medial ankle these wounds communicate upon probing. These probes down to the level of the calcaneus. There is mild periwound erythema at this time. Mild warmth. No gross discharge. No other signs of infection. No crepitus or fluctuance to the periwound areas. Musculoskeletal: Muscular strength full to bilateral lower extremity compartments no gross deformities. No pain with calf squeeze or palpation of popliteal fossa. Const alert and oriented x3 Debridement Note Debridement Note Wound debrided: plantar posterior heel and medial heel Wound Grade/Stage: Type of Debridement: Excisional debridement Anesthesia Used: 4% Lidocaine Solution Depth: in the subcutaneous layer Percentage of wound debrided: 100 Instrument Used: #15 blade Tissue Removed: fibrous, devitalized subcutaneous, biofilm, slough Severity: Fat Layer Exposed Amount of bleeding with debridement: Mild Bleeding Controlled with: Pressure Patient tolerated procedure: Patient tolerated procedure well Post-Debridement Measurements and Additional Note: Post-Debridement Measurements/Treatment DESTINY - Nurse 1 - General Ulcer Assessment Start: 03/06/22 10:00 Freq: Status: Active Protocol: ROSCOE Activity Type Activity Date Activity User E-sign Co-sign Detail Recorded Client Recorded Date Recorded By Document 03/06/22 10:01 MW Desktop 03/06/22 10:25 MW Document 03/20/22 10:41 KR [id number] 03/20/22 10:48 KR Document 03/27/22 13:44 AK [id number] 03/27/22 13:55 AK 03/06/22 03/20/22 03/27/22 10:01 10:41 13:44 WC - Today's Visit Information Type of service Follow-up Visit Follow-up Visit Follow-up Visit (Physician/MANDARIN SPEAKING NANNY (Physician/MANDARIN SPEAKING NANNY (Physician/MANDARIN SPEAKING NANNY ) ) ) Arrival Mode Ambulatory,Cane Ambulatory Ambulatory, Walker Transfer Assistance None Accompanied by self Patient Identification Verified (Name & Yes Yes Yes ) Patient Requires Transmission-Based No No Precautions Safety Precautions NA NA Height and Weight Height 6 ft 1 in Weight 74.843 kg Weight in Pounds 165.0 lbs Weight Measurement Method Stated by Patient Body Mass Index (BMI) 21.7 21.7 21.7 BMI Classification Normal Normal Normal BSA - Anette 1.98 Vital Signs Temperature (97.8 F-99.1 F) 97.1 F L 96.5 F L 97.2 F L Temperature Source Temporal Temporal Temporal Pulse Rate (60-100) 127 H 123 H 111 H Pulse Location Monitor Monitor Respiratory Rate (12-18) 20 H Respiratory rate source Observation Oxygen Delivery Method Room Air Blood Pressure (90/60-120/80) 110/84 H 123/86 H 111/76 Blood Pressure Mean (mm Hg) 92 98 87 Source Monitor Monitor Position Sitting Semi-Fowlers Blood Pressure Location Right Arm Right Arm History Since Last Visit- (Skip if this is Patient's initial visit) Have you changed medications since your No No last visit? Any new allergies or adverse reactions No No Had a fall/change in ADL's that may No No increase risk of falls Signs or symptoms of abuse and/or No No neglect since last visit Have you been in the hospital since your No No last visit? Has dressing in place as prescribed Yes Yes Has compression in place as prescribed N/A Yes Has offloadiing in place as prescribed N/A Yes Experienced any changes in pain level or No No management Left Footwear Regular Shoe Regular Shoe Right Footwear Regular Shoe Removable Cast Walker/Walking Boot Pain Scale: 0-10 Numeric Is Patient Pain Free? Yes Yes Yes Communication Assessment Preferred language Armenian Settlement Agent Required No Able to Read Yes Able to Write Yes Communication Tools None Caregiver Communication Skills No Impairment Impairment Right Hearing Abillity Use of Hearing Aid Left Hearing Abillity Use of Hearing Aid Visual Assistive Devices None Teaching Assessment Preferences Verbal,Written Barriers to Learning None Readiness To Learn Excellent Willingness to Engage in Self Management High Activies Readiness to Engage in Self Management High Activities Anxiety Level Calm Cooperation Cooperative Perception Coherent Interest in Health Problem Asks Questions Education Importance Acknowledges Need Does Patient Smoke tobacco or other No substances Smoking Status Never smoker Is Patient Diabetic Yes Functional Assessment Recent Decline in Ability to Perform Ambulation, Bathing,Lower Body Dressing Assistive Device With Patient Yes List Device(s) with Patient cane Culture/Pentecostalism/Wool Spotter Cultural/Pentecostalism Needs that may affect No Treatment Plan Would you allow our [facility] dust collector ore crushing to No meet you for the purpose of spiritual/ emotional support? Wool Spotter to contact place of rastafari No Teaching: Wound Center *Welcome to the Wound Center -Person Taught Patient -Teaching Method Discussion -Response to teaching Verbalize understanding WC - Nurse 1 - General Ulcer Measurement Start: 03/06/22 10:00 Freq: Status: Active Protocol: Activity Type Activity Date Activity User E-sign Co-sign Detail Recorded Client Recorded Date Recorded By Document 03/06/22 10:01 MW Desktop 03/06/22 10:25 MW Document 03/20/22 10:41 KR [id number] 03/20/22 10:48 KR Document 03/27/22 13:44 AK [id number] 03/27/22 13:55 AK 03/06/22 03/20/22 03/27/22 10:01 10:41 13:44 Wound Center Nurse 1 #3 left great toe tip -Combined with other wound No -Current Size (cm) - Length 0.3 -Current Size (cm) - Width 0.4 -Current Size (cm) - Depth 0.1 -Total Square Cm 0.12 -Date of Last Picture (Recall this 03/06/22 field) -Photo Taken Yes -Epithelialization None Present -Tunneling No -Undermining/Tunneling No -Circular Undermining No -Exudate Amt None Present -Wound Margin Flat & Intact -Granulation Amt None Present (0 %) -Granulation Quality N/A -Slough/Fibrin Yes -Necrosis Amt Large (67-100%) -Necrotic Tissue Type Adherent Slough -Structure Exposed N/A -Texture (Rosanna-wound Skin Appearance) Assessed,Callus -Moisture (Rosanna-wound Skin Appearance) Assessed,Dry/ Scaly -Color (Rosanna-wound Skin Appearance) Assessed -Temperature (Rosanna-wound Skin No Abnormality Appearance) (Pt Warm) -Ulcer Cleansing Soap and Water -Foul Odor after Cleansing No -Anesthetic Used 5% Lidocaine Gel #2 right heel plantar -Combined with other wound No No -Current Size (cm) - Length 2.0 1 0.8 -Current Size (cm) - Width 1.0 1.5 1 -Current Size (cm) - Depth 0.5 0.5 0.4 -Total Square Cm 2.00 1.5 0.8 -Date of Last Picture (Recall this 03/27/22 field) -Photo Taken No Yes -Epithelialization None Present None Present -Tunneling No No -Undermining/Tunneling No No -Circular Undermining No -Exudate Amt Medium Medium Large -Exudate Type Serosanguineous Serosanguineous Yellow/Green -Wound Margin Distinct, Distinct, Distinct, Outline Outline Outline Attached Attached Attached -Granulation Amt Small (1-33%) None Present (0 None Present (0 %) %) -Granulation Quality Pale N/A -Slough/Fibrin Yes -Necrosis Amt Large (67-100%) Large (67-100%) Large (67-100%) -Necrotic Tissue Type Adherent Slough Adherent Slough Adherent Slough -Structure Exposed N/A N/A -Texture (Rosanna-wound Skin Appearance) Assessed,Callus Assessed, No Abnormality, Scarring Assessed -Moisture (Rosanna-wound Skin Appearance) Assessed,Dry/ No Abnormality, No Abnormality, Scaly Assessed Assessed -Color (Rosanna-wound Skin Appearance) Assessed No Abnormality, No Abnormality, Assessed Assessed -Temperature (Rosanna-wound Skin No Abnormality No Abnormality No Abnormality Appearance) (Pt Warm) (Pt Warm) (Pt Warm) -Tenderness on Palpation (Rosanna-wound No No No Skin Appearance) -Ulcer Cleansing Soap and Water Rinsed/ Rinsed/ Irrigated with Irrigated with Saline Saline -Foul Odor after Cleansing No No No -Anesthetic Used 5% Lidocaine 5% Lidocaine 5% Lidocaine Gel Gel Gel # 1 right medial heel -Combined with other wound No No -Current Size (cm) - Length 2.0 1 0.6 -Current Size (cm) - Width 1.4 0.5 0.5 -Current Size (cm) - Depth 0.1 0.2 0.3 -Total Square Cm 2.80 0.5 0.30 -Date of Last Picture (Recall this 03/06/22 field) -Photo Taken Yes No -Epithelialization None Present None Present -Tunneling No No -Undermining/Tunneling No No -Circular Undermining No No -Change in Wound Grade/Stage No -Exudate Amt Medium Medium Medium -Exudate Type Serosanguineous Serosanguineous Serosanguineous -Wound Margin Distinct, Distinct, Outline Outline Attached Attached -Granulation Amt Small (1-33%) None Present (0 None Present (0 %) %) -Granulation Quality Pale N/A -Slough/Fibrin Yes Yes -Necrosis Amt Large (67-100%) Large (67-100%) Large (67-100%) -Necrotic Tissue Type Adherent Slough Adherent Slough Adherent Slough -Structure Exposed N/A N/A -Texture (Rosanna-wound Skin Appearance) No Abnormality, Assessed, No Abnormality, Assessed Scarring Assessed -Moisture (Rosanna-wound Skin Appearance) Assessed,Dry/ No Abnormality, No Abnormality, Scaly Assessed Assessed -Color (Rosanna-wound Skin Appearance) No Abnormality, No Abnormality, No Abnormality, Assessed Assessed Assessed -Temperature (Rosanna-wound Skin No Abnormality No Abnormality No Abnormality Appearance) (Pt Warm) (Pt Warm) (Pt Warm) -Tenderness on Palpation (Rosanna-wound No No No Skin Appearance) -Ulcer Cleansing Soap and Water Rinsed/ Rinsed/ Irrigated with Irrigated with Saline Saline -Foul Odor after Cleansing No No No -Anesthetic Used 5% Lidocaine 5% Lidocaine 5% Lidocaine Gel Gel Gel Lower Limb Edema Present Yes Right Calf (cm) 29.0 27.6 Right Ankle (cm) 18.5 19.5 Right Foot (cm) 30.8 Left Calf (cm) 21.0 WC - Nurse 2 - General Ulcer CM Notes Start: 03/06/22 10:00 Freq: Status: Active Protocol: Activity Type Activity Date Activity User E-sign Co-sign Detail Recorded Client Recorded Date Recorded By Document 03/06/22 10:42 JF [id number] 03/06/22 10:55 Document 03/20/22 11:18 [id number] 03/20/22 11:25 03/06/22 03/20/22 10:42 11:18 Wound Center Nurse 2 #3 left great toe tip -Time 10:42 -Correct Patient Yes No -Correct Side, Site, Position Yes No -Correct Procedure Yes No -Procedure Performed Yes No -Type of Procedure Debridement -Clinical Debridement Subcutaneous -Tissue Removed Subcutaneous -Post Debridement (cm) - Length 0.1 0 -Post Debridement (cm) - Width 0.1 0 -Post Debridement (cm) - Depth 0.1 0 -Total Square (Post) (cm) 0.01 0 -Area of Debridement (cm) - Length 0.1 0 -Area of Debridement (cm) - Width 0.1 0 -Total Square (Area) (cm) 0.01 0 -Tunneling No -Undermining/Tunneling No -Circular Undermining No -Wound/Ulcer Outcome Not Healed Healed- Epithelialized -Ulcer Cleansing Rinsed/ Rinsed/ Irrigated with Irrigated with Saline Saline -Foul Odor after Cleansing No No -Bioengineered Tissue No No -Bleeding Controlled with Pressure -Treatment Response Procedure Tolerated Well -Offloading No -Debridement - Subq, 1st 20sq cm No #2 right heel plantar -Time 10:44 11:19 -Correct Patient Yes Yes -Correct Side, Site, Position Yes Yes -Correct Procedure Yes Yes -Procedure Performed Yes Yes -Type of Procedure Debridement Debridement -Clinical Debridement Subcutaneous Subcutaneous -Tissue Removed Subcutaneous Subcutaneous -Post Debridement (cm) - Length 2 1.1 -Post Debridement (cm) - Width 1.5 1.5 -Post Debridement (cm) - Depth 0.5 0.5 -Total Square (Post) (cm) 3.0 1.65 -Area of Debridement (cm) - Length 2 1.1 -Area of Debridement (cm) - Width 1.5 1.5 -Total Square (Area) (cm) 3.0 1.65 -Tunneling No No -Undermining/Tunneling No No -Circular Undermining No No -Wound/Ulcer Outcome Not Healed Not Healed -Ulcer Cleansing Rinsed/ Rinsed/ Irrigated with Irrigated with Saline Saline -Foul Odor after Cleansing No No -Bioengineered Tissue No No -Bleeding Controlled with Pressure Pressure -Treatment Response Procedure Procedure Tolerated Well Tolerated Well -Offloading Yes Yes -Type of Offloading Knee Walker Camwalker -Assistive Device(s) Cane -Debridement - Subq, 1st 20sq cm Yes No # 1 right medial heel -Time 10:44 11:20 -Correct Patient Yes Yes -Correct Side, Site, Position Yes Yes -Correct Procedure Yes Yes -Procedure Performed Yes Yes -Type of Procedure Debridement Debridement -Clinical Debridement Subcutaneous Subcutaneous -Tissue Removed Subcutaneous Subcutaneous -Post Debridement (cm) - Length 2.1 1.1 -Post Debridement (cm) - Width 1.1 0.5 -Post Debridement (cm) - Depth 1 0.2 -Total Square (Post) (cm) 2.31 0.55 -Area of Debridement (cm) - Length 2.1 1.1 -Area of Debridement (cm) - Width 1.1 0.5 -Total Square (Area) (cm) 2.31 0.55 -Tunneling No No -Undermining/Tunneling No No -Circular Undermining No No -Wound/Ulcer Outcome Not Healed Not Healed -Ulcer Cleansing Rinsed/ Rinsed/ Irrigated with Irrigated with Saline Saline -Foul Odor after Cleansing No No -Bioengineered Tissue No No -Bleeding Controlled with Pressure Pressure -Treatment Response Procedure Procedure Tolerated Well Tolerated Well -Offloading Yes Yes -Type of Offloading Knee Walker Camwalker -Debridement - Subq, 1st 20sq cm No Yes Pain Scale: 0-10 Numeric Is Patient Pain Free? Yes Yes WC - Nurse 3 - General Ulcer D/C NN Start: 03/06/22 10:00 Freq: Status: Active Protocol: Activity Type Activity Date Activity User E-sign Co-sign Detail Recorded Client Recorded Date Recorded By Document 03/20/22 11:36 [facility] [id number] 03/20/22 11:37 [facility] 03/20/22 11:36 Wound Care Nurse 3 #2 right heel plantar -Ulcer Cleansing Rinsed/ Irrigated with Saline -Foul Odor after Cleansing No -Primary Dressing Applied Aquacel AG 4x4 -Other Dressing DRSG PER KR [employer]ILD[employer]ER -Primary Dressing Covered/Secured with Dry Gauze & Roll Gauze, Secured with Tape -Aquacel AG 4x4 1 # 1 right medial heel -Ulcer Cleansing Rinsed/ Irrigated with Saline -Foul Odor after Cleansing No -Primary Dressing Applied Aquacel AG 4x4 -Primary Dressing Covered/Secured with Dry Gauze & Roll Gauze, Secured with Tape,Other -Other Covering DRSG PER KR [employer]CR[employer]E 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 Yes WC - Visit Discharge Discharge Condition Stable Ambulatory Status Ambulatory,Cane Transportation Private Auto Facility Type Home Health Assessment/Plan Assessment/Plan (1) Peripheral vascular disease, unspecified: CODE(S): I73.9 - Peripheral vascular disease, unspecified (2) Non-pressure chronic ulcer of other part of right foot with necrosis of bone: CODE(S): L97.514 - Non-pressure chronic ulcer of other part of right foot with necrosis of bone PLAN: Patient examined evaluated, all findings discussed with patient in detail. Previous radiographs reviewed no evidence of bone involvement, calcified vessels noted. Hospital lab work reviewed no concern for residual systemic infection. Patient off antibiotics no residual signs of infection. To right heel wounds appear to be improved at this time. The wounds to the right heel were excisionally debrided down to including the level of subcutaneous tissue of all nonviable tissue using a 15 blade scalpel without incident. Patient tolerated procedure well. Hemostasis obtained with light compression. No antibiotics indicated. Patient is edema is well controlled we will continue with Tubigrip. Patient taking Glucerna for nutritional supplementation he will continue this. Patient unable to offload with knee scooter. To continue to offload with recently dispensed cam walker and walker. He is doing well so far. Discussed with patient that his poor blood glucose regulation is likely contributing to delayed wound healing formation and that this wound will likely take months to heal and he is at significant risk of loss of limb loss of life. Patient feels that he is terminal due to his renal cell carcinoma and has little motivation to better control his blood glucose. He understands the risks and will proceed at his own discretion. We will continue to observe and attempt wound healing locally on a weekly basis. I answered all his questions.
== END 2022-03-28 23:59 | disposition home or self-care (01) ==
LOC: WC 13:45
PROVIDERS: PCP Family Medicine; Visit Provider Podiatrist
DX: E11.621 Type 2 diabetes mellitus with foot ulcer (principal); E11.51 Type 2 diabetes mellitus with diabetic peripheral angiopathy without gangrene; L97.514 Non-pressure chronic ulcer of other part of right foot with necrosis of bone; J44.9 Chronic obstructive pulmonary disease, unspecified; E78.5 Hyperlipidemia, unspecified; I10 Essential (primary) hypertension; I25.10 Atherosclerotic heart disease of native coronary artery without angina pectoris; Z79.84 Long term (current) use of oral hypoglycemic drugs; Z86.16 Personal history of COVID-19
CPT/HCPCS: 11042; 99213; G0463

== ENCOUNTER → 2022-03-28 | Outpatient (CLI) | payer MEDICARE, MEDICAID, SELFPAY ==
--- NOTE | 2022-03-28 15:00 | CT_ITS ---
STUDY: CT CHEST, ABDOMEN T PELVIS WITH CONTRAST REASON FOR EXAM: Male, 71 years old. F/U METASTATIC KIDNEY CANCER RADIATION DOSAGE (If Supplied By Facility): CTDIvol = ( 15.93 ) mGy, DLP = ( 1586.84 ) mGycm TECHNIQUE: Transaxial imaging was performed following intravenous administration of IV 100mL Isovue-300. Multiplanar coronal and sagittal images were reformatted. Individualized dose optimization techniques were used for this CT. COMPARISON: Comparison is made with prior CT scan of the thorax dated 01/03/2022. Comparison is also made with prior CT scan of the abdomen and pelvis dated 11/30/2021. FINDINGS: CHEST There is evidence of emphysematous change. There is evidence of bronchiectasis and infiltration on the medial aspect of the right upper lobe, right middle lobe and superior segment of the right lower lobe. There is evidence of a 3 cm x 2.6 cm nodule at the right lung base with an air-fluid level. This was not seen on prior study. Stable scarring at the left lung base as well as a 6 mm noncalcified nodule in the peripheral lateral aspect of the left lower lobe as seen on axial image #80. There is no demonstrated pleural abnormality. There are calcifications of the coronary arteries. There are multiple small lymph nodes within the mediastinum, which are normal in size and morphology most compatible with reactive lymph hyperplasia. There is a 4 cm x 2.7 cm right perihilar mass. This extends into the right infrahilar region. Normal unenhanced pulmonary arteries. Normal aorta arch and descending thoracic aorta. There are multi-level degenerative changes of the thoracic spine. ABDOMEN Normal liver. Normal gallbladder and extrahepatic biliary system. Normal spleen. Normal pancreas. There is a 2.5 cm necrotic mass in the left adrenal gland. 1.3 cm heterogeneous nodule in the right adrenal gland. These have decreased slightly in size as compared to prior study. Normal right kidney. There is a 3.6 cm x 4 cm heterogeneous enhancing mass in the anterior midportion and lower aspects of the left kidney. Normal visualized stomach. Normal small intestine. There are multiple colonic diverticula consistent with diverticulosis. The appendix is visualized and appears normal. There is diffuse atherosclerotic calcification of the abdominal aorta, without a demonstrated aneurysm. Normal inferior vena cava. Normal retroperitoneum. Normal abdominal wall. There are diffuse degenerative changes of the visualized lumbar spine. PELVIS Normal urinary bladder. There is no pelvic fluid. There is no pelvic lymphadenopathy or mass lesion. There is diffuse atherosclerotic calcification of the pelvic arteries. CT/CT Chest, Abd, Pel w/Contrast IMPRESSION: Persistent bronchiectasis involving the medial aspect of the right upper lobe, right middle lobe and right lower lobe with a 3 cm x 2.6 cm nodule in the right lung base with an air-fluid level. Right hilar mass. Slight decrease in size of the adrenal nodules. Left renal mass. This is essentially unchanged. Electronically Signed: Anam Washington MD at 15:23 EDT ,
== END | disposition home or self-care (01) ==
LOC: CT 14:29
PROVIDERS: PCP Family Medicine; Visit Provider Internal Medicine Hematology & Oncology
DX: C64.2 Malignant neoplasm of left kidney, except renal pelvis (principal)
CPT/HCPCS: 71260; 74177; Q9967

== ENCOUNTER 2022-04-03 12:58 | Outpatient (RCR) | payer MEDICARE, MEDICAID, SELFPAY ==
[2022-03-29 00:05] VITALS: BP 111/76; PULSE 111; RESP 20; TEMP 36.2; BMI 21.7
[2022-04-03 13:06] VITALS: BP 131/93; PULSE 113; RESP 17; TEMP 36.1; BMI 21.7
--- NOTE | 2022-04-03 14:53 | PN.PCM_ITS ---
History of Present Illness Date of Service: 03/27/22 Chief Complaint: right heel ulcers History of Wound: This 71-year-old male presents with a chronic right heel ulceration in setting of poorly controlled type 2 diabetes as well as metastasized renal cell carcinoma. Patient denies constitutional. Patient notes improvement at this time. Patient has no signs or symptoms of DVT. He has been better offloading this past week with use of Cam walker with offloading layers. However he uses his surgical shoe at home and just tries to walk on his heel. It is difficult for him to use his cam walker all day at home due to the size. He uses his walker. Progress of Wound: improving Objective Data Objective Data Vital Signs: Vital Signs Temp Pulse Resp BP 97.0 F L 113 H 17 131/93 H 04/03/22 13:06 04/03/22 13:06 04/03/22 13:06 04/03/22 13:06 Weight: 74.843 kg Body Mass Index (BMI) 21.7 Physical Exam Narrative Vascular: Dorsalis pedis posterior tibial pulses palpable 2 out of 4. No edema noted bilaterally. Some atrophic skin changes noted. Neurologic: Light touch protective sensation absent to bilateral feet. Dermatologic: Full-thickness wound noted to the plantar heel as well as the medial ankle these wounds communicate upon probing. These probes down to the level of the calcaneus. There is mild periwound erythema at this time. Mild warmth. No gross discharge. No other signs of infection. No crepitus or fluctuance to the periwound areas. Musculoskeletal: Muscular strength full to bilateral lower extremity compartments no gross deformities. No pain with calf squeeze or palpation of popliteal fossa. Const alert and oriented x3 Debridement Note Debridement Note Wound debrided: plantar posterior heel and medial heel Wound Grade/Stage: 2 Type of Debridement: Excisional debridement Anesthesia Used: 4% Lidocaine Solution Depth: in the subcutaneous layer Percentage of wound debrided: 100 Instrument Used: #15 blade Tissue Removed: fibrous, devitalized subcutaneous, biofilm, slough Severity: Fat Layer Exposed Amount of bleeding with debridement: Mild Bleeding Controlled with: Pressure Patient tolerated procedure: Patient tolerated procedure well Post-Debridement Measurements and Additional Note: Post-Debridement Measurements/Treatment DESTINY - Nurse 1 - General Ulcer Assessment Start: 04/03/22 13:06 Freq: Status: Active Protocol: WC.LOWEXT Activity Type Activity Date Activity User E-sign Co-sign Detail Recorded Client Recorded Date Recorded By Document 04/03/22 13:06 [id number] 04/03/22 13:15 ML 04/03/22 13:06 - Today's Visit Information Type of service Follow-up Visit (Physician/NETWORK DESIGNER ) Arrival Mode Walker Transfer Assistance None Patient Identification Verified (Name & Yes ) Patient Requires Transmission-Based No Precautions Safety Precautions NA Height and Weight Body Mass Index (BMI) 21.7 BMI Classification Normal Vital Signs Temperature (97.8 F-99.1 F) 97.0 F L Temperature Source Temporal Pulse Rate (60-100) 113 H Pulse Location Monitor Respiratory Rate (12-18) 17 Respiratory rate source Observation Blood Pressure (90/60-120/80) 131/93 H Blood Pressure Mean (mm Hg) 105 Source Monitor Position Sitting Blood Pressure Location Left Arm History Since Last Visit- (Skip if this is Patient's initial visit) Have you changed medications since your No last visit? Any new allergies or adverse reactions No Had a fall/change in ADL's that may No increase risk of falls Signs or symptoms of abuse and/or No neglect since last visit Have you been in the hospital since your No last visit? Has dressing in place as prescribed No Has compression in place as prescribed N/A Has offloadiing in place as prescribed N/A Experienced any changes in pain level or No management Left Footwear Regular Shoe Right Footwear Regular Shoe Pain Scale: 0-10 Numeric Is Patient Pain Free? Yes - Nurse 1 - General Ulcer Measurement Start: 04/03/22 13:06 Freq: Status: Active Protocol: Activity Type Activity Date Activity User E-sign Co-sign Detail Recorded Client Recorded Date Recorded By Document 04/03/22 13:06 ML [id number] 04/03/22 13:15 ML 04/03/22 13:06 Wound Center Nurse 1 #2 right heel plantar -Current Size (cm) - Length 1 -Current Size (cm) - Width 1 -Current Size (cm) - Depth 0.5 -Total Square Cm 1 -Circular Undermining Yes -Exudate Amt Medium -Exudate Type Purulent -Wound Margin Distinct, Outline Attached -Granulation Amt Medium (34-66%) -Granulation Quality Pale,[employer] -Slough/Fibrin Yes -Necrosis Amt Medium (34-66%) -Necrotic Tissue Type Adherent Slough -Texture (Rosanna-wound Skin Appearance) Assessed -Moisture (Rosanna-wound Skin Appearance) Assessed -Color (Rosanna-wound Skin Appearance) Assessed -Temperature (Rosanna-wound Skin No Abnormality Appearance) (Pt Warm) -Tenderness on Palpation (Rosanna-wound No Skin Appearance) -Ulcer Cleansing Rinsed/ Irrigated with Saline -Foul Odor after Cleansing No -Anesthetic Used 4% Lidocaine Solution # 1 right medial heel -Current Size (cm) - Length 0.4 -Current Size (cm) - Width 0.3 -Current Size (cm) - Depth 0.1 -Total Square Cm 0.12 -Exudate Amt Small -Exudate Type Serosanguineous -Wound Margin Distinct, Outline Attached -Granulation Amt Medium (34-66%) -Granulation Quality Pale,[employer] -Slough/Fibrin Yes -Necrosis Amt Small (1-33%) -Necrotic Tissue Type Adherent Slough -Texture (Rosanna-wound Skin Appearance) Assessed -Moisture (Rosanna-wound Skin Appearance) Assessed -Color (Rosanna-wound Skin Appearance) Assessed -Temperature (Rosanna-wound Skin No Abnormality Appearance) (Pt Warm) -Tenderness on Palpation (Rosanna-wound No Skin Appearance) -Ulcer Cleansing Rinsed/ Irrigated with Saline -Foul Odor after Cleansing No -Anesthetic Used 4% Lidocaine Solution WC - Nurse 2 - General Ulcer CM Notes Start: 04/03/22 13:06 Freq: Status: Active Protocol: Activity Type Activity Date Activity User E-sign Co-sign Detail Recorded Client Recorded Date Recorded By Document 04/03/22 13:33 MARI [id number] 04/03/22 13:34 PL 04/03/22 13:33 Wound Center Nurse 2 #2 right heel plantar -Time 19:19 -Correct Patient Yes -Correct Side, Site, Position Yes -Correct Procedure Yes -Procedure Performed Yes -Type of Procedure Debridement -Clinical Debridement Subcutaneous -Tissue Removed Subcutaneous -Post Debridement (cm) - Length 1.0 -Post Debridement (cm) - Width 1.0 -Post Debridement (cm) - Depth 0.5 -Total Square (Post) (cm) 1.00 -Area of Debridement (cm) - Length 1.0 -Area of Debridement (cm) - Width 1.0 -Total Square (Area) (cm) 1.00 -Tunneling No -Undermining/Tunneling No -Circular Undermining No -Wound/Ulcer Outcome Not Healed -Ulcer Cleansing Rinsed/ Irrigated with Saline -Foul Odor after Cleansing No -Bioengineered Tissue No -Bleeding Controlled with Pressure -Treatment Response Procedure Tolerated Well -Debridement - Subq, 1st 20sq cm Yes # 1 right medial heel -Time 13:19 -Correct Patient Yes -Correct Side, Site, Position Yes -Correct Procedure Yes -Procedure Performed Yes -Type of Procedure Debridement -Clinical Debridement Subcutaneous -Tissue Removed Subcutaneous -Post Debridement (cm) - Length 0.4 -Post Debridement (cm) - Width 0.3 -Post Debridement (cm) - Depth 0.1 -Total Square (Post) (cm) 0.12 -Area of Debridement (cm) - Length 0.4 -Area of Debridement (cm) - Width 0.3 -Total Square (Area) (cm) 0.12 -Tunneling No -Undermining/Tunneling No -Circular Undermining No -Wound/Ulcer Outcome Not Healed -Ulcer Cleansing Rinsed/ Irrigated with Saline -Foul Odor after Cleansing No -Bioengineered Tissue No -Bleeding Controlled with Pressure -Treatment Response Procedure Tolerated Well -Debridement - Subq, 1st 20sq cm No Pain Scale: 0-10 Numeric Is Patient Pain Free? Yes WC - Nurse 3 - General Ulcer D/C NN Start: 04/03/22 13:06 Freq: Status: Active Protocol: Activity Type Activity Date Activity User E-sign Co-sign Detail Recorded Client Recorded Date Recorded By Document 04/03/22 13:33 ML [id number] 04/03/22 13:34 ML 04/03/22 13:33 Wound Care Nurse 3 #2 right heel plantar -Ulcer Cleansing Rinsed/ Irrigated with Saline -Primary Dressing Applied Aquacel AG 4x4 -Primary Dressing Covered/Secured with Dry Gauze & Roll Gauze, Secured with Tape -Aquacel AG 4x4 0 # 1 right medial heel -Ulcer Cleansing Rinsed/ Irrigated with Saline -Primary Dressing Applied Aquacel AG 4x4 -Primary Dressing Covered/Secured with Dry Gauze & Roll Gauze, Secured with Tape -Aquacel AG 4x4 0 Pain Scale: 0-10 Numeric Is Patient Pain Free? Yes Assessment/Plan Assessment/Plan (1) Peripheral vascular disease, unspecified: CODE(S): I73.9 - Peripheral vascular disease, unspecified (2) Non-pressure chronic ulcer of other part of right foot with necrosis of bone: CODE(S): L97.514 - Non-pressure chronic ulcer of other part of right foot with necrosis of bone PLAN: Patient examined evaluated, all findings discussed with patient in detail. Previous radiographs reviewed no evidence of bone involvement, calcified vessels noted. To change dressing daily with aquacell ag and wash with antibacterial soap and water. Hospital lab work reviewed no concern for residual systemic infection. Patient off antibiotics no residual signs of infection. To right heel wounds appear to be improved at this time. The wounds to the right heel were excisionally debrided down to including the level of subcutaneous tissue of all nonviable tissue using a 15 blade scalpel without incident. Patient tolerated procedure well. Hemostasis obtained with light compression. No antibiotics indicated. Patient is edema is well controlled we will continue with Tubigrip. Patient taking Glucerna for nutritional supplementation he will continue this. Patient unable to offload with knee scooter. To continue to offload with rece ntly dispensed cam walker and walker. He is doing well so far. Discussed with patient that his poor blood glucose regulation is likely contributing to delayed wound healing formation and that this wound will likely take months to heal and he is at significant risk of loss of limb loss of life. Patient feels that he is terminal due to his renal cell carcinoma and has little motivation to better control his blood glucose. He understands the risks and will proceed at his own discretion. We will continue to observe and attempt wound healing locally on a weekly basis. I answered all his questions.
== END 2022-04-27 23:59 | disposition home or self-care (01) ==
LOC: WC 12:58
PROVIDERS: PCP Family Medicine; Visit Provider Podiatrist
DX: E11.621 Type 2 diabetes mellitus with foot ulcer (principal); C79.9 Secondary malignant neoplasm of unspecified site; E11.51 Type 2 diabetes mellitus with diabetic peripheral angiopathy without gangrene; L97.412 Non-pressure chronic ulcer of right heel and midfoot with fat layer exposed; C64.9 Malignant neoplasm of unspecified kidney, except renal pelvis
CPT/HCPCS: 11042

== ENCOUNTER 2022-05-08 10:40 | Outpatient (RCR) | payer MEDICARE, MEDICAID, SELFPAY ==
[2022-04-28 00:30] VITALS: BP 131/93; PULSE 113; RESP 17; TEMP 36.1; BMI 21.7
[2022-05-08 11:03] VITALS: BP 119/90; PULSE 80; RESP 18; TEMP 36.2; BMI 21.7
--- NOTE | 2022-05-08 12:02 | PCM.WC.PN ---
History of Present Illness Date of Service: 05/08/22 Chief Complaint: right heel ulcers History of Wound: This 71-year-old male presents with a chronic right heel ulceration in setting of poorly controlled type 2 diabetes as well as metastasized renal cell carcinoma. Patient received chemo. 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 Previously patient was unable to maintain a nonweightbearing status as he has to traverse multiple doctors appointments and lives alone. Patient refused home health care dressing changes and kicked him out of his house. Patient has been self treating his wound for the past month. Patient denies any wounds worsening to his wound and has no constitutional symptoms. Patient does note some recent weight loss. Objective Data Objective Data Vital Signs: Vital Signs Temp Pulse Resp BP O2 Del Method 97.2 F L 80 18 119/90 H Room Air 05/08/22 11:03 05/08/22 11:03 05/08/22 11:03 05/08/22 11:03 05/08/22 11:03 Oxygen Delivery Method Room Air Weight: 74.843 kg Body Mass Index (BMI) 21.7 Physical Exam Narrative Vascular: Dorsalis pedis posterior tibial pulses palpable 2 out of 4. No edema noted bilaterally. Some atrophic skin changes noted. Neurologic: Light touch protective sensation absent to bilateral feet. Dermatologic: Full-thickness wound noted to the plantar heel as well as the medial ankle these wounds communicate upon probing. These probes down to the level of the calcaneus. There is mild periwound erythema at this time. Mild warmth. No gross discharge. No other signs of infection. No crepitus or fluctuance to the periwound areas. Musculoskeletal: Muscular strength full to bilateral lower extremity compartments no gross deformities. No pain with calf squeeze or palpation of popliteal fossa. Const alert and oriented x3 Debridement Note Debridement Note Post-Debridement Measurements and Additional Note: Post-Debridement Measurements/Treatment - Nurse 1 - General Ulcer Assessment Start: 05/08/22 11:01 Freq: Status: Active Protocol: ROSCOE Activity Type Activity Date Activity User E-sign Co-sign Detail Recorded Client Recorded Date Recorded By Document 05/08/22 11:03 [facility] [id number] 05/08/22 11:15 [facility] 05/08/22 11:03 - Today's Visit Information Type of service Follow-up Visit (Physician/VINE PRUNER ) Arrival Mode Ambulatory, Walker Transfer Assistance None Patient Identification Verified (Name & Yes ) Patient Requires Transmission-Based No Precautions Height and Weight Body Mass Index (BMI) 21.7 BMI Classification Normal Vital Signs Temperature (97.8 F-99.1 F) 97.2 F L Temperature Source Temporal Pulse Rate (60-100) 80 Pulse Location Radial Respiratory Rate (12-18) 18 Respiratory rate source Observation Oxygen Delivery Method Room Air Blood Pressure (90/60-120/80) 119/90 H Blood Pressure Mean (mm Hg) 99 Source Monitor Position Sitting Blood Pressure Location Left Arm History Since Last Visit- (Skip if this is Patient's initial visit) Have you changed medications since your No last visit? Any new allergies or adverse reactions No Had a fall/change in ADL's that may No increase risk of falls Signs or symptoms of abuse and/or No neglect since last visit Have you been in the hospital since your No last visit? Has dressing in place as prescribed Yes Has offloadiing in place as prescribed Yes Experienced any changes in pain level or No management Left Footwear Regular Shoe Right Footwear Removable Cast Walker/Walking Boot Pain Scale: 0-10 Numeric Is Patient Pain Free? Yes WC - Nurse 1 - General Ulcer Measurement Start: 05/08/22 11:01 Freq: Status: Active Protocol: Activity Type Activity Date Activity User E-sign Co-sign Detail Recorded Client Recorded Date Recorded By Document 05/08/22 11:03 [facility] [id number] 05/08/22 11:15 [facility] 05/08/22 11:03 Wound Center Nurse 1 #2 right heel plantar -Combined with other wound No -Current Size (cm) - Length 0.6 -Current Size (cm) - Width 1.2 -Current Size (cm) - Depth 0.3 -Total Square Cm 0.72 -Date of Last Picture (Recall this 05/08/22 field) -Photo Taken Yes -Epithelialization None Present -Tunneling No -Undermining/Tunneling Yes -Undermining/Tunneling Starts (O'clock 3 ) -Undermining/Tunneling Ends (O'clock) 9 -Maximum Distance (cm) 0.4 -Circular Undermining No -Exudate Amt Medium -Exudate Type Serosanguineous -Wound Margin Distinct, Outline Attached -Granulation Amt Large (67-100%) -Granulation Quality Red -Slough/Fibrin Yes -Necrosis Amt Small (1-33%) -Necrotic Tissue Type Adherent Slough -Texture (Rosanna-wound Skin Appearance) Assessed, Scarring -Moisture (Rosanna-wound Skin Appearance) Assessed -Color (Rosanna-wound Skin Appearance) Assessed -Temperature (Rosanna-wound Skin No Abnormality Appearance) (Pt Warm) -Tenderness on Palpation (Rosanna-wound No Skin Appearance) -Ulcer Cleansing Rinsed/ Irrigated with Saline -Foul Odor after Cleansing No -Anesthetic Used 5% Lidocaine Gel # 1 right medial heel -Combined with other wound No -Current Size (cm) - Length 0.6 -Current Size (cm) - Width 0.6 -Current Size (cm) - Depth 0.3 -Total Square Cm 0.36 -Date of Last Picture (Recall this 05/08/22 field) -Photo Taken Yes -Epithelialization None Present -Tunneling No -Undermining/Tunneling No -Circular Undermining No -Exudate Amt Small -Exudate Type Serous -Wound Margin Distinct, Outline Attached -Granulation Amt None Present (0 %) -Slough/Fibrin Yes -Necrosis Amt Large (67-100%) -Necrotic Tissue Type Adherent Slough -Texture (Rosanna-wound Skin Appearance) Assessed, Scarring -Moisture (Rosanna-wound Skin Appearance) Assessed -Color (Rosanna-wound Skin Appearance) Assessed, Erythema -Temperature (Rosanna-wound Skin No Abnormality Appearance) (Pt Warm) -Tenderness on Palpation (Rosanna-wound No Skin Appearance) -Ulcer Cleansing Rinsed/ Irrigated with Saline -Foul Odor after Cleansing No -Anesthetic Used 5% Lidocaine Gel WC - Nurse 2 - General Ulcer CM Notes Start: 05/08/22 11:01 Freq: Status: Active Protocol: Activity Type Activity Date Activity User E-sign Co-sign Detail Recorded Client Recorded Date Recorded By Document 05/08/22 11:31 SOFYA [id number] 05/08/22 11:33 SOFYA Edit Result 05/08/22 11:31 JF (1) [id number] 05/08/22 11:36 JF (1) # 1 right medial heel - Post Debridement (cm) - Depth 0.5 => 0.7 05/08/22 11:31 Wound Center Nurse 2 #2 right heel plantar -Time 11:32 -Correct Patient Yes -Correct Side, Site, Position Yes -Correct Procedure Yes -Procedure Performed Yes -Type of Procedure Debridement -Clinical Debridement Subcutaneous -Tissue Removed Subcutaneous -Post Debridement (cm) - Length 0.6 -Post Debridement (cm) - Width 1.3 -Post Debridement (cm) - Depth 0.3 -Total Square (Post) (cm) 0.78 -Area of Debridement (cm) - Length 0.6 -Area of Debridement (cm) - Width 1.3 -Total Square (Area) (cm) 0.78 -Tunneling No -Undermining/Tunneling No -Circular Undermining No -Wound/Ulcer Outcome Not Healed -Ulcer Cleansing Rinsed/ Irrigated with Saline -Foul Odor after Cleansing No -Bioengineered Tissue No -Bleeding Controlled with Pressure -Treatment Response Procedure Tolerated Well -Offloading Yes -Type of Offloading Surgical Shoe -Debridement - Subq, 1st 20sq cm Yes # 1 right medial heel -Time 11:32 -Correct Patient Yes -Correct Side, Site, Position Yes -Correct Procedure Yes -Procedure Performed Yes -Type of Procedure Debridement -Clinical Debridement Subcutaneous -Tissue Removed Subcutaneous -Post Debridement (cm) - Length 0.6 -Post Debridement (cm) - Width 0.6 -Post Debridement (cm) - Depth 0.7 -Total Square (Post) (cm) 0.36 -Area of Debridement (cm) - Length 0.6 -Area of Debridement (cm) - Width 0.6 -Total Square (Area) (cm) 0.36 -Tunneling No -Undermining/Tunneling No -Circular Undermining No -Wound/Ulcer Outcome Not Healed -Ulcer Cleansing Rinsed/ Irrigated with Saline -Foul Odor after Cleansing No -Bioengineered Tissue No -Bleeding Controlled with Pressure -Treatment Response Procedure Tolerated Well -Offloading Yes -Type of Offloading Surgical Shoe -Debridement - Subq, 1st 20sq cm No Pain Scale: 0-10 Numeric Is Patient Pain Free? Yes WC - Nurse 3 - General Ulcer D/C NN Start: 05/08/22 11:01 Freq: Status: Active Protocol: Activity Type Activity Date Activity User E-sign Co-sign Detail Recorded Client Recorded Date Recorded By Document 05/08/22 11:42 [facility] [id number] 05/08/22 11:43 BMF 05/08/22 11:42 Wound Care Nurse 3 #2 right heel plantar -Ulcer Cleansing Rinsed/ Irrigated with Saline -Foul Odor after Cleansing No -Primary Dressing Applied Aquacel AG 2x2 -Other Dressing DRSG PER MW RN -Primary Dressing Covered/Secured with Dry Gauze & Roll Gauze, Secured with Tape -Other Covering HEEL HAT -Aquacel AG 2x2 1 # 1 right medial heel -Ulcer Cleansing Rinsed/ Irrigated with Saline -Foul Odor after Cleansing No -Primary Dressing Applied Aquacel AG 2x2 -Other Dressing DRSG PER MW RN -Primary Dressing Covered/Secured with Dry Gauze & Roll Gauze, Secured with Tape -Other Covering HEEL HAT -Aquacel AG 2x2 0 Treatment Response Procedure Tolerated Well Pain Scale: 0-10 Numeric Is Patient Pain Free? Yes WC - Visit Discharge Discharge Condition Stable Ambulatory Status Ambulatory, Walker Transportation [facility] Type Home Health Assessment/Plan Assessment/Plan (1) Peripheral vascular disease, unspecified: CODE(S): I73.9 - Peripheral vascular disease, unspecified (2) Non-pressure chronic ulcer of other part of right foot with necrosis of bone: CODE(S): L97.514 - Non-pressure chronic ulcer of other part of right foot with necrosis of bone PLAN: Patient examined evaluated, all findings discussed with patient in detail. Previous radiographs reviewed no evidence of bone involvement, calcified vessels noted. To change dressing daily with aquacell ag and wash with antibacterial soap and water. Hospital lab work reviewed no concern for residual systemic infection. Patient off antibiotics no residual signs of infection. To right heel wounds unchanged at this time. The wounds to the right heel were excisionally debrided down to including the level of subcutaneous tissue of all nonviable tissue using a 15 blade scalpel without incident. Patient tolerated procedure well. Hemostasis obtained with light compression. No antibiotics indicated. Patient is edema is well controlled we will continue with Tubigrip. Patient taking Glucerna for nutritional supplementation he will continue this. Patient unable to offload with knee scooter. To continue to offload with recently dispensed cam walker and walker. He is doing well so far. Discussed with patient that his poor blood glucose regulation is likely contributing to delayed wound healing formation and that this wound will likely take months to heal and he is at significant risk of loss of limb loss of life. Patient feels that he is terminal due to his renal cell carcinoma and has little motivation to better control his blood glucose. He understands the risks and will proceed at his own discretion. We will continue to observe and attempt wound healing locally on a weekly basis. I answered all his questions. Patient has terminal renal cell carcinoma. Wound is of bizarre origin. Does not appear to be arterial or pressure base. We will consider biopsying the heel wound to rule out any metastasized renal cell carcinoma. At this time patient will continue conservative treatment including daily cleansing of the wound site with dressing with silver alginate and DSD. Patient will follow up in 2 weeks for biopsy.
== END 2022-05-28 23:59 | disposition home or self-care (01) ==
LOC: WC 10:40
PROVIDERS: PCP Family Medicine; Visit Provider Podiatrist
DX: E11.621 Type 2 diabetes mellitus with foot ulcer (principal); E11.51 Type 2 diabetes mellitus with diabetic peripheral angiopathy without gangrene; L97.514 Non-pressure chronic ulcer of other part of right foot with necrosis of bone; C64.9 Malignant neoplasm of unspecified kidney, except renal pelvis; I73.9 Peripheral vascular disease, unspecified; Z92.21 Personal history of antineoplastic chemotherapy
CPT/HCPCS: 11042

== ENCOUNTER 2022-05-10 14:24 | Inpatient (IN) | payer MEDICARE, MEDICAID, SELFPAY ==
[2022-05-10 14:25] VITALS: BP 107/82; PULSE 64; RESP 18; TEMP 35.6; O2SAT 98; BMI 19.2
[2022-05-10 15:04] LABS: Absolute Lymphocyte Count 3.26 X10^3/uL (0.83-4.51); Absolute Neutrophil Count 4.6 X10^3/uL (2.0-7.7); Basophil# 0.06 X10^3/uL; Basophil% 0.7 % (0-1); Eosinophil# 0.24 X10^3/uL; Eosinophils% 2.7 % (0-5); Hematocrit 43.9 % (40-54); Hemoglobin 14.1 g/dL (13.0-16.5); Lymphocyte # 3.26 X10^3/ul (0.83-4.51); Lymphocyte % 37.2 % (19-41); Mean Corp Hgb Conc 32.1 g/dL (32-36); Mean Corpuscular Hgb 28.8 pg (27.0-32.0); Mean Corpuscular Volume 89.6 fL (80-94); Mean Platelet Vol. 9.4 fl (6.2-12.0); Monocyte# 0.56 X10^3/uL; Monocyte% 6.4 % (0-10); NRBC Flagged by Analyzer 0 % (0-5); Neutrophil # 4.63 X10^3/uL (2.7-7.7); Neutrophil % 52.8 % (47-70); Platelet Count 447 K/mm3 (150-450); RBC Distribution Width CV 18.8 % (11.6-14.6); White Blood Count 8.8 K/mm3 (4.4-11.0)
--- NOTE | 2022-05-10 15:15 | RAD_ITS ---
STUDY: X-RAY CHEST REASON FOR EXAM: Male, 71 years old. WEAKNESS TECHNIQUE: Single AP portable view of the chest. COMPARISON: Comparison is made with prior examination dated 01/31/2022. FINDINGS: EKG electrodes are seen. There now is evidence of a loculated pneumothorax in the mid and inferior lateral aspect of the right lung. The previously seen post radiation fibrotic changes in the right parahilar region have improved. Normal size heart. Normal mediastinum and oliva. Normal visualized pulmonary arteries. There is atherosclerotic calcification of the aortic arch with tortuosity. There are diffuse degenerative changes of the visualized thoracic spine. There is degenerative osteoarthritis of the bilateral shoulders. There is no demonstrated abnormality of the visualized soft tissue structures of the upper abdomen. RAD/Chest 1 View (Portable) IMPRESSION: New focal loculated pneumothorax in the mid and lower aspect of the lateral portion of the right lung. Electronically Signed: Anam Washington MD at 15:40 EDT ,
[2022-05-10 15:20] LABS: ALB/GLOB Ratio 0.4 RATIO (0.9-2.4); AST(SGOT) 32 U/L (15-37); Alanine Aminotransfer ALT/SGPT 32 U/L (16-61); Albumin, Serum 2.8 g/dL (3.2-5.0); Alkaline Phosphatase 121 U/L (45-117); Anion Gap 10 (5-15); BUN 15 mg/dL (7-18); BUN/Creat Ratio 12.9 RATIO (10-20); Calcium,Total 10.2 mg/dL (8.5-10.1); Chloride 97 mmol/L (98-107); Creatinine, Serum 1.16 mg/dL (0.70-1.30); EST Glomerular Filtration Rate 65 mL/min (>60); Est Glom Filt Rate - Afr Amer 79 mL/min (>60); Estimated Creatinine Clearance 53.13 ml/min; Globulin 6.3 g/dL (2.2-4.2); Glucose 229 mg/dL (74-106); Potassium 4.3 mmol/L (3.5-5.1); Protein, Total 9.1 g/dL (6.4-8.2); Sodium Level 134 mmol/L (136-145)
[2022-05-10 16:24] VITALS: BP 105/77; PULSE 105; RESP 18; O2SAT 96
--- NOTE | 2022-05-10 16:30 | CT_ITS ---
EXAM: CT HEAD WITHOUT AND WITH INTRAVENOUS CONTRAST CLINICAL INDICATION: ataxia, metastatic cancer TECHNIQUE: Multiple axial images were obtained of the head without and with intravenous contrast. This CT exam was performed using one or more of the following dose reduction techniques: automated exposure control, adjustment of the mA and/or kV according to patient size, and/or use of iterative reconstruction technique. This report was created using [employer] report generation technology. CONTRAST: IV 50mL [id number]-370 RADIATION DOSE: CTDIvol = 44.99 mGy, DLP = 1682.21 mGy-cm COMPARISON: 10/01/2019 FINDINGS: BRAIN AND EXTRA-AXIAL SPACES: Low density regions in the brain may signify early microvascular ischemic changes, a demyelinating process, vasculitis, or sequela related to migraines. No intra- or extra-axial hemorrhage. No intracranial mass or mass effect. Posterior fossa structures are unremarkable. Ventricles are appropriate for age. No hydrocephalus. Basal cisterns are patent. BONES/JOINTS: Unremarkable. No discrete lytic or blastic abnormalities. SINUSES: There is sinus disease. MASTOID AIR CELLS: Unremarkable. Clear. ORBITS: Visualized globes, extraocular muscles, optic nerves and retrobulbar fat appear unremarkable. CT/Brain/Head W/WO Contrast IMPRESSION: Chronic microvascular ischemic changes. No evidence for metastatic disease to the brain. Electronically Signed: Jaime Bernstein MD at 17:52 EDT ,
--- NOTE | 2022-05-10 16:34 | EX.ED.DYSGE1 ---
HPI History of Present Illness Chief Complaint: Weakness Informant: patient Narrative Narrative: Patient presenting for several reasons. He has metastatic renal cell carcinoma to the lung, stage IV, treated with oral chemotherapy for the past 1.5 years almost[address] Puente for oncology. He has had cough with occasional sputum production and dyspnea for the past month or 2, he was admitted to the hospital for it. Since his hospital visit, he has been having painful respirations in the right lower chest. He also has felt very weak for the past month or more, he attributes this to a couple of different things, he is off balance feeling like he is going to fall whenever he stands or walks, he needs to hold onto things just to get around his apartment, he is able to stand, but his appetite and food intake have been extremely poor. He has been drinking fluids. He has been drinking Glucerna shakes to try to augment his nutrition, but he has significant trouble eating simply due to appetite. He does occasionally have nausea but that does not seem to be limiting his food intake, nor does his ability to swallow. [facility] Medical History Asthma Atherosclerotic heart disease of kaw coronary artery without angina pectoris Cancer Chest pain Clear cell carcinoma of left kidney COPD (chronic obstructive pulmonary disease) COVID-19 (05/2020) Debility Diabetes Diabetes Essential hypertension Former smoker Full dentures GERD (gastroesophageal reflux disease) Hearing loss, left Hearing loss, right Hemoptysis Hiatal hernia History of non-ST elevation myocardial infarction (NSTEMI) (08/30/04) Hyperlipidemia Hypertension Hypokalemia Injury of head and neck Lung mass Metastasis to adrenal gland Metastatic renal cell carcinoma to lung Non-smoker Paresthesias in left hand Psoriasis Sleep apnea Syncope Wears glasses Home Medications metformin 1,000 mg 24 hr tablet,extended release 1,000 mg PO BID diabetes 05/10/16 [History Last Taken 2 Days Ago ~05/08/22] simvastatin 40 mg tablet 40 mg PO QHS cholesterol 05/10/16 [History Last Taken 2 Days Ago ~05/08/22] tamsulosin 0.4 mg capsule 0.4 mg PO QHS prostate 10/01/19 [History Last Taken 2 Days Ago ~05/08/22] omeprazole 40 mg capsule,delayed release 40 mg PO DAILY gerd 05/31/20 [History Last Taken 2 Days Ago ~05/08/22] budesonide-formoterol HFA 80 mcg-4.5 mcg/actuation aerosol inhaler (Symbicort) 1 inh inhalation BID 03/06/22 [History Last Taken 05/10/22] cabozantinib 20 mg tablet (Cabometyx) 20 mg PO DAILY@0600 CANCER 03/06/22 [History Last Taken 05/10/22] empagliflozin 10 mg tablet (Jardiance) 10 mg PO DAILY 03/06/22 [History Last Taken 2 Days Ago ~05/08/22] ferrous sulfate 325 mg (65 mg iron) tablet (Iron (ferrous sulfate)) 325 mg PO DAILY 03/06/22 [History Last Taken 2 Days Ago ~05/08/22] glimepiride 4 mg tablet 2 mg PO QHS 05/10/22 [History Last Taken 2 Days Ago ~05/08/22] glimepiride 4 mg tablet 4 mg PO DAILY 05/10/22 [History Last Taken 2 Days Ago ~05/08/22] hydrocodone-acetaminophen 5-325mg 5mg-325mg 1 tab PO Q8H PAIN 05/10/22 [History Last Taken 1 Week Ago ~05/03/22] metoprolol tartrate 25 mg tablet 25 mg PO BID 05/10/22 [History Last Taken 2 Days Ago ~05/08/22] multivitamin 1 tab PO DAILY HEALTH MAINTENANCE 05/10/22 [History Last Taken 2 Days Ago ~05/08/22] risankizumab-rzaa 150 mg/mL subcutaneous pen injector (Skyrizi) 150 mg subcut Q84D PSORIASIS 05/10/22 [History Last Taken 6 Weeks Ago ~03/29/22] triamcinolone acetonide 0.1 % topical ointment 1 applic topical DAILY PRN PRN FLARES 05/10/22 [History Last Taken 05/10/22] Allergy/AdvReac Type Severity Reaction Status Date / Time No Known Allergies Allergy Verified 05/10/22 14:25 Family History Mother Arthritis Hypertension Asthma Grandfather Cancer Aunt Colon cancer Surgical History History of colonoscopy History of coronary artery stent placement (08/30/04) History of esophagogastroduodenoscopy (EGD) History of left heart catheterization (01/27/07) History of Chicho fundoplication Hx of LASIK Social History Smoking Status: Never smoker ROS ROS ED Constitutional Constitutional ED: Reports as per HPI and weakness; Denies chills or fever(s) Eyes Eyes: Denies change in vision or diplopia ENT ENT ED: Denies rhinorrhea or sore throat Cardiovascular Cardiovascular: Reports chest pain; Denies palpitations Respiratory/Chest Respiratory/Chest: Reports cough and dyspnea Gastrointestinal Gastrointestinal: Reports nausea; Denies abdominal pain, diarrhea or vomiting Genitourinary Genitourinary ED: Denies dysuria or hematuria Musculoskeletal Musculoskeletal: Denies back pain or neck pain Integumentary Denies abscess or rash Neurologic Neurologic: Reports as per HPI and disequilibrium; Denies dizziness, focal weakness, frequent falls, headache(s), paresthesias, seizures or syncope Psychiatric Psychiatric: Denies anxiety or suicidal thoughts EXAM Physical Exam Const Vital Signs: 05/10/22 14:25 05/10/22 15:29 05/10/22 16:24 Temperature 96.1 F L Temperature Source Temporal Pulse Rate 64 105 H Respiratory Rate 18 18 Respiratory Effort Normal Non-Labored Respiratory Pattern Normal Blood Pressure 107/82 H 105/77 Blood Pressure Mean 90 86 Pulse Ox 98 96 Oxygen Delivery Method Room Air Room Air 05/10/22 18:00 05/10/22 20:01 Temperature Temperature Source Pulse Rate 104 H Respiratory Rate 19 H Respiratory Effort Respiratory Pattern Blood Pressure 130/98 H 115/100 H Blood Pressure Mean 108 105 Pulse Ox 98 Oxygen Delivery Method Room Air Positive well nourished and well developed General Appearance ED: well developed and NAD HEENT Reports moist mucous membranes normocephalic and atraumatic Eyes PERRL and EOMs intact bilaterally Neck full ROM and supple Chest Wall inspection of chest normal and palpation of chest normal Resp normal respiratory effort Resp Narrative: Diminished breath sounds worse on the right. Otherwise clear to auscultation. Trachea midline. Conversive in full sentences. Cardio regular rate, regular rhythm and no murmurs GI non-tender and non-distended Auscultation: normoactive bowel sounds Palpation: soft Back/Spine no CVA tenderness General Back: other FROM Extremity normal to inspection General Extremety ED: Negative for edema, pulses abnormal or tenderness General Extremity: Negative for edema or pulses abnormal Neuro oriented x3, CN's II-XII intact bilaterally and no sensory deficits noted Sensorium / Orientation: awake and alert Motor Exam: strength 5/5 throughout Psych mental status grossly normal Skin no wounds Skin Narrative: Dried mildly erythematous patchy skin on the face consistent with atopic dermatitis. No petechia or purpura. MDM MDM MDM Narrative Medical decision making narrative: 1 view chest x-ray on my interpretation shows a right-sided pneumothorax, radiology in agreement: A loculated. This is probably where he is having symptoms, it is new since his 03/28 CT. He has been having symptoms for weeks however, and this is not causing his anorexia and ataxia and generalized weakness although it is probably causing his pleurodynia given its location which is consistent with where his loculated pneumothorax is. I think this should probably be treated, he is interested in getting it treated to help with his pain and symptoms there, but I do not think it needs to be treated emergently since his vital signs are normal and he is in no respiratory distress. Visit is in terms of ataxia I obtained a CT of the head with and without contrast, it shows no obvious evidence of metastatic disease. The cause of his ataxia is unknown. His other labs are remarkable for mild hypercalcemia probably related to his cancer, a low albumin which is not new, probably related to relative malnutrition, he is not edematous clinically. He is afraid he is going to fall because of the ataxia. I discussed his loculated pneumothorax with surgery Dr. Kendrick. He reviewed the chest x-ray and the CT that he had from 1.5 months ago on 03/28, patient indicates he thinks he has been having pain longer than that, but the CT did not show the pneumothorax then. However he does have nodules in both lower lobes in addition to a right perihilar mass, the concern from surgery is that he could potentially have a mass that is even through one of his bronchi, he did not have a simple bleb in this area that appears to have ruptured and because of this, and he is concerned that by simply putting a chest tube in, this may not completely treat this or inflate the lobe/lung, and he recommends cardiothoracic evaluation prior to doing anything like that. We do not have that at this hospital, so I discussed with the patient for treatment options and transfer. Patient was comfortable with going to [facility]. I discussed there with thoracic surgery Dr. Maldonado, who agreed with multispecialty evaluation at [facility], accepted there by medical oncology Dr. Lara. Lab Data Attestation: I reviewed the patient's lab results. Labs: Laboratory Results - last 24 hr 05/10/22 05/10/22 05/10/22 15:00 15:00 16:20 WBC 8.8 RBC 4.90 Hgb 14.1 Hct 43.9 MCV 89.6 MCH 28.8 MCHC 32.1 RDW Std Deviation 61.0 H RDW Coeff of Esperanza 18.8 H Plt Count 447 MPV 9.4 Immature Gran % (Auto) 0.200 Neut % (Auto) 52.8 Lymph % (Auto) 37.2 [place] % (Auto) 6.4 Eos % (Auto) 2.7 Baso % (Auto) 0.7 Absolute Neuts (auto) 4.6 Absolute Lymphs (auto) 3.26 Nucleated RBC % 0 Sodium 134 L Potassium 4.3 Chloride 97 L Carbon Dioxide 27.0 Anion Gap 10 BUN 15 Creatinine 1.16 Estim Creat Clear Calc 53.13 Est GFR (MDRD) Af Amer 79 Est GFR (MDRD) Non-Af 65 BUN/Creatinine Ratio 12.9 Glucose 229 H Calcium 10.2 H Total Bilirubin 1.00 AST 32 ALT 32 Alkaline Phosphatase 121 H Total Protein 9.1 H Albumin 2.8 L Globulin 6.3 H Albumin/Globulin Ratio 0.4 L Urine Color Cancelled Urine Clarity Cancelled Urine pH Cancelled Ur Specific [place] Cancelled U Specif Grav (Refrac) Cancelled Urine Protein Cancelled Urine Glucose (UA) Cancelled Urine Ketones Cancelled Urine Occult Blood Cancelled Urine Nitrite Cancelled Urine Bilirubin Cancelled Urine Urobilinogen Cancelled Ur Leukocyte Esterase Cancelled Urine RBC Cancelled Urine WBC Cancelled Ur Squamous Epith Cells Cancelled Ur Transition Epith Cell Cancelled Ur Renal Epithelial Cell Cancelled Calcium Oxalate Crystal Cancelled Uric Acid Crystals Cancelled Triple Phos Crystals Cancelled Other Crystals Cancelled Amorphous Sediment Cancelled Urine Bacteria Cancelled Hyaline Casts Cancelled Fine Granular Casts Cancelled Coarse Granular Casts Cancelled Waxy Casts Cancelled RBC Casts Cancelled WBC Casts Cancelled Urine Mucus Cancelled Urine Trichomonas Cancelled Urine Yeast Cancelled 05/10/22 17:55 WBC RBC Hgb Hct MCV MCH MCHC RDW Std Deviation RDW Coeff of [place] Plt Count MPV Immature Gran % (Auto) Neut % (Auto) Lymph % (Auto) [place] % (Auto) Eos % (Auto) Baso % (Auto) Absolute Neuts (auto) Absolute Lymphs (auto) Nucleated RBC % Sodium Potassium Chloride Carbon Dioxide Anion Gap BUN Creatinine Estim Creat Clear Calc Est GFR (MDRD) Af Amer Est GFR (MDRD) Non-Af BUN/Creatinine Ratio Glucose Calcium Total Bilirubin AST ALT Alkaline Phosphatase Total Protein Albumin Globulin Albumin/Globulin Ratio Urine Color Yellow Urine Clarity Clear Urine pH 8.0 Ur Specific [place] 1.010 U Specif Grav (Refrac) Urine Protein 15 H Urine Glucose (UA) 50 H Urine Ketones 15 H Urine Occult Blood Negative Urine Nitrite Negative Urine Bilirubin Negative Urine Urobilinogen 4 H Ur Leukocyte Esterase Negative Urine RBC Urine WBC Ur Squamous Epith Cells Ur Transition Epith Cell Ur Renal Epithelial Cell Calcium Oxalate Crystal Uric Acid Crystals Triple Phos Crystals Other Crystals Amorphous Sediment Urine Bacteria Hyaline Casts Fine Granular Casts Coarse Granular Casts Waxy Casts RBC Casts WBC Casts Urine Mucus Urine Trichomonas Urine Yeast Radiography Diagnostic Testing: Clinical Impression(s) from Imaging Studies Chest X-Ray 05/10/22 15:15 IMPRESSION: New focal loculated pneumothorax in the mid and lower aspect of the lateral portion of the right lung. Electronically Signed: Anam Washington MD at 15:40 EDT , Brain CT 05/10/22 16:30 IMPRESSION: Chronic microvascular ischemic changes. No evidence for metastatic disease to the brain. Electronically Signed: Jaime Bernstein MD at 17:52 EDT , Discharge Plan Triage Chief Complaint: Weakness Other Complaint: Nausea/Vomiting ED Provider: Camilo De La Cruz Dx/Rx/DC Orders Clinical Impression: Loculated right lateral pneumothorax, Malignant neoplasm of kidney metastatic to lung, Ataxia, Hypercalcemia, Anorexia Prescriptions: No Action simvastatin 40 MG tablet 40 mg PO QHS metformin 1,000 MG tablet,ER lucrecia.retention 24 hr 1,000 mg PO BID tamsulosin 0.4 mg capsule 0.4 mg PO QHS omeprazole 40 MG capsule,delayed release(DR/EC) 40 mg PO DAILY ferrous sulfate [Iron (ferrous sulfate)] 325 mg (65 mg iron) Tablet 325 mg PO DAILY budesonide-formoterol [Symbicort] 80-4.5 mcg/actuation Hfa Aerosol Inhaler 1 inh INHALATION BID Jardiance 10 mg Tablet 10 mg PO DAILY Cabometyx 20 mg Tablet 20 mg PO DAILY@0600 multivitamin Tablet 1 tab PO DAILY hydrocodone-acetaminophen 5-325 mg tablet 1 tab PO Q8H triamcinolone acetonide 0.1 % ointment 1 applic TOPICAL DAILY PRN PRN (Reason: FLARES) Label Comments: APPLY OINTMENT TOPICALLY TO AFFECTED AREA OF RASH ONCE DAILY WHEN FLARED glimepiride 4 mg tablet 4 mg PO DAILY glimepiride 4 mg tablet 2 mg PO QHS metoprolol tartrate 25 mg tablet 25 mg PO BID Skyrizi 150 mg/mL pen injector 150 mg SUBCUT Q84D Primary Care Provider: Solis Gross Referrals: Solis Gross MD [Primary Care Provider] - Disposition Disposition: Acute Care Hospital Discharge Location: [facility]
[2022-05-10] MEDS: 0.9% Normal Saline 1,000 ML 200 ML IV ×2 (16:41→23:19)
[2022-05-10 18:00] VITALS: BP 130/98
[2022-05-10 18:02] LABS: Color, Urine Yellow (Yellow); Glucose, Dipstick 50 mg/dl (Normal); Ketone-Dipstick 15 mg/dl (Negative); Leukocyte Esterase-Dipstick Negative /ul (Negative); Nitrite-Dipstick Negative (Negative); Occult Blood-Urine Negative /ul (Negative); Protein-Dipstick 15 mg/dl (Negative); Urine Bilirubin Dipstick Negative (Negative); Urine Clarity Clear (Clear); Urine Urobilinogen 4 mg/dl (Normal)
--- NOTE | 2022-05-10 19:36 | ED.RN ---
TRANSFER STARTED FOR PATIENT AT THIS TIME [facility] CALLED
[2022-05-10 20:01] VITALS: BP 115/100; PULSE 104; RESP 19; O2SAT 98
--- NOTE | 2022-05-10 20:23 | ED.RN ---
[facility] calling back to speak with dr. schwarz at this time
[2022-05-10 23:18] VITALS: BP 134/96; PULSE 101; RESP 18; O2SAT 94
--- NOTE | 2022-05-10 23:19 | NURSING ---
pt refusing to wear heart monitor and vital signs monitor.
[2022-05-11] VITALS (15 sets, daily range): BP systolic 106–154; BP diastolic 81–104; PULSE 75–110; RESP 15–18; TEMP 36.3–37; O2SAT 95–100
--- NOTE | 2022-05-11 01:35 | PCM.HP.STD ---
HPI - General General Date of Admission: 05/11/22 Date of Service: 05/11/22 Chief Complaint: Right sided chest pain. 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 Quinones with ongoing oral chemotherapy x 1.5 years with occasional sputum/cough with onset pleuritic chest discomfort primarily in the R lower chest, increased fatigue and weakness over the last month as well as poor oral intake and decreased appetite as well as notable imbalance, feeling as though he is going to fall whenever he walks/gets up prompting ED evaluation. He notes that the imbalance has been ongoing for 1-2 weeks and is severe enough he has to constantly hold onto items in the house to be able to get to different rooms. Despite patient's significant description of his ataxia in the ED he states it was little bit easier for him to go to the restroom and he was less symptomatic at that time. Work-up in the ED included T96.1, heart rate 104, BP 115/100, respiratory rate 19, 98% on room air, CBC with WC 8.8, hemoglobin 14.1, platelet 447 without marked shift, CMP with sodium 134, chloride 97, glucose 229, calcium 10.2, hepatic profile with alk phos 121, urinalysis with no obvious evidence of UTI, rapid COVID antigen negative, CT of the brain with chronic microvascular ischemic changes with no evidence of metastatic disease or acute intracranial findings, chest x-ray with a new focal loculated pneumothorax in the mid and lower aspect the lateral portion of the right lung. From review of outpatient records recent 03/28/2022 CT chest/abdomen/pelvis with noted persistent bronchiectasis involving medial aspect of the right upper lobe, right middle lobe and right lower lobe with a 3 cm x 2.6 cm nodule in the right lung base with an air-fluid level, right hilar mass, slight decrease in size of adrenal nodules, left renal mass, noted to be essentially unchanged. In the ED patient administered NS. [facility] Medical History Asthma Atherosclerotic heart disease of [place] coronary artery without angina pectoris Cancer Chest pain Clear cell carcinoma of left kidney COPD (chronic obstructive pulmonary disease) COVID-19 (05/2020) Debility Diabetes Diabetes Essential hypertension Former smoker Full dentures GERD (gastroesophageal reflux disease) Hearing loss, left Hearing loss, right Hemoptysis Hiatal hernia History of non-ST elevation myocardial infarction (NSTEMI) (08/30/04) Hyperlipidemia Hypertension Hypokalemia Injury of head and neck Lung mass Metastasis to adrenal gland Metastatic renal cell carcinoma to lung Non-smoker Paresthesias in left hand Psoriasis Sleep apnea Syncope Wears glasses Home Medications metformin 1,000 mg 24 hr tablet,extended release 1,000 mg PO BID diabetes 05/10/16 [History Last Taken 2 Days Ago ~05/08/22] simvastatin 40 mg tablet 40 mg PO QHS cholesterol 05/10/16 [History Last Taken 2 Days Ago ~05/08/22] tamsulosin 0.4 mg capsule 0.4 mg PO QHS prostate 10/01/19 [History Last Taken 2 Days Ago ~05/08/22] omeprazole 40 mg capsule,delayed release 40 mg PO DAILY gerd 05/31/20 [History Last Taken 2 Days Ago ~05/08/22] budesonide-formoterol HFA 80 mcg-4.5 mcg/actuation aerosol inhaler (Symbicort) 1 inh inhalation BID 03/06/22 [History Last Taken 05/10/22] cabozantinib 20 mg tablet (Cabometyx) 20 mg PO DAILY@0600 CANCER 03/06/22 [History Last Taken 05/10/22] empagliflozin 10 mg tablet (Jardiance) 10 mg PO DAILY 03/06/22 [History Last Taken 2 Days Ago ~05/08/22] ferrous sulfate 325 mg (65 mg iron) tablet (Iron (ferrous sulfate)) 325 mg PO DAILY 03/06/22 [History Last Taken 2 Days Ago ~05/08/22] glimepiride 4 mg tablet 2 mg PO QHS 05/10/22 [History Last Taken 2 Days Ago ~05/08/22] glimepiride 4 mg tablet 4 mg PO DAILY 05/10/22 [History Last Taken 2 Days Ago ~05/08/22] hydrocodone-acetaminophen 5-325mg 5mg-325mg 1 tab PO Q8H PAIN 05/10/22 [History Last Taken 1 Week Ago ~05/03/22] metoprolol tartrate 25 mg tablet 25 mg PO BID 05/10/22 [History Last Taken 2 Days Ago ~05/08/22] multivitamin 1 tab PO DAILY HEALTH MAINTENANCE 05/10/22 [History Last Taken 2 Days Ago ~05/08/22] risankizumab-rzaa 150 mg/mL subcutaneous pen injector (Skyrizi) 150 mg subcut Q84D PSORIASIS 05/10/22 [History Last Taken 6 Weeks Ago ~03/29/22] triamcinolone acetonide 0.1 % topical ointment 1 applic topical DAILY PRN PRN FLARES 05/10/22 [History Last Taken 05/10/22] Allergy/AdvReac Type Severity Reaction Status Date / Time No Known Allergies Allergy Verified 05/10/22 14:25 Family History Mother Arthritis Hypertension Asthma Grandfather Cancer Aunt Colon cancer other (Patient denies any knowledge of his father or paternal family history.) Surgical History History of colonoscopy History of coronary artery stent placement (08/30/04) History of esophagogastroduodenoscopy (EGD) History of left heart catheterization (01/27/07) History of Chicho fundoplication Hx of LASIK Social History (Updated 05/11/22 @ 02:[address] 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 alcohol intake: never substance use type: does not use ROS ROS Narrative Admission Review of Systems: CONSTITUTIONAL: No weight loss, fever, chills, + weakness or fatigue. HEENT: Eyes: No visual loss, blurred vision, double vision or yellow sclerae. Ears, Nose, Throat: No hearing loss, sneezing, congestion, runny nose or sore throat. SKIN: + Chronic R heel wound, psoriatic lesions. CARDIOVASCULAR: + chest pain, chest pressure or chest discomfort, No palpitations, edema, orthopnea, syncopal events. RESPIRATORY: + shortness of breath, occasional cough, No marked sputum, wheezing, hemoptysis. GASTROINTESTINAL: No anorexia, nausea, vomiting or diarrhea, abdominal pain, melena, BRBPR. GENITOURINARY: No dysuria, frequency, urgency or retention. NEUROLOGICAL: + Imbalance, sensation going to fall, ataxia, No headache, dizziness, syncope, paralysis, numbness or tingling in the extremities, focal weakness, change in bowel or bladder control, seizure. MUSCULOSKELETAL: + muscle, back pain, joint pain or stiffness. HEMATOLOGIC: + anemia, bleeding or bruising. LYMPHATICS: No enlarged nodes. No history of splenectomy. PSYCHIATRIC: No history of depression or anxiety. ENDOCRINOLOGIC: No reports of sweating, cold or heat intolerance. No polyuria or polydipsia. ALLERGIES: + history of asthma, rhinitis. Vital Signs Vital Signs Vital Signs: 05/10/22 14:25 05/10/22 15:29 05/10/22 16:24 Temperature 96.1 F L Temperature Source Temporal Pulse Rate 64 105 H Respiratory Rate 18 18 Respiratory Effort Normal Non-Labored Respiratory Pattern Normal Blood Pressure 107/82 H 105/77 Blood Pressure Mean 90 86 Pulse Ox 98 96 Oxygen Delivery Method Room Air Room Air 05/10/22 18:00 05/10/22 20:01 05/10/22 23:18 Temperature Temperature Source Pulse Rate 104 H 101 H Respiratory Rate 19 H 18 Respiratory Effort Respiratory Pattern Blood Pressure 130/98 H 115/100 H 134/96 H Blood Pressure Mean 108 105 108 Pulse Ox 98 94 Oxygen Delivery Method Room Air Room Air Weight Weight: 146 lb Body Mass Index (BMI) 19.2 Physical Exam Narrative Physical Examination: General: Awake, alert, oriented x 3 and cooperative, hard of hearing, improved with hearing aid placement, seated upright in ED bed, fatigued appearing, notes some pleuritic chest discomfort, still some ataxia with ambulation attempts but not as severe as earlier in the day. Skin: Normal color, normal turgor, no icterus, no cyanosis except for chronic psoriatic especially facial skin changes, occasional staged ecchymoses and chronic right heel wound without any significant periwound erythema/discharge. HEENT: AT/NC, EOMI, PERRLA, mildly dry MM, no carotid bruits or JVD noted. Lungs: Significantly diminished right base to mid posterior lung field, pleuritic discomfort with deep inspiratory effort noted, no evidence of any distress, no rales, ronchi or wheezing. Heart: Currently regular rate and rhythm; no gallop, rub audible. Abdomen: Soft, thin habitus, NTTP, ND, distant normal BS, no HSM. Extremities: No cyanosis, clubbing, or edema. Neurological: Patient awake, alert, oriented x 3, cognitive function appears baseline intact; pupils equally reactive to light and accommodation, cranial nerves grossly normal, moving all 4 extremities, no focal deficits, FTN and HTS appropriate, equivocal Babinski, sensation intact, still notes ongoing imbalance with ambulatory activity at times. Psychiatric: Affect appears fatigued otherwise normal, no acute evidence of depressive or anxiety feelings. Results Lab / Micro Data Result Diagrams: 05/10/22 15:00 05/10/22 15:00 Labs: Laboratory Results - last 24 hr 05/10/22 15:00: WBC 8.8, RBC 4.90, Hgb 14.1, Hct 43.9, MCV 89.6, MCH 28.8, MCHC 32.1, RDW Std Deviation 61.0 H, RDW Coeff of [place] 18.8 H, Plt Count 447, MPV 9.4, Immature Gran % (Auto) 0.200, Neut % (Auto) 52.8, Lymph % (Auto) 37.2, Ralls % (Auto) 6.4, Eos % (Auto) 2.7, Baso % (Auto) 0.7, Absolute Neuts (auto) 4.6, Absolute Lymphs (auto) 3.26, Nucleated RBC % 0 05/10/22 15:00: Sodium 134 L, Potassium 4.3, Chloride 97 L, Carbon Dioxide 27.0, Anion Gap 10, BUN 15, Creatinine 1.16, Estim Creat Clear Calc 53.13, Est GFR (MDRD) Af Amer 79, Est GFR (MDRD) Non-Af 65, BUN/Creatinine Ratio 12.9, Glucose 229 H, Calcium 10.2 H, Total Bilirubin 1.00, AST 32, ALT 32, Alkaline Phosphatase 121 H, Total Protein 9.1 H, Albumin 2.8 L, Globulin 6.3 H, Albumin/Globulin Ratio 0.4 L 05/10/22 16:20: Urine Color Cancelled, Urine Clarity Cancelled, Urine pH Cancelled, Ur Specific [place] Cancelled, U Specif Grav (Refrac) Cancelled, Urine Protein Cancelled, Urine Glucose (UA) Cancelled, Urine Ketones Cancelled, Urine Occult Blood Cancelled, Urine Nitrite Cancelled, Urine Bilirubin Cancelled, Urine Urobilinogen Cancelled, Ur Leukocyte Esterase Cancelled, Urine RBC Cancelled, Urine WBC Cancelled, Ur Squamous Epith Cells Cancelled, Ur Transition Epith Cell Cancelled, Ur Renal Epithelial Cell Cancelled, Calcium Oxalate Crystal Cancelled, Uric Acid Crystals Cancelled, Triple Phos Crystals Cancelled, Other Crystals Cancelled, Amorphous Sediment Cancelled, Urine Bacteria Cancelled, Hyaline Casts Cancelled, Fine Granular Casts Cancelled, Coarse Granular Casts Cancelled, Waxy Casts Cancelled, RBC Casts Cancelled, WBC Casts Cancelled, Urine Mucus Cancelled, Urine Trichomonas Cancelled, Urine Yeast Cancelled 05/10/22 17:55: Urine Color Yellow, Urine Clarity Clear, Urine pH 8.0, Ur Specific [place] 1.010, Urine Protein 15 H, Urine Glucose (UA) 50 H, Urine Ketones 15 H, Urine Occult Blood Negative, Urine Nitrite Negative, Urine Bilirubin Negative, Urine Urobilinogen 4 H, Ur Leukocyte Esterase Negative Micro: Microbiology 05/10/22 19:51 Nasal Secretion SARS-CoV-2 Antigen (Rapid) - Final Radiology Impression Chest X-Ray 05/10/22 15:15 IMPRESSION: New focal loculated pneumothorax in the mid and lower aspect of the lateral portion of the right lung. Electronically Signed: Anam Washington MD at 15:40 EDT , Brain CT 05/10/22 16:30 IMPRESSION: Chronic microvascular ischemic changes. No evidence for metastatic disease to the brain. 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 Quinones with ongoing oral chemotherapy x 1.5 years with occasional sputum/cough with onset pleuritic chest discomfort primarily in the R lower chest, increased fatigue and weakness over the last month as well as poor oral intake and decreased appetite prompting ED evaluation. #1. Right sided Chest pain secondary to Complicated Loculated Right Lateral PTX with underlying metastatic pulmonary mass, nodules: 03/28/2022 CT chest/abdomen/pelvis with noted persistent bronchiectasis involving medial aspect of the right upper lobe, right middle lobe and right lower lobe with a 3 cm x 2.6 cm nodule in the right lung base with an air-fluid level, right hilar mass, slight decrease in size of adrenal nodules, left renal mass, noted to be essentially unchanged with current chest x-ray with a new focal loculated pneumothoraces in the mid and lower aspect of the lateral portion of the right lung. General surgery consulted per ED and recommend transfer for cardiothoracic evaluation given concerns and complicated pneumothoraces presentation is felt a chest tube would likely not alleviate this acute presentation. If tertiary facility bed is not available in a timely fashion we will plan admission to PCU to be cautious, maintain on oxygen supplementation, request general surgery involvement pending transfer to tertiary bed, as needed pain regimen, encourage aggressive I-S, plan repeat a.m. chest x-ray to follow pneumothorax. #2. Imbalance, ataxia concerning for possible CVA: Will obtain MRI Brain with and without contrast to be cautious given history, although CT head with IV contrast was normal of note and if CVA or notable lesions would have expected some findings on this given timeline, given will be obtaining the MRI of the brain will at the same time obtain MRA Head and plan carotid US, ECHO per CVA protocol, PT/OT/Speech/Nutrition evaluation per protocol. Given timeline will continue HTN regimen, will maintain on baby asa only given #[address] surgery evaluation and intervention, continue statin w/ AM FLP, fall precautions. TSH, FLP, mag, HgbA1c pending. #3. Clear cell carcinoma of the left kidney with metastatic disease: Patient with metastatic disease noted to the adrenal gland and lung, Stage IV following w/ Dr. Quinones with ongoing oral chemotherapy x 1.5 years, acute presentation with as noted new focal loculated pneumothoraces in the mid and lower aspect of the lateral portion of the right lung with noted nodules in both lower lobes as well as a right perihilar mass with concern for possible mass through one of the bronchi with as noted pending transfer. Will continue home cabometyx regimen. #4. Diabetes mellitus type II: Hold oral home regimen, ADA diet, accu checks w/ ISS. #5. Chronic COPD/asthma with former tobacco use: Will maintain on oxygen with wean as tolerated to room air, temporarily hold home inhalers and in the interim transition to ATC duonebs, PRN albuterol, HOB, IS parameters. Encourage continued tobacco cessation. #6. CAD: Status post PCI x 3, given CVA work-up will continue baby asa only, continue metoprolol, statin, not on ARIA inhibitor/ARB. #7. Hypertension: Continue home regimen including metoprolol, PRN hydralazine. #8. Hyperlipidemia: We will continue patient home statin therapy, FLP in AM. #9. BPH: We will continue patient home Flomax regimen. #10. GERD: History Chicho fundoplication, will continue patient home omeprazole regimen. #11. Chronic right heel ulceration: In the setting of poorly controlled type 2 diabetes as well as metastatic cancer, following with podiatry at the wound care center, per most recent records patient is supposed to use his cam walker but is using a surgical shoe at home, continue dressing changes with Aquacel Ag daily as well as wash with antibacterial soap and water daily, continue Tubigrip for swelling, offload with knee scooter per podiatry recommendation as well as recent cam walker/walker. #12. ALYSSA: We will maintain on CPAP nightly. #13. DVT prophylaxis: SCDs, hold chemoprophylaxis given awaiting surgery evaluation upon transfer; however, if prolonged add. #14. CODE status: Patient HCPOA is his daughter and living will is currently in place. Discussed CODE status at length including difference between FULL code, DNR-CCA and DNR-CC status. Following discussions about the differences in these status, requested DNR-CCA, no intubation status. Advanced Care Planning Face to Face Time: 16 minutes. Charges/Coding Visit Charges Inpatient E&M: 39690 Init Hosp L3 Procedures Hospitalists Procedures: 57227 Advncd Care Plan 30 Min
--- NOTE | 2022-05-11 02:54 | MRI_ITS ---
HISTORY: CVA. TECHNIQUE: Multiplanar and multisequence MR images of the brain were obtained before and after the intravenous administration of 13 mL Clariscan. 342 images. COMPARISON: CT prior day, MRI 10/01/2019. FINDINGS: BRAIN PARENCHYMA: Chronic increased T2 FLAIR signal in the bilateral cerebral white matter. No abnormal focus of restricted diffusion. No acute intracranial hemorrhage identified. No enhancing lesion in the brain parenchyma. CSF SPACES: Chronic mild generalized volume loss. No significant midline shift or other mass effect.No extra-axial fluid collection. VASCULAR SYSTEM: Major intracranial flow voids are maintained. PARANASAL SINUSES AND MASTOID AIR CELLS: Chronic right frontal and maxillary sinusitis. ORBITS: Left lens resection. MRI/Brain W/WO Contrast IMPRESSION: No evidence for enhancing intracranial mass or acute infarct. Chronic involutional and white matter changes. Chronic right sinusitis. Electronically Signed: Brandi Blank MD at 10:53 EDT ,
--- NOTE | 2022-05-11 02:54 | MRI_ITS ---
HISTORY: CVA. TECHNIQUE: Routine [place]/brain 3D time of flight MR angiogram protocol was performed without contrast. 3D reconstructions were reviewed. 193 images. COMPARISON: CTA 10/01/2019. FINDINGS: ICAs: No significant stenosis at the intracranial/visualized segments. ACAs: No significant stenosis at the visualized segments. MCAs: No significant stenosis at the visualized segments. food dehydrator operator: No significant stenosis at the visualized segments. BASILAR ARTERY: No significant stenosis. VERTEBRAL ARTERIES: No significant stenosis at the intradural/visualized segments. No evidence of intracranial aneurysm or vascular malformation. MRI/MRA Head ONLY without Contrast IMPRESSION: No evidence for large vessel occlusion or other focal vascular abnormality in the [place] region. Electronically Signed: Brandi Blank MD at 10:55 EDT ,
--- NOTE | 2022-05-11 02:54 | ECHOD_ITS ---
Reason For Study: CVA Procedure This was a 2D Doppler, Color Flow transthoracic echocardiogram. Exam performed portable in patient room. Left Ventricle Normal LV size. The estimated ejection fraction is 10-15 %. There is evidence of diastolic dysfunction. base of the LV is you normally. Rest of the LV is severely hypokinetic. Right Ventricle Normal RV size. Normal systolic function. Atria Normal left atrium. Normal right atrium. No doppler evidence for ASD. Bubble contrast study negative for right to left interatrial shunt. Mitral Valve There is no mitral valve stenosis. Trivial mitral valve insufficiency. Tricuspid Valve There is no tricuspid stenosis. Trivial tricuspid valve insufficiency. Unable to estimate RV systolic pressure due to insufficient tricuspid regurgitant envelope. Aortic Valve Trisinus/trileaflet aortic valve. There is no aortic stenosis. No aortic valve insufficiency. Pulmonic Valve There is no pulmonic valvular stenosis. No pulmonic valve insufficiency. Great Vessels Normal aortic root. Pericardium/Pleural No pericardial effusion. Medication Performed a rapid injection of agitated mix of 9 cc saline and 1cc air to assess for atrial septal defect. MMode/2D Measurements & Calculations LVIDd: 4.5 cm IVSd: 0.71 cm Ao root diam: 3.8 cm LVIDs: 3.9 cm LVPWd: 0.71 cm RVDd: 2.8 cm FS: 14.0 % LAV(MOD-bp): 32.3 ml LVAd ap4: 32.9 cm2 SV(MOD-sp4): 22.5 ml LAV(MOD-bp) Indexed: 17.0 ml/m2 LVLd ap4: 8.7 cm LAV(MOD-sp2): 33.5 ml EDV(MOD-sp4): 106.3 ml LAV(MOD-sp4): 27.1 ml EDV(sp4-el): 106.2 ml LVAs ap4: 27.6 cm2 LVLs ap4: 7.7 cm ESV(MOD-sp4): 83.9 ml ESV(sp4-el): 84.1 ml EF(MOD-sp4): 21.1 % EF(sp4-el): 20.8 % SV(sp4-el): 22.1 ml LA A4 area: 12.9 cm2 LA dimension(2D): 3.4 cm RA A4 area: 12.0 cm2 Time Measurements MV dec time: 0.11 sec Doppler Measurements & Calculations MV E max jesus: 64.0 cm/sec Lat Peak E' Jesus: 3.4 cm/sec Med Peak E' Jesus: 3.0 cm/sec MV A max jesus: 75.1 cm/sec E/E' lat: 18.6 E/E' med: 21.5 MV E/A: 0.85 MV V2 max: 87.3 cm/sec MV dec slope: 832.0 cm/sec2 Ao V2 max: 108.0 cm/sec MV max P.1 mmHg Ao max P.7 mmHg MV V2 mean: 55.4 cm/sec Ao V2 mean: 78.0 cm/sec MV mean P.4 mmHg Ao mean P.7 mmHg MV V2 VTI: 20.6 cm Ao V2 VTI: 21.2 cm LV V1 max: 68.4 cm/sec PA V2 max: 73.2 cm/sec TR max jesus: 240.9 cm/sec LV V1 max P.9 mmHg PA V2 mean: 55.4 cm/sec TR max P.3 mmHg LV V1 mean P.0 mmHg LV V1 mean: 46.7 cm/sec LV V1 VTI: 13.7 cm ECHO/Echo Complete Interpretation Summary The estimated ejection fraction is 10-15 %. There is evidence of diastolic dysfunction. Trivial mitral valve insufficiency. Ordering Physician: Gayla Reynoso Referring Physician: Solis Gross Performed By: Sabine Sandoval RCS
--- NOTE | 2022-05-11 02:54 | CDU_ITS ---
Reason For Study: CVA Rt. Velocities/BP Lt. Velocities/BP Prox CCA 37/15 cm/sec. Prox CCA 34/14 cm/sec. Mid CCA 30/11 cm/sec. Mid CCA 35/12 cm/sec. Dist CCA 29/9 cm/sec. Dist CCA 31/15 cm/sec. Prox ICA 19/9 cm/sec. Prox ICA 22/11 cm/sec. Mid ICA 36/18 cm/sec. Mid ICA 39/14 cm/sec. Dist ICA 33/16 cm/sec. Dist ICA 56/30 cm/sec. Rt. ICA/CCA = 1.2. Lt. ICA/CCA = 1.6. Prox ECA 39/10 cm/sec. Prox ECA 36/7 cm/sec. Rt. Vert. 20/11 cm/sec. Lt. Vert. 26/12 cm/sec. Right Extracranial There is heterogeneous, irregular atherosclerotic plaque noted in the right common carotid artery. There is heterogeneous, irregular atherosclerotic plaque noted in the right internal carotid artery. There is heterogeneous, irregular atherosclerotic plaque noted in the right external carotid artery. Antegrade flow is noted in the right vertebral artery. Left Extracranial There is heterogeneous, irregular atherosclerotic plaque noted in the left common carotid artery. There is heterogeneous, irregular atherosclerotic plaque noted in the left internal carotid artery. There is intimal thickening but no significant atherosclerotic plaque noted in the left external carotid artery. Antegrade flow is noted in the left vertebral artery. Procedure Carotid Duplex [id number]. This is a Carotid Duplex examination using B-mode, color flow and specral Doppler. Exam performed portable in patient room. VL/Carotid Duplex Ultrasound Interpretation Summary Irregular calcific plaque with shadowing at the proximal right internal carotid artery with less than 50% stenosis. Less than 50% stenosis right external carotid artery Irregular plaque at the proximal left internal carotid artery with less than 50 % stenosis Less than 50% stenosis left external carotid artery Patent and antegrade vertebral arteries bilaterally Arterial flow rates are relatively low for all vessels bilaterally. Clinical co rrelation would be appropriate Ordering Physician: Gayla Reynoso Referring Physician: Solis Gross Performed By: Summer Palafox, DA, RVT
[2022-05-11] MEDS: Ondansetron 4 MG/2 ML Vial IV (03:29)
[2022-05-11] MEDS: Pantoprazole Sodium 40 MG Tablet PO (03:52)
[2022-05-11] MEDS: 0.9% Normal Saline 1,000 ML 100 ML IV (03:52)
--- NOTE | 2022-05-11 05:55 | RAD_ITS ---
STUDY: X-RAY CHEST REASON FOR EXAM: Male, 71 years old. Dyspnea, PTX TECHNIQUE: Single AP portable view of the chest. COMPARISON: Comparison is made with prior examination 05/10/2022. FINDINGS: EKG electrodes are seen. Essentially stable appearance of the loculated right pneumothorax with the mild loss in the right lower lobe. There is no demonstrated pleural abnormality. Normal size heart. Normal mediastinum and oliva. Normal visualized pulmonary arteries. There is atherosclerotic calcification of the aortic arch with tortuosity. Normal visualized thoracic spine. There is degenerative osteoarthritis of the bilateral shoulders. There is no demonstrated abnormality of the visualized soft tissue structures of the upper abdomen. RAD/Chest 1 View (Portable) IMPRESSION: Stable appearance of the loculated right lateral inferior pneumothorax. Electronically Signed: Anam Washington MD at 12:19 EDT ,
[2022-05-11] MEDS: oxyCODONE 5 MG Tablet PO (06:32)
[2022-05-11 06:49] LABS: Absolute Lymphocyte Count 1.47 X10^3/uL (0.83-4.51); Absolute Neutrophil Count 4.9 X10^3/uL (2.0-7.7); Basophil# 0.04 X10^3/uL; Basophil% 0.6 % (0-1); Eosinophil# 0.12 X10^3/uL; Eosinophils% 1.7 % (0-5); Hematocrit 36.5 % (40-54); Hemoglobin 11.6 g/dL (13.0-16.5); Lymphocyte # 1.47 X10^3/ul (0.83-4.51); Mean Corp Hgb Conc 31.8 g/dL (32-36); Mean Corpuscular Hgb 28.6 pg (27.0-32.0); Mean Corpuscular Volume 89.9 fL (80-94); Mean Platelet Vol. 9.6 fl (6.2-12.0); Monocyte# 0.41 X10^3/uL; Monocyte% 5.9 % (0-10); NRBC Flagged by Analyzer 0 % (0-5); Neutrophil # 4.93 X10^3/uL (2.7-7.7); Neutrophil % 70.4 % (47-70); Platelet Count 299 K/mm3 (150-450); RBC Distribution Width CV 18.6 % (11.6-14.6); RBC Distribution Width SD 61.7 fl (35.1-43.9); Red Blood Count 4.06 M/mm3 (4.6-6.2)
--- NOTE | 2022-05-11 07:35 | NURSING ---
pt refused getting a blood sugar, states he doesnt check it and he doesn't want his finger poked
[2022-05-11 07:54] LABS: ALB/GLOB Ratio 0.4 RATIO (0.9-2.4); AST(SGOT) 26 U/L (15-37); Alanine Aminotransfer ALT/SGPT 23 U/L (16-61); Albumin, Serum 2.1 g/dL (3.2-5.0); Alkaline Phosphatase 99 U/L (45-117); Anion Gap 9 (5-15); BUN 9 mg/dL (7-18); BUN/Creat Ratio 11.7 RATIO (10-20); Calcium,Total 8.4 mg/dL (8.5-10.1); Chloride 102 mmol/L (98-107); Cholesterol 116 mg/dL (200); Creatinine, Serum 0.77 mg/dL (0.70-1.30); EST Glomerular Filtration Rate 105 mL/min (>60); Est Glom Filt Rate - Afr Amer 127 mL/min (>60); Estimated Creatinine Clearance 63.93 ml/min; Globulin 5.2 g/dL (2.2-4.2); Glucose 151 mg/dL (74-106); High Density Lipoprotein 33 mg/dL; Potassium 4.5 mmol/L (3.5-5.1); Protein, Total 7.3 g/dL (6.4-8.2); Sodium Level 131 mmol/L (136-145); Thyroid Stim Hormone (TSH) 3.24 uIU/mL (0.358-3.74); Triglycerides 132 mg/dL; Very Low Density Lipoprotein 26 mg/dL (5-40)
[2022-05-11 08:10] LABS: Hemoglobin A1c 5.4 % (3.8-5.6)
--- NOTE | 2022-05-11 09:03 | EX.PCM.CON.S ---
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 Patient has remained clinically stable since diagnosis with no increased work of breathing and normal oxygen saturations on room air. I previously recommended evaluation at a tertiary center given the patient's concurrent cancer diagnosis and concerned that this issue would not be remedied simply with a thoracostomy tube. Patient is currently awaiting transfer with acceptance already established at the [facility]. In the interim his chest x-ray this morning appears stable. I have detailed my rationale for recommending this tertiary evaluation and patient expressed understanding. Discussing this further, I shared with Mr. Cloud that there may be delays in going to the more major medical centers and he immediately offers that he would like to consider transfer to a potentially smaller Medical Center than [facility] if it would mean a shorter inpatient stay and earlier evaluation. I have also asked Mr. Cloud whether or not he would like a tube thoracostomy should his clinical situation deteriorate and he says that he would be agreeable to such an intervention if it was likely to provide benefit. For the interim recommend: ? Continuous pulse oximetry ? Daily chest x-rays ? Notification to general surgery of any acute clinical changes ? Consider alternative transfer locations should wait times appear excessive HPI Consult Data Date of Consult: 05/11/22 HPI Narrative HPI Narrative: BRANDAN CLOUD, is a 71 M, with a complex past medical history?particular as it relates to a diagnosis of stage IV renal cell carcinoma that was made in 2020, who presents to [facility] with a number of complaints including weakness, anorexia, ataxia, and pleuritic chest pain. With respect to the latter, ER work-up was notable for a loculated pneumothorax on the right. Patient did not appear to be in any clinical distress with no tachypnea or no change in his oxygen saturation on room air. I was notified about patient during his ER stay and recommended evaluation at a tertiary center given that patient's renal cell cancer has been found metastatic to the right lung and I was concerned that a simple thoracostomy tube would not remedy the situation. Patient was accepted at [facility], however, there is a delay in transfer due to lack of bed availability. I have been asked to consult while patient remains under evaluation here in our hospital. Mr. Cloud states that he first noticed some soreness in February that was associated with shortness of breath and pain with coughing. He reports that this was diagnosed with a pneumonia and he was treated with antibiotics. He admits that the symptoms all improved with this treatment, but then have been worse again for the last 3 to 4 weeks. He reports occasional severe pain in his chest that is hard to breathe and he generally manages this by taking a hydrocodone tablet. He states that over the last several days this is actually been somewhat better in terms of pain, but he continues with a productive cough of brownish sputum. He confesses that his presentation was mainly occasioned by his inability to eat much over the last 2 weeks. He states that he will make a meal and then end up throwing it out because he cannot stomach anything further. This is translated to a weight loss of 50 pounds from the start of chemo in the 100 pounds from his baseline weight. With respect to his neurologic complaints, he denies any falls, but admits that he has fairly close quarters around his apartment and frequently has to grab onto daniel to prevent falls. [facility] Medical History (Updated 05/11/22 @ 03:43 by Khushi Viera) Asthma Atherosclerotic heart disease of [place] coronary artery without angina pectoris Cancer Chest pain Clear cell carcinoma of left kidney COPD (chronic obstructive pulmonary disease) COVID-19 (05/2020) CPAP (continuous positive airway pressure) dependence Debility Diabetes Diabetes Essential hypertension Former smoker Full dentures GERD (gastroesophageal reflux disease) GERD (gastroesophageal reflux disease) Hearing loss, left Hearing loss, right Hemoptysis Hiatal hernia History of non-ST elevation myocardial infarction (NSTEMI) (08/30/04) Hyperlipidemia Hypertension Hypertension Hypokalemia Injury of head and neck Lung mass Metastasis to adrenal gland Metastatic renal cell carcinoma to lung Myocardial infarct Non-smoker Paresthesias in left hand Psoriasis Sleep apnea Syncope Ulcer Wears glasses Home Medications metformin 1,000 mg 24 hr tablet,extended release 1,000 mg PO BID diabetes 05/10/16 [History Last Taken 2 Days Ago ~05/08/22] simvastatin 40 mg tablet 40 mg PO QHS cholesterol 05/10/16 [History Last Taken 2 Days Ago ~05/08/22] tamsulosin 0.4 mg capsule 0.4 mg PO QHS prostate 10/01/19 [History Last Taken 2 Days Ago ~05/08/22] omeprazole 40 mg capsule,delayed release 40 mg PO DAILY gerd 05/31/20 [History Last Taken 2 Days Ago ~05/08/22] budesonide-formoterol HFA 80 mcg-4.5 mcg/actuation aerosol inhaler (Symbicort) 1 inh inhalation BID 03/06/22 [History Last Taken 05/10/22] cabozantinib 20 mg tablet (Cabometyx) 20 mg PO DAILY@0600 CANCER 03/06/22 [History Last Taken 05/10/22] empagliflozin 10 mg tablet (Jardiance) 10 mg PO DAILY 03/06/22 [History Last Taken 2 Days Ago ~05/08/22] ferrous sulfate 325 mg (65 mg iron) tablet (Iron (ferrous sulfate)) 325 mg PO DAILY 03/06/22 [History Last Taken 2 Days Ago ~05/08/22] glimepiride 4 mg tablet 2 mg PO QHS 05/10/22 [History Last Taken 2 Days Ago ~05/08/22] glimepiride 4 mg tablet 4 mg PO DAILY 05/10/22 [History Last Taken 2 Days Ago ~05/08/22] hydrocodone-acetaminophen 5-325mg 5mg-325mg 1 tab PO Q8H PAIN 05/10/22 [History Last Taken 1 Week Ago ~05/03/22] metoprolol tartrate 25 mg tablet 25 mg PO BID 05/10/22 [History Last Taken 2 Days Ago ~05/08/22] multivitamin 1 tab PO DAILY HEALTH MAINTENANCE 05/10/22 [History Last Taken 2 Days Ago ~05/08/22] risankizumab-rzaa 150 mg/mL subcutaneous pen injector (Skyrizi) 150 mg subcut Q84D PSORIASIS 05/10/22 [History Last Taken 6 Weeks Ago ~03/29/22] triamcinolone acetonide 0.1 % topical ointment 1 applic topical DAILY PRN PRN FLARES 05/10/22 [History Last Taken 05/10/22] Allergy/AdvReac Type Severity Reaction Status Date / Time No Known Allergies Allergy Verified 05/10/22 14:25 Family History Mother Arthritis Hypertension Asthma Grandfather Cancer Aunt Colon cancer Surgical History History of colonoscopy History of coronary artery stent placement (08/30/04) History of esophagogastroduodenoscopy (EGD) History of left heart catheterization (01/27/07) History of Chicho fundoplication Hx of LASIK Social History (Updated 05/11/22 @ 02:[address] 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 alcohol intake: never substance use type: does not use ROS Constitutional Constitutional: Reports anorexia and weight loss Respiratory/Chest Respiratory/Chest: Reports cough, dyspnea, productive cough and shortness of breath with exertion Physical Exam Const alert, oriented x3 and no apparent distress Constitutional Narrative: Patient able to speak in complete sentences without becoming short of breath. I observed the pulse oximetry in the room remains at 97% while conducted in conversation. Chest Chest Narrative: Patient has no chest wall discomfort. There is no sign of crepitus along the chest wall with palpation. Resp normal respiratory effort Lab / Micro Data Result Diagrams: 05/11/22 06:42 05/11/22 06:42 Labs: Laboratory Results - last 24 hr 05/10/22 15:00: WBC 8.8, RBC 4.90, Hgb 14.1, Hct 43.9, MCV 89.6, MCH 28.8, MCHC 32.1, RDW Std Deviation 61.0 H, RDW Coeff of Esperanza 18.8 H, Plt Count 447, MPV 9.4, Immature Gran % (Auto) 0.200, Neut % (Auto) 52.8, Lymph % (Auto) 37.2, [place] % (Auto) 6.4, Eos % (Auto) 2.7, Baso % (Auto) 0.7, Absolute Neuts (auto) 4.6, Absolute Lymphs (auto) 3.26, Nucleated RBC % 0 05/10/22 15:00: Sodium 134 L, Potassium 4.3, Chloride 97 L, Carbon Dioxide 27.0, Anion Gap 10, BUN 15, Creatinine 1.16, Estim Creat Clear Calc 53.13, Est GFR (MDRD) Af Amer 79, Est GFR (MDRD) Non-Af 65, BUN/Creatinine Ratio 12.9, Glucose 229 H, Calcium 10.2 H, Total Bilirubin 1.00, AST 32, ALT 32, Alkaline Phosphatase 121 H, Total Protein 9.1 H, Albumin 2.8 L, Globulin 6.3 H, Albumin/Globulin Ratio 0.4 L 05/10/22 16:20: Urine Color Cancelled, Urine Clarity Cancelled, Urine pH Cancelled, Ur Specific [place] Cancelled, U Specif Grav (Refrac) Cancelled, Urine Protein Cancelled, Urine Glucose (UA) Cancelled, Urine Ketones Cancelled, Urine Occult Blood Cancelled, Urine Nitrite Cancelled, Urine Bilirubin Cancelled, Urine Urobilinogen Cancelled, Ur Leukocyte Esterase Cancelled, Urine RBC Cancelled, Urine WBC Cancelled, Ur Squamous Epith Cells Cancelled, Ur Transition Epith Cell Cancelled, Ur Renal Epithelial Cell Cancelled, Calcium Oxalate Crystal Cancelled, Uric Acid Crystals Cancelled, Triple Phos Crystals Cancelled, Other Crystals Cancelled, Amorphous Sediment Cancelled, Urine Bacteria Cancelled, Hyaline Casts Cancelled, Fine Granular Casts Cancelled, Coarse Granular Casts Cancelled, Waxy Casts Cancelled, RBC Casts Cancelled, WBC Casts Cancelled, Urine Mucus Cancelled, Urine Trichomonas Cancelled, Urine Yeast Cancelled 05/10/22 17:55: Urine Color Yellow, Urine Clarity Clear, Urine pH 8.0, Ur Specific [place] 1.010, Urine Protein 15 H, Urine Glucose (UA) 50 H, Urine Ketones 15 H, Urine Occult Blood Negative, Urine Nitrite Negative, Urine Bilirubin Negative, Urine Urobilinogen 4 H, Ur Leukocyte Esterase Negative 05/11/22 06:42: WBC 7.0, RBC 4.06 L, Hgb 11.6 L, Hct 36.5 L, MCV 89.9, MCH 28.6, MCHC 31.8 L, RDW Std Deviation 61.7 H, RDW Coeff of [place] 18.6 H, Plt Count 299, MPV 9.6, Immature Gran % (Auto) 0.400, Neut % (Auto) 70.4 H, Lymph % (Auto) 21.0, [place] % (Auto) 5.9, Eos % (Auto) 1.7, Baso % (Auto) 0.6, Absolute Neuts (auto) 4.9, Absolute Lymphs (auto) 1.47, Nucleated RBC % 0 05/11/22 06:42: Sodium 131 L, Potassium 4.5, Chloride 102, Carbon Dioxide 20.0 L, Anion Gap 9, BUN 9, Creatinine 0.77, Estim Creat Clear Calc 63.93, Est GFR (MDRD) Af Amer 127, Est GFR (MDRD) Non-Af 105, BUN/Creatinine Ratio 11.7, Glucose 151 H, Calcium 8.4 L, Total Bilirubin 0.70, AST 26, ALT 23, Alkaline Phosphatase 99, Total Protein 7.3, Albumin 2.1 L, Globulin 5.2 H, Albumin/Globulin Ratio 0.4 L, Triglycerides 132, Cholesterol 116, LDL Cholesterol 57, VLDL Cholesterol 26, HDL Cholesterol 33 L, TSH 3.24 05/11/22 06:42: Hemoglobin A1c 5.4 Micro: Microbiology 05/10/22 19:51 Nasal Secretion SARS-CoV-2 Antigen (Rapid) - Final Radiology Impression Chest X-Ray 05/10/22 15:15 IMPRESSION: New focal loculated pneumothorax in the mid and lower aspect of the lateral portion of the right lung. Electronically Signed: Anam Washington MD at 15:40 EDT , Brain CT 05/10/22 16:30 IMPRESSION: Chronic microvascular ischemic changes. No evidence for metastatic disease to the brain. Electronically Signed: Jaime Bernstein MD at 17:52 EDT , Charges/Coding Visit Charges Office Visits / Consults: [id number] IP Consult L2
--- NOTE | 2022-05-11 10:06 | CASEMGMT ---
According to [facility], the following are in-network tertiary facilities: [facility], [place], [facility], [facility], [facility], [facility], and . Paula GAUTAM CM
[2022-05-11] MEDS: Multivitamins,Therapeutic Tablet 1 TABLET PO (10:41)
[2022-05-11] MEDS: Aspirin 81 MG TAB.CHEW PO (10:41)
[2022-05-11] MEDS: Metoprolol Tartrate 25 MG Tablet PO ×2 (10:41→22:04)
[2022-05-11] MEDS: Ferrous Sulfate 325 MG Tablet PO (10:42)
--- NOTE | 2022-05-11 15:09 | CASEMGMT ---
Patient has a Healthcare Power of [employer] and a Healthcare Living Will. Patient is aware they are not on file and to bring in a copy when able. Jessi Bentley [employer]
--- NOTE | 2022-05-11 15:14 | NURSING ---
Spoke with Leena with [facility] transfer line she stated PT has been accepted however they are still waiting on a bed.
--- NOTE | 2022-05-11 19:21 | DS.PCM_ITS ---
Providers Date of Admission: 05/11/22 Date of Discharge: 05/11/22 Primary Care Physician: Dr. Solis Gross MD Consultations 05/11/22 02:54 Consult: General Surgery Routine Consulting Provider: Manoj Kendrick Reason for Consult: Complicated Loculated Right Lateral PTX EMERGENT Consult: No MD Notified: Yes Date Notified: 05/11/22 Time Notified: 01:45 Method of Notification: Text Reason For Visit: COMPLICATED LOCULATED R PTX, LUNG CA, ATAXIA Diagnosis Discharge Diagnosis (1) Loculated right lateral pneumothorax: Status: Acute Code(s): J93.83 - Other pneumothorax Medications at Discharge Home Medications metformin 1,000 mg 24 hr tablet,extended release 1,000 mg PO BID diabetes 05/10/16 simvastatin 40 mg tablet 40 mg PO QHS cholesterol 05/10/16 tamsulosin 0.4 mg capsule 0.4 mg PO QHS prostate 10/01/19 omeprazole 40 mg capsule,delayed release 40 mg PO DAILY gerd 05/31/20 budesonide-formoterol HFA 80 mcg-4.5 mcg/actuation aerosol inhaler (Symbicort) 1 inh inhalation BID 03/06/22 cabozantinib 20 mg tablet (Cabometyx) 20 mg PO DAILY@0600 CANCER 03/06/22 empagliflozin 10 mg tablet (Jardiance) 10 mg PO DAILY 03/06/22 ferrous sulfate 325 mg (65 mg iron) tablet (Iron (ferrous sulfate)) 325 mg PO DAILY 03/06/22 glimepiride 4 mg tablet 2 mg PO QHS 05/10/22 glimepiride 4 mg tablet 4 mg PO DAILY 05/10/22 hydrocodone-acetaminophen 5-325mg 5mg-325mg 1 tab PO Q8H PAIN 05/10/22 metoprolol tartrate 25 mg tablet 25 mg PO BID 05/10/22 multivitamin 1 tab PO DAILY HEALTH MAINTENANCE 05/10/22 risankizumab-rzaa 150 mg/mL subcutaneous pen injector (Skyrizi) 150 mg subcut Q84D PSORIASIS 05/10/22 triamcinolone acetonide 0.1 % topical ointment 1 applic topical DAILY PRN PRN FLARES 05/10/22 Hospital Course Operations None Procedures 2-D Echocardiogram and EKG Summary of Care Provided Minutes Spent on Discharge: 35 Hospital Course: Discharge Diagnoses: #1.? Right sided Chest pain secondary to Complicated Loculated Right Lateral PTX with underlying metastatic pulmonary mass, nodules #2.? Imbalance, ataxia concerning for possible CVA; however, RULED OUT CVA #3. New Reduced EF 10-15% with diastolic dysfunction, Combined Systolic/Diastolic CHF/Cardiomyopathy unclear type #4.? 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 Diabetes mellitus type II #6.? Chronic COPD/asthma with former tobacco use #7.? CAD: Status post PCI x 3 #8.? Hypertension #9.? Hyperlipidemia #10.? BPH #11.? GERD #12.? Chronic right heel ulceration #13.? ALYSSA #14.? CODE status: DNR-CCA, no intubation status Discharge Summary: The patient is a 71 y/o M w/ PMHx: Chronic wounds, BPH, Former tobacco use, Diabetes mellitus type II, Asthma/COPD, Hx Acute COVID Viral Syndrome, CAD s/p PCI, GERD w/ Hx Chicho, ALYSSA, Psoriasis, HTN, HLD, 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 Quinones with ongoing oral chemotherapy x 1.5 years with occasional sputum/cough with onset pleuritic chest discomfort primarily in the R lower chest, increased fatigue and weakness over the last month as well as poor oral intake and decreased appetite prompting ED evaluation on 05/11/22. 03/28/2022 CT chest/abdomen/pelvis with noted persistent bronchiectasis involving medial aspect of the right upper lobe, right middle lobe and right lower lobe with a 3 cm x 2.6 cm nodule in the right lung base with an air-fluid level, right hilar mass, slight decrease in size of adrenal nodules, left renal mass, noted to be essentially unchanged with current chest x-ray with a new focal loculated pneumothoraces in the mid and lower aspect of the lateral portion of the right lung.?Patient admitted to PCU, repeat CXR obtained in AM noted to be stable pending transfer. Dr. Kendrick General surgery evaluated and followed patient pending transfer. MRI of the brain with no evidence for enhancing intracranial mass or acute infarct with chronic involutional and white matter changes with chronic right sinusitis, MRA of the head with no evidence for large vessel occlusion or other focal vascular abnormality in the [place]bler of [place] region, carotid duplex with irregular calcific plaque with shadowing of the proximal right ICA with less than 50% stenosis, less than 50% stenosis right external carotid artery, irregular plaque the proximal left ICA with less than 50% stenosis, less than 50% stenosis left external carotid artery, patent and antegrade vertebral arteries bilaterally, arterial flow rates are relatively low for all vessels bilaterally, ECHO with EF significantly reduced 10 to 15% with evidence of diastolic dysfunction and trivial MVI. Patient with notably reduced EF of unclear etiology but was transf erred prior to any ability for Cardiology involvement. Patient obtained bed for further evaluation of new focal loculated pneumothoraces in the mid and lower aspect of the lateral portion of the right lung therefore discharged to [facility] on 05/11/22 once transport arranged. Discharge Time: > 35 Minutes Medical Records Data Medical Nutrition Assessment Dietitian: Malnutrition Criteria Met Start: 05/11/22 14:25 Freq: Status: Active Protocol: Document 05/11/22 14:25 LO (Rec: 05/11/22 14:25 [id number]) Nutrition Malnutrition Evidence of Malnutrition Exists Yes Malnutrition (severe): Chronic Evidenced By Suboptimal Energy Intake ( Severe),Weight Loss (Severe), Physical Changes (Moderate) Clinical Problem Chronic Disease or Condition Related Malnutrition Etiology related to kidney cancer with mets to adrenal gland and lung Signs/Symptoms as evidenced by 22.3lbs (12.8% ) weight loss, estimated <75% intake of estimated energy needs for >1 month, and moderate wasting to orbital and temporal regions. Status Active Problem Recommendation Dietitian Recommendations/Changes RD will change diet to 2000 CCD diet to manage blood glucose and optimize intakes. Continue Glucerna supplement Weight / BMI Weight Weight: 151 lb 7.321 oz Body Mass Index (BMI) 20.0 ABG / Lab / Microbiology Data Result Diagrams: 05/11/22 06:42 05/11/22 06:42 Laboratory: Laboratory Results - last 24 hr 05/11/22 06:42: WBC 7.0, RBC 4.06 L, Hgb 11.6 L, Hct 36.5 L, MCV 89.9, MCH 28.6, MCHC 31.8 L, RDW Std Deviation 61.7 H, RDW Coeff of Esperanza 18.6 H, Plt Count 299, MPV 9.6, Immature Gran % (Auto) 0.400, Neut % (Auto) 70.4 H, Lymph % (Auto) 21.0, [place] % (Auto) 5.9, Eos % (Auto) 1.7, Baso % (Auto) 0.6, Absolute Neuts (auto) 4.9, Absolute Lymphs (auto) 1.47, Nucleated RBC % 0 05/11/22 06:42: Sodium 131 L, Potassium 4.5, Chloride 102, Carbon Dioxide 20.0 L , Anion Gap 9, BUN 9, Creatinine 0.77, Estim Creat Clear Calc 63.93, Est GFR (MDRD) Af Amer 127, Est GFR (MDRD) Non-Af 105, BUN/Creatinine Ratio 11.7, Glucose 151 H, Calcium 8.4 L, Total Bilirubin 0.70, AST 26, ALT 23, Alkaline Phosphatase 99, Total Protein 7.3, Albumin 2.1 L, Globulin 5.2 H, Albumin/Globulin Ratio 0.4 L, Triglycerides 132, Cholesterol 116, LDL Cholesterol 57, VLDL Cholesterol 26, HDL Cholesterol 33 L, TSH 3.24 05/11/22 06:42: Hemoglobin A1c 5.4 Microbiology: Microbiology 05/10/22 19:51 Nasal Secretion SARS-CoV-2 Antigen (Rapid) - Final Radiography Diagnostic Testing: Radiology Impression Brain MRI 05/11/22 02:54 IMPRESSION: No evidence for enhancing intracranial mass or acute infarct. Chronic involutional and white matter changes. Chronic right sinusitis. Electronically Signed: Brandi Blank MD at 10:53 EDT Reading Location ID and State: [facility] / [place] Tel , Service support , Carotid Duplex 05/11/22 02:54 Interpretation Summary Irregular calcific plaque with shadowing at the proximal right internal carotid artery with less than 50% stenosis. Less than 50% stenosis right external carotid artery Irregular plaque at the proximal left internal carotid artery with less than 50% stenosis Less than 50% stenosis left external carotid artery Patent and antegrade vertebral arteries bilaterally Arterial flow rates are relatively low for all vessels bilaterally. Clinical correlation would be appropriate Ordering Physician: Gayla Reynoso Referring Physician: Solis Gross Performed By: Summer Palafox, [facility], T Echocardiogram 05/11/22 02:54 Interpretation Summary The estimated ejection fraction is 10-15 %. There is evidence of diastolic dysfunction. Trivial mitral valve insufficiency. Ordering Physician: Gayla Reynoso Referring Physician: Solis Gross Performed By: Sabine Sandoval [facility] Head MRA 05/11/22 02:54 IMPRESSION: No evidence for large vessel occlusion or other focal vascular abnormality in the ambler of [place] region. Electronically Signed: Brandi Blank MD at 10:55 EDT , Chest X-Ray 05/11/22 05:55 IMPRESSION: Stable appearance of the loculated right lateral inferior pneumothorax. Electronically Signed: Anam Washington MD at 12:19 EDT , Meaningful Use Info Meaningful Use Diagnoses (Choose all that apply): None applicable Discharge Plan Admission Admit Date/Time: 05/11/22 01:44 Attending Provider: Adarsh Lee Primary Care Provider: Solis Gross Consulting Providers: Gayla Reynoso ; Manoj Kendrick Discharge Orders/Prescriptions Prescriptions: No Action simvastatin 40 MG tablet 40 mg PO QHS metformin 1,000 MG tablet,ER lucrecia.retention 24 hr 1,000 mg PO BID tamsulosin 0.4 mg capsule 0.4 mg PO QHS omeprazole 40 MG capsule,delayed release(DR/EC) 40 mg PO DAILY ferrous sulfate [Iron (ferrous sulfate)] 325 mg (65 mg iron) Tablet 325 mg PO DAILY budesonide-formoterol [Symbicort] 80-4.5 mcg/actuation Hfa Aerosol Inhaler 1 inh INHALATION BID Jardiance 10 mg Tablet 10 mg PO DAILY Cabometyx 20 mg Tablet 20 mg PO DAILY@0600 multivitamin Tablet 1 tab PO DAILY hydrocodone-acetaminophen 5-325 mg tablet 1 tab PO Q8H triamcinolone acetonide 0.1 % ointment 1 applic TOPICAL DAILY PRN PRN (Reason: FLARES) Label Comments: APPLY OINTMENT TOPICALLY TO AFFECTED AREA OF RASH ONCE DAILY WHEN FLARED glimepiride 4 mg tablet 4 mg PO DAILY glimepiride 4 mg tablet 2 mg PO QHS metoprolol tartrate 25 mg tablet 25 mg PO BID Skyrizi 150 mg/mL pen injector 150 mg SUBCUT Q84D Referrals / Follow Up: Solis Gross MD [Primary Care Provider] - Disposition Discharge Orders: Discharge Patient (Routine); Ordered 05/11/22 Ordered By: Dr. Gayla Reynoso Charges/Coding Visit Charges OBSV E&M: [id number] Observ/hosp same date L3
[2022-05-11] MEDS: Tamsulosin HCl 0.4 MG Capsule PO (22:04)
[2022-05-11] MEDS: Atorvastatin Calcium 20 MG Tablet PO (22:04)
[2022-05-11 22:25] LABS: Bedside Glucose 138 mg/dL (74-106)
--- NOTE | 2022-05-11 23:51 | NURSING ---
Set up transportation for patient with physicians they will pickup at 8am on 05/12/22. Dr. Lee and Dr. Reynoso made aware.
[2022-05-12 02:59] VITALS: PULSE 104
--- NOTE | 2022-05-12 03:50 | NURSING ---
pt took his court monitor leads and refused to put it back stating he is etting transported and not really staying here, despite this RN and another RN telling pt it monitors his heart while he is in here waiting for transport. aware and said ok to be non tele.
[2022-05-12 03:54] VITALS: BP 102/80; PULSE 104; RESP 18; TEMP 36.6; O2SAT 95
[2022-05-12 06:50] LABS: Absolute Neutrophil Count 5.4 X10^3/uL (2.0-7.7); Basophil# 0.04 X10^3/uL; Basophil% 0.5 % (0-1); Eosinophil# 0.21 X10^3/uL; Eosinophils% 2.7 % (0-5); Hematocrit 36.8 % (40-54); Hemoglobin 11.6 g/dL (13.0-16.5); Lymphocyte % 20.6 % (19-41); Mean Corp Hgb Conc 31.5 g/dL (32-36); Mean Corpuscular Hgb 28.2 pg (27.0-32.0); Mean Corpuscular Volume 89.5 fL (80-94); Monocyte% 6.4 % (0-10); NRBC Flagged by Analyzer 0 % (0-5); Neutrophil % 69.4 % (47-70); Platelet Count 333 K/mm3 (150-450); RBC Distribution Width CV 18.5 % (11.6-14.6); RBC Distribution Width SD 60.7 fl (35.1-43.9); Red Blood Count 4.11 M/mm3 (4.6-6.2); White Blood Count 7.8 K/mm3 (4.4-11.0)
[2022-05-12 07:12] LABS: Anion Gap 9 (5-15); BUN 11 mg/dL (7-18); BUN/Creat Ratio 13.5 RATIO (10-20); Calcium,Total 8.7 mg/dL (8.5-10.1); Chloride 103 mmol/L (98-107); Creatinine, Serum 0.82 mg/dL (0.70-1.30); EST Glomerular Filtration Rate 98 mL/min (>60); Est Glom Filt Rate - Afr Amer 119 mL/min (>60); Estimated Creatinine Clearance 78.19 ml/min; Glucose 154 mg/dL (74-106); Potassium 4.6 mmol/L (3.5-5.1); Sodium Level 134 mmol/L (136-145)
[2022-05-12 07:30] VITALS: O2SAT 96
[2022-05-12] MEDS: Multivitamins,Therapeutic Tablet 1 TABLET PO (08:13)
[2022-05-12 08:16] VITALS: BP 103/80; PULSE 112; RESP 18; TEMP 36.5; O2SAT 96
--- NOTE | 2022-05-12 09:00 | NURSING ---
Pt. refused Protonix prior to discharge. BP for transport team was 95/63. Metoprolol held at this time due to BP being below 100.
--- NOTE | 2022-05-12 10:57 | PCM.DC.SUM ---
Providers Date of Admission: 05/11/22 Primary Care Physician: Dr. Solis Gross MD Consultations 05/11/22 02:54 Consult: General Surgery Routine Consulting Provider: Manoj Kendrick Reason for Consult: Complicated Loculated Right Lateral PTX EMERGENT Consult: No MD Notified: Yes Date Notified: 05/11/22 Time Notified: 01:45 Method of Notification: Text Reason For Visit: COMPLICATED LOCULATED R PTX, LUNG CA, ATAXIA Diagnosis Discharge Diagnosis (1) Loculated right lateral pneumothorax: Status: Acute Code(s): J93.83 - Other pneumothorax Medications at Discharge Home Medications metformin 1,000 mg 24 hr tablet,extended release 1,000 mg PO BID diabetes 05/10/16 simvastatin 40 mg tablet 40 mg PO QHS cholesterol 05/10/16 tamsulosin 0.4 mg capsule 0.4 mg PO QHS prostate 10/01/19 omeprazole 40 mg capsule,delayed release 40 mg PO DAILY gerd 05/31/20 budesonide-formoterol HFA 80 mcg-4.5 mcg/actuation aerosol inhaler (Symbicort) 1 inh inhalation BID 03/06/22 cabozantinib 20 mg tablet (Cabometyx) 20 mg PO DAILY@0600 CANCER 03/06/22 empagliflozin 10 mg tablet (Jardiance) 10 mg PO DAILY 03/06/22 ferrous sulfate 325 mg (65 mg iron) tablet (Iron (ferrous sulfate)) 325 mg PO DAILY 03/06/22 glimepiride 4 mg tablet 2 mg PO QHS 05/10/22 glimepiride 4 mg tablet 4 mg PO DAILY 05/10/22 hydrocodone-acetaminophen 5-325mg 5mg-325mg 1 tab PO Q8H PAIN 05/10/22 metoprolol tartrate 25 mg tablet 25 mg PO BID 05/10/22 multivitamin 1 tab PO DAILY HEALTH MAINTENANCE 05/10/22 risankizumab-rzaa 150 mg/mL subcutaneous pen injector (Skyrizi) 150 mg subcut Q84D PSORIASIS 05/10/22 triamcinolone acetonide 0.1 % topical ointment 1 applic topical DAILY PRN PRN FLARES 05/10/22 Hospital Course Operations None Procedures 2-D Echocardiogram Summary of Care Provided Minutes Spent on Discharge: 40 Hospital Course: PEr HPI: The patient is a 71 y/o M w/ PMHx: Chronic wounds, BPH, Former tobacco use, Diabetes mellitus type II, Asthma/COPD, Hx Acute COVID Viral Syndrome, CAD s/p PCI, GERD w/ Hx [place], ALYSSA, Psoriasis, HTN, HLD, 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 Quinones with ongoing oral chemotherapy x 1.5 years with occasional sputum/cough with onset pleuritic chest discomfort primarily in the R lower chest, increased fatigue and weakness over the last month as well as poor oral intake and decreased appetite as well as notable imbalance, feeling as though he is going to fall whenever he walks/gets up prompting ED evaluation. He notes that the imbalance has been ongoing for 1-2 weeks and is severe enough he has to constantly hold onto items in the house to be able to get to different rooms.? Despite patient's significant description of his ataxia in the ED he states it was little bit easier for him to go to the restroom and he was less symptomatic at that time.? Work-up in the ED included T96.1, heart rate 104, BP 115/100, respiratory rate 19, 98% on room air, CBC with WC 8.8, hemoglobin 14.1, platelet 447 without marked shift, CMP with sodium 134, chloride 97, glucose 229, calcium 10.2, hepatic profile with alk phos 121, urinalysis with no obvious evidence of UTI, rapid COVID antigen negative, CT of the brain with chronic microvascular ischemic changes with no evidence of metastatic disease or acute intracranial findings, chest x-ray with a new focal loculated pneumothorax in the mid and lower aspect the lateral portion of the right lung.? From review of outpatient records recent 03/28/2022 CT chest/abdomen/pelvis with noted persistent bronchiectasis involving medial aspect of the right upper lobe, right middle lobe and right lower lobe with a 3 cm x 2.6 cm nodule in the right lung base with an air-fluid level, right hilar mass, slight decrease in size of adrenal nodules, left renal mass, noted to be essentially unchanged. In the ED patient administered NS. Hospital Course: 1. Right-sided chest pain secondary to complicated loculated right lateral pneumothorax with underlying metastatic pulmonary mass with a history of clear cell carcinoma of the left kidney likely indicative of stage IV metastatic disease/systolic cardiomyopathy?71-year-old male with stage IV disease presents to the hospital with loculated right lateral pneumothorax. Surgery did not feel comfortable addressing this and felt that he needed to go to a tertiary care center secondary to the complex of the case and he was excepted to [facility]. They did have a bed for him and they accepted him this morning so he was discharged here for follow-up. I did have a 25-minute discussion on advance care planning on top of his discharge planning in terms of hospice care especially in light of the fact that he has an EF of 10 to 15% on his echo that was done while here. MRI of the head was negative for any stroke secondary to his presentation with imbalance and ataxia. We will plan for discharge today for evaluation at a tertiary care center for his pneumothorax and malignancy. 2. Type 2 diabetes, chronic COPD, coronary artery disease status post stents, hypertension, hyperlipidemia, BPH, GERD, ALYSSA are all chronic medical conditions which complicate his care. His home medications were continued where appropriate Physical Exam Narrative And general: Alert, Oriented x3, Cooperative, No apparent distress HEENT: Atraumatic, PERRLA, EOMI, Normocephalic Oral: Moist Mucosa Neck: Supple, No JVD Lungs: Diminished, Normal air movement, No rhonchi, No wheeze, No rales Cardiovascular: Regular rate, Regular Rhythm, Normal S1, Normal S2, No murmurs Abdomen: Soft, Non Tender, Non-Distended, No Hepato-splenomegaly Extremities: No edema, Capillary Refill Less than 3 Seconds Skin: No rashes, No breakdown Musculoskeletal: No Tenderness to Palpation of Joints or Extremities Neurological: Cranial nerves II-XII grossly intact, Motor Exam 5/5 strength throughout, Sensory exam intact to light touch and pain Psych/Mental Status: Normal Affect, Appropriate Weight / BMI Weight Weight: 151 lb 14.376 oz Body Mass Index (BMI) 20.0 ABG / Lab / Microbiology Data Result Diagrams: 05/12/22 06:00 05/12/22 06:00 Laboratory: Laboratory Results - last 24 hr 05/11/22 22:02: POC Glucose 138 H 05/12/22 06:00: WBC 7.8, RBC 4.11 L, Hgb 11.6 L, Hct 36.8 L, MCV 89.5, MCH 28.2, MCHC 31.5 L, RDW Std Deviation 60.7 H, RDW Coeff of [place]per[place] 18.5 H, Plt Count 333, MPV 10.0, Immature Gran % (Auto) 0.400, Neut % (Auto) 69.4, Lymph % (Auto) 20.6, [place] % (Auto) 6.4, Eos % (Auto) 2.7, Baso % (Auto) 0.5, Absolute Neuts (auto) 5.4, Absolute Lymphs (auto) 1.60, Nucleated RBC % 0 05/12/22 06:00: Sodium 134 L, Potassium 4.6, Chloride 103, Carbon Dioxide 22.0, Anion Gap 9, BUN 11, Creatinine 0.82, Estim Creat Clear Calc 78.19, Est GFR (MDRD) Af Amer 119, Est GFR (MDRD) Non-Af 98, BUN/Creatinine Ratio 13.5, Glucose 154 H, Calcium 8.7 Microbiology: Microbiology 05/10/22 19:51 Nasal Secretion SARS-CoV-2 Antigen (Rapid) - Final Radiography Diagnostic Testing: Radiology Impression Carotid Duplex 05/11/22 02:54 Interpretation Summary Irregular calcific plaque with shadowing at the proximal right internal carotid artery with less than 50% stenosis. Less than 50% stenosis right external carotid artery Irregular plaque at the proximal left internal carotid artery with less than 50% stenosis Less than 50% stenosis left external carotid artery Patent and antegrade vertebral arteries bilaterally Arterial flow rates are relatively low for all vessels bilaterally. Clinical correlation would be appropriate Ordering Physician: Gayla Reynoso Referring Physician: Solis Gross Performed By: Summer Palafox, DA, RVT Echocardiogram 05/11/22 02:54 Interpretation Summary The estimated ejection fraction is 10-15 %. There is evidence of diastolic dysfunction. Trivial mitral valve insufficiency. Ordering Physician: Gayla Reynoso Referring Physician: Solis Gross Performed By: Sabine Sandoval RCS Chest X-Ray 05/11/22 05:55 IMPRESSION: Stable appearance of the loculated right lateral inferior pneumothorax. Electronically Signed: Anam Washington MD at 12:19 EDT , Meaningful Use Info Meaningful Use Diagnoses (Choose all that apply): None applicable Discharge Plan Admission Admit Date/Time: 05/11/22 01:44 Attending Provider: Adarsh Lee Primary Care Provider: Solis Gross Consulting Providers: Gayla Reynoso ; Manoj Kendrick Discharge Orders/Prescriptions Prescriptions: No Action simvastatin 40 MG tablet 40 mg PO QHS metformin 1,000 MG tablet,ER lucrecia.retention 24 hr 1,000 mg PO BID tamsulosin 0.4 mg capsule 0.4 mg PO QHS omeprazole 40 MG capsule,delayed release(DR/EC) 40 mg PO DAILY ferrous sulfate [Iron (ferrous sulfate)] 325 mg (65 mg iron) Tablet 325 mg PO DAILY budesonide-formoterol [Symbicort] 80-4.5 mcg/actuation Hfa Aerosol Inhaler 1 inh INHALATION BID Jardiance 10 mg Tablet 10 mg PO DAILY Cabometyx 20 mg Tablet 20 mg PO DAILY@0600 multivitamin Tablet 1 tab PO DAILY hydrocodone-acetaminophen 5-325 mg tablet 1 tab PO Q8H triamcinolone acetonide 0.1 % ointment 1 applic TOPICAL DAILY PRN PRN (Reason: FLARES) Label Comments: APPLY OINTMENT TOPICALLY TO AFFECTED AREA OF RASH ONCE DAILY WHEN FLARED glimepiride 4 mg tablet 4 mg PO DAILY glimepiride 4 mg tablet 2 mg PO QHS metoprolol tartrate 25 mg tablet 25 mg PO BID Skyrizi 150 mg/mL pen injector 150 mg SUBCUT Q84D Referrals / Follow Up: Solis Gross MD [Primary Care Provider] - Disposition Disposition (needs filled in before D/C Order can be placed): Acute Care Hospital Charges/Coding Visit Charges Inpatient E&M: 37513 Disch Hosp
--- NOTE | 2022-05-12 13:14 | NURSING ---
Reviewed charting with Cj Coronado RN
== END 2022-05-12 09:16 | disposition short-term general hospital (02) | DRG 200 ==
LOC: ED 05-11 01:45 → PCU 05-11 02:13
PROVIDERS: Admitting Provider Family Medicine; Emergency Provider Emergency Medicine; PCP Family Medicine; Visit Provider Family Medicine
DX: J93.83 Other pneumothorax (principal); C78.01 Secondary malignant neoplasm of right lung; C79.70 Secondary malignant neoplasm of unspecified adrenal gland; C64.2 Malignant neoplasm of left kidney, except renal pelvis; L97.419 Non-pressure chronic ulcer of right heel and midfoot with unspecified severity; E11.621 Type 2 diabetes mellitus with foot ulcer; J44.9 Chronic obstructive pulmonary disease, unspecified; E11.22 Type 2 diabetes mellitus with diabetic chronic kidney disease; G47.33 Obstructive sleep apnea (adult) (pediatric); I10 Essential (primary) hypertension; E83.52 Hypercalcemia; I25.10 Atherosclerotic heart disease of native coronary artery without angina pectoris; K21.9 Gastro-esophageal reflux disease without esophagitis; E78.5 Hyperlipidemia, unspecified; I65.23 Occlusion and stenosis of bilateral carotid arteries; L40.9 Psoriasis, unspecified; Z86.16 Personal history of COVID-19; Z51.5 Encounter for palliative care; Z66 Do not resuscitate; R27.0 Ataxia, unspecified; R63.0 Anorexia; Z79.84 Long term (current) use of oral hypoglycemic drugs; Z79.51 Long term (current) use of inhaled steroids; Z80.0 Family history of malignant neoplasm of digestive organs; Z92.21 Personal history of antineoplastic chemotherapy; Z87.891 Personal history of nicotine dependence; N40.0 Benign prostatic hyperplasia without lower urinary tract symptoms; Z95.5 Presence of coronary angioplasty implant and graft
CPT/HCPCS: 11042; 36415; 70470; 70544; 70553; 71045; 80048; 80053; 80061; 81002; 82962; 83036; 84443; 85025; 87811; 92610; 93306; 93880; 94762; 97802; 99285; A9575; J7030; Q9967; A4216; J2405